=== PATIENT | female | born 1975 | race Caucasian/White ===

== ENCOUNTER → 2020-04-11 14:09 | Outpatient (BNVA) | payer OTHER, SELFPAY | PROVIDERS: PCP Internal Medicine; Referring Provider Internal Medicine; Visit Provider Obstetrics & Gynecology | DX: Z39.2 Encounter for routine postpartum follow-up (principal); Z98.891 History of uterine scar from previous surgery; R82.90 Unspecified abnormal findings in urine | CPT/HCPCS: 96372; 99212 ==

== ENCOUNTER 2020-06-12 12:31 | Outpatient (REF) | payer OTHER, SELFPAY | END 2020-06-12 12:32 | disposition home or self-care (01) | LOC: HO.LAB 12:31 | PROVIDERS: Visit Provider Hospitalist | DX: Z20.828 Contact with and (suspected) exposure to other viral communicable diseases (principal) | CPT/HCPCS: U0003 ==

== ENCOUNTER → 2020-07-02 09:01 | Outpatient (BNVA) | payer OTHER, SELFPAY | PROVIDERS: PCP Internal Medicine; Visit Provider Internal Medicine Endocrinology, Diabetes & Metabolism | DX: Z76.89 Persons encountering health services in other specified circumstances (principal) ==

== ENCOUNTER → 2020-07-04 14:58 | Outpatient (BNVA) | payer OTHER, SELFPAY | PROVIDERS: PCP Internal Medicine | DX: Z30.42 Encounter for surveillance of injectable contraceptive (principal) | CPT/HCPCS: 96372; 99211; J1050 ==

== ENCOUNTER 2020-07-17 14:16 | Outpatient (REF) | payer OTHER, SELFPAY ==
--- NOTE | 2020-07-17 14:18 | MR_ITS ---
EXAMINATION: MR BRAIN WITHOUT AND WITH CONTRAST CLINICAL INFORMATION: Biliary vision for 3 months. Headaches. History of Rathke's cleft cyst. COMPARISON: Multiple prior MRI scans, the most recent from 12/29/2018. TECHNIQUE: Multiplanar, multisequence MRI of the brain was obtained before and after the intravenous administration of 3 mL Gadavist. FINDINGS: There has been minimal further interval increase in the size of a focus of increased T1 signal in the pituitary gland, which measures 0.8 x 1.5 x 1.0 cm in AP, transverse and craniocaudal dimensions. It measured 0.8 x 1.4 x 1.0 cm on the most recent prior study. The study redemonstrates the convex configuration of the superior aspect of this lesion. Following contrast administration, there is no decreased differential enhancement. The infundibulum is slightly deviated to the right. There is no mass effect on the optic chiasm or prechiasmatic optic nerves. Flow-voids from the cavernous internal carotid arteries are maintained, and there is normal enhancement of the cavernous sinuses. No diffusion abnormalities are identified to suggest an acute or subacute infarct. No mass effect or midline shift is seen. The ventricles and sulci appear normal. The study redemonstrates scattered areas of increased T2 and FLAIR signal in the subcutaneous cortical and periventricular white matter, slightly increased in number compared to prior imaging. These are nonspecific, and may be consistent with sequelae of vasculitis or migraine. The patient is relatively young for chronic microvascular ischemic changes, and the distribution is not suggestive of demyelination. No extra-axial fluid collections are seen. The brainstem and cerebellum are normal. On postcontrast imaging, there is no abnormal parenchymal or leptomeningeal enhancement. There is no evidence of hemorrhage. The craniovertebral junction, marrow signal, and midline structures are normal. The major intracranial flow-voids at the level of the [place] are preserved. The dural venous sinus flow-voids are maintained. Mastoid air cells are well-aerated. There is mild mucoperiosteal thickening in the left maxillary and bilateral ethmoid air cells. There is a small cyst in the right maxillary sinus. There is mild mucoperiosteal thickening of the bilateral frontal sinuses; these findings are progressed compared to prior imaging. MR/MR head/brain wo/w con IMPRESSION: 1. 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 There is no mass effect on the optic chiasm or prechiasmatic optic nerve. 2. There are no acute bleeds or infarcts. There is no abnormal enhancement. There are multiple white matter changes as described above.
== END 2020-07-17 14:17 | disposition home or self-care (01) ==
LOC: HO.MRI 14:16
PROVIDERS: Visit Provider Internal Medicine Endocrinology, Diabetes & Metabolism
DX: E23.6 Other disorders of pituitary gland (principal)
CPT/HCPCS: 70553; A9585

== ENCOUNTER → 2020-09-22 12:47 | Outpatient (BNVA) | payer OTHER, SELFPAY | PROVIDERS: PCP Internal Medicine; Visit Provider Advanced Practice Midwife | DX: Z30.42 Encounter for surveillance of injectable contraceptive (principal) | CPT/HCPCS: 96372; 99211; J1050 ==

== ENCOUNTER → 2020-10-01 09:17 | Outpatient (BNVA) | payer OTHER, SELFPAY | PROVIDERS: PCP Internal Medicine; Visit Provider Internal Medicine Endocrinology, Diabetes & Metabolism ==

== ENCOUNTER → 2020-12-10 13:00 | Outpatient (BNVA) | payer OTHER, SELFPAY | PROVIDERS: Visit Provider Advanced Practice Midwife | DX: Z30.42 Encounter for surveillance of injectable contraceptive (principal) | CPT/HCPCS: 96372; 99211 ==

== ENCOUNTER 2021-02-01 13:26 | Emergency (ER) | payer OTHER, SELFPAY ==
--- NOTE | ~2021-02-01 | CT_ITS ---
EXAMINATION: CT ABDOMEN AND PELVIS WITHOUT CONTRAST CLINICAL INFORMATION: Left flank/lower abdominal pain. COMPARISON: Most recent pelvic ultrasound dated 08/03/[address] abdomen/pelvis dated 09/13/2017. TECHNIQUE: Multidetector volumetric imaging was performed from the superior aspect of the liver through the pubic symphysis. Sagittal and coronal reformatted images were obtained on the technologist's workstation. This CT examination was performed using dose optimization techniques as appropriate, variously including the following: *Automated exposure control. *Adjustment of mA and/or kV according to patient size (this includes techniques or standardized protocols for targeted exams where dose is matched to indication/reason for exam; i.e. extremities or head). *Use of iterative reconstruction technique. DLP: 395 mGy-cm. FINDINGS: LUNG BASES: The visualized lung bases are unremarkable. LIVER, GALLBLADDER, AND BILIARY TREE: The liver is normal in size, shape, and attenuation. No focal hepatic lesion or biliary ductal dilatation is present. The gallbladder is unremarkable with no evidence of radiopaque gallstones, gallbladder wall thickening, or obvious pericholecystic inflammatory changes. PANCREAS: Unremarkable. SPLEEN: Unremarkable. ADRENAL GLANDS: Unremarkable. KIDNEYS AND URETERS: The kidneys are normal in size, shape, and attenuation. No renal stone. At the right ureterovesicular junction there is a 0.1 cm hypodensity (axial image [id number]). Findings could represent artifact versus a tiny ureterovesicular junction stone. Stable minimal prominence of the right ureter, unchanged when compared to the CT dated 09/13/2017. No new hydroureter nephrosis. No perinephric stranding. BLADDER: Unremarkable. GASTROINTESTINAL TRACT: There is mild circumferential wall thickening of the duodenum with minimal adjacent stranding, which could indicate duodenitis in the appropriate clinical setting. No additional bowel wall thickening or inflammatory change. No small or large bowel obstruction. Appendix not seen, however, no right lower quadrant fat or change to suggest acute appendicitis. PERITONEAL CAVITY: No intra-abdominal free air or free fluid. No intra-abdominal mass or organized fluid collection/abscess formation. ABDOMINAL WALL: No significant hernia is appreciated. LYMPH NODES: No significant lymphadenopathy, however, evaluation is limited without IV contrast. VASCULAR: Unremarkable. PELVIC VISCERA: The uterus and adnexa are unremarkable. OSSEOUS STRUCTURES: Unremarkable. CT/CT abdomen pelvis wo con IMPRESSION: 1. Mild circumferential wall thickening of the duodenum with minimal adjacent fat stranding, which is new when compared to the prior examination and could represent duodenitis in the appropriate clinical setting. An infectious or inflammatory process could be considered. No small or large bowel obstruction. Appendix not seen, however, no right lower quadrant inflammatory changes to suggest acute appendicitis. 2. Tiny, 0.1 cm density in the region of the right ureterovesicular junction, which may represent artifact versus a punctate stone. Minimal prominence of the right ureter is unchanged when compared to the prior examination. No new hydroureter or hydronephrosis. No new renal stone. 3. No intra-abdominal mass, lymphadenopathy, or ascites.
[2021-02-01 13:32] VITALS: BP 105/66; PULSE 69; RESP 18; TEMP 36.6; O2SAT 99; BMI 20.9
--- NOTE | 2021-02-01 14:56 | ED_ITS ---
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 Pain started 5 days ago and progressively getting worse, pain is localized to the left lower quadrant area and left flank pain, pain is associated with nausea but no vomiting, no diarrhea, patient also declined any dysuria or frequency. Decline fever, chills. Declined any bloody bowel movement. <Elizabeth العراقي MD - Last Filed: 02/01/21 16:34> Related Data Home Medications: Home Medications Medication Instructions Recorded Confirmed zolpidem 10 mg tablet 10 mg PO BEDTIME PRN 07/02/20 10/01/20 Previous Rx's Medication Instructions Recorded amoxicillin 875 mg tablet 875 mg PO BID 7 Days #14 tab 07/25/20 fluticasone propionate 50 2 spray INTRANASAL DAILY #16 g 07/25/20 mcg/actuation nasal spray,suspension (Allergy Relief (fluticasone)) medroxyprogesterone 150 mg/mL 150 mg IM [id number] #1 ml 09/22/20 intramuscular suspension (Depo-Provera) omeprazole magnesium 20 mg 20 mg PO BID #30 tab 02/01/21 tablet,delayed release (Prilosec OTC) <MD Zbigniew Nguyen Last Filed: 02/01/21 16:34> Allergies/Adverse Reactions: Allergies Allergy/AdvReac Type Severity Reaction Status Date / Time tramadol [TRAMADOL] Allergy Unknown NAUSEA & Unverified 07/25/20 12:27 VOMITING, vomiting, nausea vomitting <Elizabeth العراقي MD - Last Filed: 02/01/21 16:34> Review of Systems Review of Systems All other systems are reviewed and are negative Constitutional: Reports as per HPI and Reports no additional constitutional complaints Eyes: Reports as per HPI and Reports no additional eye complaints Reports system reviewed and no additional complaints, except as documented Cardiovascular: Reports as per HPI and Reports no additional cardiovascular complaints Respiratory: Reports as per HPI and Reports no additional respiratory complaints Gastrointestinal: Reports as per HPI and Reports no additional gastrointestinal complaints Genitourinary: Reports no additional female genitourinary complaints Musculoskeletal: Reports no additional musculoskeletal complaints Skin/Breast: Reports system reviewed and no additional complaints, except as docu Psychiatric: Reports no additional psychiatric complaints Endocrine: Reports no additional endocrine complaints Hematologic/Lymphatic: Reports no additional hematologic/lymphatic complaints Allergic/Immunologic: Reports no additional allergic/immunologic complaints Reports system reviewed and no additional complaints, except as documented and Reports Abnormal speech present <Elizabeth العراقي MD - Last Filed: 02/01/21 16:34> Physical Exam Vital Signs: Vital Signs: Last Vital Signs Temp 97.9 F 02/01/21 15:27 Pulse 72 02/01/21 15:27 Resp 16 02/01/21 15:27 BP 105/63 02/01/21 15:27 Pulse Ox 99 02/01/21 15:27 Body Mass Index 20.9 Vital signs have been reviewed as appeared to be correct. Blood pressure normal. Heart rate normal. Respiration rate normal. Temperature normal. Oxygen saturation normal. <Elizabeth العراقي MD - Last Filed: 02/01/21 16:34> Vital Signs: Last Vital Signs Temp 97.9 F 02/01/21 15:27 Pulse 72 02/01/21 15:27 Resp 16 02/01/21 15:27 BP 105/63 02/01/21 15:27 Pulse Ox 99 02/01/21 15:27 Body Mass Index 20.9 <PEPE Rodgers - Last Filed: 02/01/21 17:20> Appearance: Alert. Oriented X3. No acute distress. Head: Normal external exam. Normocephalic. Atraumatic. No [place] signs noted. No raccoon eyes noted Eyes: PERRLA. EOMI. Conjunctiva and sclera normal. Eyelids normal. ENT: TM's Normal. Pharynx normal. Uvula midline. Moist mucous membranes. No trismus noted. No drooling noted. No muffled voice noted. Neck: Normal inspection. Neck supple. FROM. No adenopathy. Thyroid Normal. No meningeal signs. No neck mass noted. CVS: Normal heart rate and rhythm. Heart sound normal. No murmurs noted. Pulses normal throughout. Respiratory: No respiratory distress. Painless inspiration. Breath sounds normal. No wheezes/rales/rhonchi noted. Chest nontender. No accessory muscle usage noted or decreased air movement noted. Abdomen: Soft and nontender. Bowel sounds normal in all 4 quadrants. No distention noted. No organomegaly noted. No visible injury noted. Back: No CVA tenderness. Full range of motion noted. Skin: Skin warm and dry. Normal skin color. Normal skin turgor. No deyvi hes/lesions/lacerations noted. Extremities: No lower extremity edema. Extremities exhibit normal range of motion. Extremities nontender. Neuro: Oriented X 3. Cranial nerve exam: II-XII are grossly intact No motor deficit. No sensory deficit. Reflexes normal. <Elizabeth العراقي MD - Last Filed: 02/01/21 16:34> Course Course Course Narrative: Assessment and plan. 45-year-old female came in with left-sided abdominal pain for the past 5 days, normal WBCs, unremarkable labs otherwise, CT abdomen pelvis possible duodenitis, also questionable small right kidney stone. Will discharge the patient on Prilosec and follow up with phlebotomy services technician. <Elizabeth العراقي MD - Last Filed: 02/01/21 16:34> Reevaluation(s) Reevaluation #1: Patient is stable for discharge from the ER. <PEPE Rodgers - Last Filed: 02/01/21 17:20> MDM - Abdominal Pain Medical Records Attestation: I reviewed the patient's medical records. <Elizabeth العراقي MD - Last Filed: 02/01/21 16:34> Lab Data Attestation: I reviewed the patient's lab results. <Elizabeth العراقي MD - Last Filed: 02/01/21 16:34> Result diagrams: : 02/01/21 14:57 08/15/21 14:57 <Elizabeth العراقي MD - Last Filed: 02/01/21 16:34> Labs: Lab Results 02/01/21 02/01/21 02/01/21 Range/Units 14:57 14:57 14:57 WBC 8.7 (4.8-10.8) X10*3/uL RBC 4.97 (4.20-5.50) X10*6/uL Hgb 14.8 (12.0-16.0) g/dl Hct 46.5 (37-47) % MCV 93.6 (80-98) fL MCH 29.8 (27.0-33.0) pg MCHC 31.8 (31.0-35.0) g/dl RDW 13.2 (11.0-16.0) % Plt Count 225 (160-400) X10*3/uL MPV 11.8 (9.4-12.3) fL Immature Gran % (Auto) 0.3 (0.0-0.4) % Neut % (Auto) 76.6 H (45-73) % Lymph % (Auto) 15.7 L (20-40) % [place] % (Auto) 4.7 (2-11) % Eos % (Auto) 2.1 (0-4) % Baso % (Auto) 0.6 (0-2) % Lymph # (Auto) 1.4 (1.2-4.9) X10*3/uL [place] # (Auto) 0.4 (0.1-1.2) X10*3/uL Eos # (Auto) 0.2 (0.0-0.4) X10*3/uL Baso # (Auto) 0.1 (0.0-0.2) X10*3/uL Abs Immat Gran (auto) 0.03 (0.00-0.03) X10*3/uL Absolute Neuts (auto) 6.6 (2.0-8.3) X10*3/uL Absolute Nucleated RBC 0.000 (0.0-0.012) X10*3/uL Nucleated RBC % (auto) 0.0 (0.0-0.2) /100WBC Sodium 141 (135-145) mmol/L Potassium 4.2 (3.3-5.1) mmol/L Chloride 107 (96-108) mmol/L Carbon Dioxide 23 (22-29) mmol/L Anion Gap 15 (12-20) BUN 18 H (9-16) mg/dL Creatinine 1.02 (0.5-1.4) mg/dL Estim Creat Clear Calc 65.6 Estimated GFR 59 Random Glucose 121 H (60-115) mg/dL Calcium 10.0 (8.4-10.2) mg/dL Total Bilirubin 0.8 (0.0-1.0) mg/dL Direct Bilirubin 0.2 (0.0-0.5) mg/dL AST 14 (5-31) U/L ALT 16 (0-31) U/L Alkaline Phosphatase 92 (39-117) U/L Total Protein 7.5 (6.5-8.0) g/dL Albumin 4.7 (3.5-5.0) g/dL Lipase 34 (8-78) U/L Urine Color YELLOW Urine Appearance HAZY Urine pH 7.0 (5.0-8.0) Ur Specific [place] 1.020 (1.005-1.025) Urine Protein TRACE (NEG-TRACE) MG/DL Urine Glucose (UA) NEG (NEG) MG/DL Urine Ketones NEG (NEG) MG/DL Urine Blood TRACE (NEG) Urine Nitrite NEG (NEG) Ur Leukocyte Esterase NEG (NEG) Urine RBC 0-2 (0) /HPF Urine WBC 0-2 (0-4) /HPF Ur Squamous Epith Cells 3+ /LPF Urine Bacteria NONE /LPF Urine Test (NEGATIVE) 02/01/21 Range/Units 14:57 WBC (4.8-10.8) X10*3/uL RBC (4.20-5.50) X10*6/uL Hgb (12.0-16.0) g/dl Hct (37-47) % MCV (80-98) fL MCH (27.0-33.0) pg MCHC (31.0-35.0) g/dl RDW (11.0-16.0) % Plt Count (160-400) X10*3/uL MPV (9.4-12.3) fL Immature Gran % (Auto) (0.0-0.4) % Neut % (Auto) (45-73) % Lymph % (Auto) (20-40) % [place] % (Auto) (2-11) % Eos % (Auto) (0-4) % Baso % (Auto) (0-2) % Lymph # (Auto) (1.2-4.9) X10*3/uL [place] # (Auto) (0.1-1.2) X10*3/uL Eos # (Auto) (0.0-0.4) X10*3/uL Baso # (Auto) (0.0-0.2) X10*3/uL Abs Immat Gran (auto) (0.00-0.03) X10*3/uL Absolute Neuts (auto) (2.0-8.3) X10*3/uL Absolute Nucleated RBC (0.0-0.012) X10*3/uL Nucleated RBC % (auto) (0.0-0.2) /100WBC Sodium (135-145) mmol/L Potassium (3.3-5.1) mmol/L Chloride (96-108) mmol/L Carbon Dioxide (22-29) mmol/L Anion Gap (12-20) BUN (9-16) mg/dL Creatinine (0.5-1.4) mg/dL Estim Creat Clear Calc Estimated GFR Random Glucose (60-115) mg/dL Calcium (8.4-10.2) mg/dL Total Bilirubin (0.0-1.0) mg/dL Direct Bilirubin (0.0-0.5) mg/dL AST (5-31) U/L ALT (0-31) U/L Alkaline Phosphatase (39-117) U/L Total Protein (6.5-8.0) g/dL Albumin (3.5-5.0) g/dL Lipase (8-78) U/L Urine Color Urine Appearance Urine pH (5.0-8.0) Ur Specific [place] (1.005-1.025) Urine Protein (NEG-TRACE) MG/DL Urine Glucose (UA) (NEG) MG/DL Urine Ketones (NEG) MG/DL Urine Blood (NEG) Urine Nitrite (NEG) Ur Leukocyte Esterase (NEG) Urine RBC (0) /HPF Urine WBC (0-4) /HPF Ur Squamous Epith Cells /LPF Urine Bacteria /LPF Urine Test NEGATIVE (NEGATIVE) <Elizabeth العراقي MD - Last Filed: 02/01/21 16:34> Lab Results 02/01/21 02/01/21 02/01/21 Range/Units 14:57 14:57 14:57 WBC 8.7 (4.8-10.8) X10*3/uL RBC 4.97 (4.20-5.50) X10*6/uL Hgb 14.8 (12.0-16.0) g/dl Hct 46.5 (37-47) % MCV 93.6 (80-98) fL MCH 29.8 (27.0-33.0) pg MCHC 31.8 (31.0-35.0) g/dl RDW 13.2 (11.0-16.0) % Plt Count 225 (160-400) X10*3/uL MPV 11.8 (9.4-12.3) fL Immature Gran % (Auto) 0.3 (0.0-0.4) % Neut % (Auto) 76.6 H (45-73) % Lymph % (Auto) 15.7 L (20-40) % [place] % (Auto) 4.7 (2-11) % Eos % (Auto) 2.1 (0-4) % Baso % (Auto) 0.6 (0-2) % Lymph # (Auto) 1.4 (1.2-4.9) X10*3/uL [place] # (Auto) 0.4 (0.1-1.2) X10*3/uL Eos # (Auto) 0.2 (0.0-0.4) X10*3/uL Baso # (Auto) 0.1 (0.0-0.2) X10*3/uL Abs Immat Gran (auto) 0.03 (0.00-0.03) X10*3/uL Absolute Neuts (auto) 6.6 (2.0-8.3) X10*3/uL Absolute Nucleated RBC 0.000 (0.0-0.012) X10*3/uL Nucleated RBC % (auto) 0.0 (0.0-0.2) /100WBC Sodium 141 (135-145) mmol/L Potassium 4.2 (3.3-5.1) mmol/L Chloride 107 (96-108) mmol/L Carbon Dioxide 23 (22-29) mmol/L Anion Gap 15 (12-20) BUN 18 H (9-16) mg/dL Creatinine 1.02 (0.5-1.4) mg/dL Estim Creat Clear Calc 65.6 Estimated GFR 59 Random Glucose 121 H (60-115) mg/dL Calcium 10.0 (8.4-10.2) mg/dL Total Bilirubin 0.8 (0.0-1.0) mg/dL Direct Bilirubin 0.2 (0.0-0.5) mg/dL AST 14 (5-31) U/L ALT 16 (0-31) U/L Alkaline Phosphatase 92 (39-117) U/L Total Protein 7.5 (6.5-8.0) g/dL Albumin 4.7 (3.5-5.0) g/dL Lipase 34 (8-78) U/L Urine Color YELLOW Urine Appearance HAZY Urine pH 7.0 (5.0-8.0) Ur Specific [place] 1.020 (1.005-1.025) Urine Protein TRACE (NEG-TRACE) MG/DL Urine Glucose (UA) NEG (NEG) MG/DL Urine Ketones NEG (NEG) MG/DL Urine Blood TRACE (NEG) Urine Nitrite NEG (NEG) Ur Leukocyte Esterase NEG (NEG) Urine RBC 0-2 (0) /HPF Urine WBC 0-2 (0-4) /HPF Ur Squamous Epith Cells 3+ /LPF Urine Bacteria NONE /LPF Urine Test (NEGATIVE) 02/01/21 Range/Units 14:57 WBC (4.8-10.8) X10*3/uL RBC (4.20-5.50) X10*6/uL Hgb (12.0-16.0) g/dl Hct (37-47) % MCV (80-98) fL MCH (27.0-33.0) pg MCHC (31.0-35.0) g/dl RDW (11.0-16.0) % Plt Count (160-400) X10*3/uL MPV (9.4-12.3) fL Immature Gran % (Auto) (0.0-0.4) % Neut % (Auto) (45-73) % Lymph % (Auto) (20-40) % [place] % (Auto) (2-11) % Eos % (Auto) (0-4) % Baso % (Auto) (0-2) % Lymph # (Auto) (1.2-4.9) X10*3/uL [place] # (Auto) (0.1-1.2) X10*3/uL Eos # (Auto) (0.0-0.4) X10*3/uL Baso # (Auto) (0.0-0.2) X10*3/uL Abs Immat Gran (auto) (0.00-0.03) X10*3/uL Absolute Neuts (auto) (2.0-8.3) X10*3/uL Absolute Nucleated RBC (0.0-0.012) X10*3/uL Nucleated RBC % (auto) (0.0-0.2) /100WBC Sodium (135-145) mmol/L Potassium (3.3-5.1) mmol/L Chloride (96-108) mmol/L Carbon Dioxide (22-29) mmol/L Anion Gap (12-20) BUN (9-16) mg/dL Creatinine (0.5-1.4) mg/dL Estim Creat Clear Calc Estimated GFR Random Glucose (60-115) mg/dL Calcium (8.4-10.2) mg/dL Total Bilirubin (0.0-1.0) mg/dL Direct Bilirubin (0.0-0.5) mg/dL AST (5-31) U/L ALT (0-31) U/L Alkaline Phosphatase (39-117) U/L Total Protein (6.5-8.0) g/dL Albumin (3.5-5.0) g/dL Lipase (8-78) U/L Urine Color Urine Appearance Urine pH (5.0-8.0) Ur Specific [place] (1.005-1.025) Urine Protein (NEG-TRACE) MG/DL Urine Glucose (UA) (NEG) MG/DL Urine Ketones (NEG) MG/DL Urine Blood (NEG) Urine Nitrite (NEG) Ur Leukocyte Esterase (NEG) Urine RBC (0) /HPF Urine WBC (0-4) /HPF Ur Squamous Epith Cells /LPF Urine Bacteria /LPF Urine Test NEGATIVE (NEGATIVE) <PEPE Rodgers - Last Filed: 02/01/21 17:20> Imaging Data CT scan - abdomen: Radiologist's impression: 1. Mild circumferential wall thickening of the duodenum with minimal adjacent fat stranding, which is new when compared to the prior examination and could represent duodenitis in the appropriate clinical setting. An infectious or inflammatory process could be considered. No small or large bowel obstruction. Appendix not seen, however, no right lower quadrant inflammatory changes to suggest acute appendicitis. ? 2. Tiny, 0.1 cm density in the region of the right ureterovesicular junction, which may represent artifact versus a punctate stone. Minimal prominence of the right ureter is unchanged when compared to the prior examination. No new hydroureter or hydronephrosis. No new renal stone. ? 3. No intra-abdominal mass, lymphadenopathy, or ascites.? <Elizabeth العراقي MD - Last Filed: 02/01/21 16:34> Discharge Plan Discharge Clinical Impression: Abdominal pain Qualifiers: Abdominal location: unspecified location Qualified Code(s): R10.9 - Unspecified abdominal pain <Elizabeth العراقي MD - Last Filed: 02/01/21 16:34> Patient Disposition: Home, Self-Care <Elizabeth العراقي MD - Last Filed: 02/01/21 16:34> Instructions: Abdominal Pain (ED) <Elizabeth العراقي MD - Last Filed: 02/01/21 16:34> Prescriptions: New omeprazole magnesium [Prilosec OTC] 20 mg tablet,delayed release (DR/EC) 20 mg PO BID Qty: 30 RF: 0 No Action amoxicillin 875 mg tablet 875 mg PO BID 7 Days Qty: 14 RF: 0 fluticasone propionate [Allergy Relief (fluticasone)] 50 mcg/actuation spray,suspension 2 spray intranasal DAILY Qty: 16 RF: 0 medroxyprogesterone [Depo-Provera] 150 mg/mL suspension 150 mg IM [id number] Qty: 1 RF: 1 zolpidem 10 mg tablet 10 mg PO BEDTIME PRNRF: 0 <Elizabeth العراقي MD - Last Filed: 02/01/21 16:34> Referrals: Lyssa Peterson MD [Physician] - 2 days Celestina Alston MD [Primary Care Provider] - 2 days <Elizabeth العراقي MD - Last Filed: 02/01/21 16:34> [facility] Past Medical History Medical History: Medical History Abnormal urine odor Rathke's cleft cyst <Elizabeth العراقي MD - Last Filed: 02/01/21 16:34> Surgical History: Surgical History History of appendectomy History of History of esophagogastroduodenoscopy (EGD) History of left salpingo-oophorectomy Hx of mammogram Hx of umbilical hernia repair <Elizabeth العراقي MD - Last Filed: 02/01/21 16:34> Family History Family History: Family History Father Hyperlipidemia HTN (hypertension) Mother Healthy female <Elizabeth العراقي MD - Last Filed: 02/01/21 16:34> Social History Social History: Social History Household Members: Children Alcohol intake: never Advance Directives: No Advance Directives Information Provided: Yes Sexual orientation: Straight/Heterosexual Gender identity: female <Elizabeth العراقي MD - Last Filed: 02/01/21 16:34>
[2021-02-01 15:02] LABS: MANUAL DIFF FLAG NO
[2021-02-01 15:03] LABS: Basophils Absolute Auto 0.1 X10*3/uL (0.0-0.2); Basophils Percent Auto 0.6 % (0-2); Eosinophils Absolute Auto 0.2 X10*3/uL (0.0-0.4); Eosinophils Percent Auto 2.1 % (0-4); Hematocrit 46.5 % (37-47); Hemoglobin 14.8 g/dl (12.0-16.0); Imm Gran Abs Auto 0.03 X10*3/uL (0.00-0.03); Imm Gran Pct Auto 0.3 % (0.0-0.4); Lymphocytes Absolute Auto 1.4 X10*3/uL (1.2-4.9); Lymphocytes Percent Auto 15.7 % (20-40); Mean Corpuscular HGB Conc 31.8 g/dl (31.0-35.0); Mean Corpuscular Hemoglobin 29.8 pg (27.0-33.0); Mean Corpuscular Volume 93.6 fL (80-98); Mean Platelet Volume 11.8 fL (9.4-12.3); Monocytes Absolute Auto 0.4 X10*3/uL (0.1-1.2); Monocytes Percent Auto 4.7 % (2-11); Neutrophils Absolute Auto 6.6 X10*3/uL (2.0-8.3); Neutrophils Percent Auto 76.6 % (45-73); Platelet Count 225 X10*3/uL (160-400); Red Blood Count 4.97 X10*6/uL (4.20-5.50); Red Cell Distribution Width 13.2 % (11.0-16.0); White Blood Count 8.7 X10*3/uL (4.8-10.8)
[2021-02-01 15:04] LABS: Glucose Urine UA NEG (NEG); Leukocyte Esterase Urine NEG (NEG); Nitrite Urine NEG (NEG); UACC Culture Trigger NO; Urine Blood TRACE (NEG); Urine Ketones NEG (NEG); Urine Protein TRACE MG/DL (NEG-TRACE)
[2021-02-01] MEDS: 0.9 % Sodium Chloride 1,000 ML 999 ML IVCONT (15:05)
[2021-02-01 15:06] LABS: Appearance Urine HAZY; Color Urine YELLOW
[2021-02-01 15:07] LABS: UPreg QC Valid YES; Urine Pregnancy NEGATIVE (NEGATIVE)
[2021-02-01 15:15] LABS: RBC Urine 0-2 /HPF (0); Squamous Epithelial Cell Urine 3+ /LPF; WBC Urine 0-2 /HPF (0-4)
--- NOTE | 2021-02-01 15:20 | PC.NURSE ---
PT CURRENTLY BRSTFEEDING, REFUSES BOTTLE, PT DOES NOT PUMP BRST MILK. MORPHINE HELD, PT MADE AWARE OF RISK. MD AWARE WELL.
[2021-02-01 15:26] LABS: Alanine Aminotransferase 16 U/L (0-31); Albumin Level 4.7 g/dL (3.5-5.0); Alkaline Phosphatase 92 U/L (39-117); Anion Gap 15 (12-20); Aspartate Amino Transferase 14 U/L (5-31); Bilirubin Direct 0.2 mg/dL (0.0-0.5); Bilirubin Total 0.8 mg/dL (0.0-1.0); Blood Urea Nitrogen 18 mg/dL (9-16); Carbon Dioxide 23 mmol/L (22-29); Chloride 107 mmol/L (96-108); Creatinine Clr Calc Pharmacy 65.6; Estimated Glomerular Filt Rate 59; Glucose Random 121 mg/dL (60-115); Lipase 34 U/L (8-78); Potassium 4.2 mmol/L (3.3-5.1); Sodium 141 mmol/L (135-145); Total Protein 7.5 g/dL (6.5-8.0)
[2021-02-01 15:27] VITALS: BP 105/63; PULSE 72; RESP 16; TEMP 36.6; O2SAT 99
== END 2021-02-01 17:33 | disposition home or self-care (01) ==
PROVIDERS: Emergency Provider Emergency Medicine; PCP Internal Medicine
DX: R10.9 Unspecified abdominal pain (principal); Z79.899 Other long term (current) drug therapy
CPT/HCPCS: 36415; 74176; 80048; 80076; 81001; 81025; 83690; 85025; 96361; 96374; 99284

== ENCOUNTER → 2021-02-25 13:13 | Outpatient (BNVA) | payer OTHER, SELFPAY | PROVIDERS: PCP Internal Medicine; Visit Provider Advanced Practice Midwife | DX: Z30.42 Encounter for surveillance of injectable contraceptive (principal) | CPT/HCPCS: 96372; 99211 ==

== ENCOUNTER → 2021-04-08 15:13 | Outpatient (BNVA) | payer OTHER, SELFPAY | PROVIDERS: PCP Internal Medicine; Referring Provider Internal Medicine; Visit Provider Nurse Practitioner Family ==

== ENCOUNTER 2021-04-11 17:34 | Emergency (ER) | payer OTHER, SELFPAY ==
--- NOTE | ~2021-04-11 | CT_ITS ---
EXAMINATION: CT HEAD WITH/WITHOUT CONTRAST CLINICAL INFORMATION: History pituitary tumor COMPARISON: MRI brain dated 07/17/2020 TECHNIQUE: Contiguous axial imaging was performed from the skull base to vertex before and after the administration of 100 mL of Omnipaque [address] examination was performed using dose optimization techniques as appropriate, variously including the following: *Automated exposure control *Adjustment of mA and/or kV according to patient size (this includes techniques or standardized protocols for targeted exams where dose is matched to indication/reason for exam; i.e. extremities or head) *Use of iterative reconstruction technique DLP: 1200 mGy-cm FINDINGS: There is no evidence of acute intracranial hemorrhage or territorial infarction. Again seen is a nonenhancing 1.5 x 1.1 x 1.1 cm cystic structure within the pituitary gland most compatible with a Rathke's cleft cyst. The superior margin of the structure is convex and nearly contacts the chiasm without mass effect. Goldberg to white matter differentiation is well preserved. No extra-axial fluid collections are identified. There is no abnormal enhancement. The ventricles are normal in size. There is no abnormal attenuation within the brain parenchyma. The osseous structures and soft tissues are normal. Scattered secretions present throughout the ethmoid air cells. Remainder of the paranasal sinuses are clear. Subcentimeter osteoma present within left frontal sinus. CT/CT head/brain wo/w con IMPRESSION: No acute intracranial pathology. Stable nonenhancing cystic structure within the pituitary gland, previously characterized as a Rathke's cleft cyst.
[2021-04-11 17:54] VITALS: BP 104/66; PULSE 85; RESP 16; TEMP 37.1; O2SAT 97; BMI 22.3
--- NOTE | 2021-04-11 18:28 | PC.NURSE ---
pt alert and oriented, skin appropriate for ethnicity, respirations even and unlabored. pt reports headache x2 weeks, with blurry vision, dizziness that comes and goes, intermittent nausea, sinus pain and mouth pain. all nuero intac at this time, no visble facial droop, no drift, hand grasp strong and equal.
--- NOTE | 2021-04-11 18:31 | ED.GENADULT ---
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 She had been getting followed every 6 months for her pituitary problem, and was supposed to see a specialist but then she got . Her child is now a year old. The patient notes that she had received a letter stating that physician who was following her for this problem was no longer at the same practice. She does have a primary care physician. Patient complains of a headache gradually worse over the last week, radiating down to her neck, with some associated ear discomfort, some feeling of sinus pressure and congestion. The patient does feel like her vision is blurry at times and she cannot focus. She denied double vision per se. She has had nausea but no vomiting. She also notes that she has history of anemia and is concerned about her blood count. She states she previously has had MRIs done at this hospital Related Data Previous Rx's Medication Instructions Recorded fluticasone propionate 50 2 spray INTRANASAL DAILY #16 g 07/25/20 mcg/actuation nasal spray,suspension (Allergy Relief (fluticasone)) medroxyprogesterone 150 mg/mL 150 mg IM [id number] #1 ml 09/22/20 intramuscular suspension (Depo-Provera) omeprazole magnesium 20 mg 20 mg PO BID #30 tab 02/01/21 tablet,delayed release (Prilosec OTC) methylcellulose (laxative) 500 mg 500 mg PO DAILY #30 tab 04/08/21 tablet (Citrucel) sennosides 8.6 mg tablet (Natural 8.6 mg PO BEDTIME #30 tab 04/08/21 Senna Laxative) Allergies Allergy/AdvReac Type Severity Reaction Status Date / Time tramadol [TRAMADOL] Allergy Unknown NAUSEA & Verified 04/08/21 15:23 VOMITING, vomiting, nausea vomitting Review of Systems Review of Systems: Yes all other systems are reviewed and are negative Constitutional: Constitutional: Reports as per HPI, Reports fatigue and Denies fever(s) Eyes: Eyes: Reports as per HPI and Reports blurry vision ENT: Reports system reviewed and no additional complaints, except as documented, Reports as per HPI, Denies nasal congestion, Denies nasal discharge and Denies sore throat Comments: Facial pain, sinus pressure Cardiovascular: Cardiovascular: Reports as per HPI, Denies chest pain and Denies dyspnea Respiratory: Respiratory: Reports as per HPI, Denies cough and Denies dyspnea Gastrointestinal: Gastrointestinal: Reports as per HPI, Denies abdominal pain, Reports nausea and Denies vomiting Genitourinary: Genitourinary: Reports as per HPI, Denies hematuria, Denies urinary frequency and Denies dysuria Musculoskeletal: Musculoskeletal: Reports no additional musculoskeletal complaints and Denies numbness Integumentary/Breasts: Skin/Breast: Reports as per HPI and Denies rash Neurologic: Reports as per HPI, Denies focal weakness, Denies numbness and Denies Sensory deficit (Neuro) Psychiatric: Psychiatric: Reports no additional psychiatric complaints and Reports as per HPI Endocrine: Endocrine: Reports no additional endocrine complaints, Reports as per HPI and Reports fatigue Hematologic/Lymphatic: Hematologic/Lymphatic: Reports no additional hematologic/lymphatic complaints, Reports as per HPI and Reports other (No peripheral edema) [facility] Past Medical History Medical History (Updated 04/11/21 @ 21:01 by Dillan Segura MD) Abdominal pain Abnormal urine odor Bipolar depression Rathke's cleft cyst Renal calculi Surgical History History of appendectomy History of History of esophagogastroduodenoscopy (EGD) History of left salpingo-oophorectomy Hx of mammogram Hx of umbilical hernia repair Family History Family History Father Hyperlipidemia HTN (hypertension) Mother Healthy female Social History Social History Household Members: Children Housing: Apartment Alcohol intake: never Patient Tobacco Use Status: Former Tobacco user Tobacco use type: Cigarette e-Cigarette/Vaping Use: Never Used Second Hand Smoke Exposure: No Use of substances other than those prescribed or required for medical reasons: No Advance Directives: No Advance Directives Information Provided: Yes service: No Current occupational status: employed Current occupational exposures/hazards: No Sexual orientation: Straight/Heterosexual Gender identity: Female Physical Exam Vital Signs: Vital Signs: Last Vital Signs Temp 98.7 F 04/11/21 17:54 Pulse 85 04/11/21 17:54 Resp 16 04/11/21 17:54 BP 104/66 04/11/21 17:54 Pulse Ox 97 04/11/21 17:54 Body Mass Index 22.3 Const: General: cooperative, no acute distress and alert Orientation/consciousness: patient oriented x3 HENMT: Head: Yes normal to inspection Ears: TM's normal bilaterally Eyes: General: appearance normal, both eyes and all related structures Eyelids: Yes eyelids normal Conjunctivae: conjunctivae normal Pupils: Equal, round and reactive pupils present Neck: Neck: Yes normal visual inspection, Yes no lymphadenopathy and Yes supple Chest: Chest palpation & inspection: normal inspection of the chest Resp: Effort & Inspection: normal respiratory effort Auscultation: clear to auscultation bilaterally Cardio: Rate: regular rate Rhythm: regular rhythm Heart sounds: S1 normal heart sound present, S2 normal heart sound present, no gallops, no murmurs and no rubs GI: Palpation (GI): Soft to palpation, nontender and Other GI palpation findings present (Non-distended) Auscultation: normal bowel sounds Skin: General skin exam: no rashes or lesions noted Neuro: General: patient oriented x3, no focal motor deficits and CN's II-XI intact bilaterally Cranial nerves: Yes Equal, round and reactive pupils present Cognition (Neuro): normal cognition Motor exam (neuro): 5/5 motor strength present throughout Sensory Exam: No Sensory deficit (Neuro) Extrem: General: Yes normal to inspection and Yes no pedal edema Psych: Appearance: grossly normal Affect: normal affect Medical Decision Making [facility] Narrative Medical decision making narrative: Patient with a known Rathke's cleft cyst, had prior imaging last June, presented with progressive headache for a week, also is concerned about her anemia. Patient reported some visual changes. This reason CT scan with and without contrast was done and showed no change in the patient's cyst, or any other acute abnormalities. MRI was unavailable. Patient is not anemic. She felt better after medication here, was comfortable going home. Patient follow-up with primary care physician. Lab Data Lab results reviewed: Yes I reviewed the patient's lab results. Result diagrams: 04/11/21 19:20 04/11/21 19:20 Labs: Lab Results 10/23/21 10/23/21 10/23/21 Range/Units 19:20 19:20 19:20 WBC 9.3 (4.8-10.8) X10*3/uL RBC 4.17 L (4.20-5.50) X10*6/uL Hgb 12.8 (12.0-16.0) g/dl Hct 38.6 (37-47) % MCV 92.6 (80-98) fL MCH 30.7 (27.0-33.0) pg MCHC 33.2 (31.0-35.0) g/dl RDW 13.1 (11.0-16.0) % Plt Count 225 (160-400) X10*3/uL MPV 10.8 (9.4-12.3) fL Immature Gran % (Auto) 0.2 (0.0-0.4) % Neut % (Auto) 55.4 (45-73) % Lymph % (Auto) 30.8 (20-40) % Reeves % (Auto) 7.0 (2-11) % Eos % (Auto) 6.0 H (0-4) % Baso % (Auto) 0.6 (0-2) % Lymph # (Auto) 2.9 (1.2-4.9) X10*3/uL Reeves # (Auto) 0.7 (0.1-1.2) X10*3/uL Eos # (Auto) 0.6 H (0.0-0.4) X10*3/uL Baso # (Auto) 0.1 (0.0-0.2) X10*3/uL Abs Immat Gran (auto) 0.02 (0.00-0.03) X10*3/uL Absolute Neuts (auto) 5.2 (2.0-8.3) X10*3/uL Absolute Nucleated RBC 0.000 (0.0-0.012) X10*3/uL Nucleated RBC % (auto) 0.0 (0.0-0.2) /100WBC Sodium 138 (135-145) mmol/L Potassium 3.9 (3.3-5.1) mmol/L Chloride 104 (96-108) mmol/L Carbon Dioxide 25 (22-29) mmol/L Anion Gap 13 (12-20) BUN 15 (9-16) mg/dL Creatinine 0.85 (0.5-1.4) mg/dL Estim Creat Clear Calc 79.1 Estimated GFR > 60 Random Glucose 96 (60-115) mg/dL Calcium 9.8 (8.4-10.2) mg/dL Total Bilirubin 0.5 (0.0-1.0) mg/dL AST 15 (5-31) U/L ALT 13 (0-31) U/L Alkaline Phosphatase 91 (39-117) U/L Total Protein 6.7 (6.5-8.0) g/dL Albumin 4.2 (3.5-5.0) g/dL Urine Color Urine Appearance Urine pH (5.0-8.0) Ur Specific Kincaid (1.005-1.025) Urine Protein (NEG-TRACE) MG/DL Urine Glucose (UA) (NEG) MG/DL Urine Ketones (NEG) MG/DL Urine Blood (NEG) Urine Nitrite (NEG) Ur Leukocyte Esterase (NEG) Urine Test NEGATIVE (NEGATIVE) 04/11/21 Range/Units 19:20 WBC (4.8-10.8) X10*3/uL RBC (4.20-5.50) X10*6/uL Hgb (12.0-16.0) g/dl Hct (37-47) % MCV (80-98) fL MCH (27.0-33.0) pg MCHC (31.0-35.0) g/dl RDW (11.0-16.0) % Plt Count (160-400) X10*3/uL MPV (9.4-12.3) fL Immature Gran % (Auto) (0.0-0.4) % Neut % (Auto) (45-73) % Lymph % (Auto) (20-40) % Reeves % (Auto) (2-11) % Eos % (Auto) (0-4) % Baso % (Auto) (0-2) % Lymph # (Auto) (1.2-4.9) X10*3/uL Reeves # (Auto) (0.1-1.2) X10*3/uL Eos # (Auto) (0.0-0.4) X10*3/uL Baso # (Auto) (0.0-0.2) X10*3/uL Abs Immat Gran (auto) (0.00-0.03) X10*3/uL Absolute Neuts (auto) (2.0-8.3) X10*3/uL Absolute Nucleated RBC (0.0-0.012) X10*3/uL Nucleated RBC % (auto) (0.0-0.2) /100WBC Sodium (135-145) mmol/L Potassium (3.3-5.1) mmol/L Chloride (96-108) mmol/L Carbon Dioxide (22-29) mmol/L Anion Gap (12-20) BUN (9-16) mg/dL Creatinine (0.5-1.4) mg/dL Estim Creat Clear Calc Estimated GFR Random Glucose (60-115) mg/dL Calcium (8.4-10.2) mg/dL Total Bilirubin (0.0-1.0) mg/dL AST (5-31) U/L ALT (0-31) U/L Alkaline Phosphatase (39-117) U/L Total Protein (6.5-8.0) g/dL Albumin (3.5-5.0) g/dL Urine Color YELLOW Urine Appearance CLEAR Urine pH 6.5 (5.0-8.0) Ur Specific Kincaid 1.015 (1.005-1.025) Urine Protein NEG (NEG-TRACE) MG/DL Urine Glucose (UA) NEG (NEG) MG/DL Urine Ketones NEG (NEG) MG/DL Urine Blood NEG (NEG) Urine Nitrite NEG (NEG) Ur Leukocyte Esterase NEG (NEG) Urine Test (NEGATIVE) Imaging Data CT scan - head: Attestation: I personally reviewed and interpreted this imaging study as follows: Radiologist's impression: IMPRESSION: No acute intracranial pathology. Stable nonenhancing cystic structure within the pituitary gland, previously characterized as a Rathke's cleft cyst. ? Discharge Plan Discharge Clinical Impression: Rathke's cleft cyst, Headache Patient Disposition: Home, Self-Care Instructions: General Headache (ED) Additional Instructions: Use Tylenol and/or ibuprofen for pain. Follow-up with primary care physician. Your CT scan showed no change in your pituitary cyst. Your blood count is normal. Prescriptions: No Action omeprazole magnesium [Prilosec OTC] 20 mg tablet,delayed release (DR/EC) 20 mg PO BID Qty: 30 RF: 0 fluticasone propionate [Allergy Relief (fluticasone)] 50 mcg/actuation spray,suspension 2 spray intranasal DAILY Qty: 16 RF: 0 medroxyprogesterone [Depo-Provera] 150 mg/mL suspension 150 mg IM [id number] Qty: 1 RF: 1 Citrucel 500 mg tablet 500 mg PO DAILY Qty: 30 RF: 2 sennosides [Natural Senna Laxative] 8.6 mg tablet 8.6 mg PO BEDTIME Qty: 30 RF: 3 Interventions: ED Discharge Assessment Last Done: 04/11/21 21:17 Discharge Date/Time: 04/11/21 21:51
[2021-04-11 19:26] LABS: MANUAL DIFF FLAG NO
[2021-04-11 19:27] LABS: Basophils Absolute Auto 0.1 X10*3/uL (0.0-0.2); Basophils Percent Auto 0.6 % (0-2); Eosinophils Absolute Auto 0.6 X10*3/uL (0.0-0.4); Hematocrit 38.6 % (37-47); Hemoglobin 12.8 g/dl (12.0-16.0); Imm Gran Abs Auto 0.02 X10*3/uL (0.00-0.03); Imm Gran Pct Auto 0.2 % (0.0-0.4); Lymphocytes Absolute Auto 2.9 X10*3/uL (1.2-4.9); Lymphocytes Percent Auto 30.8 % (20-40); Mean Corpuscular HGB Conc 33.2 g/dl (31.0-35.0); Mean Corpuscular Hemoglobin 30.7 pg (27.0-33.0); Mean Corpuscular Volume 92.6 fL (80-98); Mean Platelet Volume 10.8 fL (9.4-12.3); Monocytes Absolute Auto 0.7 X10*3/uL (0.1-1.2); Neutrophils Absolute Auto 5.2 X10*3/uL (2.0-8.3); Neutrophils Percent Auto 55.4 % (45-73); Platelet Count 225 X10*3/uL (160-400); Red Blood Count 4.17 X10*6/uL (4.20-5.50); Red Cell Distribution Width 13.1 % (11.0-16.0); White Blood Count 9.3 X10*3/uL (4.8-10.8)
[2021-04-11 19:29] LABS: Appearance Urine CLEAR; Color Urine YELLOW; Glucose Urine UA NEG (NEG); Leukocyte Esterase Urine NEG (NEG); Nitrite Urine NEG (NEG); PH 6.5 (5.0-8.0); Specific Gravity - Urine 1.015 (1.005-1.025); Urine Blood NEG (NEG); Urine Ketones NEG (NEG); Urine Protein NEG (NEG-TRACE)
[2021-04-11 19:30] LABS: UPreg QC Valid YES; Urine Pregnancy NEGATIVE (NEGATIVE)
[2021-04-11] MEDS: Prochlorperazine Edisylate 10 MG/2 ML VIAL IVPUSH (19:32)
[2021-04-11] MEDS: 0.9 % Sodium Chloride 1,000 ML 999 ML IV (19:32)
[2021-04-11] MEDS: Ketorolac Tromethamine 15 MG/ML VIAL IVPUSH (19:32)
[2021-04-11 19:46] LABS: Alanine Aminotransferase 13 U/L (0-31); Albumin Level 4.2 g/dL (3.5-5.0); Alkaline Phosphatase 91 U/L (39-117); Anion Gap 13 (12-20); Aspartate Amino Transferase 15 U/L (5-31); Bilirubin Total 0.5 mg/dL (0.0-1.0); Blood Urea Nitrogen 15 mg/dL (9-16); Calcium 9.8 mg/dL (8.4-10.2); Carbon Dioxide 25 mmol/L (22-29); Chloride 104 mmol/L (96-108); Creatinine Clr Calc Pharmacy 79.1; Estimated Glomerular Filt Rate > 60; Glucose Random 96 mg/dL (60-115); Potassium 3.9 mmol/L (3.3-5.1); Sodium 138 mmol/L (135-145); Total Protein 6.7 g/dL (6.5-8.0)
[2021-04-11] MEDS: iohexoL 350 MG/ML 100 ML INFUS..BTL IV (20:13)
--- NOTE | 2021-04-11 20:52 | PC.NURSE ---
pt states my pain is better and im ready to go home. MD aware.
== END 2021-04-11 21:51 | disposition home or self-care (01) ==
PROVIDERS: Emergency Provider Emergency Medicine; PCP Internal Medicine
DX: E23.6 Other disorders of pituitary gland (principal); R51.9 Headache, unspecified; Z87.891 Personal history of nicotine dependence; Z79.899 Other long term (current) drug therapy
CPT/HCPCS: 36415; 70470; 80053; 81003; 81025; 85025; 96361; 96374; 96375; 99284; J1885; Q9967

== ENCOUNTER → 2021-05-20 13:00 | Outpatient (BNVA) | payer OTHER, SELFPAY | PROVIDERS: PCP Internal Medicine; Visit Provider Advanced Practice Midwife | DX: Z30.42 Encounter for surveillance of injectable contraceptive (principal) | CPT/HCPCS: 96372; 99211 ==

== ENCOUNTER → 2021-06-18 08:37 | Outpatient (BNVA) | payer OTHER, SELFPAY | PROVIDERS: PCP Internal Medicine; Visit Provider Internal Medicine ==

== ENCOUNTER 2021-06-22 08:17 | Day surgery (SDC) | payer OTHER, SELFPAY ==
--- NOTE | 2021-06-18 11:54 | HO.ANESPROP2 ---
Documented by User: Samina Mac NP 06/18/21 11:55 HPI - Anesthesia Eval Consult details Narrative: 45yo F for Upper Endoscopy PMFSH Active Problems Active Problems: All Active Problems (Updated 06/18/21 @ 10:21 by Rupali Gonzalez DO) 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 present on magnetic resonance imaging (Acute) Contraception management (Acute) Acute sinusitis (Acute) Encounter for screening laboratory testing for COVID-19 virus (Acute) Depot contraception (Acute) Bipolar depression (Acute) Renal calculi (Acute) Abdominal pain (Acute) Rathke's cleft cyst (Acute) Past Medical History Medical History Abdominal pain Abnormal urine odor Bipolar depression Fibromyalgia History of snoring Hx of sinusitis Insomnia 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 present on magnetic resonance imaging Panic attacks Rathke's cleft cyst Renal calculi Family History Family History Father Hyperlipidemia HTN (hypertension) Mother Healthy female Surgical History Surgical History History of appendectomy History of History of esophagogastroduodenoscopy (EGD) History of left salpingo-oophorectomy History of pubovaginal sling Hx of mammogram Hx of umbilical hernia repair Social History Social History Household Members: Children Housing: Apartment Alcohol intake: never Patient Tobacco Use Status: Former Tobacco user Tobacco use type: Cigarette e-Cigarette/Vaping Use: Never Used Second Hand Smoke Exposure: No Use of substances other than those prescribed or required for medical reasons: No Are you DNR?: No Advance Directives: No Advance Directives Information Provided: Yes service: No Current occupational status: employed Current occupational exposures/hazards: No Sexual orientation: Straight/Heterosexual Gender identity: Female Meds Allergies Allergy/AdvReac Type Severity Reaction Status Date / Time tramadol [TRAMADOL] Allergy Unknown NAUSEA & Verified 06/18/21 09:57 VOMITING Exam Exam Date and Time: June 18, 2021 1154 Pertinent Lab Results Pertinent Lab Results: Laboratory Tests 04/11/21 19:20 Sodium 138 Potassium 3.9 Chloride 104 BUN 15 Creatinine 0.85 Assessment and Plan Assessment Anesthesia Assessment: Chart Reviewed Documented by User: Dotty Palencia MD 06/22/21 09:07 [facility] Past Medical History Medical History Abdominal pain Abnormal urine odor Bipolar depression Fibromyalgia History of snoring Hx of sinusitis Insomnia 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 present on magnetic resonance imaging Panic attacks Rathke's cleft cyst Renal calculi Family History Family History Father Hyperlipidemia HTN (hypertension) Mother Healthy female Family history of problems with anesthesia: No Surgical History Surgical History History of appendectomy History of History of esophagogastroduodenoscopy (EGD) History of left salpingo-oophorectomy History of pubovaginal sling Hx of mammogram Hx of umbilical hernia repair History of Problems with Anesthesia: No Social History Social History Household Members: Children Housing: Apartment Alcohol intake: never Patient Tobacco Use Status: Former Tobacco user Tobacco use type: Cigarette e-Cigarette/Vaping Use: Never Used Second Hand Smoke Exposure: No Use of substances other than those prescribed or required for medical reasons: No Are you DNR?: No Advance Directives: No Advance Directives Information Provided: Yes service: No Current occupational status: employed Current occupational exposures/hazards: No Sexual orientation: Straight/Heterosexual Gender identity: Female Meds Allergies Allergy/AdvReac Type Severity Reaction Status Date / Time tramadol [TRAMADOL] Allergy Unknown NAUSEA & Verified 06/18/21 09:57 VOMITING Exam Airway Mallampati Class: III TM Dist: <=3cm Neck ROM: Full Heart: rrr Lungs: cta Assessment and Plan Assessment Anesthesia Assessment: Anesthesia Plan Discussed and Chart Reviewed Final Anesthetic Review Family History of Problems with Anesthesia: No History of Problems with Anesthesia: No NPO: Yes ASA Class: II Final Preanesthetic Review: No Changes in Pt Med Stat, Meds/Allgs Chart Reviewed and Consent Obtained/Reviewed Patient Risk: Intermediate Procedure Risk: Intermediate Anesthetic Plan Anesthetic Plan: MAC: Disposition: Standard PACU
[2021-06-22 08:48] VITALS: BMI 22.6
[2021-06-22 09:21] LABS: UPreg QC Valid YES
[2021-06-22 09:23] LABS: Urine Pregnancy NEGATIVE (NEGATIVE)
[2021-06-22 09:25] VITALS: BP 105/71; PULSE 65; RESP 16; TEMP 35.9; O2SAT 99
[2021-06-22] MEDS: Lactated Ringers 1,000 ML 100 ML IVCONT (09:30)
--- NOTE | 2021-06-22 09:43 | MHC.SHP ---
Pre-Procedural Eval Section A Date of Service: 06/22/21 The patient is an INPATIENT: No The History & Physical has been completed within 30 days and I have reviewed it.: No Section B Chief Complaint: GERD Details of Present Illness: GERD, post prandial bloating Relevant Family History (Specify if Yes): No Relevant Social History: Tobacco Use (former smoker) Present Medications: see Short Stay Collaborative assessment Medical History: Significant History (Abdominal pain Abnormal urine odor Bipolar depression Rathke's cleft cyst Renal calculi) History of Previous Operations: Relevant previous surgery/procedure and date(s) (History of appendectomy History of History of esophagogastroduodenoscopy (EGD) History of left salpingo-oophorectomy Hx of mammogram Hx of umbilical hernia repair) Allergies: Allergies Allergy/AdvReac Type Severity Reaction Status Date / Time tramadol [TRAMADOL] Allergy Unknown NAUSEA & Verified 06/18/21 09:57 VOMITING Review of Systems Sugical H&P ROS: Negative: Constitution, Cardiovascular, Respiratory and Gastrointestinal Exam Surgical H&P Exam: Normal: Heart, Normal: Lungs, Normal: Extremities and Normal: Abdomen Plan Diagnosis/Plan: Unchanged I have reviewed the history and physical and performed a pertinent physical examination on my patient. No changes have occurred unless specified.
--- NOTE | 2021-06-22 09:54 | PM.OP ---
Brief Operative Note Date of Service: 06/22/21 Pre-op diagnosis: GERD, post prandial bloating Post-op diagnosis: other (GERD, esophagitis, gastritis, gastric polyps) Procedure: FLEXIBLE TRANSORAL UPPER GASTROINTESTINAL ENDOSCOPY WITH BIOPSIES Consent: Indications for the procedure and potential complications of bleeding, perforation, reaction to medications and missed diagnosis were discussed with the patient and informed consent was obtained. Instrument: Olympus GIF H 190 mid size upper endoscope Monitoring: Vital signs and clinical assessment, continuous EKG monitoring, Pulse oximetry, Carbon Dioxide monitoring and blood pressure monitoring were done throughout the procedure. Procedure: The patient was placed in the left lateral decubitis position and pre-procedure medications were administered and a bite block was placed. The endoscope was inserted into the mouth and advanced under direct vision to the third part of duodenum. A careful inspection was made as the upper endoscope was withdrawn including a retroflexed examination of the proximal stomach; Findings and interventions are described below. Findings: Larynx: Normal Esophagus: GE junction at 38 cms. Minimal focal esophagitis at GE junction. No Campo's. Stomach: A few 5 -10 mm benign appearing polyps in the gastric fundus - biopsied. Mild gastric erythema. Biopsies were obtained. Grade 2 flap valve on retroflexed examination of the cardia. Duodenum: Normal bulb and descending duodenum. Biopsies were obtained from 3rd part of the duodenum to check for celiac sprue Intervention: Biopsies as noted above Impression and Post Procedure Diagnosis: Endoscopy Findings: ESOPHAGUS: Minimal focal esophagitis at GE junction. STOMACH: Gastric polyps, gastritis DUODENUM: Normal - biopsied to check for celiac sprue Plan: Await pathology results Patient has an appointment on 07/06/20 in the GI Clinic with Shira Song FNP-BC. Above findings were reviewed with the patient and GERD and Gastric Polyps handouts were given in the discharge area Surgeon: Remigio Genao MD Anesthesia: MAC (Jose Grijalva, JAIME) Was an Irrigation Tax Assessor Collector used for this Procedure?: Yes Irrigation Tax Assessor Collector: Nyasia Mann Estimated blood loss (mL): 0 Pathology: other (A. small bowel bxs, R/O celiac B. gastric antrum, R/O H. pylori C. gastric polyp) Condition: stable Disposition: PACU
--- NOTE | 2021-06-22 09:55 | PCN2_ITS ---
Brief Operative Note Date of procedure: 06/22/21
--- NOTE | 2021-06-22 09:55 | PM.PROC ---
Brief Operative Note Date of procedure: 06/22/21
[2021-06-22 10:15] VITALS: BP 93/56; PULSE 71; RESP 16; TEMP 36.2; O2SAT 95
[2021-06-22 10:30] VITALS: BP 107/77; PULSE 60; RESP 16; TEMP 36.2; O2SAT 100
--- NOTE | 2021-06-26 15:48 | P.OP_ITS ---
Operative Note Operative Note Date of Service: 06/22/21 Narrative: Pre-op diagnosis:?GERD, post prandial bloating Post-op diagnosis:?other (GERD, esophagitis, gastritis, gastric polyps) Procedure:? FLEXIBLE TRANSORAL UPPER GASTROINTESTINAL ENDOSCOPY WITH BIOPSIES Consent:?Indications for the procedure and potential complications of bleeding, perforation, reaction to medications and missed diagnosis were discussed with the patient and informed consent was obtained. Instrument:?Olympus GIF H 190 mid size upper endoscope Monitoring: Vital signs and clinical assessment, continuous EKG monitoring, Pulse oximetry, Carbon Dioxide monitoring and blood pressure monitoring were done throughout the procedure. Procedure:?The patient was placed in the left lateral decubitis position and pre-procedure medications were administered and a bite block was placed. The endoscope was inserted into the mouth and advanced under direct vision to the third part of duodenum. A careful inspection was made as the upper endoscope was withdrawn including a retroflexed examination of the proximal stomach; Findings and interventions are described below. Findings: Larynx:? Normal Esophagus: GE junction at 38 cms. Minimal focal esophagitis at GE junction. No Campo's. Stomach: A few 5 -10 mm benign appearing polyps in the gastric fundus - biopsied. Mild gastric erythema. Biopsies were obtained. Grade 2 flap valve on retroflexed examination of the cardia. Duodenum: Normal bulb and descending duodenum.? Biopsies were obtained from 3rd part of the duodenum to check for celiac sprue Intervention: Biopsies as noted above Impression and Post Procedure Diagnosis: Endoscopy Findings: ESOPHAGUS: Minimal focal esophagitis at GE junction. STOMACH: Gastric polyps, gastritis DUODENUM: Normal - biopsied to check for celiac sprue Plan: Await pathology results Patient has an appointment on 07/06/20 in the GI Clinic with Shira Song FNP- . Above findings were reviewed with the patient and GERD and Gastric Polyps hand outs were given in the discharge area Surgeon:?Remigio Genao MD Anesthesia:?MAC (Jose Grijalva CRNA) Was an Brush Holder Inspector used for this Procedure?:?Yes Brush Holder Inspector:?Nyasia Mann Estimated blood loss (mL):?0 Pathology:?other (A. small bowel bxs, R/O celiac? B. gastric antrum, R/O H. pylori? C. gastric polyp) Condition:?stable Disposition:?PACU
== END 2021-06-22 11:28 | disposition home or self-care (01) ==
PROVIDERS: Nurse Practitioner; PCP Internal Medicine; Visit Provider Internal Medicine Gastroenterology
PROC: 0DJ08ZZ Inspection of Upper Intestinal Tract, Via Natural or Artificial Opening Endoscopic (ICD-10-PCS; CPT 43235; principal; 2021-06-22 09:10)
DX: K21.9 Gastro-esophageal reflux disease without esophagitis (principal); K29.60 Other gastritis without bleeding; K20.80 Other esophagitis without bleeding; K31.7 Polyp of stomach and duodenum; K58.2 Mixed irritable bowel syndrome; K59.00 Constipation, unspecified; E23.6 Other disorders of pituitary gland; F31.9 Bipolar disorder, unspecified; R53.83 Other fatigue; Z79.899 Other long term (current) drug therapy; Z87.442 Personal history of urinary calculi; Z87.891 Personal history of nicotine dependence
CPT/HCPCS: 43239; 81025; 88305; 88342

== ENCOUNTER → 2021-06-23 14:50 | Outpatient (BNVA) | payer OTHER, SELFPAY | PROVIDERS: PCP Internal Medicine | DX: N20.0 Calculus of kidney (principal) | CPT/HCPCS: 81002; 99202 ==

== ENCOUNTER → 2021-07-06 13:59 | Outpatient (BNVA) | payer OTHER, SELFPAY | PROVIDERS: PCP Internal Medicine; Referring Provider Internal Medicine; Visit Provider Nurse Practitioner Family | DX: K21.9 Gastro-esophageal reflux disease without esophagitis (principal); K58.1 Irritable bowel syndrome with constipation; K59.04 Chronic idiopathic constipation | CPT/HCPCS: 99212 ==

== ENCOUNTER 2021-07-13 12:51 | Outpatient (REF) | payer OTHER, SELFPAY ==
[2021-07-13 13:20] LABS: Binax Now Covid-19 Ag Negative (Negative)
[2021-07-13 13:21] LABS: Binax Internal Control QC Valid; Binax Performed by: HO.BONILM
== END 2021-07-13 12:52 | disposition home or self-care (01) ==
LOC: HO.HMGCLDS 12:51
PROVIDERS: PCP Internal Medicine; Visit Provider Internal Medicine
DX: Z13.89 Encounter for screening for other disorder (principal)

== ENCOUNTER → 2021-08-19 11:09 | Outpatient (BNVA) | payer OTHER, SELFPAY | PROVIDERS: PCP Internal Medicine; Visit Provider Advanced Practice Midwife | DX: Z30.42 Encounter for surveillance of injectable contraceptive (principal) | CPT/HCPCS: 96372; 99211 ==

== ENCOUNTER 2021-10-01 13:13 | Outpatient (REF) | payer OTHER, SELFPAY ==
--- NOTE | ~2021-10-01 | XR_ITS ---
EXAMINATION: XR chest 2V CLINICAL INFORMATION: Cough COMPARISON: Prior chest x-ray 01/19/2020 TECHNIQUE: XR chest 2V Lungs and Misa: Both lungs are clear. Pleura: Normal. Costophrenic angles are sharp. No pneumothorax. Heart: The heart is normal in size. Mediastinum: The mediastinum is within normal limits.. Bones: Skeletal structures included are normal for patient's age. XR/XR chest 2V IMPRESSION: No radiographic evidence of acute cardiopulmonary disease.
== END 2021-10-01 13:14 | disposition home or self-care (01) ==
LOC: HO.LAB 13:13
PROVIDERS: PCP Internal Medicine; Visit Provider Family Medicine
DX: Z20.822 Contact with and (suspected) exposure to COVID-19 (principal); R05.9 Cough, unspecified; J06.9 Acute upper respiratory infection, unspecified
CPT/HCPCS: 71046; U0003; U0005

== ENCOUNTER → 2021-11-12 15:03 | Outpatient (BNVA) | payer OTHER, SELFPAY | PROVIDERS: PCP Internal Medicine; Visit Provider Advanced Practice Midwife | DX: Z30.42 Encounter for surveillance of injectable contraceptive (principal) | CPT/HCPCS: 96372; 99211 ==

== ENCOUNTER 2021-11-30 16:06 | Outpatient (REF) | payer OTHER, SELFPAY ==
[2021-12-01 05:34] LABS: CT PCR NOT DETECTED (Not Detect.); NG PCR NOT DETECTED (Not Detect.)
[2021-12-01 13:12] LABS: BV Int Neg Control Negative (Negative); BV Int Pos Control Positive (Positive)
[2021-12-08 02:13] LABS: HPV mRNA E6/E7 rflx Not Detected (Not Detected)
== END 2021-11-30 16:07 | disposition home or self-care (01) ==
LOC: HO.LAB 16:06
PROVIDERS: Visit Provider Advanced Practice Midwife
DX: Z01.419 Encounter for gynecological examination (general) (routine) without abnormal findings (principal); Z11.51 Encounter for screening for human papillomavirus (HPV)
CPT/HCPCS: 87480; 87491; 87510; 87591; 87624; 87660; 88142

== ENCOUNTER 2021-12-07 07:14 | Outpatient (REF) | payer OTHER, SELFPAY ==
[2021-12-07 07:29] LABS: MANUAL DIFF FLAG NO
[2021-12-07 07:36] LABS: Basophils Absolute Auto 0.1 X10*3/uL (0.0-0.2); Basophils Percent Auto 1.1 % (0-2); Eosinophils Absolute Auto 0.6 X10*3/uL (0.0-0.4); Eosinophils Percent Auto 8.3 % (0-4); Hematocrit 40.4 % (37.0-47.0); Hemoglobin 13.1 g/dl (12.0-16.0); Imm Gran Abs Auto 0.01 X10*3/uL (0.00-0.03); Imm Gran Pct Auto 0.1 % (0.0-0.4); Lymphocytes Absolute Auto 2.2 X10*3/uL (1.2-4.9); Lymphocytes Percent Auto 31.4 % (20-40); Mean Corpuscular HGB Conc 32.4 g/dl (31.0-35.0); Mean Corpuscular Hemoglobin 29.5 pg (27.0-33.0); Mean Platelet Volume 11.4 fL (9.4-12.3); Monocytes Absolute Auto 0.5 X10*3/uL (0.1-1.2); Monocytes Percent Auto 6.7 % (2-11); Neutrophils Absolute Auto 3.7 x10*3/uL (2.0-8.3); Neutrophils Percent Auto 52.4 % (45-73); Platelet Count 234 X10*3/uL (160-400); Red Blood Count 4.44 X10*6/uL (4.20-5.50); Red Cell Distribution Width 13.4 % (11.0-16.0)
[2021-12-07 08:26] LABS: Alanine Aminotransferase 11 U/L (0-31); Albumin Level 4.3 g/dL (3.5-5.0); Alkaline Phosphatase 101 U/L (39-117); Anion Gap 11 (12-20); Aspartate Amino Transferase 12 U/L (5-31); Bilirubin Total 0.6 mg/dL (0.0-1.0); Blood Urea Nitrogen 16 mg/dL (9-16); Calcium 9.4 mg/dL (8.4-10.2); Carbon Dioxide 22 mmol/L (22-29); Chloride 110 mmol/L (96-108); Estimated Glomerular Filt Rate > 60; Glucose Fasting 92 mg/dL (60-99); Potassium 4.3 mmol/L (3.3-5.1); Sodium 139 mmol/L (135-145)
[2021-12-07 08:33] LABS: Free T4 (Free Thyroxine) 0.87 ng/dL (0.71-1.85); Thyroid Stimulating Hormone 0.55 uIU/mL (0.32-4.0)
[2021-12-07 08:39] LABS: Osmolality, Serum 296 mosm/kg (281-305)
[2021-12-07 08:52] LABS: Folate 16.5 ng/mL (> or = 4.0); Vitamin B12 485 pg/mL (200-900)
[2021-12-07 09:31] LABS: Cortisol Random 9.3 ug/dL
[2021-12-08 19:56] LABS: Adrenocorticotropic Hormone 14 pg/mL (6-50)
[2021-12-08 22:06] LABS: Triiodothyronine T3 Total 110 ng/dL (76-181)
[2021-12-08 23:21] LABS: Prolactin 40.1 ng/mL; Sex Hormone Binding Globulin 33 nmol/L (17-124)
[2021-12-11 12:47] LABS: Follicle Stimulating Hormone 3.6 mIU/mL; Lutenizing Hormone 0.4 mIU/mL; Prolactin Undiluted 40.6 ng/mL
[2021-12-11 15:26] LABS: Vitamin D 25-OH, D2 <4 ng/mL; Vitamin D 25-OH, D3 31 ng/mL; Vitamin D 25-OH, Total 31 ng/mL (30-100)
[2021-12-12 15:31] LABS: IGF-1 (Somatomedin C) 189 ng/mL (52-328); IGF-1 Z Score (Female) 0.6 SD (-2.0 - +2.0)
[2021-12-26 01:26] LABS: Estradiol Free 0.04 pg/mL; Estradiol, Ultrasensitive 2 pg/mL
== END 2021-12-07 07:15 | disposition home or self-care (01) ==
LOC: HO.LAB 07:14
PROVIDERS: Absent Provider Internal Medicine; PCP Internal Medicine; Visit Provider Internal Medicine
DX: R93.0 Abnormal findings on diagnostic imaging of skull and head, not elsewhere classified (principal); E23.6 Other disorders of pituitary gland; E55.9 Vitamin D deficiency, unspecified; D64.9 Anemia, unspecified; N20.0 Calculus of kidney; R53.82 Chronic fatigue, unspecified
CPT/HCPCS: 36415; 80048; 80053; 82024; 82306; 82533; 82607; 82670; 82681; 82746; 83001; 83002; 83930; 84146; 84270; 84305; 84439; 84443; 84480; 85025

== ENCOUNTER 2021-12-14 15:07 | Outpatient (REF) | payer OTHER, SELFPAY | END 2021-12-14 15:08 | disposition home or self-care (01) | LOC: HO.MRI 15:07 | PROVIDERS: Visit Provider Internal Medicine | DX: Z13.89 Encounter for screening for other disorder (principal) ==

== ENCOUNTER 2021-12-24 08:04 | Outpatient (REF) | payer OTHER, SELFPAY ==
[2021-12-25 15:31] LABS: Adrenocorticotropic Hormone 15 pg/mL (6-50)
[2021-12-26 12:32] LABS: Cortisol 30 Minute 29.4 mcg/dL; Cortisol 60 Minute 32.7 mcg/dL; Cortisol Baseline 11.2 mcg/dL
== END 2021-12-24 08:05 | disposition home or self-care (01) ==
LOC: HO.MDS 08:04
PROVIDERS: Visit Provider Internal Medicine
DX: E27.40 Unspecified adrenocortical insufficiency (principal)
CPT/HCPCS: 36415; 82024; 82533; 96374; J0834

== ENCOUNTER → 2021-12-28 13:48 | Outpatient (BNVA) | payer OTHER, SELFPAY | PROVIDERS: PCP Internal Medicine; Referring Provider Internal Medicine; Visit Provider Nurse Practitioner Family | DX: R11.2 Nausea with vomiting, unspecified (principal); R10.9 Unspecified abdominal pain; K58.1 Irritable bowel syndrome with constipation; K21.9 Gastro-esophageal reflux disease without esophagitis; K59.04 Chronic idiopathic constipation; E55.9 Vitamin D deficiency, unspecified | CPT/HCPCS: 99212 ==

== ENCOUNTER 2021-12-29 09:09 | Outpatient (REF) | payer OTHER, SELFPAY ==
--- NOTE | ~2021-12-29 | US_ITS ---
EXAMINATION: US RETROPERITONEAL LIMITED (RENAL ONLY) CLINICAL INFORMATION: Calculus of kidney. COMPARISON: CT abdomen pelvis 02/01/2021. TECHNIQUE: Real-time imaging of the kidneys. FINDINGS: RIGHT KIDNEY: 10.2 x 4.4 x 5.2 cm (SAG x AP x TRV). The kidney is normal in size, contour, and echogenicity. Renal cortical thickness is normal. No focal parenchymal lesions or hydronephrosis. There is a small echogenic nonobstructive stone in the midpole measuring 0.3 x 0.2 x 0.3 cm. LEFT KIDNEY: 10.0 x 5.0 x 5.1 cm (SAG x AP x TRV). The kidney is normal in size, contour, and echogenicity. Renal cortical thickness is normal. No calculi or focal parenchymal lesions. No hydronephrosis. US/US renal BI IMPRESSION: Small echogenic nonobstructive stone in the midpole of the right kidney measuring 0.3 cm.
[2021-12-29 11:06] LABS: Alanine Aminotransferase 9 U/L (0-31); Alkaline Phosphatase 117 U/L (39-117); Aspartate Amino Transferase 12 U/L (5-31); Bilirubin Direct 0.2 mg/dL (0.0-0.5); Bilirubin Total 0.4 mg/dL (0.0-1.0); Total Protein 6.3 g/dL (6.5-8.0)
[2021-12-29 11:28] LABS: TSH reflex Free T4 0.74 uIU/mL (0.32-4.0)
[2022-01-04 16:37] LABS: Vitamin D 25-OH, D2 <4 ng/mL; Vitamin D 25-OH, D3 20 ng/mL; Vitamin D 25-OH, Total 20 ng/mL (30-100)
== END 2021-12-29 09:10 | disposition home or self-care (01) ==
LOC: HO.US 09:09
PROVIDERS: Absent Provider Nurse Practitioner Family; PCP Internal Medicine
DX: N20.0 Calculus of kidney (principal); R10.9 Unspecified abdominal pain; E55.9 Vitamin D deficiency, unspecified
CPT/HCPCS: 36415; 76775; 80076; 82306; 84443

== ENCOUNTER 2021-12-29 15:03 | Outpatient (REF) | payer OTHER, SELFPAY ==
--- NOTE | ~2021-12-29 | MR_ITS ---
EXAMINATION: MR BRAIN WITHOUT AND WITH CONTRAST CLINICAL INFORMATION: Pituitary tumor. COMPARISON: CT head from 04/11/2021. Brain MRI from 07/17/2020. TECHNIQUE: MRI of the brain was obtained using pituitary protocol without and following the administration of 3.5 mL of Gadavist intravenous contrast. FINDINGS: Compared to exam from 2020, there has been an interval increase in size of a heterogeneous mixed intensity lesion that appears within the anterior pituitary lobe, now measuring up to 1.3 x 1.2 x 1.2 cm. The nonenhancing component of this lesion is now relatively T1 isointense and faintly T2 hyperintense. There is an irregular rind of enhancing tissue predominantly along the superior and left lateral margins of the overall expanded anterior pituitary lobe. Mild thickening of the pituitary infundibulum, measuring 0.4 cm in depth (similar to prior exam). Mild leftward bowing of the pituitary infundibulum. There is partial abutment of the undersurface of the optic chiasm, slightly deflecting the optic chiasm superiorly. No demonstrated overt invasion into the cavernous sinuses. No focal restricted diffusion is demonstrated to suggest acute or subacute cerebral ischemia. Scattered periventricular and deep white matter T2 FLAIR hyperintensities consistent with mild underlying microangiopathy. Proportional prominence of the ventricles and sulcal spaces without evidence of obstructive hydrocephalus. No additional abnormal mass effect. No midline shift. Normal positioning of the cerebellar tonsils. Normal arterial and venous vascular flow voids are present. No abnormal contrast enhancement. Normal, homogeneous marrow signal. Moderate mucosal thickening of the paranasal sinuses. Small right-sided mastoid effusion. No signal abnormalities within the left sided mastoid. MR/MR head/brain wo/w con IMPRESSION: Compared to exam from 2020, there has been an interval increase in size of a heterogeneous mixed intensity lesion that appears within the anterior pituitary lobe. While this could represent complication of an underlying Rathke's cleft cyst (such as hemorrhage or infection), it would be difficult to exclude an underlying pituitary adenoma with cystic degeneration. Partial abutment of the undersurface of the optic chiasm with slight deflection.
== END 2021-12-29 15:04 | disposition home or self-care (01) ==
LOC: HO.MRI 15:03
PROVIDERS: Visit Provider Internal Medicine
DX: R93.0 Abnormal findings on diagnostic imaging of skull and head, not elsewhere classified (principal)
CPT/HCPCS: 70553; A9585

== ENCOUNTER → 2021-12-31 14:22 | Outpatient (BNVA) | payer OTHER, SELFPAY | PROVIDERS: PCP Internal Medicine; Visit Provider Internal Medicine | DX: R93.0 Abnormal findings on diagnostic imaging of skull and head, not elsewhere classified (principal) | CPT/HCPCS: 99212 ==

== ENCOUNTER → 2022-01-01 14:41 | Outpatient (BNVA) | payer OTHER, SELFPAY | PROVIDERS: PCP Internal Medicine; Visit Provider Urology | DX: N20.0 Calculus of kidney (principal) | CPT/HCPCS: 99212 ==

== ENCOUNTER → 2022-02-04 15:01 | Outpatient (BNVA) | payer OTHER, SELFPAY | PROVIDERS: PCP Internal Medicine; Visit Provider Advanced Practice Midwife | DX: Z30.42 Encounter for surveillance of injectable contraceptive (principal) | CPT/HCPCS: 96372; 99211 ==

== ENCOUNTER → 2022-03-03 13:48 | Outpatient (BNVA) | payer OTHER, SELFPAY | PROVIDERS: PCP Internal Medicine; Visit Provider Internal Medicine | DX: R93.0 Abnormal findings on diagnostic imaging of skull and head, not elsewhere classified (principal) | CPT/HCPCS: 99212 ==

== ENCOUNTER 2022-05-03 15:32 | Outpatient (REF) | payer OTHER, SELFPAY ==
[2022-05-03 16:33] LABS: Osmolality, Serum 293 mosm/kg (281-305)
[2022-05-03 16:54] LABS: Anion Gap 12 (12-20); Blood Urea Nitrogen 12 mg/dL (9-16); Calcium 9.5 mg/dL (8.4-10.2); Carbon Dioxide 26 mmol/L (22-29); Chloride 108 mmol/L (96-108); Estimated Glomerular Filt Rate > 60; Free T4 (Free Thyroxine) 0.85 ng/dL (0.71-1.85); Glucose Random 71 mg/dL (60-115); Potassium 4.3 mmol/L (3.3-5.1); Sodium 142 mmol/L (135-145); Thyroid Stimulating Hormone 0.51 uIU/mL (0.32-4.0)
[2022-05-04 10:21] LABS: Triiodothyronine T3 Total 113 ng/dL (76-181)
[2022-05-04 14:01] LABS: Sex Hormone Binding Globulin 44 nmol/L (17-124)
[2022-05-05 22:31] LABS: Follicle Stimulating Hormone 9.9 mIU/mL; Lutenizing Hormone 4.1 mIU/mL; Prolactin Undiluted 15.7 ng/mL
[2022-05-07 17:42] LABS: IGF-1 (Somatomedin C) 191 ng/mL (52-328); IGF-1 Z Score (Female) 0.7 SD (-2.0 - +2.0)
[2022-05-08 22:46] LABS: Estradiol Ultra Sensitive 5 pg/mL
== END 2022-05-03 15:33 | disposition home or self-care (01) ==
LOC: HO.LAB 15:32
PROVIDERS: Absent Provider Internal Medicine; Visit Provider Internal Medicine
DX: D35.2 Benign neoplasm of pituitary gland (principal); Z30.42 Encounter for surveillance of injectable contraceptive
CPT/HCPCS: 36415; 80048; 82024; 82533; 82670; 83001; 83002; 83930; 84146; 84270; 84305; 84439; 84443; 84480; 96372; 99211

== ENCOUNTER → 2022-07-27 15:06 | Outpatient (BNVA) | payer OTHER, SELFPAY | PROVIDERS: PCP Internal Medicine; Visit Provider Obstetrics & Gynecology | DX: Z30.42 Encounter for surveillance of injectable contraceptive (principal) | CPT/HCPCS: 96372; 99211 ==

== ENCOUNTER → 2022-08-25 14:02 | Outpatient (BNVA) | payer OTHER, SELFPAY | PROVIDERS: PCP Internal Medicine; Visit Provider Internal Medicine | DX: R93.0 Abnormal findings on diagnostic imaging of skull and head, not elsewhere classified (principal) | CPT/HCPCS: 99212 ==

== ENCOUNTER 2022-09-25 13:20 | Emergency (ER) | payer OTHER, SELFPAY ==
--- NOTE | ~2022-09-25 | XR_ITS ---
EXAMINATION: XR CHEST CLINICAL INFORMATION: Cough, chest pain COMPARISON: Chest x-ray on 10/01/2021 TECHNIQUE: 2 views of the chest were obtained. FINDINGS: No significant abnormality is noted involving the heart, lungs, mediastinum, bony thorax or soft tissues. XR/XR chest 2V IMPRESSION: Unremarkable examination.
--- NOTE | ~2022-09-25 | CT_ITS ---
EXAMINATION: CT HEAD WITHOUT CONTRAST CLINICAL INFORMATION: Left-sided headache. COMPARISON: Brain MRI 12/29/2021. TECHNIQUE: Contiguous axial imaging was performed from the skull base to vertex without intravenous administration of contrast. This CT examination was performed using dose optimization techniques as appropriate, variously including the following: *Automated exposure control *Adjustment of mA and/or kV according to patient size (this includes techniques or standardized protocols for targeted exams where dose is matched to indication/reason for exam; i.e. extremities or head) *Use of iterative reconstruction technique DLP: 559 mGy-cm FINDINGS: There is no acute intracranial hemorrhage or abnormal extra-axial collection. No intracranial mass effect or midline shift. Lateral and third ventricles are normal. No hydrocephalus. Goldberg-white matter differentiation is grossly preserved and there is no evidence of acute territorial infarct. The calvarium and skull base are intact. Mastoid air cells and middle ear cavities are well aerated. Mild paranasal sinus disease is partially included within the [id number] of this examination CT/CT head/brain wo IV con IMPRESSION: Unremarkable CT scan of the head. No evidence of acute territorial infarct or hemorrhage.
--- NOTE | 2022-09-25 13:25 | ED.GENADULT ---
HPI - General Adult General Chief complaint: Upper Respiratory Symptoms <PEPE Vasquez - Last Filed: 09/25/22 13:28> Stated complaint: headache <PEPE Vasquez - Last Filed: 09/25/22 13:28> Time Seen by Provider: 09/25/22 14:52 <PEPE Vasquez - Last Filed: 09/25/22 13:28> Source: patient <PEPE Rodgers - Last Filed: 09/25/22 17:30> Mode of arrival: ambulatory <PEPE Rodgers - Last Filed: 09/25/22 17:30> Limitations: no limitations <PEPE Rodgers Last Filed: 09/25/22 17:30> History of Present Illness HPI narrative: 46 y/o Maori speaking female with history of pituitary macroadenoma, bipolar depression, kidney stones, sinusitis who presents to the ER for evaluation of not feeling well for the last 5 days. She reports bone pain, body aches, left sided headaches, nausea, diarrhea, and nasal congestion. She states for the last 3 days she has also had left breast soreness. 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 Hx mastitis a long time ago. No redness to the breast, just tenderness. Not UTD with mammogram. She also reports 2 days of intermittent palpitations, like her heart is racing out of no where. She feels SOB during these episodes but they are brief. No chest pain. She is worried about her brain tumor because her headache has been ongoing for days now. <PEPE Rodgers - Last Filed: 09/25/22 17:30> MD complaint: multiple complaints. <PEPE Rodgers - Last Filed: 09/25/22 17:30> Onset (ago): day(s) (5) <PEPE Rodgers - Last Filed: 09/25/22 17:30> Location: head, chest, back, left, right, upper extremity and lower extremity <PEPE Rodgers Last Filed: 09/25/22 17:30> Radiation: non-radiation <PEPE Rodgers Last Filed: 09/25/22 17:30> Severity: moderate <PEPE Rodgers - Last Filed: 09/25/22 17:30> Severity scale (1-10): 7 <PEPE Rodgers Last Filed: 09/25/22 17:30> Quality: aching <PEPE Rodgers Last Filed: 09/25/22 17:30> Pain Consistency: constant <PEPE Rodgers Last Filed: 09/25/22 17:30> Relieving factors: none <PEPE Rodgers Last Filed: 09/25/22 17:30> Exacerbating factors: none <PEPE Rodgers Last Filed: 09/25/22 17:30> Associated symptoms: cough, headaches, loss of appetite, malaise, nausea/vomiting and weakness <PEPE Rodgers Last Filed: 09/25/22 17:30> Treatments prior to arrival: none <PEPE Rodgers Last Filed: 09/25/22 17:30> Related Data Home medications: Previous Rx's Medication Instructions Recorded fluticasone propionate 50 2 spray intranasal DAILY #16 grams 07/25/20 mcg/actuation nasal spray,suspension (Allergy Relief (fluticasone)) ibuprofen 800 mg tablet 800 mg PO Q8H PRN pain #14 tabs 07/17/21 ondansetron 4 mg disintegrating 4 mg PO Q8H PRN nausea and 07/17/21 tablet vomiting #20 tabs loratadine 10 mg tablet (Allergy 10 mg PO DAILY 90 days #90 tabs 12/10/21 Relief (loratadine)) docusate sodium 100 mg capsule 100 mg PO BEDTIME #90 caps 12/28/21 famotidine 20 mg tablet (Pepcid) 20 mg PO BID #180 tabs 12/28/21 calcium carbonate 600 mg calcium 600 mg PO BID 90 days #180 tabs 02/08/22 (1,500 mg) tablet cholecalciferol (vitamin D3) 25 25 mcg PO DAILY 90 days #90 caps 02/08/22 mcg (1,000 unit) capsule medroxyprogesterone 150 mg/mL 150 mg IM Q12W #1 mL 04/19/22 intramuscular suspension amoxicillin 500 mg tablet 500 mg PO Q12H 7 days #14 tabs 01/17/23 cephalexin 500 mg capsule 500 mg PO Q6H 7 days #28 caps 09/25/22 <PEPE Vasquez - Last Filed: 09/25/22 13:28> Allergies/adverse reactions: Allergies Allergy/AdvReac Type Severity Reaction Status Date / Time tramadol [TRAMADOL] Allergy Intermediate NAUSEA & Verified 09/25/22 13:27 VOMITING <PEPE Vasquez - Last Filed: 09/25/22 13:28> Review of Systems Review of Systems: Yes all other systems are reviewed and are negative <PEPE Rodgers - Last Filed: 09/25/22 17:30> [facility] Past Medical History Medical History: Medical History Abdominal pain Abnormal urine odor Bipolar depression Blurry vision Chronic fatigue Fibromyalgia History of snoring Hx of sinusitis Insomnia 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 present on magnetic resonance imaging Panic attacks Pituitary macroadenoma Rathke's cleft cyst Renal calculi <PEPE Vasquez - Last Filed: 09/25/22 13:28> Surgical History: Surgical History History of appendectomy History of History of esophagogastroduodenoscopy (EGD) History of left salpingo-oophorectomy History of pubovaginal sling Hx of mammogram Hx of umbilical hernia repair <PEPE Vasquez - Last Filed: 09/25/22 13:28> Family History Family History: Family History Father Hyperlipidemia HTN (hypertension) Mother Healthy female <PEPE Vasquez - Last Filed: 09/25/22 13:28> Social History Social History: Social History Household Members: Children Housing: Apartment Alcohol intake: never Patient Tobacco Use Status: Former Tobacco user Tobacco use type: Cigarette e-Cigarette/Vaping Use: Never Used Second Hand Smoke Exposure: No Advance Directives: No Advance Directives Information Provided: Yes service: No Current occupational status: employed Current occupational exposures/hazards: No Sexual orientation: Straight/Heterosexual Gender identity: Female <PEPE Vasquez Last Filed: 09/25/22 13:28> Physical Exam ED Vital Signs: Vital Signs - 24 hr 09/25/22 13:27 Temperature 98.1 F Pulse Rate 69 Respiratory Rate 18 Blood Pressure 113/72 Pulse Oximetry 98 Oxygen Delivery Method Room Air BMI result Body Mass Index 23.3 <PEPE Vasquez Last Filed: 09/25/22 13:28> Vital Signs - 24 hr 09/25/22 13:27 Temperature 98.1 F Pulse Rate 69 Respiratory Rate 18 Blood Pressure 113/72 Pulse Oximetry 98 Oxygen Delivery Method Room Air BMI result Body Mass Index 23.3 <PEPE Rodgers Last Filed: 09/25/22 17:30> Appearance: Alert. Oriented X3. No acute distress. Head: normocephalic, atraumatic. Eyes: Pupils equal, round and reactive to light. ENT: Pharynx normal. No tonsillar swelling or exudate. Normal TMs bilaterally. Neck: Normal inspection. Neck supple. Chest: normal inspection of bilateral breasts. left breast with tenderness in the upper outter quadrant, no erythema, warmth, induration. no palpable mass. no nipple discharge. No axillary LAD CVS: Normal heart rate and rhythm. Pulses normal. Respiratory: No respiratory distress. Breath sounds normal. Abdomen: Soft and nontender. +BS x4 Skin: Skin warm and dry. Normal skin color. Normal skin turgor. No rashes Extremities: No lower extremity edema. No joint swelling. Neuro/psych: Oriented X 3. No motor deficit. No sensory deficit. CN II-XII intact. Normal speech and cognition. <PEPE Rodgers - Last Filed: 09/25/22 17:30> Course Course Course Narrative: RME performed by Haydee Sandy PA-C. Patient is a 46 year old assigned female at presenting to the emergency department with a headache, sore throat, and ear pain. Swabs ordered. Patient placed back in the waiting room pending room availability. <PEPE Vasquez Last Filed: 09/25/22 13:28> Medications Administered Discontinued Medications Generic Name Dose Route Start Last Admin Trade Name Freq PRN Reason Stop Dose Admin Acetaminophen 975 mg 09/25/22 15:11 09/25/22 15:19 Acetaminophen 325 Mg Tablet PO 09/25/22 15:12 975 mg ONCE ONE Administration Ibuprofen 600 mg 09/25/22 15:11 09/25/22 15:19 Ibuprofen 600 Mg Tablet PO 09/25/22 15:12 600 mg ONCE ONE Administration <PEPE Vasquez - Last Filed: 09/25/22 13:28> Medications Administered Discontinued Medications Generic Name Dose Route Start Last Admin Trade Name Gladis PRMelissa Reason Stop Dose Admin Acetaminophen 975 mg 09/25/22 15:11 09/25/22 15:19 Acetaminophen 325 Mg Tablet PO 09/25/22 15:12 975 mg ONCE ONE Administration Ibuprofen 600 mg 09/25/22 15:11 09/25/22 15:19 Ibuprofen 600 Mg Tablet PO 09/25/22 15:12 600 mg ONCE ONE Administration <PEPE Rodgers - Last Filed: 09/25/22 17:30> Medical Decision Making Medical Decision Making [facility] Narrative: 46-year-old female with history of pituitary macroadenoma presents to the ER for evaluation of multiple complaints today. She has been sick for 5 days. She has been experiencing intermittent palpitations, headaches, URI symptoms. She is nontoxic appearing with a benign physical examination. CT head was performed which was normal. Lab workup was unremarkable. EKG is normal. Viral studies are negative. Exam is consistent with an early mastitis in the left breast. Will treat with oral antibiotics. She is also not up-to-date on her mammograms, importance of following up with her PCP and staying up-to-date with this was stressed with the patient. Patient stable for discharge home with oral antibiotics and outpatient follow-up. <PEPE Rodgers - Last Filed: 09/25/22 17:30> Differential Diagnosis Differential Diagnoses: The differential diagnosis associated with the presentation includes <PEPE Rodgers - Last Filed: 09/25/22 17:30> strep, covid, flu, rsv, other viral syndrome, bronchitis, pneumonia, no evidence of peritonsillar abcsess or retropharyngeal abscess anxiety, palpitations, PVCs, sinus tachycardia, <PEPE Rodgers - Last Filed: 09/25/22 17:30> Lab Data [facility] Lab Attestation statement: I reviewed the patient's lab results. <PEPE Rodgers - Last Filed: 09/25/22 17:30> No leukocytosis, normal renal function, no major metabolic derangement <PEPE Rodgers - Last Filed: 09/25/22 17:30> Result Diagrams: 09/25/22 15:12 09/25/22 15:12 <PEPE Vasquez - Last Filed: 09/25/22 13:28> Labs: Lab Results 09/25/22 09/25/22 09/25/22 Range/Units 14:20 14:20 15:12 WBC 5.5 (4.8-10.8) X10*3/uL RBC 4.45 (4.20-5.50) X10*6/uL Hgb 12.7 (12.0-16.0) g/dl Hct 39.5 (37.0-47.0) % MCV 88.8 (80.0-98.0) fL MCH 28.5 (27.0-33.0) pg MCHC 32.2 (31.0-35.0) g/dl RDW 12.9 (11.0-16.0) % Plt Count 226 (160-400) X10*3/uL MPV 11.4 (9.4-12.3) fL Immature Gran % (Auto) 0.2 (0.0-0.4) % Neut % (Auto) 59.1 (45-73) % Lymph % (Auto) 27.7 (20-40) % [place] % (Auto) 5.8 (2-11) % Eos % (Auto) 6.5 H (0-4) % Baso % (Auto) 0.7 (0-2) % Lymph # (Auto) 1.5 (1.2-4.9) X10*3/uL [place] # (Auto) 0.3 (0.1-1.2) X10*3/uL Eos # (Auto) 0.4 (0.0-0.4) X10*3/uL Baso # (Auto) 0.0 (0.0-0.2) X10*3/uL Abs Immat Gran (auto) 0.01 (0.00-0.03) X10*3/uL Absolute Neuts (auto) 3.3 (2.0-8.3) x10*3/uL Absolute Nucleated RBC 0.000 (0.0-0.012) X10*3/uL Nucleated RBC % (auto) 0.0 (0.0-0.2) /100WBC Sodium (135-145) mmol/L Potassium (3.3-5.1) mmol/L Chloride (96-108) mmol/L Carbon Dioxide (22-29) mmol/L Anion Gap (12-20) BUN (9-16) mg/dL Creatinine (0.5-1.4) mg/dL Estim Creat Clear Calc Estimated GFR Random Glucose (60-115) mg/dL Calcium (8.4-10.2) mg/dL Magnesium (1.6-2.6) mg/dL Total Bilirubin (0.0-1.0) mg/dL Direct Bilirubin (0.0-0.5) mg/dL AST (5-31) U/L ALT (0-31) U/L Alkaline Phosphatase (39-117) U/L Total Protein (6.5-8.0) g/dL Albumin (3.5-5.0) g/dL TSH (0.32-4.0) uIU/mL Influenza Type A (PCR) NEGATIVE (Negative) Influenza Type B (PCR) NEGATIVE (Negative) RSV RNA Qual (PCR) NEGATIVE (Negative) SARS-CoV-2 RNA (RT-PCR) NEGATIVE (Negative) S. pyogenes GrpA GIOVANNY Negative (Negative) 09/25/22 Range/Units 15:12 WBC (4.8-10.8) X10*3/uL RBC (4.20-5.50) X10*6/uL Hgb (12.0-16.0) g/dl Hct (37.0-47.0) % MCV (80.0-98.0) fL MCH (27.0-33.0) pg MCHC (31.0-35.0) g/dl RDW (11.0-16.0) % Plt Count (160-400) X10*3/uL MPV (9.4-12.3) fL Immature Gran % (Auto) (0.0-0.4) % Neut % (Auto) (45-73) % Lymph % (Auto) (20-40) % [place] % (Auto) (2-11) % Eos % (Auto) (0-4) % Baso % (Auto) (0-2) % Lymph # (Auto) (1.2-4.9) X10*3/uL [place] # (Auto) (0.1-1.2) X10*3/uL Eos # (Auto) (0.0-0.4) X10*3/uL Baso # (Auto) (0.0-0.2) X10*3/uL Abs Immat Gran (auto) (0.00-0.03) X10*3/uL Absolute Neuts (auto) (2.0-8.3) x10*3/uL Absolute Nucleated RBC (0.0-0.012) X10*3/uL Nucleated RBC % (auto) (0.0-0.2) /100WBC Sodium 143 (135-145) mmol/L Potassium 3.8 (3.3-5.1) mmol/L Chloride 111 H (96-108) mmol/L Carbon Dioxide 23 (22-29) mmol/L Anion Gap 13 (12-20) BUN 8 L (9-16) mg/dL Creatinine 0.75 (0.5-1.4) mg/dL Estim Creat Clear Calc 88.7 Estimated GFR > 60 Random Glucose 156 H (60-115) mg/dL Calcium 9.3 (8.4-10.2) mg/dL Magnesium 2.1 (1.6-2.6) mg/dL Total Bilirubin 0.3 (0.0-1.0) mg/dL Direct Bilirubin < 0.2 (0.0-0.5) mg/dL AST 14 (5-31) U/L ALT 18 (0-31) U/L Alkaline Phosphatase 104 (39-117) U/L Total Protein 6.7 (6.5-8.0) g/dL Albumin 4.1 (3.5-5.0) g/dL TSH 0.63 (0.32-4.0) uIU/mL Influenza Type A (PCR) (Negative) Influenza Type B (PCR) (Negative) RSV RNA Qual (PCR) (Negative) SARS-CoV-2 RNA (RT-PCR) (Negative) S. pyogenes GrpA GIOVANNY (Negative) <PEPE Vasquez - Last Filed: 09/25/22 13:28> Lab Results 09/25/22 09/25/22 09/25/22 Range/Units 14:20 14:20 15:12 WBC 5.5 (4.8-10.8) X10*3/uL RBC 4.45 (4.20-5.50) X10*6/uL Hgb 12.7 (12.0-16.0) g/dl Hct 39.5 (37.0-47.0) % MCV 88.8 (80.0-98.0) fL MCH 28.5 (27.0-33.0) pg MCHC 32.2 (31.0-35.0) g/dl RDW 12.9 (11.0-16.0) % Plt Count 226 (160-400) X10*3/uL MPV 11.4 (9.4-12.3) fL Immature Gran % (Auto) 0.2 (0.0-0.4) % Neut % (Auto) 59.1 (45-73) % Lymph % (Auto) 27.7 (20-40) % [place] % (Auto) 5.8 (2-11) % Eos % (Auto) 6.5 H (0-4) % Baso % (Auto) 0.7 (0-2) % Lymph # (Auto) 1.5 (1.2-4.9) X10*3/uL [place] # (Auto) 0.3 (0.1-1.2) X10*3/uL Eos # (Auto) 0.4 (0.0-0.4) X10*3/uL Baso # (Auto) 0.0 (0.0-0.2) X10*3/uL Abs Immat Gran (auto) 0.01 (0.00-0.03) X10*3/uL Absolute Neuts (auto) 3.3 (2.0-8.3) x10*3/uL Absolute Nucleated RBC 0.000 (0.0-0.012) X10*3/uL Nucleated RBC % (auto) 0.0 (0.0-0.2) /100WBC Sodium (135-145) mmol/L Potassium (3.3-5.1) mmol/L Chloride (96-108) mmol/L Carbon Dioxide (22-29) mmol/L Anion Gap (12-20) BUN (9-16) mg/dL Creatinine (0.5-1.4) mg/dL Estim Creat Clear Calc Estimated GFR Random Glucose (60-115) mg/dL Calcium (8.4-10.2) mg/dL Magnesium (1.6-2.6) mg/dL Total Bilirubin (0.0-1.0) mg/dL Direct Bilirubin (0.0-0.5) mg/dL AST (5-31) U/L ALT (0-31) U/L Alkaline Phosphatase (39-117) U/L Total Protein (6.5-8.0) g/dL Albumin (3.5-5.0) g/dL TSH (0.32-4.0) uIU/mL Influenza Type A (PCR) NEGATIVE (Negative) Influenza Type B (PCR) NEGATIVE (Negative) RSV RNA Qual (PCR) NEGATIVE (Negative) SARS-CoV-2 RNA (RT-PCR) NEGATIVE (Negative) S. pyogenes GrpA GIOVANNY Negative (Negative) 09/25/22 Range/Units 15:12 WBC (4.8-10.8) X10*3/uL RBC (4.20-5.50) X10*6/uL Hgb (12.0-16.0) g/dl Hct (37.0-47.0) % MCV (80.0-98.0) fL MCH (27.0-33.0) pg MCHC (31.0-35.0) g/dl RDW (11.0-16.0) % Plt Count (160-400) X10*3/uL MPV (9.4-12.3) fL Immature Gran % (Auto) (0.0-0.4) % Neut % (Auto) (45-73) % Lymph % (Auto) (20-40) % [place] % (Auto) (2-11) % Eos % (Auto) (0-4) % Baso % (Auto) (0-2) % Lymph # (Auto) (1.2-4.9) X10*3/uL [place] # (Auto) (0.1-1.2) X10*3/uL Eos # (Auto) (0.0-0.4) X10*3/uL Baso # (Auto) (0.0-0.2) X10*3/uL Abs Immat Gran (auto) (0.00-0.03) X10*3/uL Absolute Neuts (auto) (2.0-8.3) x10*3/uL Absolute Nucleated RBC (0.0-0.012) X10*3/uL Nucleated RBC % (auto) (0.0-0.2) /100WBC Sodium 143 (135-145) mmol/L Potassium 3.8 (3.3-5.1) mmol/L Chloride 111 H (96-108) mmol/L Carbon Dioxide 23 (22-29) mmol/L Anion Gap 13 (12-20) BUN 8 L (9-16) mg/dL Creatinine 0.75 (0.5-1.4) mg/dL Estim Creat Clear Calc 88.7 Estimated GFR > 60 Random Glucose 156 H (60-115) mg/dL Calcium 9.3 (8.4-10.2) mg/dL Magnesium 2.1 (1.6-2.6) mg/dL Total Bilirubin 0.3 (0.0-1.0) mg/dL Direct Bilirubin < 0.2 (0.0-0.5) mg/dL AST 14 (5-31) U/L ALT 18 (0-31) U/L Alkaline Phosphatase 104 (39-117) U/L Total Protein 6.7 (6.5-8.0) g/dL Albumin 4.1 (3.5-5.0) g/dL TSH 0.63 (0.32-4.0) uIU/mL Influenza Type A (PCR) (Negative) Influenza Type B (PCR) (Negative) RSV RNA Qual (PCR) (Negative) SARS-CoV-2 RNA (RT-PCR) (Negative) S. pyogenes GrpA GIOVANNY (Negative) <PEPE Rodgers - Last Filed: 09/25/22 17:30> Independent Interpretation I performed an independent interpretation of an: EKG and Plain X-Ray <PEPE Rodgers - Last Filed: 09/25/22 17:30> Interpretation: cxr is clear - no pna. ekg is normal sinus rhythm, HR 81 bpm, normal MN interval, Normal QTc, no ST segment elevations or depressions <PEPE Rodgers - Last Filed: 09/25/22 17:30> Radiology Impression Discussion of test interpretation with radiology: I have reviewed the radiologist's reading. <PEPE Rodgers - Last Filed: 09/25/22 17:30> Radiologist Impression: CLINICAL INFORMATION: Cough, chest pain COMPARISON: Chest x-ray on 10/01/2021 TECHNIQUE: 2 views of the chest were obtained. FINDINGS: No significant abnormality is noted involving the heart, lungs, mediastinum, bony thorax or soft tissues. XR/XR chest 2V IMPRESSION: Unremarkable examination. <PEPE Rodgers - Last Filed: 09/25/22 17:30> External Record Review External record reviewed: Outpatient record, Prior outpatient labs and Prior outpatient radiology <PEPE Rodgers - Last Filed: 09/25/22 17:30> Prescription Management I considered prescription management with: Pain Medication and Antibiotic <PEPE Rodgers - Last Filed: 09/25/22 17:30> Chronic Conditions Patient?s care impacted by: Hypertension <PEPE Rodgers - Last Filed: 09/25/22 17:30> Critical Care Time Critical Care Time Critical Care Time: No <PEPE Rodgers - Last Filed: 09/25/22 17:30> Discharge Plan Discharge Clinical Impression: Viral illness <PEPE Vasquez - Last Filed: 09/25/22 13:28> Patient Disposition: Home, Self-Care <PEPE Vasquez - Last Filed: 09/25/22 13:28> Instructions: Mastitis (ED), Viral Syndrome (ED) <PEPE Vasquez Last Filed: 09/25/22 13:28> Additional Instructions: Your lab workup today was unremarkable. Your CT head was normal. Your EKG was normal. You tested negative for COVID, flu, RSV. Your symptoms most likely due to another viral illness. They will get better with time and supportive care. Take [id number]-[id number] cold and flu medications as needed for your symptoms. Take the prescribed antibiotic for inflammation and tenderness of your left breast. It is important to continue nursing/pumping to continue milk flow and help the infection get out of the skin. It is important that you follow-up with your doctor and arrange a mammogram once the infection is treated to ensure complete resolution and make sure this is not a breast cancer. Follow-up with your doctor next week. If you develop new or worsening symptoms call 911 or come back to the ER for further evaluation. Tu an?lisis de laboratorio de hoy no tuvo nada especial. Tu tomograf?a computarizada de la markel fue normal. [place] electrocardiograma fue normal. Marcin negativo para COVID, gripe, RSV. Lo m?s probable es que ban s?ntomas se deban a otra enfermedad viral. Mejorar?n con el tiempo y la atenci?n de apoyo. [place] medicamentos de venta jaguar para el resfriado y la gripe seg?n sea necesario para ban s?ntomas. [place] el antibi?juanita recetado para la inflamaci?n y sensibilidad de schaefer seno oscar. Es importante continuar amamantando/exprimiendo leche para continuar el flujo de leche y ayudar a que la infecci?n desaparezca de la piel. Es importante que payam un seguimiento con schaefer m?dico y organice gissel mamograf?a gissel vez que la infecci?n haya sido tratada para garantizar gissel resoluci?n completa y asegurarse de que no se trata de un c?ncer de mama. Seguimiento con schaefer m?dico la pr?xima semana. Si desarrolla s?ntomas nuevos o que empeoran, llame al 911 o regrese a la gallito de emergencias para gissel evaluaci?n adicional. <PEPE Vasquez - Last Filed: 09/25/22 13:28> Prescriptions: New cephalexin 500 mg capsule 500 mg PO Q6H 7 Days Qty: 28 0RF No Action ibuprofen 800 mg tablet 800 mg PO Q8H PRN (Reason: pain) Qty: 14 0RF ondansetron 4 mg tablet,disintegrating 4 mg PO Q8H PRN (Reason: nausea and vomiting) Qty: 20 0RF loratadine [Allergy Relief (loratadine)] 10 mg tablet 10 mg PO DAILY 90 Days Qty: 90 0RF medroxyprogesterone 150 mg/mL suspension 150 mg IM Q12W Qty: 1 2RF Rx Instructions: 150 mg IM q 12w amoxicillin 500 mg tablet 500 mg PO Q12H 7 Days Qty: 14 0RF fluticasone propionate [Allergy Relief (fluticasone)] 50 mcg/actuation spray,suspension 2 spray intranasal DAILY Qty: 16 0RF Rx Instructions: administer into each nostril cholecalciferol (vitamin D3) 25 mcg (1,000 unit) capsule 25 mcg PO DAILY 90 Days Qty: 90 1RF calcium carbonate 600 mg calcium (1,500 mg) tablet 600 mg PO BID 90 Days Qty: 180 1RF docusate sodium 100 mg capsule 100 mg PO BEDTIME Qty: 90 3RF famotidine [Pepcid] 20 mg tablet 20 mg PO BID Qty: 180 3RF <PEPE Vasquez - Last Filed: 09/25/22 13:28> Interventions: ED Discharge Assessment Last Done: 09/25/22 17:19 <PEPE Vasquez - Last Filed: 09/25/22 13:28> Discharge Date/Time: 09/25/22 17:20 <PEPE Vasquez - Last Filed: 09/25/22 13:28>
[2022-09-25 13:27] VITALS: BP 113/72; PULSE 69; RESP 18; TEMP 36.7; O2SAT 98; BMI 23.3
[2022-09-25 14:39] LABS: IDNOW Serial# 08D9AD1C; Strep A Nucleic Acid Negative (Negative)
--- NOTE | 2022-09-25 15:07 | ECG_ITS ---
Test Reason : PALPITATIONS Blood Pressure : / mmHG Vent. Rate : 081 BPM Atrial Rate : 081 BPM P-R Int : 122 ms QRS Dur : 084 ms QT Int : 376 ms P-R-T Axes : 056 024 001 degrees QTc Int : 436 ms Normal sinus rhythm Cannot rule out Anterior infarct , age undetermined Inferior ST-T changes Abnormal ECG When compared with ECG of 15-FEB-2020 12:59, Inferior ST-T changes. Referred By: Nyasia Burr Electronically Signed By:Braydon Diallo
[2022-09-25 15:16] LABS: MANUAL DIFF FLAG NO
[2022-09-25 15:17] LABS: Basophils Percent Auto 0.7 % (0-2); Eosinophils Absolute Auto 0.4 X10*3/uL (0.0-0.4); Eosinophils Percent Auto 6.5 % (0-4); Hematocrit 39.5 % (37.0-47.0); Hemoglobin 12.7 g/dl (12.0-16.0); Imm Gran Abs Auto 0.01 X10*3/uL (0.00-0.03); Imm Gran Pct Auto 0.2 % (0.0-0.4); Lymphocytes Absolute Auto 1.5 X10*3/uL (1.2-4.9); Lymphocytes Percent Auto 27.7 % (20-40); Mean Corpuscular HGB Conc 32.2 g/dl (31.0-35.0); Mean Corpuscular Hemoglobin 28.5 pg (27.0-33.0); Mean Corpuscular Volume 88.8 fL (80.0-98.0); Mean Platelet Volume 11.4 fL (9.4-12.3); Monocytes Absolute Auto 0.3 X10*3/uL (0.1-1.2); Monocytes Percent Auto 5.8 % (2-11); Neutrophils Absolute Auto 3.3 x10*3/uL (2.0-8.3); Neutrophils Percent Auto 59.1 % (45-73); Platelet Count 226 X10*3/uL (160-400); Red Blood Count 4.45 X10*6/uL (4.20-5.50); Red Cell Distribution Width 12.9 % (11.0-16.0); White Blood Count 5.5 X10*3/uL (4.8-10.8)
[2022-09-25] MEDS: Acetaminophen 325 MG TABLET 975 MG PO (15:19)
[2022-09-25] MEDS: Ibuprofen 600 MG TABLET PO (15:19)
[2022-09-25 15:23] LABS: Influenza A PCR NEGATIVE (Negative); Influenza B PCR NEGATIVE (Negative); Resp Syncy Virus RNA Qual PCR NEGATIVE (Negative); SARS COV2 PCR INHOUSE NEGATIVE (Negative)
[2022-09-25 15:43] LABS: Alanine Aminotransferase 18 U/L (0-31); Albumin Level 4.1 g/dL (3.5-5.0); Alkaline Phosphatase 104 U/L (39-117); Anion Gap 13 (12-20); Aspartate Amino Transferase 14 U/L (5-31); Bilirubin Direct < 0.2 mg/dL (0.0-0.5); Bilirubin Total 0.3 mg/dL (0.0-1.0); Blood Urea Nitrogen 8 mg/dL (9-16); Calcium 9.3 mg/dL (8.4-10.2); Carbon Dioxide 23 mmol/L (22-29); Chloride 111 mmol/L (96-108); Creatinine Clr Calc Pharmacy 88.7; Estimated Glomerular Filt Rate > 60; Glucose Random 156 mg/dL (60-115); Magnesium 2.1 mg/dL (1.6-2.6); Potassium 3.8 mmol/L (3.3-5.1); Sodium 143 mmol/L (135-145); Total Protein 6.7 g/dL (6.5-8.0)
[2022-09-25 15:57] LABS: TSH reflex Free T4 0.63 uIU/mL (0.32-4.0)
== END 2022-09-25 17:20 | disposition home or self-care (01) ==
PROVIDERS: Physician Assistant; Physician Assistant Medical; Emergency Provider Emergency Medicine; PCP Internal Medicine
DX: B34.9 Viral infection, unspecified (principal); R51.9 Headache, unspecified; Z20.822 Contact with and (suspected) exposure to COVID-19; Z20.828 Contact with and (suspected) exposure to other viral communicable diseases; I10 Essential (primary) hypertension; Z79.899 Other long term (current) drug therapy
CPT/HCPCS: 0241U; 36415; 70450; 71046; 80048; 80076; 83735; 84443; 85025; 87651; 93005; 99284

== ENCOUNTER → 2022-10-15 13:03 | Outpatient (BNVA) | payer OTHER, SELFPAY | PROVIDERS: PCP Internal Medicine; Visit Provider Obstetrics & Gynecology | DX: Z30.42 Encounter for surveillance of injectable contraceptive (principal) | CPT/HCPCS: 96372 ==

== ENCOUNTER → 2022-12-03 10:38 | Outpatient (REF) | payer OTHER, SELFPAY ==
--- NOTE | 2022-12-03 10:41 | HM_ITS ---
Conclusion: 1. Patient was monitored for total period of 3 days 2. Baseline was normal sinus rhythm with average heart of 90 beats per minute 3. No significant pauses noted 4. Rare PVCs noted with total burden of 0.09% 5. Patient reported multiple events with correlating rhythm showing sinus rhythm MTDD
== END ==
LOC: HO.CARD 10:38
PROVIDERS: PCP Internal Medicine; Visit Provider Nurse Practitioner Family
DX: R00.2 Palpitations (principal)
CPT/HCPCS: 93242

== ENCOUNTER 2022-12-13 12:59 | Outpatient (REF) | payer OTHER, SELFPAY ==
--- NOTE | ~2022-12-13 | US_ITS ---
EXAMINATION: US RETROPERITONEAL LIMITED (RENAL ONLY) CLINICAL INFORMATION: Calculus of kidney. COMPARISON: Ultrasound retroperitoneal limited (renal only) 12/29/2021. CT abdomen and pelvis without contrast 02/01/2021. Ultrasound abdomen limited 09/28/2016. TECHNIQUE: Real-time imaging of the kidneys. FINDINGS: RIGHT KIDNEY: 10.3 x 4.8 x 5.6 cm (SAG x AP x TRV). The kidney is normal in size, contour, and echogenicity. Renal cortical thickness is normal. No focal parenchymal lesions or hydronephrosis. At the interpolar aspect, a 6 mm nonobstructing calculus is seen, with twinkle artifact. At the lower pole, a 6 mm nonobstructing calculus is seen, with twinkle artifact. LEFT KIDNEY: 10.2 x 5.4 x 5.7 cm (SAG x AP x TRV). The kidney is normal in size, contour, and echogenicity. Renal cortical thickness is normal. No calculi or focal parenchymal lesions. No hydronephrosis. US/US renal BI IMPRESSION: 2 nonobstructing 6 mm right renal calculi are seen, as detailed. No left renal calculus is seen. No hydronephrosis is noted bilaterally.
== END 2022-12-13 13:00 | disposition home or self-care (01) ==
LOC: HO.US 12:59
PROVIDERS: PCP Internal Medicine; Visit Provider Urology
DX: N20.0 Calculus of kidney (principal)
CPT/HCPCS: 76775

== ENCOUNTER 2023-01-03 15:10 | Outpatient (AMB) | payer OTHER, SELFPAY ==
[2023-01-03 15:31] VITALS: BMI 23.1
--- NOTE | 2023-01-03 15:31 | AM.OFFVISNUR ---
Intake Vital Signs 01/03/23 15:31 Height 5 ft 6 in Weight 64.977 kg BMI 23.1 Intake Visit Reasons: Depo Allergies tramadol [TRAMADOL] Allergy (Intermediate, Verified 11/09/22 10:04) NAUSEA & VOMITING Nursing Note Marta is her today for her Depo-Provera inj. No c/o pt is scheduled for her annual on 01/10/23, she was advised to keep this appt, as she missed her November appt. Pt verbs understanding. Office Procedures Depo Questionnaire If YES to any of the following questions, please consult a provider. Date of last injection: 10/15/22 Date of last gynecology exam: 11/30/21 Menstrual pattern since last injection has been: Not Applicable Irregular bleeding?: No Breast lumps or other breast changes?: No Changes in weight or appetite?: No Depression or changes in mood?: No Abnormal hair growth or loss?: No Skin problems (rash, acne, discoloration)?: No Pain at the injection site?: No Headaches?: No Nervousness?: No Abdominal pain or cramping?: No Dizziness or nausea?: No Fatigue or weakness?: No Decrease in sexual drive?: No Chest pain or shortness of breath?: No Swelling in arms or legs?: No Form completed by?: Neelam iverson LPN Office Meds Depo-Provera Performing Provider: Galo Diaz MD Administered by: Yajaira Iverson LPN on 01/03/23 15:31 Dose Route Admin Location Lot Number Expiration Date [employer] 150 mg IM rt. deltoid [id number] 06/18/24 11870-314-97 MYLAN Coding Level of Care Code Established Pt Est Pt Level 1 (07567) Patient Type Established History Problem Focused Exam Problem Focused Medical Decision Making Straight Forward Diagnoses Time Spent (min) 15 Assessment & Plan Assessment & Plan Orders: Orders AMB Medroxyprogesterone Injection Patient Supplied Today Z30.42 - Encounter for surveillance of injectable contraceptive
== END 2023-01-03 15:52 | disposition home or self-care (01) ==
LOC: HO.HWS 15:10
PROVIDERS: PCP Internal Medicine; Visit Provider Obstetrics & Gynecology
DX: Z30.42 Encounter for surveillance of injectable contraceptive (principal)
CPT/HCPCS: J1050

== ENCOUNTER → 2023-01-03 15:10 | Outpatient (BNVA) | payer OTHER, SELFPAY | PROVIDERS: PCP Internal Medicine; Visit Provider Obstetrics & Gynecology | DX: Z30.42 Encounter for surveillance of injectable contraceptive (principal) | CPT/HCPCS: 96372; 99211 ==

== ENCOUNTER 2023-01-04 15:04 | Outpatient (AMB) | payer OTHER, SELFPAY ==
--- NOTE | 2023-01-04 15:05 | A.OFFVIS_ITS ---
Intake Intake Visit Reasons: 1Y US(set) Intake Note: Patient is present for Telephone Urology Med: NONE Antibiotic Allergy: None Blood Thinner: None Allergies tramadol [TRAMADOL] Allergy (Intermediate, Verified 11/09/22 10:04) NAUSEA & VOMITING HPI HPI Comments History of Present Illness Details Marta is a pleasant female. She is a patient with [facility]. She is seen for the following urologic conditions - nephrolithiasis Telemedicine Evaluation 15 min Consultation DoxRecordSetter Shirley Video attempted Citizen [place] translation provided in office by qualified chief medical director Discussed results Progression of stones on right side Current primary health concern is benign pituitary adenoma - has upcoming neurosurgery in [facility] Nephrolithiasis Presentation had been for lower back pain particularly left side Imaging - 12/09 renal ultrasound 3 mm right kidney - 12/10 renal ultrasound 2 x 6 mm stones right side On examination pain is sacroiliac in nature Reassurance provided [facility] Medical History Abdominal pain Abnormal urine odor Bipolar depression Blurry vision Chronic fatigue Fibromyalgia History of snoring Hx of sinusitis Insomnia 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 present on magnetic resonance imaging Panic attacks Pituitary macroadenoma Rathke's cleft cyst Renal calculi Surgical History History of appendectomy History of History of esophagogastroduodenoscopy (EGD) History of left salpingo-oophorectomy History of pubovaginal sling Hx of mammogram Hx of umbilical hernia repair Family History Father Hyperlipidemia HTN (hypertension) Mother Healthy female Social History Household Members: Children Housing: Apartment Alcohol intake: never Patient Tobacco Use Status: Current someday Tobacco user Tobacco use type: Cigarette e-Cigarette/Vaping Use: Never Used Second Hand Smoke Exposure: No service: No Current occupational status: employed Current occupational exposures/hazards: No Sexual orientation: Straight/Heterosexual Gender identity: Female Cognitive needs: No Hearing needs: No Vision needs: No Female Reproductive History Menstrual Age of Menarche: 13 Review of Systems Const All systems reviewed & are unremarkable except as noted in HPI and below Reports no additional complaints Resp Reports no additional complaints GI Reports no additional complaints Reports as per HPI Musc Reports no additional complaints Physical Exam Telemedicine evaluation Appropriate responses Regular breathing rate and rhythm HEENT Head: Yes normal to inspection Ears: hearing grossly normal bilaterally Eyes General: appearance normal, both eyes and all related structures Neck Neck: Yes normal visual inspection Chest Chest palpation & inspection: normal inspection of the chest Resp Effort & Inspection: normal respiratory effort and able to speak in complete sentences Assessment & Plan Assessment & Plan (1) Renal calculi: Code(s): N20.0 - Calculus of kidney Plan Six month follow-up Orders: Orders US renal BI 6 Months N20.0 - Calculus of kidney Patient Instructions: Imaging studies, laboratory and physical exam results were discussed and reviewed in detail. No major barriers to patient understanding were identified. An opportunity to ask questions regarding the treatment plan was provided. All questions were answered. The patient expressed understanding and agreement with the above treatment plan. The patient is aware they should contact our office by phone for worsening of their current condition or the appearance of new urologic symptoms. Compliance is encouraged with any medications and followup testing that is ordered. It is a privilege to participate in the urologic care of your patient. If you have any questions or concerns regarding treatment for the above conditions, or other urologic issues, please do not hesitate to contact me. The office telephone contact is [phone]. This note is constructed using voice recognition software. While every effort has been made to ensure accuracy director of safety and security errors may have been included. Yours sincerely, Dr Eze Barragan MD, [facility] - Urology Providers of Expert, Compassionate Care for the Genitourinary System Telehealth Telehealth Location of provider rendering services: practice address Location of patient: address on file Patient Identification confirmed using: Name, : Yes Telehealth method: voice only Patient verbally consented to treatment: Yes Patient verbally consented to billing insurance company: Yes Patient informed of any privacy concerns related to visit: Yes Coding Level of Care Code Tele Est Pt Level 3 (77491) Diagnoses Renal calculi N20.0
== END 2023-01-04 16:09 | disposition home or self-care (01) ==
LOC: HO.HUSH 15:05
PROVIDERS: PCP Internal Medicine; Visit Provider Urology
DX: N20.0 Calculus of kidney (principal)
CPT/HCPCS: 99213

== ENCOUNTER → 2023-01-04 15:04 | Outpatient (BNVA) | payer OTHER, SELFPAY | PROVIDERS: PCP Internal Medicine; Visit Provider Urology ==

== ENCOUNTER 2023-01-10 15:17 | Outpatient (AMB) | payer OTHER, SELFPAY ==
[2023-01-10 15:23] VITALS: BP 112/78; BMI 23.1
--- NOTE | 2023-01-10 15:23 | A.OFFVIS_ITS ---
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 No complaints. 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 present on magnetic resonance imaging Panic attacks Pituitary macroadenoma Rathke's cleft cyst Renal calculi Surgical History History of appendectomy History of History of esophagogastroduodenoscopy (EGD) History of left salpingo-oophorectomy History of pubovaginal sling Hx of mammogram Hx of umbilical hernia repair Family History Father Hyperlipidemia HTN (hypertension) Mother Healthy female Social History Household Members: Children Housing: Apartment Alcohol intake: never Patient Tobacco Use Status: Current someday Tobacco user Tobacco use type: Cigarette e-Cigarette/Vaping Use: Never Used Second Hand Smoke Exposure: No service: No Current occupational status: employed Current occupational exposures/hazards: No Sexual orientation: Straight/Heterosexual Gender identity: Female Cognitive needs: No Hearing needs: No Vision needs: No Female Reproductive History Menstrual Age of Menarche: 13 control method: progesterone injection Total pregnancies: 7 Full term: 4 Number of Living Children: 4 Ab spontaneous: 3 Date of last pap smear: 12/01/21 (negative) Review of Systems Const All systems reviewed & are unremarkable except as noted in HPI and below Card Reports as per HPI Resp Reports as per HPI GI Reports as per HPI and Reports no additional complaints Reports as per HPI Physical Exam Vital Signs: Last Vital Signs BP 112/78 01/10/23 15:23 BMI result Body Mass Index 23.1 Const General: cooperative, healthy appearing and comfortable Chest Chest palpation & inspection: normal inspection of the chest and normal palpation of entire chest wall Breast/axilla inspection: normal inspection of the breasts and normal inspection of the axillae Breast/axilla palpation: normal palpation of the breasts, normal palpation of the axillae and no axillary lymphadenopathy Resp Effort & Inspection: normal respiratory effort Auscultation: clear to auscultation bilaterally Percussion: percussion normal Cardio Palpation: normal PMI Rate: regular rate Rhythm: regular rhythm Heart sounds: no murmurs and no rubs Peripheral pulses: Peripheral pulses 2+ throughout GI Inspection: Yes normal to inspection Palpation (GI): Soft to palpation, nontender, no guarding, not rigid and No hepatosplenomegaly present Percussion: Yes normal to percussion Auscultation: normal bowel sounds Rectal Exam - Female: deferred General: Yes bladder normal to palpation External Female Exam: No lesion Speculum Exam - Vagina: normal appearance of the vagina, normal palpation, normal vaginal discharge and not erythematous Speculum Exam - Cervix: normal appearance of the cervix and normal palpation Bimanual exam- vagina & uterus: normal bimanual exam, normal palpation, uterine size normal, bladder normal to palpation, consistency normal and normal palpation Bimanual Exam- Adnexa, other: normal adnexae, no masses and no tenderness Assessment & Plan Assessment & Plan (1) Well woman exam with routine gynecological exam: Code(s): Z01.419 - Encounter for gynecological examination (general) (routine) without abnormal findings Plan: Cotesting not indicated this year. Mammogram ordered. Counseled the patient about the recommended dietary allowance of 1000 mg of Calcium & 600 IU of vitamin D. The patient was instructed to perform monthly self-breast exams and to schedule an annual exam in a year; will refer to GI for screening colonoscopy. All questions answered and the patient verbalized understanding. Instructed the patient to schedule annual exam in a year Orders: Orders MM screening mammo BI Today Z12.31 - Encounter for screening mammogram for malignant neoplasm of breast Referrals Gastroenterology Referral Z12.11 - Encounter for screening for malignant neoplasm of colon Coding Level of Care Code Est Pt Prev Care 40-64y(20661) Diagnoses Well woman exam with routine gynecological exam Z01.419
== END 2023-01-10 15:46 | disposition home or self-care (01) ==
LOC: HO.HWS 15:17
PROVIDERS: PCP Internal Medicine; Visit Provider Obstetrics & Gynecology
DX: Z01.419 Encounter for gynecological examination (general) (routine) without abnormal findings (principal)
CPT/HCPCS: 99396

== ENCOUNTER → 2023-01-10 15:17 | Outpatient (BNVA) | payer OTHER, SELFPAY | PROVIDERS: PCP Internal Medicine; Visit Provider Obstetrics & Gynecology ==

== ENCOUNTER 2023-01-13 12:10 | Outpatient (REF) | payer OTHER, SELFPAY | END 2023-01-13 12:11 | disposition home or self-care (01) | LOC: HO.MAMMO 12:10 | PROVIDERS: PCP Internal Medicine; Visit Provider Obstetrics & Gynecology | DX: Z13.89 Encounter for screening for other disorder (principal) ==

== ENCOUNTER 2023-01-25 13:01 | Outpatient (AMB) | payer OTHER, SELFPAY ==
[2023-01-25 13:03] VITALS: BP 132/80; PULSE 88; BMI 22.1
--- NOTE | 2023-01-25 13:03 | MHC.OFFVIS ---
Intake Vital Signs 01/25/23 13:03 Height 5 ft 6 in Weight 136 lb 10.986 oz BMI 22.1 BP 132/80 Blood Pressure Location Lt brachial Position Sitting Pulse 88 Intake Visit Reasons: Palpitations Intake Note: New patient dx palpitations had ekg and holter in September c/o palpitations x3-4 months Boil Off Machine Operator Cloth Required: Yes Boil Off Machine Operator Cloth Name: [place] cyracom Allergies tramadol [TRAMADOL] Allergy (Intermediate, Verified 01/10/23 15:26) NAUSEA & VOMITING Medication List - Last Reconciled 01/25/23 by Andrea Brewster MD buspirone 15 mg PO calcium carbonate 600 mg PO BID 90 days cholecalciferol (vitamin D3) 25 mcg PO DAILY 90 days divalproex 500 mg PO BID docusate sodium 100 mg PO BEDTIME escitalopram oxalate 10 mg PO DAILY famotidine (Pepcid) 20 mg PO BID fluticasone propionate 50 mcg/actuation (Allergy Relief (fluticasone)) 2 sprays intranasal DAILY ibuprofen 600 mg PO Q8H PRN loratadine (Allergy Relief (loratadine)) 10 mg PO DAILY 90 days medroxyprogesterone 150 mg IM Q12W ondansetron 4 mg PO Q8H PRN zolpidem 10 mg PO BEDTIME HPI HPI Comments History of Present Illness Details Marta was referred here for symptoms of palpitations. She is a 47-year-old female with prior history of fibromyalgia, anxiety disorder, bipolar depression, currently on psychiatric medications. For about 4 months she has been having symptoms of palpitations. History was obtained with help of air quality engineer. Patient says for about 4 weeks she has been feeling symptoms of strong heartbeat which is associated with chest discomfort and left arm discomfort and palpitations radiating to her neck. Symptoms can last for the whole day. Symptoms happen about every 3-4 days. There is no clear triggering event. She says however that she is under lot of stress related to her kids mental disorder. She is currently still breast-feeding 1 of her kids who is 2 years old. She underwent Holter monitor in September which showed rare isolated PVCs although when she described her symptoms, it correlated with sinus rhythm. She has not had any change in her recent health. She does not exercise on a regular basis go with her usual physical activity she does not have any exertional chest pain or shortness of breath. No lightheadedness, syncope. No heart failure symptoms. 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 present on magnetic resonance imaging Panic attacks Pituitary macroadenoma Rathke's cleft cyst Renal calculi Surgical History History of appendectomy History of History of esophagogastroduodenoscopy (EGD) History of left salpingo-oophorectomy History of pubovaginal sling Hx of mammogram Hx of umbilical hernia repair Family History Father Hyperlipidemia HTN (hypertension) Mother Healthy female Social History Household Members: Children Housing: Apartment Alcohol intake: never Patient Tobacco Use Status: Current someday Tobacco user Tobacco use type: Cigarette e-Cigarette/Vaping Use: Never Used Second Hand Smoke Exposure: No service: No Current occupational status: employed Current occupational exposures/hazards: No Sexual orientation: Straight/Heterosexual Gender identity: Female Cognitive needs: No Hearing needs: No Vision needs: No Female Reproductive History Menstrual Age of Menarche: 13 Review of Systems Const Denies chills, Denies daytime sleepiness, Denies fatigue, Denies fever(s), Denies frequent falls, Denies poor appetite, Denies snoring, Denies stops breathing during sleep, Denies weakness, Denies weight gain and Denies weight loss Eyes Denies loss of vision ENT Denies dizziness and Denies hearing loss Card Denies chest pain, Denies claudication, Denies leg edema, Denies lightheadedness, Denies palpitations, Denies dyspnea, Denies dyspnea on exertion and Denies orthopnea Resp Denies cough, Denies excessive phlegm production, Denies dyspnea, Denies dyspnea on exertion, Denies snoring and Denies wheezing GI Denies abdominal pain, Denies hematochezia, Denies change in bowel habits, Denies nausea and Denies vomiting Denies urinary frequency and Denies dysuria Musc Denies arthralgias, Denies muscle weakness, Denies numbness and Denies other (frequent falls) Skin/Breast Denies nail changes and Denies rash Neuro Denies Abnormal speech present, Denies dizziness, Denies frequent falls, Denies loss of vision, Denies memory loss, Denies numbness and Denies weakness Psych Denies depression and Denies memory loss Endo Denies fatigue and Denies palpitations Kaden/Lymph Reports easy bruising and Reports other (anemia) Aller/Immun Denies wheezing Physical Exam Vital Signs: Last Vital Signs Pulse 88 01/25/23 13:03 BP 132/80 01/25/23 13:03 BMI result Body Mass Index 22.1 Const General: cooperative, comfortable, no acute distress, alert, awake and Physically active Nutritional Appearance: average body habitus Orientation/consciousness: patient oriented x3 Limitations: no limitations HEENT Head: Yes normocephalic and Yes atraumatic Neck Neck: Yes trachea midline, Yes supple and Yes no JVD Resp Effort & Inspection: normal respiratory effort Auscultation: clear to auscultation bilaterally Cardio Jugular venous distension: no JVD Palpation: normal PMI Rate: regular rate Rhythm: regular rhythm Heart sounds: S1 normal heart sound present, S2 normal heart sound present, no click, no gallops, no murmurs and no rubs GI Auscultation: normal bowel sounds Skin General skin exam: no rashes or lesions noted Neuro General: patient oriented x3 and no focal motor deficits Speech: No Abnormal speech present Extrem General: Yes no clubbing, cyanosis or edema Psych Appearance: grossly normal Assessment & Plan Assessment & Plan (1) Palpitations: Code(s): R00.2 - Palpitations Plan: Symptoms of palpitations most likely related to isolated PVCs. Overall frequencies rare. Benign nature of isolated PVCs with red frequency was discussed with her with help of air quality engineer. These are most likely responsible for symptoms. Most likely reason is increased stress related to her personal situation. We offered her therapy with metoprolol although she is concerned about breast-feeding. She would rather not take any medication that could potentially affect her child. I discussed with her about benign nature of isolated PVCs. Will obtain echocardiogram to evaluate for cardiac structure and function. If this is within normal limits, I would even further suggest that medical therapy is not necessary unless she remains highly symptomatic, metoprolol can be tried. We discussed about stress mitigation strategies. Avoidance of stimulants was discussed. Will follow up in the clinic in 1 year's time, sooner p.r.n.. Coding Level of Care Code New Pt Level 3 (86257) Diagnoses Palpitations R00.2
== END 2023-01-25 13:37 | disposition home or self-care (01) ==
PROVIDERS: PCP Internal Medicine; Referring Provider Internal Medicine; Visit Provider Internal Medicine Cardiovascular Disease
DX: R00.2 Palpitations (principal)
CPT/HCPCS: 99213

== ENCOUNTER → 2023-01-25 13:01 | Outpatient (BNVA) | payer OTHER, SELFPAY | PROVIDERS: PCP Internal Medicine; Referring Provider Internal Medicine; Visit Provider Internal Medicine Cardiovascular Disease | DX: R00.2 Palpitations (principal) | CPT/HCPCS: 99212 ==

== ENCOUNTER 2023-02-17 11:11 | Outpatient (AMB) | payer OTHER, SELFPAY ==
--- NOTE | 2023-02-17 11:26 | MHC.OFFVIS ---
Intake Vital Signs 02/17/23 11:29 Height 5 ft 6 in Weight 138 lb 14.259 oz BMI 22.4 BP 98/70 Blood Pressure Location Rt brachial Position Sitting Pulse 79 Pulse Source Pulse Oximeter Temp 98.1 F Temp Source Skin Pulse Oximetry (%) 98 Oxygen Delivery Method Room Air Intake Visit Reasons: FM Intake Note: New patient here for fibromyalgia. Here for treatment. Lactating. Former [facility]. Sales Applications Engineer Required: Yes Sales Applications Engineer Language: Groundskeeping Maintenance Worker Name: Constantino [id number] Information Interpreted: clinical only Allergies tramadol [TRAMADOL] Allergy (Intermediate, Verified 02/17/23 11:27) NAUSEA & VOMITING Medication List - Last Reconciled 02/17/23 by Donny Chadwick MD buspirone 15 mg PO calcium carbonate 600 mg PO BID 90 days cholecalciferol (vitamin D3) 25 mcg PO DAILY 90 days divalproex 500 mg PO BID docusate sodium 100 mg PO BEDTIME escitalopram oxalate 10 mg PO DAILY famotidine (Pepcid) 20 mg PO BID fluticasone propionate 50 mcg/actuation (Allergy Relief (fluticasone)) 2 sprays intranasal DAILY ibuprofen 600 mg PO Q8H PRN loratadine (Allergy Relief (loratadine)) 10 mg PO DAILY 90 days medroxyprogesterone 150 mg IM Q12W ondansetron 4 mg PO Q8H PRN zolpidem 10 mg PO BEDTIME HPI HPI Comments History of Present Illness Details The patient presents for evaluation of her fibromyalgia. We used the [employer] translating device. The patient has a child with her who has autism and intermittently she cries out during the interview. This makes it difficult to coordinate responses with the newsagent. The patient gives a history of perhaps 5/10 years of having fibromyalgia with the characteristic widespread pains. She held her medications that she was on when she became . She does not know what they were. She has stayed off medications because she is now breast-feeding. She says the child has difficulty with oral intake but does well with . The patient does not have any significant injury that she could relate to her her joint pain. Areas if pain include the neck, shoulders, elbows, hands, wrists, hips and knees. The chart indicates a diagnosis of bipolar disorder and the patient apparently is taking escitalopram, zolpidem, divalproex, and buspirone. She admits to occasionally taking naproxen. She thinks the hands are occasionally swollen. 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 present on magnetic resonance imaging Panic attacks Pituitary macroadenoma Rathke's cleft cyst Renal calculi Surgical History (Updated 02/17/23 @ 11:36 by JOSE Spaulding) History of appendectomy History of History of esophagogastroduodenoscopy (EGD) History of left salpingo-oophorectomy History of pubovaginal sling Hx of mammogram Hx of umbilical hernia repair Family History (Updated 02/17/23 @ 11:36 by JOSE Spaulding) Father Hyperlipidemia HTN (hypertension) Mother Healthy female Other Arthritis Social History (Updated 02/17/23 @ 11:34 by JOSE Spaulding) Household Members: Children Housing: Apartment Alcohol intake: never Patient Tobacco Use Status: Former Tobacco user Tobacco use type: Cigarette e-Cigarette/Vaping Use: Never Used Second Hand Smoke Exposure: No service: No Current occupational status: unemployed Current occupational exposures/hazards: No Sexual orientation: Straight/Heterosexual Gender identity: Female Cognitive needs: No Hearing needs: No Vision needs: No Female Reproductive History Menstrual Age of Menarche: 13 Total pregnancies: 6 Ab spontaneous: 2 Review of Systems Const Details: Fatigue and low energy P Negative for appetite change, weight change, fever, chills, malaise Eyes Details: Occasional headache. Negative for vision change, dry eyes and dizziness ENT Details: Negative for hearing change, tinnitus, oral ulcer, nose bleeds and oral dryness. Card Details: Negative chest pain, edema and syncope Resp Details: Negative for SOB, cough and wheezing GI Details: Occasional heartburn. Negative nausea, abdominal pain, bowel changes, diarrhea, constipation and bloody stool. Details: Negative for dysuria, hematuria, nocturia, decreased force/flow and genital discharge Skin/Breast Details: Negative for itching, rash, hives, Raynaud's symptoms, sun sensitivity, and skin cancer Neuro Details: Negative for epilepsy, palsy, stroke, changes in speech, tingling and weakness Psych Details: Anxiety and depression at this point seems stable. Endo Details: Negative for polyuria and polydypsia Kaden/Lymph Details: Negative for excessive bruising or bleeding. Physical Exam Vital Signs: Last Vital Signs Temp 98.1 F 02/17/23 11:29 Pulse 79 02/17/23 11:29 BP 98/70 02/17/23 11:29 Pulse Ox 98 02/17/23 11:29 Oxygen Delivery Method Room Air 02/17/23 11:29 BMI result Body Mass Index 22.4 APPEARANCE: Patient in no acute distress EYES no redness, pupils equal and reactive to light, eyelids normal THROAT: Oral mucosa moist, no ulcerations NECK: No thyromegaly or masses, no adenopathy, trachea midline. HEART: Regulrar rhythm, S1-S2 heard, no murmurs, rubs or gallops. LUNG: Clear to percussion and auscultation ABD: Normal bowel sounds, no organomegaly, masses or tenderness. EXTREMITIES: No edema, no calf tenderness, normal peripheral pulses. NEURO: Oriented and alert x3. No focal weakness. Reflexes symmetric. Gait normal. SKIN: No inflammatory or neoplastic lesions. Normal color and turgor JOINT EXAM:?? Cervical Spine: Mild pain with extremes of normal range of motion. Some cervical muscle tenderness. Thoracic Spine:.? No scoliosis.? No tenderness on palpation. Lumbar Spine:.? Alignment normal.? Mild pain with flexion at 60 degrees. Mild lumbar muscle tenderness. Chest Wall:.? No tenderness, swelling, increased warmth or erythema. Hands:.? Normal pain-free range of motion. This seems to be diffuse tenderness across the small joints of the hands. However I do not see any swelling, increased warmth or erythema. There is no sensory loss, thenar atrophy, or flexor tendon triggering. Wrists:? Mild pain with flexion extension at 80 degrees with some slight dorsal tenderness but no swelling, increased warmth or erythema. Elbows: Normal pain-free range of motion without tenderness, swelling, increased warmth or erythema. Shoulders:?? Right: Full range of motion with slight discomfort at the extremes of normal range of motion. Most of this discomfort is felt over the top of the shoulder in the trapezius. There is mild anterior and posterior tenderness without abductor weakness, adenopathy, or swelling. Left: Mild pain with abduction at 135 degrees or with extremes of normal internal or external rotation. The pain is felt anteriorly and that top of the shoulder. There is no abductor weakness. There is [id number] anterior and subacromial tenderness without swelling, abductor weakness, or adenopathy. Hips:.? Full range of motion with some lumbar pain at the extremes of normal internal or external rotation. No groin pain with motion. Hip bursa:.? Mild trochanteric tenderness. Knees:.?? Normal pain-free range of motion with mild medial tenderness but no crepitus, effusion, soft tissue the swelling, increased warmth or erythema.? Ankles:.? Normal pain-free range of motion without tenderness, swelling, increased warmth or erythema. Feet:.? Normal pain-free range of motion with mild tenderness in the MTP joints the instep region but no swelling is appreciated. No increased warmth or erythema. Tender points:.? mild tenderness to digital palpation at the occiput, trapezius, second rib, lateral epicondyle, knees, greater trochanter and gluteal area bilaterally. ? Assessment & Plan Assessment & Plan (1) Shoulder pain, left: Code(s): M25.512 - Pain in left shoulder (2) Tendinitis of left rotator cuff: Code(s): M75.82 - Other shoulder lesions, left shoulder (3) Fibromyalgia: Code(s): M79.7 - Fibromyalgia Plan She has many areas of pain and tenderness. On exam I do not see any signs of an active inflammatory process. The range of motion in the left shoulder is quite a bit more uncomfortable than in the right shoulder. This would suggest alternative pathology such as rotator cuff tendinitis or attrition. We will get an x-ray of the shoulder. She has had physical therapy for fibromyalgia before but nothing directed specifically at the shoulder. So if the x-ray looks okay we will probably send her for some physical therapy for the shoulder pain, likely due to tendinitis. As far as treatment of her overall pain syndrome I explained to her that fibromyalgia treatment was mostly aimed at symptom control. The disease is not progressive and medications only help the patients feel a bit better. In that regard the risk of giving her a sedating medicines such as muscle relaxants or gabapentin would would be that the child might received a low dose of those medications. I would think ordinarily that would not be a big issue but given the history of autism in the child I would be reluctant to add medications for that purpose at the present time. I think she could safely take acetaminophen up to 2500 mg spread through the day. Light aerobic activity is encouraged. We will get back to her with the results of her shoulder x-ray. A return visit when she is off the might be appropriate. Review of her chart, her current history, and exam took 48 minutes. Orders: Orders XR shoulder LT min 2V Today M25.512 - Pain in left shoulder Coding Level of Care Code New Pt Level 4 (22542) Diagnoses Shoulder pain, left M25.512 Tendinitis of left rotator cuff M75.82 Fibromyalgia M79.7
[2023-02-17 11:29] VITALS: BP 98/70; PULSE 79; TEMP 36.7; O2SAT 98; BMI 22.4
== END 2023-02-17 12:23 | disposition home or self-care (01) ==
PROVIDERS: PCP Internal Medicine; Visit Provider Internal Medicine Rheumatology
DX: M25.512 Pain in left shoulder (principal); M75.82 Other shoulder lesions, left shoulder; M79.7 Fibromyalgia
CPT/HCPCS: 99204

== ENCOUNTER → 2023-02-17 11:11 | Outpatient (BNVA) | payer OTHER, SELFPAY | PROVIDERS: Visit Provider Internal Medicine Rheumatology | DX: M79.7 Fibromyalgia (principal); M75.82 Other shoulder lesions, left shoulder; M25.512 Pain in left shoulder | CPT/HCPCS: 99202 ==

== ENCOUNTER 2023-02-28 07:29 | Outpatient (AMB) | payer OTHER, SELFPAY ==
[2023-02-28 07:33] VITALS: BP 110/68; PULSE 69; O2SAT 98; BMI 22.1
--- NOTE | 2023-02-28 07:33 | A.OFFPC_ITS ---
Vital Signs 02/28/23 07:33 Height 5 ft 6 in Weight 137 lb BMI 22.1 BP 110/68 Blood Pressure Location Lt brachial Position Sitting Pulse 69 Pulse Source Pulse Oximeter Pulse Oximetry (%) 98 Oxygen Delivery Method Room Air Intake Visit Reasons: Physical exam Intake Note: wants to change rhematology. [place] Hardware Installer Required: Yes Allergies tramadol [TRAMADOL] Allergy (Intermediate, Verified 02/28/23 07:34) NAUSEA & VOMITING Tobacco use date assessed: 11/09/22 Dental Screening Dental Screen Date: 02/28/23 Did you have a dental visit in the last 12 months?: Yes Did you have a dental problem in the last 6 months where you did not have access to dental care?: No Was dental information given to patient?: Patient has dentist HPI HPI Comments History of Present Illness Details 47-year-old female past medical history significant for bipolar depression, chronic fatigue pituitary micro adenoma, fibromyalgia. Patient of Dr. Burris presents today for physical exam. Denies CP,palpitations, son and syncope. Reports fatigue and lack of energy. Mammogram: Patient states she was told she cant do mammogram cause shes currently and states she will follow up for mammogram when she is no longer breast feeding. Eye exam: Last Month Colonoscopy: Waiting for call for appointment to set up appointment. [facility] Medical History (Updated 02/17/23 @ 12:17 by Donny Chadwick MD) Pituitary macroadenoma Blurry vision Chronic fatigue 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 present on magnetic resonance imaging Hx of sinusitis History of snoring Insomnia Fibromyalgia Panic attacks Bipolar depression Renal calculi Abdominal pain Rathke's cleft cyst Abnormal urine odor Surgical History (Updated 02/17/23 @ 11:36 by JOSE Spaulding) History of pubovaginal sling Hx of mammogram History of left salpingo-oophorectomy Hx of umbilical hernia repair History of esophagogastroduodenoscopy (EGD) History of appendectomy History of Family History (Updated 02/17/23 @ 11:36 by JOSE Spaulding) Father Hyperlipidemia HTN (hypertension) Mother Healthy female Other Arthritis Social History (Updated 02/17/23 @ 11:34 by JOSE Spaulding) Household Members: Children Housing: Apartment Alcohol intake: never Patient Tobacco Use Status: Former Tobacco user Tobacco use type: Cigarette e-Cigarette/Vaping Use: Never Used Second Hand Smoke Exposure: No service: No Current occupational status: unemployed Current occupational exposures/hazards: No Sexual orientation: Straight/Heterosexual Gender identity: Female Cognitive needs: No Hearing needs: No Vision needs: Yes Female Reproductive History Menstrual Age of Menarche: 13 Questionnaire PHQ-9 Over the last 2 weeks, how often have you been bothered by any of the following problems? 1. Little interest or pleasure in doing things: not at all 2. Feeling down, depressed, or hopeless: nearly every day 3. Trouble falling or staying asleep, or sleeping too much: nearly every day 4. Feeling tired or having little energy: nearly every day 5. Poor appetite or overeating: several days 6. Feeling bad about yourself - or that you are a failure or have let yourself or your family down: not at all 7. Trouble concentrating on things, such as reading the newspaper or watching television: nearly every day 8. Moving or speaking so slowly that other people could have noticed. Or the opposite - being so fidgety or restless that you have been moving around a lot more than usual: several days 9. Thoughts that you would be better off or of hurting yourself in some way: not at all Total score: 14 Depression Screening Interpretation: Positive (Psychiatry in [place], counseling Melissa Powers) Depression Screening Follow-up: Existing condition and Community Mental Health Worker F/U Source: Developed by Drs. Isidro Schroeder, Salvatore Juarez and colleagues, with an educational gracia from [employer]. Thrive Questionnaire Date Thrive assessed: 11/09/22 AUDIT C Alcohol Use Questionnaire (AUDIT-C) 1. How often do you have a drink containing alcohol?: Never Total Score: 0 Score Reviewed/Action Taken: No PHAN-7 AMB Questionnaire PHAN-7 Date PHAN - 7 assessed: 11/09/22 Source: Developed by Drs. Isidro Schroeder, Salvatore Juarez and colleagues, with an educational gracia from [employer]. Review of Systems Const Denies chills, Denies fatigue, Denies fever(s) and Denies poor appetite Eyes Denies no additional complaints ENT Reports Normal hearing present Card Denies chest pain, Denies syncope, Denies rapid heart rate and Denies dyspnea Resp Denies cough and Denies dyspnea GI Denies change in stool character, Denies constipation, Denies diarrhea, Denies nausea and Denies vomiting Denies urinary frequency, Denies dysuria and Denies urinary urgency Neuro Reports Normal hearing present, Denies confusion and Denies syncope Psych Denies confusion Endo Denies fatigue Physical exam (Primary Care) Vital Signs: Last Vital Signs Pulse 69 02/28/23 07:33 BP 110/68 02/28/23 07:33 Pulse Ox 98 02/28/23 07:33 Oxygen Delivery Method Room Air 02/28/23 07:33 BMI result Body Mass Index 22.1 Tobacco/Smoking Status: Tobacco use Status Tobacco use date assessed 11/09/22 02/28/23 07:43 Patient Tobacco Use Status Former Tobacco user 02/28/23 07:43 Tobacco use type Cigarette 02/28/23 07:43 e-Cigarette/Vaping Use Never Used 02/28/23 07:43 PHQ-9: PHQ-9 Score PHQ-9: Total score 14 02/28/23 07:48 Depression Screening Interpretation: Positive (Psychiatry in [place], counseling Melissa Powers) Depression Screening Follow-up: Existing condition and [facility] Mental Health Worker F/U Thrive Assessment: Date of Thrive Assessment Date Thrive assessed 11/09/22 02/28/23 07:43 Const General: No confusion Orientation/consciousness: No confusion HENMT Head: Yes normocephalic and Yes atraumatic Ears: external ears normal and TM's normal bilaterally General nose exam: Normal external nose present and Normal nasal mucous membranes and turbinates present Face and sinus: Yes normal facial exam and Yes sinuses nontender Mouth: moist mucous membranes Throat: Yes tonsils normal Eyes Conjunctivae: conjunctivae normal Sclerae: sclerae normal Pupils: Equal, round and reactive pupils present and Pupils normal by confront ation EOM: EOMs intact bilaterally Direct Ophthalmoscopy: normal light reflex Neck Neck: Yes no lymphadenopathy and Yes supple Thyroid: Thyroid normal Chest Chest palpation & inspection: normal inspection of the chest Resp Effort & Inspection: normal respiratory effort Auscultation: clear to auscultation bilaterally, no crackles, no rhonchi and no wheezes Cardio Rate: regular rate Rhythm: regular rhythm Peripheral pulses: radial pulses present and dorsalis pedis present GI Inspection: Yes normal to inspection Palpation (GI): Soft to palpation, nontender and No hepatosplenomegaly present Auscultation: normoactive bowel sounds Skin General skin exam: no rashes or lesions noted Neuro General: No confusion Cranial nerves: Yes Equal, round and reactive pupils present and Yes Normal hearing present Cognition (Neuro): normal cognition Gait exam (Neuro): Normal gait present Motor exam (neuro): 5/5 motor strength present throughout Deep tendon reflexes (DTR's): Right brachioradialis reflex intensity grade: 2+, Left brachioradialis reflex intensity grade: 2+, Right patellar reflex intensity grade: 2+ and Left patellar reflex intensity grade: 2+ Extrem General: No edema Assessment and Plan Assessment & Plan (1) Physical exam, annual: Code(s): Z00.00 - Encounter for general adult medical examination without abnormal findings Plan: Follow up in 1 year or sooner if needed. Orders: Orders Lipid Panel Today Z13.220 - Encounter for screening for lipoid disorders TSH reflex Free T4 Today Z13.29 - Encounter for screening for other suspected endocrine disorder Complete Blood Count Auto Diff Today Z13.0 - Encounter for screening for diseases of the blood and blood-forming organs and certain disorders involving the immune mechanism Vitamin D 25-OH Total Today Z13.21 - Encounter for screening for nutritional disorder Vitamin B12 and Folate Today Z13.21 - Encounter for screening for nutritional disorder T Spot TB Today Z11.1 - Encounter for screening for respiratory tuberculosis Comprehensive [place]. Panel Fast Today Z13.0 - Encounter for screening for diseases of the blood and blood-forming organs and certain disorders involving the immune mechanism Coding Level of Care Code Est Pt Prev Care 40-64y(77019) Diagnoses Physical exam, annual Z00.00 Additional Codes PHQ-9 - 22655 - PHQ-9 Billing: ([id number])
== END 2023-02-28 08:02 | disposition home or self-care (01) ==
PROVIDERS: PCP Internal Medicine; Visit Provider Nurse Practitioner Family
DX: Z00.00 Encounter for general adult medical examination without abnormal findings (principal)
CPT/HCPCS: 99396

== ENCOUNTER 2023-03-30 15:11 | Outpatient (AMB) | payer OTHER, SELFPAY ==
[2023-03-30 15:20] VITALS: BMI 21.0
--- NOTE | 2023-03-30 15:20 | AM.OFFVISNUR ---
Intake Vital Signs 03/30/23 15:20 Height 5 ft 6 in Weight 59.024 kg BMI 21.0 Intake Visit Reasons: DEPO Allergies tramadol [TRAMADOL] Allergy (Intermediate, Verified 02/28/23 07:34) NAUSEA & VOMITING Nursing Note Marta is here for her Depo-Provera inj. she denies any complaints Follow up in 12 wks for next inj. Last AG was 01/10/23. Office Procedures Depo Questionnaire If YES to any of the following questions, please consult a provider. Date of last injection: 01/03/23 Date of last gynecology exam: 01/10/23 Menstrual pattern since last injection has been: Not Applicable Irregular bleeding?: No Breast lumps or other breast changes?: No Changes in weight or appetite?: No Depression or changes in mood?: No Abnormal hair growth or loss?: No Skin problems (rash, acne, discoloration)?: No Pain at the injection site?: No Headaches?: No Nervousness?: No Abdominal pain or cramping?: No Dizziness or nausea?: No Fatigue or weakness?: No Decrease in sexual drive?: No Chest pain or shortness of breath?: No Swelling in arms or legs?: No Any other problems or concerns?: none voiced Form completed by?: Neelam Boyd LPN Office Meds Depo-Provera 150 mg/mL intramuscular syringe Performing Provider: Galo Diaz MD Performing Location: [facility] Administered by: Yajaira Boyd LPN on 03/30/23 15:21 Dose Route Admin Location Dispensed Lot Number Expiration Date [facility] Block Inspector 150 mg IM lt deltoid 1 mL [id number] 06/19/24 92025-326-89 [employer] Coding Level of Care Code Established Pt Est Pt Level 1 (09062) Patient Type Established History Problem Focused Exam Problem Focused Medical Decision Making Straight Forward Time Spent (min) 10 Assessment & Plan Assessment & Plan Orders: Orders AMB Medroxyprogesterone Injection Patient Supplied Today Z30.9 - Encounter for contraceptive management, unspecified
== END 2023-03-30 15:17 | disposition home or self-care (01) ==
LOC: HO.HWS 15:11
PROVIDERS: PCP Internal Medicine; Visit Provider Obstetrics & Gynecology
DX: Z30.9 Encounter for contraceptive management, unspecified (principal)

== ENCOUNTER → 2023-03-30 15:11 | Outpatient (BNVA) | payer OTHER, SELFPAY | PROVIDERS: PCP Internal Medicine; Visit Provider Obstetrics & Gynecology | DX: Z30.9 Encounter for contraceptive management, unspecified (principal) | CPT/HCPCS: 96372; 99211; J1050 ==

== ENCOUNTER 2023-04-17 20:18 | Emergency (ER) | payer OTHER, SELFPAY ==
--- NOTE | ~2023-04-17 | XR_ITS ---
EXAMINATION: XR CHEST CLINICAL INFORMATION: Chest pain COMPARISON: 09/25/2022 TECHNIQUE: Frontal view of the chest was obtained. FINDINGS: No significant abnormality is noted involving the heart, lungs, mediastinum, bony thorax or soft tissues. XR/XR chest 1V IMPRESSION: Unremarkable examination.
--- NOTE | 2023-04-17 20:20 | ECG_ITS ---
Test Reason : CHEST PAIN Blood Pressure : / mmHG Vent. Rate : 108 BPM Atrial Rate : 108 BPM P-R Int : 122 ms QRS Dur : 086 ms QT Int : 338 ms P-R-T Axes : 065 019 016 degrees QTc Int : 452 ms Sinus tachycardia Nonspecific T wave abnormality Inferior leads Abnormal ECG When compared with ECG of 25-SEP-2022 15:19, Heart rate has increased T wave inversion less evident in Inferior leads Referred By: Kianna Hughes Electronically Signed By:NOEMI RODRIGUEZ MD
--- NOTE | 2023-04-17 20:20 | ED.GENADULT ---
HPI - General Adult General Chief complaint: Chest Pain Stated complaint: chest pain, sob Time Seen by Provider: 04/17/23 22:01 Source: patient Mode of arrival: ambulatory Limitations: no limitations History of Present Illness HPI narrative: Patient history of fibromyalgia anxiety been having palpitation off and on as in the past, had extended Holter monitoring 12/10 which was negative except for few PVCs and average heart rate of 90 beats per minute comes here palpitation episode of and on for last 3 4 days with sharp pain in the left chest also complaining of pain in the upper back left side of the neck which is chronic and does happen when she has fibromyalgia. Patient complaining of palpitation but on a playground monitor was sinus rhythm 80 beats per minute when she came it was 109 beats per minute , sinus tachycardia patient with increased stress lately with anxiety Related Data Home Medications Medication Instructions Recorded Confirmed divalproex 500 mg tablet,delayed 500 mg PO BID 01/10/23 02/17/23 release escitalopram oxalate 10 mg tablet 10 mg PO DAILY depressive disorder 01/10/23 02/17/23 zolpidem 10 mg tablet 10 mg PO BEDTIME 01/10/23 02/17/23 buspirone 15 mg tablet 15 mg PO 01/25/23 02/17/23 Previous Rx's Medication Instructions Recorded ondansetron 4 mg disintegrating 4 mg PO Q8H PRN nausea and 07/17/21 tablet vomiting #20 tabs docusate sodium 100 mg capsule 100 mg PO BEDTIME #90 caps 12/28/21 famotidine 20 mg tablet (Pepcid) 20 mg PO BID #180 tabs 12/28/21 calcium carbonate 600 mg calcium 600 mg PO BID 90 days #180 tabs 02/08/22 (1,500 mg) tablet cholecalciferol (vitamin D3) 25 25 mcg PO DAILY 90 days #90 caps 02/08/22 mcg (1,000 unit) capsule fluticasone propionate 50 2 spray intranasal DAILY #16 grams 09/30/22 mcg/actuation nasal spray,suspension (Allergy Relief (fluticasone)) ibuprofen 600 mg tablet 600 mg PO Q8H PRN pain #20 tabs 11/09/22 loratadine 10 mg tablet (Allergy 10 mg PO DAILY 90 days #90 tabs 11/09/22 Relief (loratadine)) medroxyprogesterone 150 mg/mL 150 mg IM Q12W #1 mL 12/27/22 intramuscular suspension naproxen 500 mg tablet (Naprosyn) 500 mg PO BID PRN pain #60 tabs 04/17/23 Allergies Allergy/AdvReac Type Severity Reaction Status Date / Time tramadol [TRAMADOL] Allergy Intermediate NAUSEA & Verified 02/28/23 07:34 VOMITING Review of Systems Review of Systems: Yes all other systems are reviewed and are negative [facility] Past Medical History 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 present on magnetic resonance imaging Hx of sinusitis History of snoring Insomnia Fibromyalgia Panic attacks Bipolar depression Renal calculi Abdominal pain Rathke's cleft cyst Abnormal urine odor Surgical History History of pubovaginal sling Hx of mammogram History of left salpingo-oophorectomy Hx of umbilical hernia repair History of esophagogastroduodenoscopy (EGD) History of appendectomy History of Family History Family History Father Hyperlipidemia HTN (hypertension) Mother Healthy female Other Arthritis Social History Social History Household Members: Children Housing: Apartment Alcohol intake: never Patient Tobacco Use Status: Former Tobacco user Tobacco use type: Cigarette e-Cigarette/Vaping Use: Never Used Second Hand Smoke Exposure: No Advance Directives: No service: No Current occupational status: unemployed Current occupational exposures/hazards: No Sexual orientation: Straight/Heterosexual Gender identity: Female Cognitive needs: No Hearing needs: No Vision needs: Yes Physical Exam ED Vital Signs: Vital Signs - 24 hr 04/17/23 20:23 04/17/23 22:02 Temperature 97.7 F Pulse Rate 109 H 72 Respiratory Rate 20 20 Blood Pressure 133/72 120/77 Pulse Oximetry 98 98 Oxygen Delivery Method Room Air Room Air BMI result Body Mass Index 22.4 Appearance: Alert. Oriented X3. No acute distress. Eyes: PERRLA, No Nystagmus ENT: Pharynx normal. Oral Mucosa moist Neck: Normal inspection. Neck supple. Tenderness left side of the neck and upper back no bruit no midline tenderness CVS: Normal heart rate and rhythm. Pulses normal. Respiratory: No respiratory distress. Equal air entry bilateral, no wheezing/rales/rhonchi Abdomen: Soft and nontender. Bowel sounds are present, no mass palpable, no CVA tenderness Skin: Skin warm and dry. Normal skin color. Normal skin turgor. Extremities: No lower extremity edema. No calf tenderness Neuro: Oriented X 3. Course Course Course Narrative: This is an RME: Additional HPI, ROS, PE not included below will be deferred to primary provider. 47 yo f presents w/ sub sternal cp 01/27 and intermittent sob X 1 day. Also experiencing intermittent palpitations. Has seen cardiology here on 01/25/23 is supposed to have an echo done but hasn't had it done she states Plan- labs, ekg, cxr Medications Administered Discontinued Medications Generic Name Dose Route Start Last Admin Trade Name Freq PRN Reason Stop Dose Admin Naproxen 500 mg 04/17/23 22:53 04/17/23 23:08 Naproxen 500 Mg Tablet PO 04/17/23 22:54 500 mg ONCE ONE Administration Medical Decision Making Medical Decision Making [facility] Narrative: Patient atypical chest pain with palpitation no arrhythmias noted during stay in the ED cardiac enzymes negative patient has reproducible chest pain and upper back pain likely from the fibromyalgia will discharge patient home on naproxen patient reassessed by Flexeril at home Differential Diagnosis Differential Diagnoses: The differential diagnosis associated with the presentation includes PAC/atrial fibrillation/sinus tachycardia/anxiety Lab Data [facility] Lab Attestation statement: I reviewed the patient's lab results. 04/17/23 20:26 04/17/23 20:26 Labs: Lab Results 04/17/23 Range/Units 20:26 WBC 7.1 (4.8-10.8) X10*3/uL RBC 4.42 (4.20-5.50) X10*6/uL Hgb 12.9 (12.0-16.0) g/dl Hct 39.7 (37.0-47.0) % MCV 89.8 (80.0-98.0) fL MCH 29.2 (27.0-33.0) pg MCHC 32.5 (31.0-35.0) g/dl RDW 13.1 (11.0-16.0) % Plt Count 212 (160-400) X10*3/uL MPV 11.1 (9.4-12.3) fL Immature Gran % (Auto) 0.1 (0.0-0.4) % Neut % (Auto) 50.0 (45-73) % Lymph % (Auto) 37.9 (20-40) % [place] % (Auto) 6.5 (2-11) % Eos % (Auto) 4.8 H (0-4) % Baso % (Auto) 0.7 (0-2) % Lymph # (Auto) 2.7 (1.2-4.9) X10*3/uL [place] # (Auto) 0.5 (0.1-1.2) X10*3/uL Eos # (Auto) 0.3 (0.0-0.4) X10*3/uL Baso # (Auto) 0.1 (0.0-0.2) X10*3/uL Abs Immat Gran (auto) 0.01 (0.00-0.03) X10*3/uL Absolute Neuts (auto) 3.5 (2.0-8.3) x10*3/uL Absolute Nucleated RBC 0.000 (0.0-0.012) X10*3/uL Nucleated RBC % (auto) 0.0 (0.0-0.2) /100WBC PT 10.9 L (11.1-13.3) SEC INR 0.9 (0.9-1.1) Sodium 141 (135-145) mmol/L Potassium 3.4 (3.3-5.1) mmol/L Chloride 111 H (96-108) mmol/L Carbon Dioxide 19 L (22-29) mmol/L Anion Gap 14 (12-20) BUN 13 (9-16) mg/dL Creatinine 0.89 (0.5-1.4) mg/dL Estim Creat Clear Calc 73.9 Estimated GFR > 60 Random Glucose 131 H (60-115) mg/dL Calcium 9.0 (8.4-10.2) mg/dL Magnesium 2.2 (1.6-2.6) mg/dL Total Bilirubin 0.4 (0.0-1.0) mg/dL AST 13 (5-31) U/L ALT 9 (0-31) U/L Alkaline Phosphatase 90 (39-117) U/L Troponin I High Sens 3.5 (<3.5-17.0) ng/L Total Protein 7.0 (6.5-8.0) g/dL Albumin 4.4 (3.5-5.0) g/dL Independent Interpretation I performed an independent interpretation of an: EKG Interpretation: Sinus tachycardia heart rate 108 beats per minute normal intervals normal axis no acute ST-T changes no acute ischemia Discharge Plan Discharge Clinical Impression: Atypical chest pain, Fibromyalgia Patient Disposition: Home, Self-Care Instructions: Chest Pain (ED), Fibromyalgia (ED) Additional Instructions: No chest pain is unlikely from the heart Continue taking your muscle relaxer Naproxen l for fibromyalgia/musculoskeletal chest pain Follow with PCP Prescriptions: New naproxen [Naprosyn] 500 mg tablet 500 mg PO BID PRN (Reason: pain) Qty: 60 0RF No Action ondansetron 4 mg tablet,disintegrating 4 mg PO Q8H PRN (Reason: nausea and vomiting) Qty: 20 0RF fluticasone propionate [Allergy Relief (fluticasone)] 50 mcg/actuation spray,suspension 2 spray intranasal DAILY Qty: 16 0RF Rx Instructions: administer into each nostril medroxyprogesterone 150 mg/mL suspension 150 mg IM Q12W Qty: 1 2RF Rx Instructions: 150 mg IM q 12w cholecalciferol (vitamin D3) 25 mcg (1,000 unit) capsule 25 mcg PO DAILY 90 Days Qty: 90 1RF calcium carbonate 600 mg calcium (1,500 mg) tablet 600 mg PO BID 90 Days Qty: 180 1RF ibuprofen 600 mg tablet 600 mg PO Q8H PRN (Reason: pain) Qty: 20 0RF loratadine [Allergy Relief (loratadine)] 10 mg tablet 10 mg PO DAILY 90 Days Qty: 90 0RF divalproex 500 mg tablet,delayed release (DR/EC) 500 mg PO BID escitalopram oxalate 10 mg tablet 10 mg PO DAILY zolpidem 10 mg tablet 10 mg PO BEDTIME buspirone 15 mg tablet 15 mg PO docusate sodium 100 mg capsule 100 mg PO BEDTIME Qty: 90 3RF famotidine [Pepcid] 20 mg tablet 20 mg PO BID Qty: 180 3RF Interventions: ED Discharge Assessment Last Done: 04/17/23 23:10 Discharge Date/Time: 04/17/23 23:11
[2023-04-17 20:23] VITALS: BP 133/72; PULSE 109; RESP 20; TEMP 36.5; O2SAT 98; BMI 22.4
[2023-04-17 20:36] LABS: MANUAL DIFF FLAG NO
[2023-04-17 20:43] LABS: Basophils Absolute Auto 0.1 X10*3/uL (0.0-0.2); Basophils Percent Auto 0.7 % (0-2); Eosinophils Absolute Auto 0.3 X10*3/uL (0.0-0.4); Eosinophils Percent Auto 4.8 % (0-4); Hematocrit 39.7 % (37.0-47.0); Hemoglobin 12.9 g/dl (12.0-16.0); Imm Gran Abs Auto 0.01 X10*3/uL (0.00-0.03); Imm Gran Pct Auto 0.1 % (0.0-0.4); Lymphocytes Absolute Auto 2.7 X10*3/uL (1.2-4.9); Lymphocytes Percent Auto 37.9 % (20-40); Mean Corpuscular HGB Conc 32.5 g/dl (31.0-35.0); Mean Corpuscular Hemoglobin 29.2 pg (27.0-33.0); Mean Corpuscular Volume 89.8 fL (80.0-98.0); Mean Platelet Volume 11.1 fL (9.4-12.3); Monocytes Absolute Auto 0.5 X10*3/uL (0.1-1.2); Monocytes Percent Auto 6.5 % (2-11); Neutrophils Absolute Auto 3.5 x10*3/uL (2.0-8.3); Platelet Count 212 X10*3/uL (160-400); Red Blood Count 4.42 X10*6/uL (4.20-5.50); Red Cell Distribution Width 13.1 % (11.0-16.0); White Blood Count 7.1 X10*3/uL (4.8-10.8)
[2023-04-17 20:46] LABS: INTERNATIONAL NORM RATIO 0.9 (0.9-1.1); Prothrombin Time 10.9 SEC (11.1-13.3)
[2023-04-17 20:53] LABS: Alanine Aminotransferase 9 U/L (0-31); Albumin Level 4.4 g/dL (3.5-5.0); Alkaline Phosphatase 90 U/L (39-117); Anion Gap 14 (12-20); Aspartate Amino Transferase 13 U/L (5-31); Bilirubin Total 0.4 mg/dL (0.0-1.0); Blood Urea Nitrogen 13 mg/dL (9-16); Carbon Dioxide 19 mmol/L (22-29); Chloride 111 mmol/L (96-108); Creatinine Clr Calc Pharmacy 73.9; Estimated Glomerular Filt Rate > 60; Glucose Random 131 mg/dL (60-115); Magnesium 2.2 mg/dL (1.6-2.6); Potassium 3.4 mmol/L (3.3-5.1); Sodium 141 mmol/L (135-145)
[2023-04-17 21:00] LABS: Troponin-I High Sensitivity 3.5 ng/L (<3.5-17.0)
[2023-04-17 22:02] VITALS: BP 120/77; PULSE 72; RESP 20; O2SAT 98
[2023-04-17] MEDS: NaPROXEN 500 MG TABLET PO (23:08)
== END 2023-04-17 23:11 | disposition home or self-care (01) ==
PROVIDERS: Physician Assistant; Emergency Provider Internal Medicine; PCP Internal Medicine
DX: R07.89 Other chest pain (principal); R00.2 Palpitations; R06.02 Shortness of breath; M79.7 Fibromyalgia; M54.50 Low back pain, unspecified; M54.2 Cervicalgia; Z79.899 Other long term (current) drug therapy; Z87.891 Personal history of nicotine dependence
CPT/HCPCS: 36415; 71045; 80053; 83735; 84484; 85025; 85610; 93005; 99284

== ENCOUNTER 2023-06-22 10:30 | Outpatient (REF) | payer OTHER, SELFPAY | END 2023-06-22 10:31 | disposition home or self-care (01) | LOC: HO.US 10:30 | PROVIDERS: Visit Provider Urology | DX: N20.0 Calculus of kidney (principal) | CPT/HCPCS: 76775 ==

== ENCOUNTER 2023-06-24 11:00 | Outpatient (AMB) | payer OTHER, SELFPAY ==
[2023-06-24 12:14] VITALS: BMI 21.7
--- NOTE | 2023-06-24 12:14 | AM.OFFVISNUR ---
Intake Vital Signs 06/24/23 12:14 Height 5 ft 6 in Weight 134 lb 6 oz BMI 21.7 Intake Visit Reasons: DEPO Intake Note: Pt is here for scheduled Depo provera injection. 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 No c/o. Pt tolerated injection well. Pt will schedule next injection in 12 weeks. Pt verbalizes understanding and agrees with plan. No further questions. Office Procedures Depo Questionnaire If YES to any of the following questions, please consult a provider. Date of last injection: 03/30/23 Date of last gynecology exam: 01/10/23 Menstrual pattern since last injection has been: Not Applicable Irregular bleeding?: No Breast lumps or other breast changes?: No Changes in weight or appetite?: No Depression or changes in mood?: No Abnormal hair growth or loss?: No Skin problems (rash, acne, discoloration)?: No Pain at the injection site?: No Headaches?: No Nervousness?: No Abdominal pain or cramping?: No Dizziness or nausea?: No Fatigue or weakness?: No Decrease in sexual drive?: No Chest pain or shortness of breath?: No Swelling in arms or legs?: No Form completed by?: Karen Ortiz RN Office Meds Depo-Provera 150 mg/mL intramuscular syringe Performing Provider: Galo Diaz MD Performing Location: [facility] [place] [facility] Administered by: Karen Ortiz on 06/24/23 11:18 Dose Route Admin Location Dispensed Lot Number Expiration Date [facility] Receiving Associate 150 mg IM left deltoid 1 mL [id number] 03/19/25 [id number] MYLAN Coding Level of Care Code Established Pt Est Pt Level 1 (53227) Patient Type Established History Problem Focused Medical Decision Making Straight Forward Time Spent (min) 12 Assessment & Plan Assessment & Plan Plan Pt advised to schedule next injection in 12 weeks. Pt verbalizes understanding and agrees with plan. No further questions. Orders: Orders AMB Medroxyprogesterone Injection Patient Supplied Today Z30.9 - Encounter for contraceptive management, unspecified
== END 2023-06-24 11:28 | disposition home or self-care (01) ==
LOC: HO.HWS 11:00
PROVIDERS: PCP Internal Medicine; Visit Provider Obstetrics & Gynecology
DX: Z30.9 Encounter for contraceptive management, unspecified (principal)

== ENCOUNTER → 2023-06-24 11:00 | Outpatient (BNVA) | payer OTHER, SELFPAY | PROVIDERS: PCP Internal Medicine; Visit Provider Obstetrics & Gynecology | DX: Z30.9 Encounter for contraceptive management, unspecified (principal) | CPT/HCPCS: 96372; 99211; J1050 ==

== ENCOUNTER 2023-07-08 14:25 | Outpatient (AMB) | payer OTHER, SELFPAY ==
--- NOTE | 2023-07-08 14:32 | A.OFFVIS_ITS ---
Intake Intake Visit Reasons: 6m/US Allergies tramadol [TRAMADOL] Allergy (Intermediate, Verified 02/28/23 07:34) NAUSEA & VOMITING Medication List - Last Reconciled 07/08/23 by Eze Barragan MD buspirone 15 mg PO calcium carbonate 600 mg PO BID 90 days cholecalciferol (vitamin D3) 25 mcg PO DAILY 90 days divalproex 500 mg PO BID docusate sodium 100 mg PO BEDTIME escitalopram oxalate 10 mg PO DAILY famotidine (Pepcid) 20 mg PO BID fluticasone propionate 50 mcg/actuation (Allergy Relief (fluticasone)) 2 sprays intranasal DAILY ibuprofen 600 mg PO Q8H PRN loratadine (Allergy Relief (loratadine)) 10 mg PO DAILY 90 days medroxyprogesterone 150 mg IM Q12W naproxen (Naprosyn) 500 mg PO BID PRN ondansetron 4 mg PO Q8H PRN zolpidem 10 mg PO BEDTIME HPI HPI Comments History of Present Illness Details Marta is a pleasant female. She is a patient with [facility]. She is seen for the following urologic conditions - nephrolithiasis Telemedicine Evaluation 15 min Consultation Moondo Shirley Video attempted [place] Island[place] translation provided in office by qualified emergency medical technician/driver Discussed results Kidney stones have reduced Encourage fluid intake Twelve month follow-up nurse-practitioner Nephrolithiasis Presentation had been for lower back pain particularly left side Imaging - 12/09 renal ultrasound 3 mm right kidne y - 12/10 renal ultrasound 2 x 6 mm stones right side - 06/11 renal ultrasound 3 mm right side On examination pain is sacroiliac in nature Reassurance provided PFSH 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 present on magnetic resonance imaging Hx of sinusitis History of snoring Insomnia Fibromyalgia Panic attacks Bipolar depression Renal calculi Abdominal pain Rathke's cleft cyst Abnormal urine odor Surgical History History of pubovaginal sling Hx of mammogram History of left salpingo-oophorectomy Hx of umbilical hernia repair History of esophagogastroduodenoscopy (EGD) History of appendectomy History of Family History Father Hyperlipidemia HTN (hypertension) Mother Healthy female Other Arthritis Social History Household Members: Children Housing: Apartment Alcohol intake: never Patient Tobacco Use Status: Former Tobacco user Tobacco use type: Cigarette e-Cigarette/Vaping Use: Never Used Second Hand Smoke Exposure: No service: No Current occupational status: unemployed Current occupational exposures/hazards: No Sexual orientation: Straight/Heterosexual Gender identity: Female Cognitive needs: No Hearing needs: No Vision needs: Yes Female Reproductive History Menstrual Age of Menarche: 13 Review of Systems Const Denies chills and Denies fever(s) Card Reports no additional complaints and Denies syncope Resp Denies cough GI Denies abdominal pain and Denies heartburn Reports as per HPI and Denies change in libido Neuro Denies syncope Psych Denies change in libido Endo Denies change in libido Physical Exam Const General: cooperative, healthy appearing, comfortable and no acute distress Orientation/consciousness: patient oriented x3 HEENT Face and sinus: Yes normal facial exam Mouth: moist mucous membranes Neck Neck: Yes normal visual inspection, Yes full ROM and Yes trachea midline Chest Chest palpation & inspection: normal inspection of the chest Resp Effort & Inspection: normal respiratory effort, able to speak in complete sentences and no respiratory distress GI Inspection: Yes normal to inspection Back/Spine/Pelvis Cervical Spine: normal cervical lordosis Thoracic/Lumbar Spine: thoracic and lumbar spine normal to inspection Skin General skin exam: no rashes or lesions noted Neuro General: patient oriented x3, gait normal, tone normal and moves all extremities Extrem General: Yes normal to inspection and Yes capillary refill normal Assessment & Plan Assessment & Plan (1) Renal calculi: Code(s): N20.0 - Calculus of kidney Plan One year follow-up Orders: Orders US renal BI 364 Days N20.0 - Calculus of kidney Patient Instructions: Imaging studies, laboratory and physical exam results were discussed and reviewed in detail. No major barriers to patient understanding were identified. An opportunity to ask questions regarding the treatment plan was provided. All questions were answered. The patient expressed understanding and agreement with the above treatment plan. The patient is aware they should contact our office by phone for worsening of their current condition or the appearance of new urologic symptoms. Compliance is encouraged with any medications and followup testing that is ordered. It is a privilege to participate in the urologic care of your patient. If you have any questions or concerns regarding treatment for the above conditions, or other urologic issues, please do not hesitate to contact me. The office telephone contact is [phone]. This note is constructed using voice recognition software. While every effort has been made to ensure accuracy industrial millwright errors may have been included. Yours sincerely, Dr Eze Barragan MD, [facility] - Urology Providers of Expert, Compassionate Care for the Genitourinary System Coding Level of Care Code Est Pt Level 4 (14458) Diagnoses Renal calculi N20.0
== END 2023-07-08 14:46 | disposition home or self-care (01) ==
PROVIDERS: PCP Internal Medicine; Visit Provider Urology
DX: N20.0 Calculus of kidney (principal)
CPT/HCPCS: 99213

== ENCOUNTER → 2023-07-08 14:25 | Outpatient (BNVA) | payer OTHER, SELFPAY | PROVIDERS: PCP Internal Medicine; Visit Provider Urology | DX: N20.0 Calculus of kidney (principal) | CPT/HCPCS: 99212 ==

== ENCOUNTER 2023-07-13 12:45 | Emergency (ER) | payer OTHER, SELFPAY ==
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
[2023-07-13 13:29] VITALS: BP 109/62; BP 120/83; PULSE 74; PULSE 97; RESP 16; TEMP 36.9; O2SAT 100; BMI 21.1
[2023-07-13] MEDS: Acetaminophen 325 MG TABLET 975 MG PO (14:34)
--- NOTE | 2023-07-13 15:18 | PC.NURSE ---
this nurse entered pt room to place IV line for CT w/ contrast. pt was found to have removed c-collar and was sitting upright. c-collar reapplied. 20G IV line placed in LAC. labs obtained
[2023-07-13 15:19] LABS: MANUAL DIFF FLAG NO
[2023-07-13 15:27] LABS: Basophils Absolute Auto 0.1 X10*3/uL (0.0-0.2); Basophils Percent Auto 0.9 % (0-2); Eosinophils Absolute Auto 0.2 X10*3/uL (0.0-0.4); Eosinophils Percent Auto 3.1 % (0-4); Hematocrit 41.3 % (37.0-47.0); Hemoglobin 13.5 g/dl (12.0-16.0); Imm Gran Abs Auto 0.01 X10*3/uL (0.00-0.03); Imm Gran Pct Auto 0.1 % (0.0-0.4); Lymphocytes Absolute Auto 2.2 X10*3/uL (1.2-4.9); Lymphocytes Percent Auto 28.3 % (20-40); Mean Corpuscular HGB Conc 32.7 g/dl (31.0-35.0); Mean Corpuscular Volume 91.8 fL (80.0-98.0); Mean Platelet Volume 11.8 fL (9.4-12.3); Monocytes Absolute Auto 0.5 X10*3/uL (0.1-1.2); Monocytes Percent Auto 6.1 % (2-11); Neutrophils Absolute Auto 4.8 x10*3/uL (2.0-8.3); Neutrophils Percent Auto 61.5 % (45-73); Platelet Count 244 X10*3/uL (160-400); Red Cell Distribution Width 13.5 % (11.0-16.0); White Blood Count 7.8 X10*3/uL (4.8-10.8)
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
[2023-07-13 15:46] LABS: Alanine Aminotransferase 10 U/L (0-31); Albumin Level 4.6 g/dL (3.5-5.0); Alkaline Phosphatase 95 U/L (39-117); Anion Gap 11 (12-20); Aspartate Amino Transferase 12 U/L (5-31); Bilirubin Direct 0.2 mg/dL (0.0-0.5); Bilirubin Total 0.4 mg/dL (0.0-1.0); Blood Urea Nitrogen 15 mg/dL (9-16); Calcium 9.7 mg/dL (8.4-10.2); Carbon Dioxide 24 mmol/L (22-29); Chloride 110 mmol/L (96-108); Creatinine Clr Calc Pharmacy 79.2; Estimated Glomerular Filt Rate > 60; Glucose Random 84 mg/dL (60-115); Potassium 3.3 mmol/L (3.3-5.1); Sodium 142 mmol/L (135-145); Total Protein 7.5 g/dL (6.5-8.0)
[2023-07-13 16:29] LABS: HCG Quantitative < 2 mIU/mL
[2023-07-13] MEDS: iohexoL 350 MG/ML 100 ML INFUS..BTL IV (16:59)
== END 2023-07-13 19:42 | disposition home or self-care (01) ==
PROVIDERS: Physician Assistant Medical; Emergency Provider Emergency Medicine; PCP Internal Medicine
DX: S13.4XXA Sprain of ligaments of cervical spine, initial encounter (principal); R07.89 Other chest pain; R51.9 Headache, unspecified; M54.2 Cervicalgia; M54.50 Low back pain, unspecified; M54.6 Pain in thoracic spine; V43.52XA Car driver injured in collision with other type car in traffic accident, initial encounter; Y93.9 Activity, unspecified; Y92.410 Unspecified street and highway as the place of occurrence of the external cause; Y99.8 Other external cause status; Z79.899 Other long term (current) drug therapy; Z87.891 Personal history of nicotine dependence
CPT/HCPCS: 36415; 70450; 71260; 72125; 80048; 80076; 84702; 85025; 99283; 99284; Q9967

== ENCOUNTER 2023-07-18 11:29 | Outpatient (AMB) | payer OTHER, SELFPAY ==
[2023-07-18 11:32] VITALS: BP 110/80; BMI 21.1
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
== END 2023-07-18 12:05 | disposition home or self-care (01) ==
LOC: HO.HMGH 11:29
PROVIDERS: PCP Internal Medicine; Visit Provider Internal Medicine
DX: M54.2 Cervicalgia (principal); V49.40XA Driver injured in collision with unspecified motor vehicles in traffic accident, initial encounter; Z04.3 Encounter for examination and observation following other accident
CPT/HCPCS: 99213

== ENCOUNTER 2023-07-20 09:44 | Outpatient (REF) | payer OTHER, SELFPAY ==
[2023-07-20 11:27] LABS: Free T4 (Free Thyroxine) 0.85 ng/dL (0.71-1.85); Thyroid Stimulating Hormone 0.88 uIU/mL (0.32-4.0)
[2023-07-21 09:15] LABS: Triiodothyronine T3 Free 3.2 pg/mL (2.3-4.2)
[2023-07-23 08:34] LABS: TS Negative Control Passed; TS Panel A 0; TS Panel B 0; TS Positive Control Passed; TSpotTB Negative (Negative)
== END 2023-07-20 09:45 | disposition home or self-care (01) ==
LOC: HO.LAB 09:44
PROVIDERS: PCP Internal Medicine; Visit Provider Internal Medicine
DX: E04.9 Nontoxic goiter, unspecified (principal); Z11.1 Encounter for screening for respiratory tuberculosis
CPT/HCPCS: 36415; 84439; 84443; 84481; 86481

== ENCOUNTER 2023-08-02 13:32 | Outpatient (REF) | payer OTHER, SELFPAY ==
--- NOTE | ~2023-08-02 | US_ITS ---
EXAMINATION: US THYROID CLINICAL INFORMATION: Nontoxic goiter, unspecified. COMPARISON: CT cervical spine 07/13/2023. TECHNIQUE: Linear transducer kaur-scale and color Doppler examination with attention to the region of the thyroid. FINDINGS: SIZE: Measurements of the thyroid lobes and nodules are given in sagittal, anteroposterior and transverse dimensions respectively. Right Thyroid Lobe: 5.3 x 2 x 2 cm, volume 11.1 mL. Parenchyma: The gland echotexture is homogeneous. Thyroid vascularity is normal. Left Thyroid Lobe: 5.1 x 1.4 x 1.8 cm, volume 6.6 mL. Parenchyma: The gland echotexture is homogeneous. Thyroid vascularity is normal. Isthmus: 0.4 cm in maximum AP dimension. Estimated total number of nodules greater than or equal to 1 cm: 0. 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 Location: Right inferior. Size: 0.7 x 0.6 x 0.8 cm, volume 0.17 mL. Nodule characteristics: Composition: Solid (2). Echogenicity: Hypoechoic (2). Shape: Not taller than wide (0). Margins: Smooth (0). Echogenic Foci: None (0). ACR TI-RADS total points: 4 ACR TI-RADS category: 4 NODES: No lymphadenopathy is seen in the tissue surrounding the thyroid gland. US/US thyroid IMPRESSION: A 0.8 cm right inferior TR 4 thyroid nodule. ACR TI-RADS RECOMMENDATION REFERENCE: Ultrasound-guided fine-needle aspiration, followup ultrasound, no further follow up. * TR1 (0 point) and TR2 (2 points): No FNA or follow up. * TR3 (3 points): FNA if more than or equal to 2.5 cm in maximum dimension, followup ultrasound in 1, 3 and 5 years if 1.5 to 2.4 cm in maximum dimension. * TR4 (4-6 points): FNA if more than or equal to 1.5 cm in maximum dimension, followup ultrasound in 1, 2, 3 and 5 years if 1 to 1.4 cm in maximum dimension. * TR5 (more than or equal to 7 points): FNA if more than or equal to 1 cm in maximum dimension, followup ultrasound every year for 5 years if 0.5 to 0.9 cm in maximum dimension. * TR3, TR4 or TR5 nodules that are below the size threshold for followup receive no follow up.
== END 2023-08-02 13:33 | disposition home or self-care (01) ==
LOC: HO.US 13:32
PROVIDERS: PCP Internal Medicine; Visit Provider Internal Medicine
DX: E04.9 Nontoxic goiter, unspecified (principal)
CPT/HCPCS: 76536

== ENCOUNTER 2023-08-03 14:45 | Outpatient (AMB) | payer OTHER, SELFPAY ==
[2023-08-03 14:50] VITALS: BP 122/80; BMI 21.3
--- NOTE | 2023-08-03 14:50 | A.OFFPC_ITS ---
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 Accompanied by: Self / Same As Patient Allergies tramadol [TRAMADOL] Allergy (Intermediate, Verified 08/03/23 15:03) NAUSEA & VOMITING Medication List - Last Reconciled 08/03/23 by Celestina Mcgarry MD acetaminophen (Tylenol Extra Strength) 500 mg PO Q6H PRN buspirone 15 mg PO calcium carbonate 600 mg PO BID 90 days cholecalciferol (vitamin D3) 25 mcg PO DAILY 90 days cyclobenzaprine 5 mg PO TID PRN divalproex 500 mg PO BID escitalopram oxalate 10 mg PO DAILY famotidine (Pepcid) 20 mg PO BID fluticasone propionate 50 mcg/actuation (Allergy Relief (fluticasone)) 2 sprays intranasal DAILY ibuprofen 600 mg PO Q8H PRN loratadine (Allergy Relief (loratadine)) 10 mg PO DAILY 90 days medroxyprogesterone 150 mg IM Q12W naproxen (Naprosyn) 500 mg PO BID PRN ondansetron 4 mg PO Q8H PRN zolpidem 10 mg PO BEDTIME Tobacco use date assessed: 07/18/23 HPI HPI Comments History of Present Illness Details This is a 47-year-old female with bipolar depression, anxiety and Rathke's cleft cyst that comes today for follow-up on ultrasound of the thyroid which shows 0.8 cm thyroid nodule. Patient is aware. Bipolar depression and anxiety are someone stable with medications. Rathke's cleft cyst is follow by Endocrinology. [facility] Medical History (Updated 08/03/23 @ 21:07 by Celestina Mcgrary MD) Pituitary macroadenoma Blurry vision Chronic fatigue 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 present on magnetic resonance imaging Hx of sinusitis History of snoring Insomnia Fibromyalgia Panic attacks Bipolar depression Renal calculi Abdominal pain Rathke's cleft cyst Abnormal urine odor Surgical History History of pubovaginal sling Hx of mammogram History of left salpingo-oophorectomy Hx of umbilical hernia repair History of esophagogastroduodenoscopy (EGD) History of appendectomy History of Family History Father Hyperlipidemia HTN (hypertension) Mother Healthy female Other Arthritis Social History Household Members: Children Housing: Apartment Alcohol intake: never Patient Tobacco Use Status: Former Tobacco user Tobacco use type: Cigarette e-Cigarette/Vaping Use: Never Used Second Hand Smoke Exposure: No service: No Current occupational status: unemployed Current occupational exposures/hazards: No Sexual orientation: Straight/Heterosexual Gender identity: Female Cognitive needs: No Hearing needs: No Vision needs: Yes Female Reproductive History Menstrual Age of Menarche: 13 Questionnaire Thrive Questionnaire Date Thrive assessed: 07/18/23 PHAN-7 AMB Questionnaire PHAN-7 Date PHAN - 7 assessed: 07/18/23 Source: Developed by Drs. Isidro Schroeder, Lucretia Ramsey, Salvatore Scales and colleagues, with an educational gracia from [employer]. Review of Systems Const All systems reviewed & are unremarkable except as noted in HPI and below Eyes Reports no additional complaints, Denies change in vision and Denies other visual disturbances Card Denies chest pain at rest, Denies chest pain with activity, Denies edema, Denies irregular heart rhythm, Denies claudication, Denies dyspnea, Denies dyspnea on exertion, Denies orthopnea, Denies paroxysmal nocturnal dyspnea and Denies slow heart rate Resp Denies cough, Denies dyspnea and Denies dyspnea on exertion GI Denies abdominal pain, Denies change in bowel habits, Denies excessive flatus, Denies nausea and Denies vomiting Denies urinary incontinence, Denies urinary hesitancy and Denies urinary urgency Musc Denies abnormal gait, Denies atrophy, Denies deformity and Denies limited range of motion Skin/Breast Denies bleeding lesions, Denies changing lesions and Denies rash Neuro Denies abnormal gait, Denies behavioral changes and Denies lack of coordination Psych Denies behavioral changes Physical exam (Primary Care) Vital Signs: Last Vital Signs BP 122/80 08/03/23 14:50 BMI result Body Mass Index 21.3 Tobacco/Smoking Status: Tobacco use Status Tobacco use date assessed 07/18/23 08/03/23 14:54 Patient Tobacco Use Status Former Tobacco user 08/03/23 14:54 Tobacco use type Cigarette 08/03/23 14:54 e-Cigarette/Vaping Use Never Used 08/03/23 14:54 Thrive Assessment: Date of Thrive Assessment Date Thrive assessed 07/18/23 08/03/23 14:54 Eyes General: appearance normal, both eyes and all related structures Eyelids: Yes eyelids normal Conjunctivae: conjunctivae normal Neck Neck: Yes normal visual inspection and Yes supple Resp Effort & Inspection: normal respiratory effort Auscultation: clear to auscultation bilaterally Cardio Jugular venous distension: no JVD Rate: regular rate Rhythm: regular rhythm Heart sounds: S1 normal heart sound present and S2 normal heart sound present Extrem General: Yes full ROM Assessment and Plan Assessment & Plan (1) Thyroid nodule: Code(s): E04.1 - Nontoxic single thyroid nodule Plan: Very small nodule. No need for follow-up. Will monitor symptoms. (2) Bipolar depression: Code(s): F31.9 - Bipolar disorder, unspecified Plan: Continue escitalopram. (3) PHAN (generalized anxiety disorder): Code(s): F41.1 - Generalized anxiety disorder Plan: Continue buspirone. (4) Rathke's cleft cyst: Code(s): E23.6 - Other disorders of pituitary gland Plan: Follow-up with endocrinology. Medications: New amoxicillin 500 mg PO Q12H 7 days 14 tabs 0RF Coding Level of Care Code Est Pt Level 4 (59174) Diagnoses Thyroid nodule E04.1 Bipolar depression F31.9 PHAN (generalized anxiety disorder) F41.1 Rathke's cleft cyst E23.6 Time Spent (min) 22
== END 2023-08-03 15:09 | disposition home or self-care (01) ==
PROVIDERS: PCP Internal Medicine; Visit Provider Internal Medicine
DX: E04.1 Nontoxic single thyroid nodule (principal); F31.9 Bipolar disorder, unspecified; F41.1 Generalized anxiety disorder; E23.6 Other disorders of pituitary gland
CPT/HCPCS: 99214

== ENCOUNTER 2023-08-31 10:05 | Outpatient (AMB) | payer OTHER, SELFPAY ==
--- NOTE | 2023-08-31 10:10 | MHC.OFFVIS ---
Intake Vital Signs 08/31/23 10:11 Height 5 ft 6 in Weight 134 lb 0.657 oz BMI 21.6 BP 90/68 Blood Pressure Location Lt brachial Position Sitting Pulse 84 Pulse Source Pulse Oximeter Intake Visit Reasons: Rathke's cleft cyst-confirmed Intake Note: Patient present today for Rathke's cleft cyst follow up visit. Previously seen by Dr. Sotomayor on 08/25/22. [place] Administrator Required: Yes [place] Administrator Language: Slovenian Information Interpreted: non-clinical & clinical Accompanied by: Self / Same As Patient Allergies tramadol [TRAMADOL] Allergy (Intermediate, Verified 08/31/23 10:14) NAUSEA & VOMITING Medication List - Last Reconciled 08/31/23 by Isidro Blair MD acetaminophen (Tylenol Extra Strength) 500 mg PO Q6H PRN amoxicillin 500 mg PO Q12H 7 days buspirone 15 mg PO calcium carbonate 600 mg PO BID 90 days cholecalciferol (vitamin D3) 25 mcg PO DAILY 90 days cyclobenzaprine 5 mg PO TID PRN divalproex 500 mg PO BID escitalopram oxalate 10 mg PO DAILY famotidine (Pepcid) 20 mg PO BID fluticasone propionate 50 mcg/actuation (Allergy Relief (fluticasone)) 2 sprays intranasal DAILY ibuprofen 600 mg PO Q8H PRN loratadine (Allergy Relief (loratadine)) 10 mg PO DAILY 90 days medroxyprogesterone 150 mg IM Q12W naproxen (Naprosyn) 500 mg PO BID PRN ondansetron 4 mg PO Q8H PRN zolpidem 10 mg PO BEDTIME HPI HPI Comments History of Present Illness Details 47 YO Female with a PMHx of a pituitary macroadenoma who is seen in F/U. She was previously followed by Dr. Riddle and transitioned care to [place] just a few months ago. The patient last saw Dr. Sotomayor 08/25/2022 Review of records reveals that she has had a sellar mass since 2014. Her Pituitary protocol MRI completed 07/17/2020 and this revealed a 1.5 cm sellar mass, which was read as likely representing a rathke cleft cyst. There was no displacement of the optic chiasm. I saw her 06/09 and she was complaining of daily headaches and visual changes. I ordered an urgent MRI Pituitary at [facility] and a full pituitary panel, and did refer her for formal visual field testing, however she did not complete any of this. She finally did complete her labs late November 2021 and this revealed a low am cortisol, but cosyntropin stimulating testing was completed and was WNL ruling out adrenal insufficiency. Her Prolactin was mildly elevated, with dilution unchanged. Her FSH/LH and estradiol were low. She is currently actively . She had a repeat Pituitary MRI 12/29/2021 which revealed a 1.3 cm pituitary mass with abutment of the undersurface of the optic chiasm with deflection superiorly. She was referred urgently to Dr. Shelli Em. She was scheduled for transphenoidal resection 03/31/2022. She then had repeat pituitary MRI prior to resection which revealed improvement in the size, now measuring 7 mm per his note. She reports headaches are now infrequent and vision has improved. She has no other complaints today. Pituitary MRI: 12/29/2021 FINDINGS: Compared to exam from 2020, there has been an interval increase in size of a heterogeneous mixed intensity lesion that appears within the anterior pituitary lobe, now measuring up to 1.3 x 1.2 x 1.2 cm. The nonenhancing component of this lesion is now relatively T1 isointense and faintly T2 hyperintense. There is an irregular rind of enhancing tissue predominantly along the superior and left lateral margins of the overall expanded anterior pituitary lobe. Mild thickening of the pituitary infundibulum, measuring 0.4 cm in depth (similar to prior exam). Mild leftward bowing of the pituitary infundibulum. There is partial abutment of the undersurface of the optic chiasm, slightly deflecting the optic chiasm superiorly. No demonstrated overt invasion into the cavernous sinuses. No focal restricted diffusion is demonstrated to suggest acute or subacute cerebral ischemia.? Scattered periventricular and deep white matter T2 FLAIR hyperintensities consistent with mild underlying microangiopathy. Proportional prominence of the ventricles and sulcal spaces without evidence of obstructive hydrocephalus. No additional abnormal mass effect. No midline shift. Normal positioning of the cerebellar tonsils. Normal arterial and venous vascular flow voids are present. No abnormal contrast enhancement. Normal, homogeneous marrow signal. Moderate mucosal thickening of the paranasal sinuses. Small right-sided mastoid effusion. No signal abnormalities within the left sided mastoid. MR/MR head/brain wo/w con IMPRESSION: Compared to exam from 2020, there has been an interval increase in size of a heterogeneous mixed intensity lesion that appears within the anterior pituitary lobe. ? While this could represent complication of an underlying Rathke's cleft cyst (such as hemorrhage or infection), it would be difficult to exclude an underlying pituitary adenoma with cystic degeneration. ? Partial abutment of the undersurface of the optic chiasm with slight deflection. Labs: Laboratory Tests 05/03/22 05/03/22 05/03/22 15:47 15:47 15:47 Sodium 142 Potassium 4.3 Creatinine 0.79 Estimated GFR > 60 Osmolality 293 TSH 0.51 Free T4 0.85 Total T3 113 Estradiol Ultra LC MSMS 5 FSH 9.9 Luteinizing Hormon e 4.1 Prolactin Undilute d 15.7 Sex Hormone Bind G lob 44 Somatomedin-C 191 Random Cortisol 05/03/22 15:47 Sodium Potassium Creatinine Estimated GFR Osmolality TSH Free T4 Total T3 Estradiol Ultra LC MSMS FSH Luteinizing Hormon e Prolactin Undilute d Sex Hormone Bind G lob Somatomedin-C Random Cortisol 6.0 She had a head CT done which showed heterogeneous enlargement of the thyroid but ultrasound of the thyroid showed a 8 mm nodule . Has MRI on 09/21/2023 . 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 present on magnetic resonance imaging Hx of sinusitis History of snoring Insomnia Fibromyalgia Panic attacks Bipolar depression Renal calculi Abdominal pain Rathke's cleft cyst Abnormal urine odor Surgical History History of pubovaginal sling Hx of mammogram History of left salpingo-oophorectomy Hx of umbilical hernia repair History of esophagogastroduodenoscopy (EGD) History of appendectomy History of Family History Father Hyperlipidemia HTN (hypertension) Mother Healthy female Other Arthritis Social History Household Members: Children Housing: Apartment Alcohol intake: never Patient Tobacco Use Status: Former Tobacco user Tobacco use type: Cigarette e-Cigarette/Vaping Use: Never Used Second Hand Smoke Exposure: No service: No Current occupational status: unemployed Current occupational exposures/hazards: No Sexual orientation: Straight/Heterosexual Gender identity: Female Cognitive needs: No Hearing needs: No Vision needs: Yes Female Reproductive History Menstrual Age of Menarche: 13 Physical Exam Const Other: There is no visual field loss by gross confrontation. Thyroid gland is normal size weighs about 15 g. There are no thyroid nodules palpated Assessment & Plan Assessment & Plan (1) Pituitary macroadenoma: Code(s): D35.2 - Benign neoplasm of pituitary gland Plan: This is a 47-year-old female with a history of pituitary macroadenoma with workup for hypersecretion showing elevated prolactin the patient was at the time. She was sent for surgical resection o Dr. Monroe but tumor had decreased in size and that was not done Will obtain repeat MRI of the pituitary with gadolinium to be done next month. Will also recheck fasting prolactin (could be elevated from breast-feeding) and get 24 hour urine for free cortisol and creatinine (2) Thyroid enlargement: Code(s): E04.9 - Nontoxic goiter, unspecified Plan: Thyroid enlargement was seen on CT of the head and neck. There is a 8 mm solitary nodule present that does not warrant biopsy. She appears to be clinically biochemically euthyroid Coding Level of Care Code Est Pt Level 3 (48343) Diagnoses Pituitary macroadenoma D35.2 Thyroid enlargement E04.9
[2023-08-31 10:11] VITALS: BP 90/68; PULSE 84; BMI 21.6
== END 2023-08-31 10:55 | disposition home or self-care (01) ==
PROVIDERS: PCP Internal Medicine; Visit Provider Internal Medicine Endocrinology, Diabetes & Metabolism
DX: D35.2 Benign neoplasm of pituitary gland (principal); E04.9 Nontoxic goiter, unspecified
CPT/HCPCS: 99213

== ENCOUNTER → 2023-08-31 10:05 | Outpatient (BNVA) | payer OTHER, SELFPAY | PROVIDERS: PCP Internal Medicine; Visit Provider Internal Medicine Endocrinology, Diabetes & Metabolism | DX: D35.2 Benign neoplasm of pituitary gland (principal); E04.9 Nontoxic goiter, unspecified | CPT/HCPCS: 99212 ==

== ENCOUNTER 2023-09-14 11:05 | Outpatient (AMB) | payer OTHER, SELFPAY ==
--- NOTE | 2023-09-14 11:22 | AM.OFFVISNUR ---
Intake Vital Signs 09/14/23 11:22 Height 5 ft 6 in Intake Visit Reasons: DEPO Allergies tramadol [TRAMADOL] Allergy (Intermediate, Verified 08/31/23 10:14) NAUSEA & VOMITING Nursing Note eduardo is here today for her scheduled Depo-Provera inj. NO c/o regarding the Depo-Provera inj. Follow up in 12 weeks. Office Procedures Depo Questionnaire If YES to any of the following questions, please consult a provider. Date of last injection: 06/24/23 Date of last gynecology exam: 01/10/23 Menstrual pattern since last injection has been: Not Applicable Irregular bleeding?: No Breast lumps or other breast changes?: No Changes in weight or appetite?: No Depression or changes in mood?: No Abnormal hair growth or loss?: No Skin problems (rash, acne, discoloration)?: No Pain at the injection site?: No Headaches?: No Nervousness?: No Abdominal pain or cramping?: No Dizziness or nausea?: No Fatigue or weakness?: No Decrease in sexual drive?: No Chest pain or shortness of breath?: No Swelling in arms or legs?: No Form completed by?: Neelam Boyd LPN Office Meds Depo-Provera 150 mg/mL intramuscular syringe Performing Provider: Galo Diaz MD Performing Location: [facility] Documented (not given) by: Yajaira Boyd LPN on 09/14/23 11:25 Dose Route Admin Location Dispensed Lot Number Expiration Date NDC Chief I Dispatcher 150 mg IM mL Coding Level of Care Code Established Pt Est Pt Level 1 (84040) Patient Type Established History Problem Focused Exam Problem Focused Medical Decision Making Straight Forward Time Spent (min) 20 Assessment & Plan Assessment & Plan Orders: Orders AMB Medroxyprogesterone Injection Patient Supplied Today Z30.9 - Encounter for contraceptive management, unspecified Medications: New Depo-Provera (medroxyprogesterone) 150 mg IM ONCE 1 mL 0RF NS Z30.9 - Encounter for contraceptive management, unspecified
== END 2023-09-14 11:44 | disposition home or self-care (01) ==
LOC: HO.HWS 11:05
PROVIDERS: PCP Internal Medicine; Visit Provider Obstetrics & Gynecology
DX: Z30.9 Encounter for contraceptive management, unspecified (principal)

== ENCOUNTER → 2023-09-14 11:05 | Outpatient (BNVA) | payer OTHER, SELFPAY | PROVIDERS: PCP Internal Medicine; Visit Provider Obstetrics & Gynecology | DX: Z30.42 Encounter for surveillance of injectable contraceptive (principal) | CPT/HCPCS: 96372; 99211; J1050 ==

== ENCOUNTER 2023-09-20 09:00 | Outpatient (RCR) | payer OTHER, SELFPAY ==
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
--- NOTE | 2024-01-27 10:09 | MHC.PT.DC ---
[facility] [place] Office [place] Office [place] Office [address] Olayinka Meraz [address] [phone] F: [phone] F: [phone] F: [phone] F: [phone] Physical Therapy Discharge Report Diagnosis: Cervicalgia. Date of Surgery: Date of Evaluation: 08/26/23 Date of Discharge: 01/27/24 Treatments to Date: 5 Cancellations to Date: 1 No Shows to Date: 2 Discharge Status: Visit Non-compliance Discharge Summary: . Electronically signed by: Giovanni Fofana PT. Please sign and return to therapist. Thank you for your referral.
== END 2024-01-27 09:57 | disposition home or self-care (01) ==
LOC: HO.PT 09:00
PROVIDERS: PCP Internal Medicine; Visit Provider Internal Medicine
DX: M54.2 Cervicalgia (principal)
CPT/HCPCS: 97014; 97110; 97162

== ENCOUNTER 2023-09-21 09:45 | Outpatient (REF) | payer OTHER, SELFPAY ==
--- NOTE | ~2023-09-21 | MR_ITS ---
EXAMINATION: MR BRAIN WITHOUT AND WITH CONTRAST CLINICAL INFORMATION: Benign lesion of the pituitary gland. Blurry vision. Headaches. COMPARISON: CT head from 07/13/2023. TECHNIQUE: MRI of the brain was obtained using pituitary protocol without and following the administration of 3 mL of Gadavist intravenous contrast. FINDINGS: No focal restricted diffusion is demonstrated to suggest acute or subacute cerebral ischemia. No evidence of acute or chronic hemorrhagic products on heme-sensitive imaging. Few nonspecific scattered foci of T2 FLAIR hyperintensity within the deep white matter of the bilateral frontal lobes. No additional parenchymal signal abnormalities. The ventricles are normal in morphology and size. No abnormal mass effect. No midline shift. Normal morphology and signal intensity of the pituitary gland on precontrast imaging. Normal posterior pituitary bright spot. No hyperenhancing or hypoenhancing lesions overtly demonstrated on post contrast imaging. The pituitary infundibulum is normal in morphology and remains midline in position. The suprasellar cistern remains patent. No abnormal mass effect on the optic chiasm. Normal positioning of the cerebellar tonsils. Normal arterial and venous vascular flow voids are present. No abnormal contrast enhancement. Normal, homogeneous marrow signal. Moderate mucosal thickening of the paranasal sinuses. No signal abnormalities within the mastoids. MR/MR head/brain wo/w con IMPRESSION: 1. No acute intracranial abnormalities. No abnormal intracranial enhancement. 2. Minimal nonspecific white matter changes. 3. No additional MRI abnormalities to explain the patient's symptoms.
[2023-09-21] MEDS: gadobutroL 2 ML VIAL IVPUSH ×2 (12:18→12:19)
== END 2023-09-21 09:46 | disposition home or self-care (01) ==
LOC: HO.MRI 09:45
PROVIDERS: PCP Internal Medicine; Visit Provider Internal Medicine Endocrinology, Diabetes & Metabolism
DX: D35.2 Benign neoplasm of pituitary gland (principal)
CPT/HCPCS: 70553; A9585

== ENCOUNTER 2023-11-30 10:01 | Outpatient (AMB) | payer OTHER, SELFPAY ==
[2023-11-30 10:34] VITALS: BMI 22.4
--- NOTE | 2023-11-30 10:34 | AM.OFFVISNUR ---
Intake Vital Signs 11/30/23 10:34 Height 5 ft 6 in Weight 63.049 kg BMI 22.4 Intake Visit Reasons: depo Allergies tramadol [TRAMADOL] Allergy (Intermediate, Verified 08/31/23 10:14) NAUSEA & VOMITING Nursing Note Marta is here today for her Depo-Provera inj. She has no complaints. Reminded of AG scheduled on 01/12/24. Follw up for next Depo-Provera inj in 3 mos. Office Procedures Depo Questionnaire If YES to any of the following questions, please consult a provider. Date of last injection: 09/14/23 Date of last gynecology exam: 01/10/23 Menstrual pattern since last injection has been: Not Applicable Irregular bleeding?: No Breast lumps or other breast changes?: No Changes in weight or appetite?: No Depression or changes in mood?: No Abnormal hair growth or loss?: No Skin problems (rash, acne, discoloration)?: No Pain at the injection site?: No Headaches?: No Nervousness?: No Abdominal pain or cramping?: No Dizziness or nausea?: No Fatigue or weakness?: No Decrease in sexual drive?: No Chest pain or shortness of breath?: No Swelling in arms or legs?: No Form completed by?: Neelam Boyd LPN Office Meds Depo-Provera 150 mg/mL intramuscular syringe Performing Provider: Galo Diaz MD Performing Location[place] [facility] [place] [facility] Administered by: Yajaira Boyd LPN on 11/30/23 10:34 Dose Route Admin Location Dispensed Lot Number Expiration Date [facility] Emergency Medicine Physician Assistant 150 mg IM left deltoid 1 mL [id number] 04/19/25 02258-706-23 MYLAN Coding Level of Care Code Established Pt Est Pt Level 1 (63855) Patient Type Established History Problem Focused Exam Problem Focused Medical Decision Making Straight Forward Time Spent (min) 20 Assessment & Plan Assessment & Plan Orders: Orders AMB Medroxyprogesterone Injection Patient Supplied Today Z30.9 - Encounter for contraceptive management, unspecified Medications: New Depo-Provera (medroxyprogesterone) 150 mg IM ONCE 1 mL 0RF NS Z30.9 - Encounter for contraceptive management, unspecified
== END 2023-11-30 10:18 | disposition home or self-care (01) ==
LOC: HO.HWS 10:01
PROVIDERS: PCP Internal Medicine; Visit Provider Obstetrics & Gynecology
DX: Z30.9 Encounter for contraceptive management, unspecified (principal)

== ENCOUNTER → 2023-11-30 10:01 | Outpatient (BNVA) | payer OTHER, SELFPAY | PROVIDERS: PCP Internal Medicine; Visit Provider Obstetrics & Gynecology | DX: Z30.42 Encounter for surveillance of injectable contraceptive (principal) | CPT/HCPCS: 96372; 99211; J1050 ==

== ENCOUNTER 2023-12-13 07:38 | Outpatient (REF) | payer OTHER, SELFPAY ==
[2023-12-15 08:56] LABS: Prolactin 7.1 ng/mL
== END 2023-12-13 07:39 | disposition home or self-care (01) ==
LOC: HO.LAB 07:38
PROVIDERS: PCP Internal Medicine; Visit Provider Internal Medicine Endocrinology, Diabetes & Metabolism
DX: D23.5 Other benign neoplasm of skin of trunk (principal)
CPT/HCPCS: 36415; 84146

== ENCOUNTER 2023-12-16 08:37 | Outpatient (AMB) | payer OTHER, SELFPAY ==
[2023-12-16 08:56] VITALS: BMI 22.3
--- NOTE | 2023-12-16 08:56 | A.OFFVIS_ITS ---
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 has headaches daily sensitive to light. Direct Support Professional Home Health Required: Yes Direct Support Professional Home Health Services: Direct Support Professional Home Health Present Direct Support Professional Home Health Name: Ronit Bills Lisseth FELIZ Information Interpreted: clinical only Allergies tramadol [TRAMADOL] Allergy (Intermediate, Verified 12/16/23 08:57) NAUSEA & VOMITING Medication List - Last Reconciled 12/16/23 by MICHAEL Fung acetaminophen (Tylenol Extra Strength) 500 mg PO Q6H PRN amoxicillin 500 mg PO Q12H 7 days buspirone 15 mg PO calcium carbonate 600 mg PO BID 90 days cholecalciferol (vitamin D3) 25 mcg PO DAILY 90 days cyclobenzaprine 5 mg PO TID PRN divalproex 500 mg PO BID escitalopram oxalate 10 mg PO DAILY famotidine (Pepcid) 20 mg PO BID fluticasone propionate 50 mcg/actuation (Allergy Relief (fluticasone)) 2 sprays intranasal DAILY ibuprofen 600 mg PO Q8H PRN loratadine (Allergy Relief (loratadine)) 10 mg PO DAILY 90 days medroxyprogesterone 150 mg IM [id number] 3 months medroxyprogesterone 150 mg IM Q12W naproxen (Naprosyn) 500 mg PO BID PRN ondansetron 4 mg PO Q8H PRN zolpidem 10 mg PO BEDTIME HPI Comments Details: Right-handed 48-yr-old female presents for new pt evaluation of headache disorder. Pt reports she has had headaches since 2014. Then in approx 2020, pt was found to have a pituitary cyst. She has been f/b Dr Blair, endocrinology, who had referred to Dr. Shelli Em d/t increasing size of pituitary cyst w/ abutment of the optic chiasm in setting of worsening headaches and blurry vision. Pt was scheduled for transphenoidal resection 03/31/2022, however f/u brain MRI showed decrease in size of pituitary cyst and she was reportedly feeling better. And on most recent f/u brain MRI, pituitary cyst was not appreciated. Since, however, she has continued to have frequent headaches, photophobia, sinus congestion and episodes of blurry vision. States eye exams have been reassuring. Brain MRI w/wo 2020: 0.8 x 1.5 x 1.0 cm (compared to previous 0.8 x 1.4 x 1.0 cm on previous study in 2019) in AP minimal interval increase in the size of a T1 hyperintense lesion in the pituitary fossa most c/w a retrolisthesis left cyst w/o o mass effect on the optic chiasm or prechiasmatic optic nerve. There are multiple white matter changes. Brain MRI w/wo 2021: Compared to exam from 2020, there has been an interval increase in size of a heterogeneous mixed intensity lesion that appears within the anterior pituitary lobe. While this could represent complication of an underlying Rathke's cleft cyst (such as hemorrhage or infection), it would be difficult to exclude an underlying pituitary adenoma with cystic degeneration. Partial abutment of the undersurface of the optic chiasm with slight deflection. Brain MRI w/wo 2023: 1. No acute intracranial abnormalities. No abnormal intracranial enhancement. 2. Minimal nonspecific white matter changes. CT CERVICAL SPINE Jun 2023: No prevertebral soft tissue swelling. The craniocervical junction is intact. Straightening of the normal cervical lordosis. There is no significant spondylolisthesis. Vertebral body heights are normal without acute compression fracture or traumatic posterior element subluxation. No suspicious osseous lesion. The intervertebral disc space heights are preserved. Mild multilevel facet arthropathy. No significant spinal canal or neural foraminal stenosis at any level. 04/17/23 07/13/23 07/20/23 20:26 15:14 10:21 RBC 4.50 Hgb 13.5 Hct 41.3 Sodium 142 Potassium 3.3 Chloride 110 H Carbon Dioxide 24 Anion Gap 11 L BUN 15 Creatinine 0.83 Random Glucose 84 Calcium 9.7 D Magnesium 2.2 Total Bilirubin 0.4 Direct Bilirubin 0.2 AST 12 ALT 10 Alkaline Phosphatase 95 Total Protein 7.5 Albumin 4.6 TSH 0.88 Free T4 0.85 Free T3 3.2 PMH and ROS are notable for:? ENT- vocal cord dysfunction- recent ENT laryngoscopy- no evidence of vocal cord paralyisis or lesions. Musculoskeletal disorders or injury: arthritis, fibromyalgia, joint pain, back pain. Recently has done PT for neck pain. History of concussion/head injury: 2013- slipped and fell in the snow, hit the back of her head. Mood d/o: Anxiety, Major Depression- since 2008, Bipolar d/o type I. Has a psychiatrist and weekly therapy- unsure which clinic CV disease: palpitations a/w LUE numbness- was referred to cardiology once. 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 History of seizure, syncope, or drop attacks. Lifestyle considerations: Sleep routine: Usual bedtime: 10pm and wake-up time: wakes up a lot- gets up at 6am- it is difficult to sleep as her son does not sleep well. Sleep difficulties: Endorses: Excessive daytime sleepiness, Fatigue, Restless sleep, Legs jerks- during the day, Restless legs- Right arm or leg jerk- at anytime when sitting, feels pulsating. 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 Typical headache characteristics: Prodrome symptoms: Unsure Aura: Vision becomes blurry Pain intensity: moderate-severe Location, quality, characteristics: Mid-frontal beating, pulsating pressure Associated symptoms: photophobia, mild phonophobia, allodynia, fatigue, cognitive difficulties, activity intolerance, burning eyes, red eye, watery eye, nasal congestion, maxillary region facial swelling, neck pain/tightness (only w/ headache). Tingling in both shoulder, arms, hands occurs w/wo headache. Postdrome: unsure Triggers: poor sleep, stress, weather changes, altitude changes. bending over exacerbates the headache Time of day: No specific time of day Duration and Frequency: all day w/o tx, 5-6 headache days per week. How does headache impact your life? has to lay down Current acute medication use/interventions: Advil or Naproxen. Current preventative medication use: On Depakote x's yrs- for mood. Non-pharmacological interventions: Rest, Maicol's. [facility] 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 present on magnetic resonance imaging Hx of sinusitis History of snoring Insomnia Fibromyalgia Panic attacks Bipolar depression Renal calculi Abdominal pain Rathke's cleft cyst Abnormal urine odor Surgical History History of pubovaginal sling Hx of mammogram History of left salpingo-oophorectomy Hx of umbilical hernia repair History of esophagogastroduodenoscopy (EGD) History of appendectomy History of Family History Father Hyperlipidemia HTN (hypertension) Mother Healthy female Other Arthritis Social History Household Members: Children Housing: Apartment Alcohol intake: never Patient Tobacco Use Status: Former Tobacco user Tobacco use type: Cigarette e-Cigarette/Vaping Use: Never Used Second Hand Smoke Exposure: No service: No Current occupational status: unemployed Current occupational exposures/hazards: No Sexual orientation: Straight/Heterosexual Gender identity: Female Cognitive needs: No Hearing needs: No Vision needs: Yes Female Reproductive History Menstrual Age of Menarche: 13 Physical Exam Vital Signs: BMI result Body Mass Index 22.3 Const Orientation/consciousness: patient oriented x3 Resp Effort & Inspection: normal respiratory effort and able to speak in complete sentences Neuro Other: Photophobic General: patient oriented x3 Cranial nerves: Yes CN's II-XII intact bilaterally Cognition (Neuro): normal cognition Gait exam (Neuro): Normal gait present Motor exam (neuro): 5/5 motor strength present throughout Deep tendon reflexes (DTR's): Right triceps reflex intensity grade: 2+, Left triceps reflex intensity grade: 2+, Rt Biceps (C5, C6): 2+, Left biceps reflex intensity grade: 2+, Right brachioradialis reflex intensity grade: 2+, Left brachioradialis reflex intensity grade: 2+, Right patellar reflex intensity grade: 2+ and Left patellar reflex intensity grade: 2+ Coordination: [id number] test normal, tandem gait normal and Romberg test negative Pupils: Normal pupillary reactivity/response: bilateral Psych Appearance: grossly normal Mental Status: mental status grossly normal Speech and movement: Normal speech and movement present Affect: normal affect Attitude: cooperative Thought process: Normal thought process present Assessment & Plan Assessment & Plan (1) Chronic migraine without aura: Code(s): G43.709 - Chronic migraine without aura, not intractable, without status migrainosus Category: Medical (2) Sleep difficulties: Comment: Daytime sleepiness, restless sleep, symptoms of RLS. Code(s): G47.9 - Sleep disorder, unspecified Category: Medical (3) Pituitary macroadenoma: Code(s): D35.2 - Benign neoplasm of pituitary gland Category: Medical Plan Reviewed previous and most recent brain MRI reports- pituitary cyst has continued to decrease in size. Pt's episodes of vion blurriness correspond w/ headache attacks, likely a symptom of migraine. Recent CT c-spine- mild straightening of normal cervical curvature. Mild multilevel facet arthropathy w/o significant spinal canal or neural foraminal stenosis at any level. Reviewed recent labs- CBC, CMP, thyroid studies, Mag- WNL. For overall headache management: * Optimize good self-care, including but not limited to maintaining a healthy diet, adequate fluid intake, adequate sleep, and engaging in regular physical activity. * Track headaches, especially after any treatment regimen changes. Migraine [employer] is one of many headache tracking apps. * For sleep difficulties: Discussed strategies to optimize sleep hygiene. Reduce caffeine intake to no later than 2-3pm. Increase physical activity. For acute headache treatment: Discussed importance of taking acute medications at the first sign of headache, however stressed importance of avoiding acute medication overuse (especially with combined headache medications). Trial Sumatriptan 100mg tab, 1/2 - 1 tab (50-100mg) at onset of headache, may repeat in 2 hours. Max of 2 tabs (200mg) per 24 hours. May adjunct with OTC Tylenol 650mg q 4 hours, Ibuprofen 600mg q 6 hours, or Naproxen 440mg q 12 hrs prn. Potential adverse effects of triptans, including but not limited to nausea, fatigue, chest tightness/tingling (usually passes within a few minutes), medication overuse headaches. Previous acute migraine medication trials: No prescription tx's. Acute migraine medication contraindications: None at this time For headache prevention medication: Preventative medications should be taken routinely as prescribed for best effect, it may take several weeks for full effect to take effect. Start Riboflavin 400mg qam Start Magnesium 400mg qhs Start Propranolol 10mg po bid. Potential adverse effects of betablockers, including but not limited to fatigue, hypotension, slow heart rate, mood changes, respiratory changes. Continue Depakote- used for bipolar tx. Previous migraine prevention medication trials: No none other tx at this time. Migraine prevention medication contraindications: Topiramate d/t h/o nephrolithiasis. Caution w/ adding anti-depressant tx d/t bipolar dx. Future considerations- referral back to PT. Sleep study. Pt to follow-up in 3-6 months or sooner prn. Medications: New sumatriptan succinate 50 - 100 mg orally at onset of headache, may repeat in 2 hrs PRN; max 2 tabs per day or 4 tabs/week (may take with Ibuprofen) 12 tabs 6RF migraine headache 30 days magnesium oxide may hold for loose stools 400 mg PO BEDTIME 30 tabs 6RF 30 days riboflavin (vitamin B2) 400 mg PO DAILY 30 tabs 6RF 30 days propranolol 10 mg PO BID 60 tabs 6RF 30 days Coding Level of Care Code New Pt Level 4 (10771) Diagnoses Chronic migraine without aura G43.709 Sleep difficulties G47.9 Pituitary macroadenoma D35.2
== END 2023-12-16 10:06 | disposition home or self-care (01) ==
PROVIDERS: PCP Internal Medicine; Visit Provider Nurse Practitioner Family
DX: G43.709 Chronic migraine without aura, not intractable, without status migrainosus (principal); G47.9 Sleep disorder, unspecified; D35.2 Benign neoplasm of pituitary gland
CPT/HCPCS: 99204

== ENCOUNTER → 2023-12-16 08:37 | Outpatient (BNVA) | payer OTHER, SELFPAY | PROVIDERS: PCP Internal Medicine; Visit Provider Nurse Practitioner Family | DX: D35.2 Benign neoplasm of pituitary gland (principal); G43.709 Chronic migraine without aura, not intractable, without status migrainosus; G47.9 Sleep disorder, unspecified | CPT/HCPCS: 99202 ==

== ENCOUNTER 2023-12-21 10:30 | Outpatient (REF) | payer OTHER, SELFPAY ==
[2023-12-21 10:57] LABS: Total Volume 24 Hour Urine 1300 mL
[2023-12-21 11:29] LABS: Creatinine, mg/dL 80.01
[2023-12-31 12:59] LABS: Cortisol Free, 24 Hr Urine 26.2 mcg/24 h (4.0-50.0); Creatinine, 24 Hr Urine 1.07 g/24 h (0.50-2.15); Total Volume, 24 Hr Urine 1300 mL
== END 2023-12-21 10:31 | disposition home or self-care (01) ==
LOC: HO.LNP 10:30
PROVIDERS: Visit Provider Internal Medicine Endocrinology, Diabetes & Metabolism
DX: D35.2 Benign neoplasm of pituitary gland (principal)
CPT/HCPCS: 82530; 82570

== ENCOUNTER 2024-01-09 13:58 | Outpatient (AMB) | payer OTHER, SELFPAY ==
[2024-01-09 14:09] VITALS: BP 104/64; PULSE 52; BMI 22.4
--- NOTE | 2024-01-09 14:09 | A.OFFVIS_ITS ---
Vital Signs 01/09/24 14:09 Height 5 ft 6 in Weight 138 lb 14.259 oz BMI 22.4 BP 104/64 Blood Pressure Location Lt brachial Position Sitting Pulse 52 Pulse Source Pulse Oximeter Intake Visit Reasons: f/u pituitary adenoma-confirmed Intake Note: Patient present today for Pituitary adenoma follow up visit. Mixer Dry Food Products Required: Yes Mixer [employer] Food Products Language: Hazardous Materials Waste Technician Services: Mix[employer] Food [employer] Present Mixer [employer] Products Name: Arsalan Information Interpreted: non-clinical & clinical Accompanied by: Self / Same As Patient Allergies tramadol [TRAMADOL] Allergy (Intermediate, Verified 01/09/24 14:13) NAUSEA & VOMITING HPI Comments Details: 48 YO Female with a PMHx of a pituitary macroadenoma who is seen in F/U. Review of records reveals that she has had a sellar mass since 2014. Her Pituitary protocol MRI completed 07/17/2020 and this revealed a 1.5 cm sellar mass, which was read as likely representing a rathke cleft cyst. There was no displacement of the optic chiasm. Seen 06/09 and she was complaining of daily headaches and visual changes. I ordered an urgent MRI Pituitary at [facility] and a full pituitary panel, and did refer her for formal visual field testing, however she did not complete any of this. She finally did complete her labs late November 2021 and this revealed a low am cortisol, but cosyntropin stimulating testing was completed and was WNL ruling out adrenal insufficiency. Her Prolactin was mildly elevated, with dilution unchanged. Her FSH/LH and estradiol were low. She is currently actively . She had a repeat Pituitary MRI 12/29/2021 which revealed a 1.3 cm pituitary mass with abutment of the undersurface of the optic chiasm with deflection superiorly. She was referred urgently to Dr. Shelli Em. She was scheduled for transphenoidal resection 03/31/2022. She then had repeat pituitary MRI prior to resection which revealed improvement in the size, now measuring 7 mm per his note. She reports headaches are now infrequent and vision has improved. She has no other complaints today. Pituitary MRI: 12/29/2021 FINDINGS: Compared to exam from 2020, there has been an interval increase in size of a heterogeneous mixed intensity lesion that appears within the anterior pituitary lobe, now measuring up to 1.3 x 1.2 x 1.2 cm. The nonenhancing component of this lesion is now relatively T1 isointense and faintly T2 hyperintense. There is an irregular rind of enhancing tissue predominantly along the superior and left lateral margins of the overall expanded anterior pituitary lobe. Mild thickening of the pituitary infundibulum, measuring 0.4 cm in depth (similar to prior exam). Mild leftward bowing of the pituitary infundibulum. There is partial abutment of the undersurface of the optic chiasm, slightly deflecting the optic chiasm superiorly. No demonstrated overt invasion into the cavernous sinuses. No focal restricted diffusion is demonstrated to suggest acute or subacute cerebral ischemia.? Scattered periventricular and deep white matter T2 FLAIR hyperintensities consistent with mild underlying microangiopathy. Proportional prominence of the ventricles and sulcal spaces without evidence of obstructive hydrocephalus. No additional abnormal mass effect. No midline shift. Normal positioning of the cerebellar tonsils. Normal arterial and venous vascular flow voids are present. No abnormal contrast enhancement. Normal, homogeneous marrow signal. Moderate mucosal thickening of the paranasal sinuses. Small right-sided mastoid effusion. No signal abnormalities within the left sided mastoid. MR/MR head/brain wo/w con IMPRESSION: Compared to exam from 2020, there has been an interval increase in size of a heterogeneous mixed intensity lesion that appears within the anterior pituitary lobe. ? While this could represent complication of an underlying Rathke's cleft cyst (such as hemorrhage or infection), it would be difficult to exclude an underlying pituitary adenoma with cystic degeneration. ? Partial abutment of the undersurface of the optic chiasm with slight deflection. Labs: Laboratory Tests 05/03/22 05/03/22 05/03/22 15:47 15:47 15:47 Sodium 142 Potassium 4.3 Creatinine 0.79 Estimated GFR > 60 Osmolality 293 TSH 0.51 Free T4 0.85 Total T3 113 Estradiol Ultra LCMSMS 5 FSH 9.9 Luteinizing Hormone 4.1 Prolactin Undiluted 15.7 Sex Hormone Bind Glob 44 Somatomedin-C 191 Random Cortisol 05/03/22 15:47 Sodium Potassium Creatinine Estimated GFR Osmolality TSH Free T4 Total T3 Estradiol Ultra LCMSMS FSH Luteinizing Hormone Prolactin Undiluted Sex Hormone Bind Glob Somatomedin-C Random Cortisol 6.0 She had a head CT done which showed heterogeneous enlargement of the thyroid but ultrasound of the thyroid showed a 8 mm nodule . Has MRI on 09/21/2023 . MRI showed the absence of pituitary adenoma. Repeat prolactin was normal [facility] 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 present on magnetic resonance imaging Hx of sinusitis History of snoring Insomnia Fibromyalgia Panic attacks Bipolar depression Renal calculi Abdominal pain Rathke's cleft cyst Abnormal urine odor Surgical History History of pubovaginal sling Hx of mammogram History of left salpingo-oophorectomy Hx of umbilical hernia repair History of esophagogastroduodenoscopy (EGD) History of appendectomy History of Family History Father Hyperlipidemia HTN (hypertension) Mother Healthy female Other Arthritis Social History Household Members: Children Housing: Apartment Alcohol intake: never Patient Tobacco Use Status: Former Tobacco user Tobacco use type: Cigarette e-Cigarette/Vaping Use: Never Used Second Hand Smoke Exposure: No service: No Current occupational status: unemployed Current occupational exposures/hazards: No Sexual orientation: Straight/Heterosexual Gender identity: Female Cognitive needs: No Hearing needs: No Vision needs: Yes Female Reproductive History Menstrual Age of Menarche: 13 Physical Exam Vital Signs: Last Vital Signs Pulse 52 01/09/24 14:09 BP 104/64 01/09/24 14:09 BMI result Body Mass Index 22.4 Assessment & Plan Assessment & Plan (1) Pituitary macroadenoma: Code(s): D35.2 - Benign neoplasm of pituitary gland Category: Medical Plan: This is a 48-year-old female with a history of pituitary macroadenoma with workup for hypersecretion showing elevated prolactin the patient was at the time. Repeat MRI showed resolution of pituitary adenoma with normalization prolactin Plan is to send the patient back to her primary care provider. No need at this point for further endocrine workup or follow-up follow-up with endocrinology as needed (2) Thyroid enlargement: Code(s): E04.9 - Nontoxic goiter, unspecified Category: Medical Plan: Thyroid enlargement was seen on CT of the head and neck. There is a 8 mm solitary nodule present that does not warrant biopsy. She appears to be clinically biochemically euthyroid Coding Level of Care Code Est Pt Level 3 (39541) Diagnoses Pituitary macroadenoma D35.2 Thyroid enlargement E04.9
== END 2024-01-09 14:39 | disposition home or self-care (01) ==
PROVIDERS: PCP Internal Medicine; Visit Provider Internal Medicine Endocrinology, Diabetes & Metabolism
DX: D35.2 Benign neoplasm of pituitary gland (principal); E04.9 Nontoxic goiter, unspecified
CPT/HCPCS: 99213

== ENCOUNTER → 2024-01-09 13:58 | Outpatient (BNVA) | payer OTHER, SELFPAY | PROVIDERS: PCP Internal Medicine; Visit Provider Internal Medicine Endocrinology, Diabetes & Metabolism | DX: D35.2 Benign neoplasm of pituitary gland (principal); E04.9 Nontoxic goiter, unspecified | CPT/HCPCS: 99212 ==

== ENCOUNTER 2024-01-12 14:30 | Outpatient (AMB) | payer OTHER, SELFPAY ==
--- NOTE | 2024-01-12 14:44 | A.OFFVIS_ITS ---
Vital Signs 01/12/24 14:45 Height 5 ft 6 in Weight 138 lb 14.259 oz BMI 22.4 BP 106/68 Intake Visit Reasons: Annual Instrument Assembly Supervisor Required: Yes Instrument Assembly Supervisor Language: Parts Expediter Services: Instrument Assembly Supervisor Present (in person) Instrument Assembly Supervisor Name: Sharri GARCIA Information Interpreted: non-clinical & clinical Wedding Makeup Artist: Wedding Makeup Artist Present (Sharri GARCIA) Accompanied by: Self / Same As Patient Allergies tramadol [TRAMADOL] Allergy (Intermediate, Verified 01/12/24 14:53) NAUSEA & VOMITING HPI Comments Details: Presenting for annual exam. No complaints. Last Pap/HPV was negative in 12/09 Last Mammogram more than 3 years ago No previous screening colonoscopy PFSH 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 present on magnetic resonance imaging Hx of sinusitis History of snoring Insomnia Fibromyalgia Panic attacks Bipolar depression Renal calculi Abdominal pain Rathke's cleft cyst Abnormal urine odor Surgical History History of pubovaginal sling Hx of mammogram History of left salpingo-oophorectomy Hx of umbilical hernia repair History of esophagogastroduodenoscopy (EGD) History of appendectomy History of Family History Father Hyperlipidemia HTN (hypertension) Mother Healthy female Other Arthritis Social History Household Members: Children Housing: Apartment Alcohol intake: never Patient Tobacco Use Status: Former Tobacco user Tobacco use type: Cigarette e-Cigarette/Vaping Use: Never Used Second Hand Smoke Exposure: No service: No Current occupational status: unemployed Current occupational exposures/hazards: No Sexual orientation: Straight/Heterosexual Gender identity: Female Cognitive needs: No Hearing needs: No Vision needs: Yes Female Reproductive History Menstrual Age of Menarche: 13 Date of last pap smear: 12/01/21 Review of Systems Const All systems reviewed & are unremarkable except as noted in HPI and below Card Reports as per HPI Resp Reports as per HPI GI Reports as per HPI and Reports no additional complaints Reports as per HPI Physical Exam Vital Signs: Last Vital Signs BP 106/68 01/12/24 14:45 BMI result Body Mass Index 22.4 Const General: cooperative, healthy appearing and comfortable Chest Chest palpation & inspection: normal inspection of the chest and normal palpatio n of entire chest wall Breast/axilla inspection: normal inspection of the breasts and normal inspection of the axillae Breast/axilla palpation: normal palpation of the breasts, normal palpation of the axillae and no axillary lymphadenopathy Resp Effort & Inspection: normal respiratory effort Auscultation: clear to auscultation bilaterally Percussion: percussion normal Cardio Palpation: normal PMI Rate: regular rate Rhythm: regular rhythm Heart sounds: no murmurs and no rubs Peripheral pulses: Peripheral pulses 2+ throughout GI Inspection: Yes normal to inspection Palpation (GI): Soft to palpation, nontender, no guarding, not rigid and No hepatosplenomegaly present Percussion: Yes normal to percussion Auscultation: normal bowel sounds Rectal Exam - Female: deferred General: Yes bladder normal to palpation External Female Exam: No lesion Speculum Exam - Vagina: normal appearance of the vagina, normal palpation, normal vaginal discharge and not erythematous Speculum Exam - Cervix: normal appearance of the cervix and normal palpation Bimanual exam- vagina & uterus: normal bimanual exam, normal palpation, uterine size normal, bladder normal to palpation, consistency normal and normal palpation Bimanual Exam- Adnexa, other: normal adnexae, no masses and no tenderness Assessment & Plan Assessment & Plan (1) Well woman exam with routine gynecological exam: Code(s): Z01.419 - Encounter for gynecological examination (general) (routine) without abnormal findings Category: Medical Plan: Co testing not indicated this year. Counseled the patient about the recommended dietary allowance of 1200 mg of Calcium & 600 IU of vitamin D. Mammogram ordered. The patient was referred to GI for screening colonoscopy . The patient was instructed to perform monthly self-breast exams and schedule annual exam in a year. All questions answered and the patient verbalized understanding. Orders: Orders MM tomosynthesis screening BI Today Z12.31 - Encounter for screening mammogram for malignant neoplasm of breast Referrals Gastroenterology Referral Z12.11 - Encounter for screening for malignant neoplasm of colon Coding Level of Care Code Est Pt Level 3 (67310) Est Pt Prev Care 40-64y(50310) Diagnoses Well woman exam with routine gynecological exam Z01.419
[2024-01-12 14:45] VITALS: BP 106/68; BMI 22.4
== END 2024-01-12 15:02 | disposition home or self-care (01) ==
PROVIDERS: PCP Internal Medicine; Visit Provider Obstetrics & Gynecology
DX: Z01.419 Encounter for gynecological examination (general) (routine) without abnormal findings (principal)
CPT/HCPCS: 99396

== ENCOUNTER → 2024-01-12 14:30 | Outpatient (BNVA) | payer OTHER, SELFPAY | PROVIDERS: PCP Internal Medicine; Visit Provider Obstetrics & Gynecology | DX: Z01.419 Encounter for gynecological examination (general) (routine) without abnormal findings (principal) | CPT/HCPCS: 99396 ==

== ENCOUNTER 2024-02-08 13:57 | Outpatient (AMB) | payer OTHER, SELFPAY ==
[2024-02-08 14:01] VITALS: BP 106/58; PULSE 65; BMI 21.7
--- NOTE | 2024-02-08 14:01 | A.OFFVIS_ITS ---
Vital Signs 02/08/24 14:01 Height 5 ft 6 in Weight 134 lb 7.712 oz BMI 21.7 BP 106/58 L Blood Pressure Location Lt brachial Position Sitting Pulse 65 Pulse Source Monitor Intake Visit Reasons: 1 year fu (NS) Occupational Analyst Required: Yes Occupational Analyst Name: [id number] [id number] Allergies tramadol [TRAMADOL] Allergy (Intermediate, Verified 01/12/24 14:53) NAUSEA & VOMITING Medication List - Last Reconciled 02/08/24 by Maryann Lynch NP acetaminophen (Tylenol Extra Strength) 500 mg PO Q6H PRN amoxicillin 500 mg PO Q12H 7 days buspirone 15 mg PO calcium carbonate 600 mg PO BID 90 days cholecalciferol (vitamin D3) 25 mcg PO DAILY 90 days cyclobenzaprine 5 mg PO TID PRN divalproex 500 mg PO BID escitalopram oxalate 10 mg PO DAILY fluticasone propionate 50 mcg/actuation (Allergy Relief (fluticasone)) 2 sprays intranasal DAILY ibuprofen 600 mg PO Q8H PRN loratadine (Allergy Relief (loratadine)) 10 mg PO DAILY 90 days magnesium oxide 400 mg PO BEDTIME 30 days medroxyprogesterone 150 mg IM [id number] 3 months medroxyprogesterone 150 mg IM Q12W ondansetron 4 mg PO Q8H PRN propranolol 10 mg PO BID 30 days riboflavin (vitamin B2) 400 mg PO DAILY 30 days sumatriptan succinate 50 - 100 mg orally at onset of headache, may repeat in 2 hrs PRN; max 2 tabs per day or 4 tabs/week (may take with Ibuprofen) 30 days zolpidem 10 mg PO BEDTIME HPI Comments Details: 48-year-old female presents today for follow-up. 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 She reports her palpitations have been getting worse as of recently. She reports at baseline she has high anxiety but is unsure if her anxiety is a trigger for these palpitations increase. She feels them daily and she feels the pounding up in her ears and throat. She reports she has pain in her heart that is not triggered by anything in particular. She also reports some shortness of breath with rest and activity. She denies any alcohol use, states she smokes 1 cigarette 3 times a week and drinks, and 1 cup of coffee daily. 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 present on magnetic resonance imaging Hx of sinusitis History of snoring Insomnia Fibromyalgia Panic attacks Bipolar depression Renal calculi Abdominal pain Rathke's cleft cyst Abnormal urine odor Surgical History History of pubovaginal sling Hx of mammogram History of left salpingo-oophorectomy Hx of umbilical hernia repair History of esophagogastroduodenoscopy (EGD) History of appendectomy History of Family History Father Hyperlipidemia HTN (hypertension) Mother Healthy female Other Arthritis Social History Household Members: Children Housing: Apartment Alcohol intake: never Patient Tobacco Use Status: Former Tobacco user Tobacco use type: Cigarette e-Cigarette/Vaping Use: Never Used Second Hand Smoke Exposure: No service: No Current occupational status: unemployed Current occupational exposures/hazards: No Sexual orientation: Straight/Heterosexual Gender identity: Female Cognitive needs: No Hearing needs: No Vision needs: Yes Female Reproductive History Menstrual Age of Menarche: 13 Review of Systems Const Denies weakness ENT Denies dizziness Card Denies chest pain, Denies chest pain with activity, Denies syncope, Denies rapid heart rate, Denies pedal edema, Denies edema, Denies leg edema, Denies lightheadedness, Denies palpitations, Denies dyspnea, Denies dyspnea on exertion and Denies orthopnea Resp Denies cough, Denies dyspnea and Denies dyspnea on exertion GI Denies hematochezia and Denies change in stool character Musc Denies abnormal gait, Denies muscle cramps, Denies muscle weakness, Denies numbness, Denies radiating pain into limb and Denies tingling Neuro Denies abnormal gait, Denies dizziness, Denies syncope, Denies numbness, Denies tingling and Denies weakness Endo Denies palpitations Physical Exam Vital Signs: Last Vital Signs Pulse 65 02/08/24 14:01 BP 106/58 L 02/08/24 14:01 BMI result Body Mass Index 21.7 Const General: healthy appearing and no acute distress Orientation/consciousness: patient oriented x3 HEENT Head: Yes normal to inspection Eyes General: appearance normal, both eyes and all related structures Neck Neck: Yes normal visual inspection Chest Chest palpation & inspection: normal inspection of the chest Resp Effort & Inspection: normal respiratory effort Auscultation: clear to auscultation bilaterally Cardio Jugular venous distension: no JVD Palpation: normal PMI Rate: regular rate Rhythm: regular rhythm Heart sounds: S1 normal heart sound present, S2 normal heart sound present, no click, no gallops, no murmurs and no rubs GI Inspection: Yes normal to inspection Palpation (GI): Soft to palpation Skin General skin exam: no rashes or lesions noted Neuro General: patient oriented x3 Extrem General: Yes normal to inspection Psych Appearance: grossly normal Assessment & Plan Assessment & Plan (1) Palpitations: Code(s): R00.2 - Palpitations Category: Medical (2) Chest pain: Code(s): R07.9 - Chest pain, unspecified Category: Medical (3) Palpitations: Code(s): R00.2 - Palpitations Category: Medical Plan Patient with a history of isolated PVCs. On 12/04/2019 Holter monitor showed rare PVCs with a total burden of 0.09% and a total of 3 days. Triggers of palpitations discussed with patient. Avoidance of caffeinated products, dehydration, and smoking. Continue workup for mental health professional. Stress medication techniques discussed. We will recheck Holter monitor to assess for arrhythmias We will check exercise stress test to assess for ischemia for atypical chest discomfort. And will update echocardiogram. Follow-up after testing. Orders: Orders ECG holter monitor 48 hour 02/08/24 R00.2 - Palpitations CA echo transthoracic complete 02/08/24 R00.2 - Palpitations CA stress test 02/08/24 R07.9 - Chest pain, unspecified Coding Level of Care Code Est Pt Level 4 (94931) Diagnoses Palpitations R00.2 Chest pain R07.9
== END 2024-02-08 14:46 | disposition home or self-care (01) ==
PROVIDERS: PCP Internal Medicine; Visit Provider Nurse Practitioner
DX: R00.2 Palpitations (principal); R07.9 Chest pain, unspecified
CPT/HCPCS: 93010; 99214

== ENCOUNTER → 2024-02-08 13:57 | Outpatient (BNVA) | payer OTHER, SELFPAY | PROVIDERS: PCP Internal Medicine; Visit Provider Nurse Practitioner | DX: R00.2 Palpitations (principal); R07.9 Chest pain, unspecified | CPT/HCPCS: 93005; 99212 ==

== ENCOUNTER 2024-02-23 | Outpatient (REF) | payer OTHER, SELFPAY | END 2024-02-23 00:01 | disposition home or self-care (01) | LOC: CF | PROVIDERS: PCP Internal Medicine; Visit Provider Obstetrics & Gynecology | DX: Z30.09 Encounter for other general counseling and advice on contraception (principal) | CPT/HCPCS: 96372; 99212; J1050 ==

== ENCOUNTER 2024-02-23 13:02 | Outpatient (AMB) | payer OTHER, SELFPAY ==
--- NOTE | 2024-02-23 13:05 | A.OFFVIS_ITS ---
Vital Signs 02/23/24 13:07 Height 5 ft 6 in Weight 134 lb 7.712 oz BMI 21.7 BP 110/66 Intake Visit Reasons: follow up Manager Labor Delivery Required: Yes Manager Labor Delivery Language: Infrastructure Software Engineer Services: Manager Labor Delivery Present (in person) Manager Labor Delivery Name: Sharri GARCIA Information Interpreted: non-clinical & clinical Accompanied by: Self / Same As Patient Allergies tramadol [TRAMADOL] Allergy (Intermediate, Verified 02/23/24 13:06) NAUSEA & VOMITING Is last menstrual period known: No (depo) HPI Comments Details: Presenting for Depo-Provera last shot was on 11/29. 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 present on magnetic resonance imaging Hx of sinusitis History of snoring Insomnia Fibromyalgia Panic attacks Bipolar depression Renal calculi Abdominal pain Rathke's cleft cyst Abnormal urine odor Surgical History History of pubovaginal sling Hx of mammogram History of left salpingo-oophorectomy Hx of umbilical hernia repair History of esophagogastroduodenoscopy (EGD) History of appendectomy History of Family History Father Hyperlipidemia HTN (hypertension) Mother Healthy female Other Arthritis Social History Household Members: Children Housing: Apartment Alcohol intake: never Patient Tobacco Use Status: Former Tobacco user Tobacco use type: Cigarette e-Cigarette/Vaping Use: Never Used Second Hand Smoke Exposure: No service: No Current occupational status: unemployed Current occupational exposures/hazards: No Sexual orientation: Straight/Heterosexual Gender identity: Female Cognitive needs: No Hearing needs: No Vision needs: Yes Female Reproductive History Menstrual Age of Menarche: 13 Review of Systems Const All systems reviewed & are unremarkable except as noted in HPI and below Reports as per HPI and Reports no additional complaints GI Reports no additional complaints Reports no additional complaints Physical Exam Vital Signs: BMI result Body Mass Index 21.7 Assessment & Plan Assessment & Plan (1) Family planning: Code(s): Z30.09 - Encounter for other general counseling and advice on contraception Category: Social Hx Plan: Discussed with the patient long-term effects of the Provera on bone loss especially at age of 48 and recommended discontinue Depo-Provera to reverse the bone loss affect prior to reaching menopause. Discussed with the patient the different options of control including control pills/Nuvaring, DMPA, IUD (Mirena, Paraguard), sterilization. All the pros, cons, risks and benefits of each were discussed with the patient. The patient decided to go ahead with DMPA for today and think about other options in the coming few months, so a more detailed discussion re: Depo-Provera including mechanism of action, benefits (amenorrhea after initial dub, ...), risks ( mood lability, weight gain, initial dub, bone loss reversible, ? increase Breast Cancer risk, others). Instructions were given to crop picker the Depo-Provera prescription and come back for discharge. The patient verbalized understanding. Medications: Refilled medroxyprogesterone 150 mg IM [id number] 3 months 1 mL 1RF Coding Level of Care Code Est Pt Level 3 (08774) Diagnoses Family planning Z30.09
[2024-02-23 13:07] VITALS: BP 110/66; BMI 21.7
== END 2024-02-23 14:33 | disposition home or self-care (01) ==
PROVIDERS: PCP Internal Medicine; Visit Provider Obstetrics & Gynecology
DX: Z30.09 Encounter for other general counseling and advice on contraception (principal); Z30.9 Encounter for contraceptive management, unspecified
CPT/HCPCS: 99213

== ENCOUNTER 2024-03-02 13:08 | Outpatient (REF) | payer OTHER, SELFPAY ==
--- NOTE | ~2024-03-02 | MM_ITS ---
EXAMINATION: MM SCREENING DIGITAL BREAST TOMOSYNTHESIS, BILATERAL CLINICAL INFORMATION: Screening. Asymptomatic. COMPARISON: Mammography: This study is compared with prior exams dating back to TECHNIQUE: Digital breast tomosynthesis is performed in both the craniocaudal and mediolateral oblique views along with computer-aided detection (CAD). Synthesized 2D images are generated from the tomosynthesis. FINDINGS: There are scattered areas of fibroglandular density (ACR BI-RADS breast composition Category b). There are no significant masses, abnormal calcifications, or other abnormalities. MM/MM tomosynthesis screening BI IMPRESSION: No mammographic evidence of malignancy. ASSESSMENT: BI-RADS BI-RADS 1 - Negative RECOMMENDATION: Routine annual mammography screening. 1 year F/U This examination should not preclude the clinical evaluation of a suspicious palpable abnormality. This patient's information was entered into a reminder system with a target due date for their next mammogram. Electronically signed by: Bebo Lynch MD 03/02/2024 06:09 PM EDT
== END 2024-03-02 13:09 | disposition home or self-care (01) ==
LOC: HO.MAMMO 13:08
PROVIDERS: PCP Internal Medicine; Visit Provider Internal Medicine
DX: Z12.31 Encounter for screening mammogram for malignant neoplasm of breast (principal)
CPT/HCPCS: 77063; 77067

== ENCOUNTER → 2024-03-02 13:15 | Outpatient (BNV) | payer OTHER, SELFPAY | PROVIDERS: PCP Internal Medicine; Visit Provider Radiology Diagnostic Radiology | DX: Z12.31 Encounter for screening mammogram for malignant neoplasm of breast (principal) | CPT/HCPCS: 77063; 77067 ==

== ENCOUNTER → 2024-03-12 09:01 | Outpatient (REF) | payer OTHER, SELFPAY ==
--- NOTE | 2024-03-12 09:04 | HM_ITS ---
* Total monitoring time 2 days. * Underlying rhythm is sinus with an average rate of 75/Min. * Rare supraventricular and ventricular ectopy. * No significant pauses or high-grade AV blocks. * No patient markers or diary events. MTDD
--- NOTE | 2024-03-12 09:04 | CA_ITS ---
Acquisition Time: 2024-03-12 09:49:05 Total Exercise Time: 00:08:52 Test Indications: CHEST PAIN Medications: Protocol: AARON Max HR: 131 BPM 75% of Pred: 173 BPM Max BP: 126/060 mmHG Max Work Load: 10.1 METS Exercise stress test exercise 8 min 52 sec of Aaron protocol achieivng 75% MPHR, with mild SOB, chest pain with inspiration, without arrhythmias, with normotensive response to exercise, without EKG changes at achieved workload.Breathing returned to baseline with rest. Test reviewed with Dr. Coughlin. Referred By: Maryann Lynch Overread By: Maryann Lynch
--- NOTE | 2024-03-12 09:04 | CA_ITS ---
Transthoracic Echocardiogram Patient (Last, First, Middle): Marta Akers, Gender: Female Date of : 1975 Age: 48 Procedure Date: 03/12/2024 Procedure Type: Transthoracic Echocardiogram Location: OP Height: 167. cm Weight: 63.5 kg BSA: 1.71 m2 Heart Rate: 64 bpm BP: 90 / 60 mmHg Contract Programmer: ANJU Referring MD: Maryann Lynch NP Symptoms: R00.2 - Palpitations Study Quality: Adequate ECG Rhythm: Sinus Conclusions: - The left ventricular systolic function is normal. The calculated ejection fraction is 60% by biplane method. - No obvious valvular pathology seen on this study. Findings Left Ventricle Normal left ventricular cavity size. There is normal left ventricular wall thickness. The left ventricular systolic function is normal. The calculated ejection fraction is 60% by biplane method. There is no evidence of regional wall motion abnormalities. Diastolic function is normal for age. LV peak GLS -19.5%. Right Ventricle Normal right ventricular cavity size. There is low normal right ventricular systolic function. Atria Both atria are normal in size. Aortic Valve There is a normal trileaflet aortic valve. There is no aortic valve stenosis. There is no aortic valve regurgitation. Mitral Valve The mitral valve appears normal. There is trace mitral valve regurgitation. There is no mitral valve stenosis. Pulmonic Valve The pulmonic valve is likely normal. Tricuspid Valve Normal tricuspid valve structure. There is trace tricuspid valve regurgitation. There is no evidence of pulmonary hypertension. Great Vessels The asc aorta is normal in size. Venous The inferior vena cava is normal in size and collapses greater than 50% with inspiration. Pericardium/Pleural There is no evidence of pericardial effusion. Prior Study Comparison No prior study available for comparison. Recommendations, Care & Conclusions No obvious valvular pathology seen on this study. Measurements 2D Linear Measurements IVSd: 0.98 0.6-0.9/0.6-1.0 cm LVIDd: 4.21 3.9-5.3/4.2-5.9 cm LVIDd Index: 2.46 2.4-3.2/2.2-3.1 cm/m2 LVIDs: 2.56 2.0-3.6 cm LVPWd: 0.97 0.7-1.1 cm LA Diam: 3.20 2.7-3.8/3.0-4.0 cm LAIDs Index: 1.87 1.5-2.3 cm/m2 LV Mass: 166.08 67-162/88-224 g LV Mass Index: 97.13 43-95/49-115 g/m2 LVOT Diam: 2.00 3.0+(-)1.3 cm 2D Systolic Function EF 4C: 55.90 >55% EF 2C: 60.10 >55% EF BiP: 59.90 >55% Mitral Valve MV Pk E: 0.81 MV PK A: 0.55 MV Decel Time: 124.00 E/A: 1.50 E'Lateral: 11.30 E'Medial: 8.92 E/E' Med: 9.10 E/E' Lat: 7.20 PHT: 36.00 MVA PHT: 6.11 Decel [place]: 6.55 Aortic Valve AoV Pk Kulwant: 1.23 AoV Mn Kulwant: 0.95 AoV VTI: 0.26 AoV Pk Grad: 6.00 Aov Mn Grad: 4.00 SHANA Cont.VTI: 2.23 LVOT LVOT Pk Kulwant: 1.04 LVOT Mn Kulwant: 0.65 LVOT VTI: 0.19 LVOT Pk Grad: 4.00 LVOT Mn Grad: 2.00 LVOT Diam: 2.00 LVOT Area: 3.14 Diastolic Function MV Pk E: 0.81 MV Pk A: 0.55 E/A: 1.50 E'Medial: 8.92 E/E' Med: 9.10 E' Laterial: 11.30 E/E' Lat: 7.20 Right Ventricle TAPSE (mm): 16.70 TVS' Kulwant: 9.79 Tricuspid Valve RA Press: 3.00 Great Vessels Aorta Sinus of Valsalva: 2.90 2.0-3.5 cm Ao Asc: 2.90 2.1-3.4 cm Pulmonary Valve PV Pk Kulwant: 0.84 Peak PV Grad: 3.00 Updated in Other Vendor System with Status of Final Daniel Coughlin MD electronically signed on 03/12/2024 1:12:32 PM with status of Final
== END ==
LOC: HO.CARD 09:01
PROVIDERS: PCP Internal Medicine; Visit Provider Nurse Practitioner
DX: R07.9 Chest pain, unspecified (principal); R00.2 Palpitations
CPT/HCPCS: 93017; 93225; 93306; 93356

== ENCOUNTER → 2024-03-12 09:04 | Outpatient (BNV) | payer OTHER, SELFPAY | PROVIDERS: PCP Internal Medicine; Visit Provider Internal Medicine | DX: I47.10 Supraventricular tachycardia, unspecified (principal) | CPT/HCPCS: 93016; 93018; 93227; 93320; 93325; 93350; 93356 ==

== ENCOUNTER 2024-03-16 13:15 | Outpatient (AMB) | payer OTHER, SELFPAY ==
--- NOTE | 2024-03-16 13:20 | MHC.OFFWIV ---
Intake Vital Signs 03/16/24 13:21 Height 5 ft 6 in Weight 140 lb BMI 22.6 BP 130/78 Blood Pressure Location Lt brachial Position Sitting Pulse 70 Pulse Source Pulse Oximeter Temp 97.8 F Temp Source Oral Pulse Oximetry (%) 98 Oxygen Delivery Method Room Air Intake Visit Reasons: EP she feels like a pinch on her heart & SOB Intake Note: Patient here for left ear pain that has been present for a couple of days. Patient Tobacco Use Status: Former Tobacco user Allergies tramadol [TRAMADOL] Allergy (Intermediate, Verified 03/16/24 13:25) NAUSEA & VOMITING Do you need a note to return to daycare/school/sports/work: No HPI HPI Comments History of Present Illness Details This is a 48-year-old female with a past medical history of bipolar disorder, fibromyalgia, chronic sinusitis and insomnia presenting for evaluation of left ear pain that she has had for the past 3 weeks and chest pain that she 1st felt last night. Patient states that she was prescribed antibiotic therapy for her left ear pain 2 weeks ago however her pain persists. Patient denies having any fevers, chills, right ear pain, sore throat or difficulty swallowing. Patient describes a ?pinch in my heart? that she felt last night at approximately 9:00 p.m. that comes and goes. Patient last felt this pain prior to coming to the walk-in clinic. Patient denies having any shortness of breath, hemoptysis, nausea, vomiting, abdominal pain or back pain. In office EKG reveals normal sinus rhythm at a rate of 67 beats per minute. 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 present on magnetic resonance imaging Hx of sinusitis History of snoring Insomnia Fibromyalgia Panic attacks Bipolar depression Renal calculi Abdominal pain Rathke's cleft cyst Abnormal urine odor Surgical History History of pubovaginal sling Hx of mammogram History of left salpingo-oophorectomy Hx of umbilical hernia repair History of esophagogastroduodenoscopy (EGD) History of appendectomy History of Family History Father Hyperlipidemia HTN (hypertension) Mother Healthy female Other Arthritis Social History Household Members: Children Housing: Apartment Alcohol intake: never Patient Tobacco Use Status: Former Tobacco user Tobacco use type: Cigarette e-Cigarette/Vaping Use: Never Used Second Hand Smoke Exposure: No service: No Current occupational status: unemployed Current occupational exposures/hazards: No Sexual orientation: Straight/Heterosexual Gender identity: Female Cognitive needs: No Hearing needs: No Vision needs: Yes Female Reproductive History Menstrual Age of Menarche: 13 Review of Systems Const All systems reviewed & are unremarkable except as noted in HPI and below Reports no additional complaints Eyes Reports no additional complaints ENT Reports no additional complaints Card Reports chest pain (Intermittent, pinching ), Denies rapid heart rate, Denies palpitations and Denies dyspnea Resp Reports no additional complaints, Denies cough, Denies hemoptysis and Denies dyspnea GI Reports no additional complaints, Denies nausea and Denies vomiting Musc Reports no additional complaints Skin/Breast Reports system reviewed and no additional complaints, except as documented Neuro Reports no additional complaints Psych Reports no additional complaints Endo Denies palpitations Physical Exam Vital Signs: Last Vital Signs Temp 97.8 F 03/16/24 13:21 Pulse 70 03/16/24 13:21 BP 130/78 03/16/24 13:21 Pulse Ox 98 03/16/24 13:21 Oxygen Delivery Method Room Air 03/16/24 13:21 BMI result Body Mass Index 22.6 Const General: cooperative, healthy appearing, comfortable, no acute distress, well developed, alert, awake and Physically active Nutritional Appearance: average body habitus Orientation/consciousness: patient oriented x3 Limitations: language barrier (utilized special education superintendent on iPad) HEENT Head: Yes normal to inspection and Yes normocephalic Ears: hearing grossly normal bilaterally, external ears normal, TM's normal bilaterally and EAC's normal General nose exam: Normal external nose present Face and sinus: Yes normal facial exam Mouth: Normal oral and palatal mucosa present and moist mucous membranes Throat: Yes posterior oropharynx normal Resp Effort & Inspection: normal respiratory effort, able to speak in complete sentences, no audible wheezes, no cough and no respiratory distress Auscultation: clear to auscultation bilaterally Cardio Other: no anterior chest wall tenderness to palpation Rate: regular rate Rhythm: regular rhythm Skin General skin exam: no rashes or lesions noted Neuro General: patient oriented x3 Psych Appearance: grossly normal Mental Status: mental status grossly normal Affect: Anxious affect present Insight: Good insight present (Psych) Judgement: Good judgement present (Psych) Results Reviewed Results Reviewed: EKG normal sinus rhythm 67 beats per minute; no ischemic changes. Patient had a normal stress test on March 12 and there were no acute abnormalities noted on echocardiography. Assessment & Plan Assessment & Plan (1) Chest pain: Comment: EKG and recent cardiology testing is reviewed. Code(s): R07.9 - Chest pain, unspecified Qualifiers: Chest pain type: other chest pain Qualified Code(s): R07.89 - Other chest pain Plan: Patient is urged to go to the emergency department for any ongoing chest pain. Normal EKG is reviewed with patient. (2) Left ear pain: Comment: There is no evidence of an acute sinusitis, otitis media or otitis externa. Code(s): H92.02 - Otalgia, left ear Plan: Tylenol or ibuprofen as needed for discomfort. Patient to follow up with her primary care provider for ongoing management if her symptoms do not resolve. Orders: Orders AMB EKG-In Office Today R07.9 - Chest pain, unspecified Coding Level of Care Code Est Pt Level 4 (45024) Diagnoses Other chest pain R07.89 Chest pain type: other chest pain Left ear pain H92.02 Time Spent (min) 30
[2024-03-16 13:21] VITALS: BP 130/78; PULSE 70; TEMP 36.6; O2SAT 98; BMI 22.6
== END 2024-03-16 14:13 | disposition home or self-care (01) ==
PROVIDERS: PCP Internal Medicine; Visit Provider Physician Assistant
DX: R07.89 Other chest pain (principal); H92.02 Otalgia, left ear

== ENCOUNTER → 2024-03-16 13:15 | Outpatient (BNVA) | payer OTHER, SELFPAY | PROVIDERS: PCP Internal Medicine | DX: R07.89 Other chest pain (principal); H92.02 Otalgia, left ear | CPT/HCPCS: 93005; 99212 ==

== ENCOUNTER 2024-05-21 13:10 | Outpatient (AMB) | payer OTHER, SELFPAY ==
[2024-05-21 13:42] VITALS: BMI 23.8
--- NOTE | 2024-05-21 13:42 | AM.OFFVISNUR ---
Vital Signs 05/21/24 13:42 Height 5 ft 6 in Weight 147 lb 7 oz BMI 23.8 Intake Visit Reasons: DEPO Allergies tramadol [TRAMADOL] Allergy (Intermediate, Verified 03/16/24 13:25) NAUSEA & VOMITING Nursing Note Marta is here today for her scheduled Depo-Provera inj. She reports light bleeding x 2 weeks ago. No other problems or concerns. Follow up in 12 weeks for next inj. Office Procedures Depo Questionnaire If YES to any of the following questions, please consult a provider. Date of last injection: 02/23/24 Date of last menstrual period: 05/07/24 Date of last gynecology exam: 01/12/24 Menstrual pattern since last injection has been: Light Irregular bleeding?: No Breast lumps or other breast changes?: No Changes in weight or appetite?: Yes (weight gain but pt was fully dressed with sneakers on.) Depression or changes in mood?: No Abnormal hair growth or loss?: No Pain at the injection site?: No Headaches?: No Nervousness?: No Abdominal pain or cramping?: No Dizziness or nausea?: No Fatigue or weakness?: No Decrease in sexual drive?: No Chest pain or shortness of breath?: No Swelling in arms or legs?: No Form completed by?: Neelam Boyd LPN Office Meds Depo-Provera 150 mg/mL intramuscular syringe Performing Provider: Galo Diaz MD Performing Location: [facility] Administered by: Yajaira Boyd LPN on 05/21/24 13:43 Dose Route Admin Location Dispensed Lot Number Expiration Date [facility] Antique Dealer 150 mg IM rt. deltoid 1 mL [id number] 11/17/25 [address]-0 [employer] Assessment & Plan Assessment & Plan Orders: Orders AMB Medroxyprogesterone Injection Patient Supplied Today Z30.9 - Encounter for contraceptive management, unspecified Medications: New Depo-Provera (medroxyprogesterone) 150 mg IM ONCE 1 mL 0RF NS Z30.9 - Encounter for contraceptive management, unspecified
== END 2024-05-21 13:18 | disposition home or self-care (01) ==
LOC: HO.HWS 13:10
PROVIDERS: PCP Internal Medicine; Visit Provider Obstetrics & Gynecology
DX: Z30.9 Encounter for contraceptive management, unspecified (principal)

== ENCOUNTER → 2024-05-21 13:10 | Outpatient (BNVA) | payer OTHER, SELFPAY | PROVIDERS: PCP Internal Medicine; Visit Provider Obstetrics & Gynecology | DX: Z30.42 Encounter for surveillance of injectable contraceptive (principal) | CPT/HCPCS: 96372; 99211; J1050 ==

== ENCOUNTER 2024-06-27 14:28 | Outpatient (AMB) | payer OTHER, SELFPAY ==
[2024-06-27 14:35] VITALS: BP 116/78; PULSE 72; O2SAT 97; BMI 24.0
--- NOTE | 2024-06-27 14:35 | A.OFFVIS_ITS ---
Vital Signs 06/27/24 14:35 Height 5 ft 6 in Weight 148 lb 9.465 oz BMI 24.0 BP 116/78 Blood Pressure Location Rt brachial Position Sitting Pulse 72 Pulse Source Pulse Oximeter Pulse Oximetry (%) 97 Oxygen Delivery Method Room Air Intake Visit Reasons: [place] consult -- re-establish. Intake Note: ESTABLISHED PATIENT Reason; Re Est. Last seen 2021. Discuss colo. Hx of EGD, no colo. 08/01/14 via [facility]. Changes/concerns? No significant concerns per pt. Research Professor Required: Yes Research Professor Services: Research Professor Present Research Professor Name: [id number] Willam Information Interpreted: non-clinical & clinical Accompanied by: Self / Same As Patient Allergies tramadol [TRAMADOL] Allergy (Intermediate, Verified 06/27/24 14:43) NAUSEA & VOMITING HPI HPI [place] consult -- re-establish.: Details: LAST VISIT: Nausea & vomiting Patient reports that she is feeling better and does not have nausea or vomiting anymore. Reports to have acid reflux and occasional dyspepsia. Abdominal pain Generalized abdominal pain postprandially. Most likely this is related to her IBS. Patient continues to be occasionally constipated. She reports to be bloated. Most likely related to the food that she eats. Distension and cramping related to possible gas trapping and constipation. Will add docusate sodium, continue Senokot and Citrucel IBS (irritable bowel syndrome) Continues with occasional postprandial abdominal cramping and bloating. Add docusate sodium. Continue Citrucel and Senokot. Discussed with patient again dietary triggers. FODMAP diet discussed with patient. List of food to avoid as well as list of food recommended given to patient. GERD (gastroesophageal reflux disease) Discussed with patient avoiding dietary triggers. Patient reports that occasionally she will have acid reflux postprandially. No reflux in the morning. I will change her medications and will start her on famotidine twice a day. Discussed also with patient avoiding late night snacking. Staying upright for minimum 3 hours after meals. Chronic idiopathic constipation History of chronic constipation. On Citrucel and Senokot will add docusate sodium. Patient was also encouraged to drink plenty fluids and increase activity to promote better bowel motility. I will see patient in 6 months to discuss upper endoscopy and colonoscopy. Patient is currently breast feeding has no melena, hematochezia, unintentional weight loss or ribbon like stools. Patient is agreeable to this plan and verbalizes understanding of instructions. She was given the opportunity to ask questions and all questions answered. ? Thank you for allowing me to participate in her care Plan Orders Orders Liver Panel 12/29/21 R10.9 TSH reflex Free T4 12/29/21 Z12.11 Vitamin D 25-OH (D2 and D3) 12/29/21 E55.9 Medications New docusate sodium 100 mg PO BEDTIME 90 caps 3RF K59.00 famotidine (Pepcid) 20 mg PO BID 180 tabs 3RF K29.70 Discontinued pantoprazole take one tablet half an hour before breakfast Discontinued Reason: Doctor's Order 40 mg PO DAILY 30 tabs 2RF K21.9 TODAY'S VISIT Patient was sent to us by PCP for colonoscopy screening. Previously patient was seen back in 2021 for epigastric pain, was sent for EGD and treated with PPI a nd H2 dirk. Patient reports that she has been feeling well for the most part. No acid reflux only when eating certain food. Patient denies any issues with anesthesia in the past. Patient reports stressed out and little depressed. Has appointment with someone. She has 4-year-old son who was diagnosed with autism. Patient reports that she is unable to work as he is only in daycare for few hours a day. 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 Patient reports that she does not have family support here. All of her family live in [place]. Patient denies melena, hematochezia, unintentional weight loss or ribbon like stools. Patient denies any dyspepsia, dysphagia or odynophagia. Patient denies any cardiac or respiratory symptoms at this time. [facility] Medical History Chest pain Pituitary macroadenoma Blurry vision Chronic fatigue 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 present on magnetic resonance imaging Hx of sinusitis History of snoring Insomnia Fibromyalgia Panic attacks Bipolar depression Renal calculi Abdominal pain Rathke's cleft cyst Abnormal urine odor Surgical History History of pubovaginal sling Hx of mammogram History of left salpingo-oophorectomy Hx of umbilical hernia repair History of esophagogastroduodenoscopy (EGD) History of appendectomy History of Family History Father Hyperlipidemia HTN (hypertension) Mother Healthy female Other Arthritis Social History Household Members: Children Housing: Apartment Alcohol intake: never Patient Tobacco Use Status: Former Tobacco user Tobacco use type: Cigarette e-Cigarette/Vaping Use: Never Used Second Hand Smoke Exposure: No service: No Current occupational status: unemployed Current occupational exposures/hazards: No Sexual orientation: Straight/Heterosexual Gender identity: Female Cognitive needs: No Hearing needs: No Vision needs: Yes Female Reproductive History Menstrual Age of Menarche: 13 Review of Systems Const Denies weight gain and Denies weight loss ENT Reports no additional complaints, Denies dysphagia and Denies odynophagia Card Reports no additional complaints Resp Reports no additional complaints GI Denies abdominal pain, Denies belching, Denies melena, Denies bloating, Denies change in bowel habits, Denies dysphagia, Denies excessive flatus, Denies dyspepsia, Denies heartburn, Denies diarrhea, Denies loose stools, Denies nausea, Denies odynophagia and Denies vomiting Musc Reports no additional complaints Neuro Reports no additional complaints Psych Reports no additional complaints Endo Reports no additional complaints Physical Exam Vital Signs: Last Vital Signs Pulse 72 06/27/24 14:35 BP 116/78 06/27/24 14:35 Pulse Ox 97 06/27/24 14:35 Oxygen Delivery Method Room Air 06/27/24 14:35 BMI result Body Mass Index 24.0 Const General: healthy appearing, no acute distress and well developed Nutritional Appearance: well nourished Orientation/consciousness: patient oriented x3 Resp Effort & Inspection: normal respiratory effort, able to speak in complete sentences, no tracheal deviation and symmetric chest movement Auscultation: clear to auscultation bilaterally Cardio Rate: regular rate GI Inspection: Yes normal to inspection and No distended Palpation (GI): Soft to palpation, not firm, nontender and No hepatosplenomegaly present Auscultation: normal bowel sounds General: Yes no CVA tenderness Back/Spine/Pelvis Back: no CVA tenderness Skin General skin exam: elasticity normal, turgor normal and dry skin Neuro General: patient oriented x3 Psych Appearance: grossly normal Mental Status: mental status grossly normal Assessment & Plan Assessment & Plan (1) Screen for colon cancer: Code(s): Z12.11 - Encounter for screening for malignant neoplasm of colon Plan What to expect before during and after procedure discussed with patient. Stressed the importance of good bowel prep and clear liquid diet. Patient reports no issues with anesthesia in the past. Denies any cardiac or respiratory symptoms. Cardiac workup negative for CAD in the past couple years. Split MiraLax prep and Dulcolax sent. Message sent to surgical schedulers to book that with her. No issues with anesthesia in the past. No history of sleep apnea. Not on any anticoagulation medication. No family history of CRC. Patient will be seen after the procedure, sooner on as needed basis. She is agreeable to this plan and verbalizes understanding of instructions. She was given the opportunity to ask questions and all questions answered. Thank you for allowing me to participate in her care Medications: New polyethylene glycol 3350 (Miralax) As directed by gastro[facility]ology [facility] at [facility] 238 grams PO ONCE 238 grams 0RF Z12.11 - Encounter for screening for malignant neoplasm of colon bisacodyl (Dulcolax (bisacodyl)) take 4 tabs at noon the day before your colonoscopy 20 mg (4 x 5 mg) PO ONCE 1 day 4 tabs 0RF Z12.11 - Encounter for screening for malignant neoplasm of colon Coding Level of Care Code Est Pt Level 3 (72762) Diagnoses Screen for colon cancer Z12.11 Time Spent (min) 30 Comment 20 minutes spent with patient and additional 10 minutes spent reviewing her records
== END 2024-06-27 15:36 | disposition home or self-care (01) ==
PROVIDERS: PCP Internal Medicine; Visit Provider Nurse Practitioner Family
DX: Z01.818 Encounter for other preprocedural examination (principal); Z12.11 Encounter for screening for malignant neoplasm of colon
CPT/HCPCS: 99212

== ENCOUNTER → 2024-06-27 14:28 | Outpatient (BNVA) | payer OTHER, SELFPAY | PROVIDERS: PCP Internal Medicine; Visit Provider Nurse Practitioner Family | DX: Z12.11 Encounter for screening for malignant neoplasm of colon (principal) | CPT/HCPCS: 99212 ==

== ENCOUNTER 2024-07-02 13:16 | Outpatient (REF) | payer OTHER, SELFPAY ==
--- NOTE | ~2024-07-02 | US_ITS ---
CLINICAL HISTORY: N20.0 - Calculus of kidney US Renal Comparison: None Findings: Right kidney normal size and echotexture, 10 cm length. 3 mm stone of the midpole. Left kidney normal size and echotexture, 10 cm length. No collecting system dilatation of either kidney. Normal color Doppler. IMPRESSION: Nonobstructing small right kidney stone. This document has been electronically signed by: Sinai Middleton MD on 07/04/2024 17:15:17
== END 2024-07-02 13:17 | disposition home or self-care (01) ==
LOC: HO.US 13:16
PROVIDERS: PCP Internal Medicine; Visit Provider Urology
DX: N20.0 Calculus of kidney (principal)
CPT/HCPCS: 76775

== ENCOUNTER → 2024-07-02 13:18 | Outpatient (BNV) | payer OTHER, SELFPAY | PROVIDERS: PCP Internal Medicine; Visit Provider Nuclear Medicine | DX: N20.0 Calculus of kidney (principal) | CPT/HCPCS: 76775 ==

== ENCOUNTER 2024-08-09 15:30 | Outpatient (AMB) | payer OTHER, SELFPAY ==
[2024-08-09 15:33] VITALS: BMI 23.9
--- NOTE | 2024-08-09 15:33 | MHC.OFFVIS ---
Vital Signs 08/09/24 15:33 Height 5 ft 6 in Weight 148 lb BMI 23.9 Intake Visit Reasons: control follow up per dr. diaz Agency Sales Management Assistant Required: Yes Agency Sales Management Assistant Language: Laundry Operator Wash Room Services: Agency Sales Management Assistant Present (in person) Agency Sales Management Assistant Name: Sharri GARCIA Information Interpreted: non-clinical & clinical Accompanied by: Self / Same As Patient Allergies tramadol [TRAMADOL] Allergy (Intermediate, Verified 08/09/24 15:45) NAUSEA & VOMITING HPI Comments Details: Presenting for Depo-Provera shot. The patient has been on the Depo-Provera for the last 4 years for AUB and has been amenorrheic since then the patient had anemia in 2019 last H&H in 07/13 was within normal. The patient would like to discuss different options of treatment for AUB/ control as an alternative Depo-Provera since last discussion we discussed risk of long-term Depo-Provera perimenopausal with a risk of osteoporosis that is reversible. Last mammogram in 03/13 was BI-RADS 1 PFSH Medical History Chest pain Pituitary macroadenoma Blurry vision Chronic fatigue 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 present on magnetic resonance imaging Hx of sinusitis History of snoring Insomnia Fibromyalgia Panic attacks Bipolar depression Renal calculi Abdominal pain Rathke's cleft cyst Abnormal urine odor Surgical History History of pubovaginal sling Hx of mammogram History of left salpingo-oophorectomy Hx of umbilical hernia repair History of esophagogastroduodenoscopy (EGD) History of appendectomy History of Family History Father Hyperlipidemia HTN (hypertension) Mother Healthy female Other Arthritis Social History Household Members: Children Housing: Apartment Alcohol intake: never Patient Tobacco Use Status: Former Tobacco user Tobacco use type: Cigarette e-Cigarette/Vaping Use: Never Used Second Hand Smoke Exposure: No service: No Current occupational status: unemployed Current occupational exposures/hazards: No Sexual orientation: Straight/Heterosexual Gender identity: Female Cognitive needs: No Hearing needs: No Vision needs: Yes Female Reproductive History Menstrual Age of Menarche: 13 Review of Systems Const All systems reviewed & are unremarkable except as noted in HPI and below Reports as per HPI and Reports no additional complaints GI Reports no additional complaints Reports no additional complaints Physical Exam Vital Signs: BMI result Body Mass Index 23.9 Assessment & Plan Assessment & Plan (1) Family planning: Code(s): Z30. - Encounter for other general counseling and advice on contraception Category: Social Hx Plan: Discussed with the patient the different options of control including control pills/Nuvaring, DMPA, different types of IUD ?s, sterilization. All the pros, cons, risks and benefits of each were discussed with the patient. The patient decided to go ahead with an IUD, so a more detailed discussion was carried on including types (Progesterone, Copper), mechanism of action, risks (infection, uterine perforation, failure with ectopic , septic AB, dysmenorrhea with Paraguard, others) benefits (efficient contraceptive method, hypo menorrhea with Progesterone IUD, others). The patient is requesting 1 last Depo-Provera IM, prescription sent to [facility] will be taken next visit and the patient was asked to schedule Mirena IUD insertion in 90 days instead of another Depo-Provera IM the patient's pharmacy.. Medications: New medroxyprogesterone (Depo-Provera) 150 mg IM [id number] 1 mL 0RF Coding Level of Care Code Est Pt Level 3 (08669) Diagnoses Family planning Z30.
--- NOTE | 2024-08-09 16:16 | AM.OFFVISNUR ---
Vital Signs 08/09/24 15:33 Height 5 ft 6 in Weight 148 lb BMI 23.9 Intake Visit Reasons: control follow up per dr. pacheco Allergies tramadol [TRAMADOL] Allergy (Intermediate, Verified 08/09/24 15:45) NAUSEA & VOMITING Office Procedures Depo Questionnaire If YES to any of the following questions, please consult a provider. Date of last injection: 05/21/24 Menstrual pattern since last injection has been: Not Applicable Irregular bleeding?: No Breast lumps or other breast changes?: No Changes in weight or appetite?: No Depression or changes in mood?: No Abnormal hair growth or loss?: No Skin problems (rash, acne, discoloration)?: No Pain at the injection site?: No Headaches?: No Nervousness?: No Abdominal pain or cramping?: No Dizziness or nausea?: No Fatigue or weakness?: No Decrease in sexual drive?: No Chest pain or shortness of breath?: No Swelling in arms or legs?: No Form completed by?: Neelam Wilkerson LPN Assessment & Plan Assessment & Plan (1) Family planning: Code(s): Z30.09 - Encounter for other general counseling and advice on contraception Category: Social Hx Orders: Orders AMB Medroxyprogesterone Injection Patient Supplied Today Z30.9 - Encounter for contraceptive management, unspecified Medications: New medroxyprogesterone (Depo-Provera) 150 mg IM [id number] 1 mL 0RF Depo-Provera (medroxyprogesterone) 150 mg IM ONCE 1 mL 0RF NS Z30.9 - Encounter for contraceptive management, unspecified Coding Diagnoses Family planning Z30.09
--- NOTE | 2024-08-09 16:28 | A.OFFVIS_ITS ---
Vital Signs 08/09/24 15:33 Height 5 ft 6 in Weight 148 lb BMI 23.9 Intake Visit Reasons: control follow up per dr. diaz Allergies tramadol [TRAMADOL] Allergy (Intermediate, Verified 08/09/24 15:45) NAUSEA & VOMITING PFSH Medical History Chest pain Pituitary macroadenoma Blurry vision Chronic fatigue 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 present on magnetic resonance imaging Hx of sinusitis History of snoring Insomnia Fibromyalgia Panic attacks Bipolar depression Renal calculi Abdominal pain Rathke's cleft cyst Abnormal urine odor Surgical History History of pubovaginal sling Hx of mammogram History of left salpingo-oophorectomy Hx of umbilical hernia repair History of esophagogastroduodenoscopy (EGD) History of appendectomy History of Family History Father Hyperlipidemia HTN (hypertension) Mother Healthy female Other Arthritis Social History Household Members: Children Housing: Apartment Alcohol intake: never Patient Tobacco Use Status: Former Tobacco user Tobacco use type: Cigarette e-Cigarette/Vaping Use: Never Used Second Hand Smoke Exposure: No service: No Current occupational status: unemployed Current occupational exposures/hazards: No Sexual orientation: Straight/Heterosexual Gender identity: Female Cognitive needs: No Hearing needs: No Vision needs: Yes Female Reproductive History Menstrual Age of Menarche: 13 Physical Exam Vital Signs: BMI result Body Mass Index 23.9 Office Procedures Depo Questionnaire If YES to any of the following questions, please consult a provider. Date of last injection: 05/21/24 Menstrual pattern since last injection has been: Not Applicable Irregular bleeding?: No Breast lumps or other breast changes?: No Changes in weight or appetite?: No Depression or changes in mood?: No Abnormal hair growth or loss?: No Skin problems (rash, acne, discoloration)?: No Pain at the injection site?: No Headaches?: No Nervousness?: No Abdominal pain or cramping?: No Dizziness or nausea?: No Fatigue or weakness?: No Decrease in sexual drive?: No Chest pain or shortness of breath?: No Swelling in arms or legs?: No Form completed by?: Neelam Wilkerson LPN Quality Reporting (2019) Adult ([facility] 138/08/11/68) Body Mass Index: 23.9 Assessment & Plan Assessment & Plan (1) Family planning: Code(s): Z30.09 - Encounter for other general counseling and advice on contraception Category: Social Hx Orders: Orders AMB Medroxyprogesterone Injection Patient Supplied Today Z30.9 - Encounter for contraceptive management, unspecified Medications: New medroxyprogesterone (Depo-Provera) 150 mg IM [id number] 1 mL 0RF Depo-Provera (medroxyprogesterone) 150 mg IM ONCE 1 mL 0RF NS Z30.9 - Encounter for contraceptive management, unspecified Coding Diagnoses Family planning Z30.09
[2024-08-09 16:29] VITALS: BMI 23.9
--- OUTSIDE RECORDS SUMMARY | 2024-08-09 16:32 | XMS_ITS | Clinical Summary ---
Author Organization [employer] Address [address] [place] [address] Care Team Providers Care Music Manager Name Role Phone Unavailable Primary Care Provider Unavailabl e Allergies Active Allergy Reactions Criticality Noted Date Comments Tramadol 03/20/2019 vomiting Medications busPIRone (Buspar) 15 MG tablet TAKE 1 TAB BY MOUTH 3 TIMES A DAY BEFORE EACH MEAL AND OTHER TABLET NEEDED FOR ANXIETY 3 Active divalproex (Depakote) 500 MG EC tablet TAKE 2 TABLETS BY MOUTH IN THE MORNING AND 2 TABLETS AT BEDTIME 3 Active escitalopram (Lexapro) 10 MG tablet TAKE 1 TABLET BY MOUTH ONCE A DAY FOR DEPRESSION, ANXIETY 3 Active fluticasone (Flonase) 50 MCG/ACT nasal spray Administer 1 spray into affected nostril(s) in the morning. Active omeprazole (PriLOSEC) [address] capsule Take 10 mg by mouth in the morning. Active zolpidem (Ambien) 10 MG tablet Take 10 mg by mouth at bedtime. 3 Active loratadine (Claritin) 10 MG tablet Take 10 mg by mouth in the morning. 3 Active medroxyPROGEST ERone (Depo-Provera) 150 MG/ML injection TAKE TO DOCTOR'S OFFICE FOR ADMINISTRATION EVERY 3 MONTHS 3 Active Active Problems No known active problems Social History Tobacco Use Types Packs/Day Years Used Date Smoking Tobacco: Former Cigarettes Tobacco Cessation:Counseling Given: Not Answered Comments Unknown Sex and Gender Information Value Date Recorded Sex Assigned at Female 04/19/2022 10:36 AM EDT Legal Sex Female 10:36 AM EDT Gender Identity Female 04/19/2022 10:36 AM EDT Sexual Orientation Choose not to disclose 2021 10:36 AM EDT Plan of Treatment Health Maintenance Due Date Last Done Comments CT Colonography 1976 Colonoscopy 1976 Colorectal Cancer Screening 1976 Depression Screening 1976 FIT DNA/Cologuard 1976 FIT 1976 FOBT 1976 HIV Screening 1976 SDOH Screening 1976 Sigmoidoscopy 1976 Alcohol/Substance Use Screening 1988 Tobacco Screening 1988 Family Planning (PISQ) 10/07/1991 Hepatitis C Screening 1994 Hepatitis B Vaccines (1 of 3 - 19+ 3-dose series) 10/07/1995 Pap Smear 1997 Cervical Cancer Screening 2006 HPV/Cotest 2006 Mammogram 2016 COVID-19 Vaccine (1 - 2023-2 5 season) 2024 Influenza Vaccine (#1) 2024 Zoster Vaccines (1 of 2) 2026 DTaP/Tdap/Td Vaccines (3 - T d or Tdap) 01/10/2030 01/11/2020, 10/31/2018 RSV Patients and Patients Aged 60 years or older (1 - 1-dose 75+ series) 10/07/2051 HIB Vaccines Aged Out No longer eligi ble based on patient's age to complete this topic HPV Vaccines Aged Out No longer eligi ble based on patient's age to complete this topic Hepatitis A Vaccines Aged Out No long er eligible based on patient's age to complete this topic IPV Vaccines Aged Out No longer eligi ble based on patient's age to complete this topic Meningococcal Vaccine Aged Out No cass amy eligible based on patient's age to complete this topic Pneumococcal Vaccine: Pediatrics (0 to 5 Years) and At-Risk Patients (6 to 49) Years) Aged Out No longer eligible b ased on patient's age to complete this topic RSV under 20 months Aged Out No longe r eligible based on patient's age to complete this topic Rotavirus Vaccines Aged Out No longer eligible based on patient's age to complete this topic Insurance [facility]
--- OUTSIDE RECORDS SUMMARY | 2024-08-09 16:32 | XMS_ITS | Clinical Summary ---
Author Organization [employer] [facility] Address [id number] [place] [id number] Care Team Providers Care Splitter Hand Name Role Phone Celestina Mcgarry MD Primary Care Provider [phone] Surgical History Surgery Date Site/Laterality Comments SALPINGOOPHORECTOMY PROCEDURE: [place] LAPAROSCOPY W/RMVL ADNEXAL STRUCTURES APPENDECTOMY PROCEDURE: [place] APPENDECTOMY BLADDER SUSPENSION PROCEDURE: HISTORICAL BLADDER SUSPENSION; COMMENT: with mesh? / bladder polyp removal Medical History Medical History Date Comments Anxiety state DX:Anxiety state Bronchitis DX:Bronchitis History of ovarian cancer DX:His tory of ovarian cancer; COMMENT: Left oophorectomy Schizoaffective disorder, bi polar type (CMS/HCC) DX:Schizoaffective disorder, bipolar type (HCC); COMMENT: Psychiatric hospitalizations in [place] Rathke's cleft cyst (CMS/HCC) DX :Rathke's cleft cyst (HCC); COMMENT: Followed by [facility] Dr. Salmon [phone] - Stable Depression DX:Depression Fibromyalgia DX:Fibromyalgia Scoliosis DX:Scoliosis Arthritis DX:Arthritis; CO MMENT: of spine Family History Medical History Relation Name Comments Ovarian cancer Aunt Diabetes Maternal Grandmother Relation Name Status Comments Aunt Alive Maternal Grandmother Social History Tobacco Use Types Packs/Day Years Used Date Smoking Tobacco: Former Smokeless Tobacco: Former Alcohol Use Standard Drinks/Week Comments No 0 (1 standard drink = 0.6 oz pur e alcohol) Comments Unknown Sex and Gender Information Value Date Recorded Sex Assigned at Not on file Legal Sex Female 9:02 AM EST Gender Identity Not on file Sexual Orientation Not on file Obstetrics History Plan of Treatment Health Maintenance Due Date Last Done Comments Breast Cancer Screening 1976 DTaP,Tdap,and Td Vaccines (1 - Tdap) 10/07/1995 Hepatitis B Vaccines (1 of 3 - 19+ 3-dose series) 10/07/1995 Cervical Cancer Screening: P ap Smear 1997 COVID-19 Vaccine (2023-2 5 season) 2024 Influenza Vaccine (#1) 2024 HIB Vaccines Aged Out No longer eligi [...] on patient's age to complete this topic MMR Vaccines Aged Out No longer eligi ble based on patient's age to complete this topic Meningococcal ACWY Vaccine Aged Out N o longer eligible based on patient's age to complete this topic Meningococcal B Vacine Aged Out No lo nger eligible based on patient's age to complete this topic Pneumococcal Vaccine: Pediat rics (0 to 5 Years) and At-Risk Patients (6 to 64 Years) Aged Out No longer eligible b ased on patient's age to complete this topic RSV Immunization Patients Un yesenia 20 months Aged Out No longer eligible b ased on patient's age to complete this topic Varicella Vaccines Aged Out No longer eligible based on patient's age to complete this topic Care Teams Splitter Hand Relationship Specialty Start Date End Date Celestina Mcgarry MD [address] [place] [address] , [address] Physician Associ D/B/A: [facility] TRAY Batista PCP - General Internal Medicine 09/21/19
== END 2024-08-09 16:04 | disposition home or self-care (01) ==
LOC: HO.HWS 15:30
PROVIDERS: PCP Internal Medicine; Visit Provider Obstetrics & Gynecology
DX: Z30.09 Encounter for other general counseling and advice on contraception (principal)
CPT/HCPCS: 99213

== ENCOUNTER → 2024-08-09 15:30 | Outpatient (BNVA) | payer OTHER, SELFPAY | PROVIDERS: PCP Internal Medicine; Visit Provider Obstetrics & Gynecology | DX: Z30.09 Encounter for other general counseling and advice on contraception (principal) | CPT/HCPCS: 99212 ==

== ENCOUNTER → 2024-08-10 09:12 | Outpatient (REF) | payer OTHER, SELFPAY ==
--- NOTE | 2024-08-10 09:16 | CA_ITS ---
Acquisition Time: 2024-08-10 09:37:42 Total Exercise Time: 00:06:50 Test Indications: CP Medications: SEE H&P Protocol: AARON Max HR: 136 BPM 78% of Pred: 173 BPM Max BP: 134/80 mmHG Max Work Load: 8.2 METS Started with exercise Stress Test with exercise 6 mins 50 secs of Aaron Protocol, achieving 75% MPHR, requesting to stop due to fatigue and 7/10 left sided chest pressure. Test switched to Pharmacologic nuclear stress test with Lexiscan. Pharmacological stress test with Lexiscan while pt continued to walk on treadmill at 1mph, with reports of SOB and feeling weak, without any arrythmias, with normotensive response to injection. Nondiagnostic EKG for ischemia. In recovery, pt feeling back to baseline. Nuclear images pending. Test reviewed with Dr. Coughlin. Referred By: Mouna Obrien Electronically Signed By: Sunday Jeff
--- OUTSIDE RECORDS SUMMARY | 2024-08-10 09:41 | XMS_ITS | Clinical Summary ---
Author Organization [employer] [facility] Address [id number] [place] [phone] Care Team Providers Care Supervisor Of Instruction Name Role Phone Celestina Mcgarry MD Primary Care Provider Surgical History Surgery Date Site/Laterality Comments SALPINGOOPHORECTOMY PROCEDURE: [place] LAPAROSCOPY W/RMVL ADNEXAL STRUCTURES APPENDECTOMY PROCEDURE: [place] APPENDECTOMY BLADDER SUSPENSION PROCEDURE: HISTORICAL BLADDER SUSPENSION; COMMENT: with mesh? / bladder polyp removal Medical History Medical History Date Comments Anxiety state DX:Anxiety state Bronchitis DX:Bronchitis History of ovarian cancer DX:His tory of ovarian cancer; COMMENT: Left oophorectomy Schizoaffective disorder, bi polar type (CMS/HCC) DX:Schizoaffective disorder, bipolar type (HCC); COMMENT: Psychiatric hospitalizations in [place] Rathke's cleft cyst (CMS/HCC) DX :Rathke's cleft cyst (HCC); COMMENT: Followed by [facility] Dr. Salmon [phone] - Stable Depression DX:Depression Fibromyalgia DX:Fibromyalgia Scoliosis [...] age to complete this topic Care Teams Supervisor Of Instruction Relationship Specialty Start Date End Date Celestina Mcgarry MD [address] [place] [address] , [address] Physician Associ D/B/A: [facility] TARY Batista PCP - General Internal Medicine 09/21/19
--- OUTSIDE RECORDS SUMMARY | 2024-08-10 09:41 | XMS_ITS | Clinical Summary ---
Author Organization [employer] Address [address] [place] [address] Care Team Providers Care Inside Sales Advertising Executive Name Role Phone Unavailable Primary Care Provider [...] patient's age to complete this topic Insurance [facility]
== END ==
LOC: HO.CARD 09:12
PROVIDERS: PCP Internal Medicine; Visit Provider Nurse Practitioner Family
DX: R07.9 Chest pain, unspecified (principal)
CPT/HCPCS: 93017; J0280; J2785

== ENCOUNTER → 2024-08-10 09:16 | Outpatient (BNV) | payer OTHER, SELFPAY | PROVIDERS: PCP Internal Medicine | DX: R07.2 Precordial pain (principal) | CPT/HCPCS: 78452; 93016; 93018 ==

== ENCOUNTER 2024-08-17 12:56 | Outpatient (AMB) | payer OTHER, SELFPAY ==
[2024-08-17 13:01] VITALS: BP 122/80; PULSE 76; BMI 24.6
--- NOTE | 2024-08-17 13:01 | MHC.OFFVIS ---
Vital Signs 08/17/24 13:01 Height 5 ft 6 in Weight 152 lb 8.958 oz BMI 24.6 BP 122/80 Blood Pressure Location Lt brachial Position Sitting Pulse 76 Pulse Source Pulse Oximeter Intake Visit Reasons: f/u after testing Procurement Accountant Required: Yes Procurement Accountant Language: Quality Improvement Specialist Name: voice whitfield [id number] Allergies tramadol [TRAMADOL] Allergy (Intermediate, Verified 08/17/24 13:05) NAUSEA & VOMITING Medication List - Last Reconciled 08/17/24 by NIDA Carlos acetaminophen (Tylenol Extra Strength) 500 mg PO Q6H PRN bisacodyl (Dulcolax (bisacodyl)) 20 mg (4 x 5 mg) PO ONCE 1 day buspirone 15 mg PO calcium carbonate 600 mg PO BID 90 days cetirizine (All Day Allergy (cetirizine)) 10 mg PO DAILY PRN 30 days cholecalciferol (vitamin D3) 25 mcg PO DAILY 90 days cyclobenzaprine 5 mg PO TID PRN divalproex 500 mg PO BID escitalopram oxalate 10 mg PO DAILY fluticasone propionate 50 mcg/actuation (Allergy Relief (fluticasone)) 2 sprays intranasal DAILY ibuprofen 600 mg PO Q8H PRN loratadine (Allergy Relief (loratadine)) 10 mg PO DAILY 90 days magnesium oxide 400 mg PO BEDTIME 30 days medroxyprogesterone mg IM medroxyprogesterone (Depo-Provera) 150 mg IM [id number] ondansetron 4 mg PO Q8H PRN polyethylene glycol 3350 (Miralax) 238 grams PO ONCE propranolol 10 mg PO BID 30 days riboflavin (vitamin B2) 400 mg PO DAILY 30 days sumatriptan succinate 50 - 100 mg orally at onset of headache, may repeat in 2 hrs PRN; max 2 tabs per day or 4 tabs/week (may take with Ibuprofen) 30 days zolpidem 10 mg PO BEDTIME HPI HPI f/u after testing: Details: Marta is a 48-year-old female with past medical history of fibromyalgia, chronic migraine, anxiety who was recently evaluated for heart palpitations and chest discomfort. Today she reports that she continues to get random pains in her chest. She describes them as sharp and stabbing. It can occur at rest and with activity. She will feel heart palpitations like her heart is pounding hard and going fast. She does not recall if she had palpitations when she was wearing the Holter monitor. No shortness of breath, PND, orthopnea or edema. No lightheadedness, presyncope, syncope, falls. 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 present on magnetic resonance imaging Hx of sinusitis History of snoring Insomnia Fibromyalgia Panic attacks Bipolar depression Renal calculi Abdominal pain Rathke's cleft cyst Abnormal urine odor Surgical History History of pubovaginal sling Hx of mammogram History of left salpingo-oophorectomy Hx of umbilical hernia repair History of esophagogastroduodenoscopy (EGD) History of appendectomy History of Family History Father Hyperlipidemia HTN (hypertension) Mother Healthy female Other Arthritis Social History Household Members: Children Housing: Apartment Alcohol intake: never Patient Tobacco Use Status: Former Tobacco user Tobacco use type: Cigarette e-Cigarette/Vaping Use: Never Used Second Hand Smoke Exposure: No service: No Current occupational status: unemployed Current occupational exposures/hazards: No Sexual orientation: Straight/Heterosexual Gender identity: Female Cognitive needs: No Hearing needs: No Vision needs: Yes Female Reproductive History Menstrual Age of Menarche: 13 Review of Systems Const All systems reviewed & are unremarkable except as noted in HPI and below ENT Denies dizziness Card Details: palpitations Reports chest pain (random sharp pains in left chest), Denies chest pain at rest, Denies chest pain with activity, Denies rapid heart rate, Denies pedal edema, Denies edema, Denies leg edema, Denies lightheadedness, Denies palpitations, Denies dyspnea, Denies dyspnea on exertion and Denies orthopnea Resp Denies cough, Denies dyspnea and Denies dyspnea on exertion GI Denies hematochezia and Denies change in stool character Musc Denies abnormal gait, Denies limited range of motion, Denies muscle cramps, Denies muscle weakness, Denies numbness, Denies radiating pain into limb, Denies stiffness and Denies tingling Neuro Denies abnormal gait, Denies dizziness, Denies numbness and Denies tingling Endo Denies palpitations Physical Exam Vital Signs: Last Vital Signs Pulse 76 08/17/24 13:01 BP 122/80 08/17/24 13:01 BMI result Body Mass Index 24.6 Const General: cooperative, healthy appearing, comfortable and no acute distress Orientation/consciousness: patient oriented x3 Neck Neck: Yes normal visual inspection and Yes no JVD Resp Effort & Inspection: normal respiratory effort Auscultation: clear to auscultation bilaterally, no rales, no rhonchi and no wheezes Cardio Rate: regular rate Rhythm: regular rhythm Heart sounds: S1 normal heart sound present, S2 normal heart sound present, no gallops, no murmurs and no rubs Neuro General: patient oriented x3 Extrem General: Yes normal to inspection, No no pedal edema and No calf tenderness Psych Appearance: grossly normal Mental Status: mental status grossly normal Speech and movement: Normal speech and movement present Assessment & Plan Assessment & Plan (1) Chest pain: Comment: EKG and recent cardiology testing is reviewed. Code(s): R07.9 - Chest pain, unspecified Category: Medical Qualifiers: Chest pain type: other chest pain Qualified Code(s): R07.89 - Other chest pain Plan: Atypical sounding chest discomfort. She has no significant cardiac risk factors. An echocardiogram was done on 03/12/2024 showing EF 60%, no valve abnormalities or noted regional wall motion abnormalities. A pharmacological nuclear stress test was done on 08/10/2024 showing normal myocardial perfusion imaging. Test results reviewed with her in detail. Informed her that her discomfort is noncardiac in nature. Signs and symptoms of true angina reviewed with her. Cardiology follow-up p.r.n.. (2) Palpitations: Code(s): R00.2 - Palpitations Category: Medical Plan: Reports of heart palpitations. Holter monitor done in 2019 showed rare PVCs. A repeat Holter monitor done 03/12/2024 for 2 days shows sinus rhythm with average heart rate 75 beats per minute, rare SVE and VE. Test results reviewed with her. Offered reassurance that no significant abnormalities seen. PVCs are benign in the setting of normal EF. Discussed caffeine reduction, maintaining good hydration and increasing physical activity. (3) PVC (premature ventricular contraction): Code(s): I49.3 - Ventricular premature depolarization Category: Medical Plan Time spent on chart review, documentation, interview and assessment Coding Level of Care Code Est Pt Level 3 (47098) Complex EM visit Add On G2211 Diagnoses Other chest pain R07.89 Chest pain type: other chest pain Palpitations R00.2 PVC (premature ventricular contraction) I49.3 Time Spent (min) 24
--- OUTSIDE RECORDS SUMMARY | 2024-08-17 15:00 | XMS_ITS | Clinical Summary ---
Author Organization [employer] Address [address] [facility] [address] [place] [address] Care Team Providers Care Fermenting Cellar Dropper Name Role Phone Unavailable Primary Care Provider [...] patient's age to complete this topic Insurance [facility] ACO
--- OUTSIDE RECORDS SUMMARY | 2024-08-17 15:00 | XMS_ITS | Clinical Summary ---
Author Organization [employer] [facility] Address [address] [place] [phone] Care Team Providers Care Demurrage Worker Name Role Phone Celestina Mcgarry MD Primary Care Provider [phone] Surgical History Surgery Date Site/Laterality Comments SALPINGOOPHORECTOMY [...] COMMENT: Followed by [facility] Dr. Salmon [phone] - Stable Depression DX:Depression Fibromyalgia DX:Fibromyalgia Scoliosis [...] age to complete this topic Care Teams Demurrage Worker Relationship Specialty Start Date End Date Celestina Mcgarry MD [address] [place] [address] , [address] Physician Associ D/B/A: [facility] TRAY Batista PCP - General Internal Medicine 09/21/19
== END 2024-08-17 13:30 | disposition home or self-care (01) ==
PROVIDERS: PCP Internal Medicine; Visit Provider Nurse Practitioner Family
DX: R07.89 Other chest pain (principal); R00.2 Palpitations; I49.3 Ventricular premature depolarization
CPT/HCPCS: 99213; G2211

== ENCOUNTER → 2024-08-17 12:56 | Outpatient (BNVA) | payer OTHER, SELFPAY | PROVIDERS: PCP Internal Medicine; Visit Provider Nurse Practitioner Family | DX: R07.89 Other chest pain (principal); R00.2 Palpitations; I49.3 Ventricular premature depolarization | CPT/HCPCS: 99212 ==

== ENCOUNTER 2024-10-30 13:40 | Outpatient (REF) | payer OTHER, SELFPAY ==
--- OUTSIDE RECORDS SUMMARY | 2024-10-30 15:51 | XMS_ITS | Clinical Summary ---
Author Organization [facility] Address [address] [place] [phone] Care Team Providers Care Hot Top Liner Name Role Phone Celestina Mcgarry MD Primary Care Provider [phone] Surgical History Surgery Date Site/Laterality Comments SALPINGOOPHORECTOMY PROCEDURE: [place] LAPAROSCOPY W/RMVL ADNEXAL STRUCTURES APPENDECTOMY PROCEDURE: [place] APPENDECTOMY BLADDER SUSPENSION PROCEDURE: HISTORICAL BLADDER SUSPENSION; COMMENT: with mesh? / bladder polyp removal Medical History Medical History Date Comments Anxiety state DX:Anxiety state Bronchitis DX:Bronchitis History of ovarian cancer DX:His tory of ovarian cancer; COMMENT: Left oophorectomy Schizoaffective disorder, bi polar type (CMS/HCC V24, CMS/HCC V28) DX:Schizoaffective disorder , bipolar type (HCC); COMMENT: Psychiatric hospitalizations in [place] Rathke's cleft cyst (CMS/HCC V24) DX:Rathke's cleft cyst (HCC); COMMENT: Followed by [facility] Dr. Salmon [phone] - Stable Depression DX:Depression Fibromyalgia DX:Fibromyalgia Scoliosis [...] age to complete this topic Care Teams Hot Top Liner Relationship Specialty Start Date End Date Celestina Mcgarry MD [address] [place] [address] , [address] [facility] Physician Associ D/B/A: [facility] [place] PCP - General Internal Medicine 09/21/19
[2024-10-31 12:09] LABS: CT PCR NOT DETECTED (Not Detect.); NG PCR NOT DETECTED (Not Detect.)
== END 2024-10-30 13:41 | disposition home or self-care (01) ==
LOC: HO.LNP 13:40
PROVIDERS: PCP Internal Medicine; Visit Provider Obstetrics & Gynecology
DX: Z30.430 Encounter for insertion of intrauterine contraceptive device (principal)
CPT/HCPCS: 58300; 81025; 87491; 87591; 99212; J7298

== ENCOUNTER 2024-10-30 13:40 | Outpatient (AMB) | payer OTHER, SELFPAY ==
--- NOTE | 2024-10-30 13:41 | MHC.OFFVIS ---
Vital Signs 10/30/24 13:46 Height 5 ft 6 in Weight 152 lb BMI 24.5 Intake Visit Reasons: mirena insertion Senior Biostatistician Required: Yes Senior Biostatistician Language: Licensed Embalmer Services: Senior Biostatistician Present (in person) Senior Biostatistician Name: Sharri GARCIA Information Interpreted: non-clinical & clinical Product Support Specialist: Product Support Specialist Present (Sharri GARCIA) Accompanied by: Self / Same As Patient Allergies tramadol [TRAMADOL] Allergy (Intermediate, Verified 10/30/24 13:47) NAUSEA & VOMITING HPI Comments Details: Presenting for family planning. The patient has been on Depo-Provera Last 5 year last shot was in 08/09/2024. 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 present on magnetic resonance imaging Hx of sinusitis History of snoring Insomnia Fibromyalgia Panic attacks Bipolar depression Renal calculi Abdominal pain Rathke's cleft cyst Abnormal urine odor Surgical History History of pubovaginal sling Hx of mammogram History of left salpingo-oophorectomy Hx of umbilical hernia repair History of esophagogastroduodenoscopy (EGD) History of appendectomy History of Family History Father Hyperlipidemia HTN (hypertension) Mother Healthy female Other Arthritis Social History Household Members: Children Housing: Apartment Alcohol intake: never Patient Tobacco Use Status: Former Tobacco user Tobacco use type: Cigarette e-Cigarette/Vaping Use: Never Used Second Hand Smoke Exposure: No service: No Current occupational status: unemployed Current occupational exposures/hazards: No Sexual orientation: Straight/Heterosexual Gender identity: Female Cognitive needs: No Hearing needs: No Vision needs: Yes Female Reproductive History Menstrual Age of Menarche: 13 Review of Systems Const All systems reviewed & are unremarkable except as noted in HPI and below Reports as per HPI and Reports no additional complaints GI Reports no additional complaints Reports no additional complaints Physical Exam Vital Signs: BMI result Body Mass Index 24.5 Office Procedures IUD Insert/Removal Details Details: The patient is presenting for Mirena IUD insertion Urine test was done in the office and was negative; All the contraindications were excluded. The following possible complications were discussed with the patient: Intrauterine , Ectopic , Sepsis, Pelvic Infection, Irregular Bleeding and Amenorrhea, Perforation, Expulsion, Ovarian Cysts, Breast Cancer, The following adverse effects were discussed with the patient: alteration of menstrual bleeding pattern, including: unscheduled uterine bleeding decreased uterine bleeding increased scheduled uterine bleeding female genital tract bleeding ,amenorrhea , genital discharge , vulvovaginitis , breast pain , benign ovarian cyst and associated complications , dysmenorrhea , Gastrointestinal disorders abdominal/pelvic pain, headache/migraine , back pain , acne , depression Alternative options were discussed with the patient including but not limited: control pills, patch, NuvaRing, Depo-medroxyprogesterone acetate, Nexplanon, copper IUD, sterilization, vasectomy, others The procedure was explained in detail to patient , at the end patient signed the informed consent obtained. A no touch technique was used throughout the procedure. A speculum was placed into vagina and cervix was cleaned with betadine). A tenaculum was placed. A plastic sound was advanced through the external and internal os until it reached the fundus of the uterus, the depth was 8 cm. The sound was then withdrawn. The IUD was loaded in a sterile manner and advanced into position. The string was visualized and cut to 3 cm. Tenaculum site hemostatic. All instruments removed from vagina. Patient tolerated the procedure well. NO complications were noted. Patient was instructed to call for fever over 100.4, significant pain unrelieved by Motrin, IUD expulsion, heavy bleeding, or abnormal discharge. In addition, the following clinical considerations were discussed with the patient to call for removal: A stroke or heart attack ,Very severe or migraine headaches ,Unexplained fever ,Yellowing of the skin or whites of the eyes, as these may be signs of serious liver problems , or suspected , Pelvic pain or pain during sex ,HIV positive seroconversion in herself or her partner , Possible exposure to sexually transmitted infections Unusual vaginal discharge or genital sores , severe vaginal bleeding or bleeding that lasts a long time, or if she misses a menstrual period, Inability to feel Mirena's threads Counseled the patient that the IUD does not protect against STI's, recommended use of condoms for the first 7 days post insertion and explained to the patient that condoms are recommended for patients at risk for sexually transmitted infections. Informed the patient that Mirena IUD is FDA approved for 8 years for contraception for 5 years for the treatment of heavy menses Instructed the patient to schedule a Follow up appointment in 4 to 6 weeks following insertion. This note was generated with a voice recognition program. Some errors may have been overlooked during the review of this note. Sometimes these errors may affect the content or meaning of a given sentence. [id number] Insertion Procedure code (CPT) selection complete Office Meds Mirena 21 mcg/24 hr (up to 8 years) 52 mg intrauterine device Performing Provider: Galo Diaz MD Performing Location: [facility] Documented (not given) by: Galo Diaz MD on 10/30/24 14:05 Dose Route Admin Location Dispensed Lot Number Expiration Date NDC Spring Winder 1 device intrauterine ea Results AMB Test Urine AMB Test Urine Negative Last Edit by Sharri Alves CMA on 10/30/24 13:55 Assessment & Plan Assessment & Plan (1) Family planning: Code(s): Z30.09 - Encounter for other general counseling and advice on contraception Category: Social Hx Plan: Discussed with the patient the different options of control including control pills/Nuvaring, DMPA, different types of IUD ?s, sterilization. All the pros, cons, risks and benefits of each were discussed with the patient. Discussed with the patient the risk of bone loss at age of 49 with a long-term treatment with Depo-Provera recommended against continuing Depo-Provera. The patient decided to go ahead with an IUD, so a more detailed discussion was carried on including types (Progesterone, Copper), mechanism of action, risks (infection, uterine perforation, failure with ectopic , septic AB, dysmenorrhea with Paraguard, others) benefits (efficient contraceptive method, hypo menorrhea with Progesterone IUD, others) GC/CG were taken and Mirena IUD insertion done, see procedure note Orders: Orders AMB IUD Insertion/Removal - Practice Supplied Today Z30.09 - Encounter for other general counseling and advice on contraception AMB HCG Urine Test Today Z32.02 - Encounter for test, result negative Medications: New Mirena (levonorgestrel) 1 device intrauterine ONCE 1 ea 0RF IUD insertion NS Z30.09 - Encounter for other general counseling and advice on contraception Coding Level of Care Code Est Pt Level 3 (21881) Procedure Only Diagnoses Family planning Z30.09 CPT Codes Details - CPT: 86904-JSU Insertion ([id number])
[2024-10-30 13:46] VITALS: BMI 24.5
--- OUTSIDE RECORDS SUMMARY | 2024-10-30 14:46 | XMS_ITS | Clinical Summary ---
Author Organization [facility] Address [address] [place] [phone] Care Team Providers Care Coding Specialist Name Role Phone Celestina Mcgarry MD Primary Care Provider [phone] Surgical History Surgery Date Site/Laterality Comments SALPINGOOPHORECTOMY PROCEDURE: [place] LAPAROSCOPY W/RMVL ADNEXAL STRUCTURES APPENDECTOMY PROCEDURE: [place] APPENDECTOMY BLADDER SUSPENSION PROCEDURE: HISTORICAL BLADDER SUSPENSION; COMMENT: with mesh? / bladder polyp removal Medical History Medical History Date Comments Anxiety state DX:Anxiety state Bronchitis DX:Bronchitis History of ovarian cancer DX:His tory of ovarian cancer; COMMENT: Left oophorectomy Schizoaffective disorder, bi polar type (CMS/HCC V24, CMS/HCC V28) DX:Schizoaffective disorder , bipolar type (HCC); COMMENT: Psychiatric hospitalizations in [place] Rathke's cleft cyst (CMS/HCC V24) DX:Rathke's cleft cyst (HCC); COMMENT: Followed by [facility] Dr. Salmon [phone] - Stable Depression DX:Depression Fibromyalgia DX:Fibromyalgia Scoliosis [...] Vaccine (2023-2 5 season) 2024 Influenza Vaccine (Season Ended) 2025 HIB Vaccines Aged Out No longer eligi [...] age to complete this topic Meningococcal B Vaccine Aged Out No l onger eligible based on patient's age to complete [...] age to complete this topic Care Teams Coding Specialist Relationship Specialty Start Date End Date Celestina Mcgarry MD [address] [place] [address] , [address] [facility] Physician Associ D/B/A: [facility] [place] PCP - General Internal Medicine 09/21/19
== END 2024-10-30 14:18 | disposition home or self-care (01) ==
LOC: HO.HWS 13:40
PROVIDERS: PCP Internal Medicine; Visit Provider Obstetrics & Gynecology
DX: Z30.09 Encounter for other general counseling and advice on contraception (principal); Z30.430 Encounter for insertion of intrauterine contraceptive device; Z32.02 Encounter for pregnancy test, result negative
CPT/HCPCS: 58300; 99213

== ENCOUNTER 2024-12-18 14:20 | Outpatient (AMB) | payer OTHER, SELFPAY ==
--- NOTE | 2024-12-18 14:21 | MHC.OFFVIS ---
Intake Visit Reasons: IUD check Physical Therapist Center Manager Required: Yes Physical Therapist Center Manager Language: Spanish Medical Interpreter Services: Physical Therapist Center Manager Present (in person) Physical Therapist Center Manager Name: JOSE Stauffer Information Interpreted: non-clinical & clinical Deaf Interpreter: Deaf Interpreter Present (JOSE Stauffer) Accompanied by: Self / Same As Patient Allergies tramadol (TRAMADOL) Allergy (Intermediate, Verified 12/18/24 14:23) NAUSEA & VOMITING HPI Comments Details: The patient is presenting for IUD check after 1 st period following IUD insertion. The patient has no complaints periods are lytes, not painful, and flow is normal with mild spotting and cramps. [facility] Medical History Chest pain Pituitary macroadenoma Blurry vision Chronic fatigue 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 present on magnetic resonance imaging Hx of sinusitis History of snoring Insomnia Fibromyalgia Panic attacks Bipolar depression Renal calculi Abdominal pain Rathke's cleft cyst Abnormal urine odor Surgical History History of pubovaginal sling Hx of mammogram History of left salpingo-oophorectomy Hx of umbilical hernia repair History of esophagogastroduodenoscopy (EGD) History of appendectomy History of Family History Father Hyperlipidemia HTN (hypertension) Mother Healthy female Other Arthritis Social History Household Members: Children Housing: Apartment Alcohol intake: never Patient Tobacco Use Status: Former Tobacco user Tobacco use type: Cigarette e-Cigarette/Vaping Use: Never Used Second Hand Smoke Exposure: No service: No Current occupational status: unemployed Current occupational exposures/hazards: No Sexual orientation: Straight/Heterosexual Gender identity: Female Cognitive needs: No Hearing needs: No Vision needs: Yes Female Reproductive History Menstrual Age of Menarche: 13 Review of Systems Const All systems reviewed & are unremarkable except as noted in HPI and below Physical Exam General: Yes no CVA tenderness External Female Exam: normal external appearance and normal appearance of the urethra Speculum Exam - Vagina: normal appearance of the vagina, normal palpation, no lesions and no masses Speculum Exam - Cervix: normal appearance of the cervix, normal palpation, no lesions, no masses, nontender and Other cervical findings present (IUD string in place) Bimanual exam- vagina & uterus: normal bimanual exam, normal palpation, uterine size normal, normal palpation, uterine shape normal, No Cervical tenderness present and non-tender Bimanual Exam- Adnexa, other: normal adnexae Back/Spine/Pelvis Back: no CVA tenderness Assessment & Plan Assessment & Plan (1) IUD check up: Code(s): Z30.431 - Encounter for routine checking of intrauterine contraceptive device Category: Medical Plan: UPT done in the office was negative. Discussed with the patient the finding on physical exam, IUD string in place, the patient was reassured. Instructions given to patient to call in case of temperature above 100.4, persistent cramping/pelvic pain, abnormal discharge or abnormal uterine bleeding or if she misses her menstrual cycle. Otherwise follow-up at her annual exam appointment. All questions answered, the patient verbalized understanding. Coding Level of Care Code Est Pt Level 3 (31296) Diagnoses IUD check up Z30.431
--- OUTSIDE RECORDS SUMMARY | 2024-12-18 15:31 | XMS_ITS | Clinical Summary ---
Author Organization [facility] Address [address] [place] [id number] Care Team Providers Care Business Services Tech Name Role Phone Celestina Mcgarry MD Primary Care Provider [phone] Surgical History Surgery Date Site/Laterality Comments SALPINGOOPHORECTOMY PROCEDURE: [place] LAPAROSCOPY W/RMVL ADNEXAL STRUCTURES APPENDECTOMY PROCEDURE: [place] APPENDECTOMY BLADDER SUSPENSION PROCEDURE: HISTORICAL BLADDER SUSPENSION; COMMENT: with mesh? 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 Salmon [phone] - Stable Depression DX:Depression Fibromyalgia DX:Fibromyalgia Scoliosis [...] age to complete this topic Care Teams Business Services Tech Relationship Specialty Start Date End Date Celestina Mcgarry MD [address] [place] [address] , [address] [facility] Physician Associ D/B/A: [facility] [place] PCP - General Internal Medicine 09/21/19
--- OUTSIDE RECORDS SUMMARY | 2024-12-18 15:31 | XMS_ITS | Clinical Summary ---
Author Organization [employer] Address [address] [facility] [address] [place] [address] Care Team Providers Care Academy Director Name Role Phone Unavailable Primary Care Provider [...] Screening 1976 SDOH Screening 1976 Sigmoidoscopy 1976 Disability Screening 1976 Alcohol/Substance Use Screening 1988 Tobacco Screening 1988 Family Planning (PISQ) 10/07/1991 Hepatitis C Screening 1994 Hepatitis B Vaccines (1 of 3 - 19+ 3-dose series) 10/07/1995 Pap Smear 1997 Cervical Cancer Screening 2006 HPV/Cotest 2006 Mammogram 2016 COVID-19 Vaccine (1 - 2023-2 5 season) 2024 Influenza Vaccine (Season Ended) 2025 Zoster Vaccines (1 of 2) 2026 DTaP/Tdap/Td [...] Years) and At-Risk Patients (6 to 49) Years Aged Out No longer eligible b ased on patient's age to complete this topic RSV under 20 months Aged Out No longe r eligible based on patient's age to complete this topic Rotavirus Vaccines Aged Out No longer eligible based on patient's age to complete this topic Insurance [facility]
== END 2024-12-18 14:31 | disposition home or self-care (01) ==
LOC: HO.HWS 14:20
PROVIDERS: PCP Internal Medicine; Visit Provider Obstetrics & Gynecology
DX: Z32.02 Encounter for pregnancy test, result negative (principal); Z30.431 Encounter for routine checking of intrauterine contraceptive device
CPT/HCPCS: 99213

== ENCOUNTER → 2024-12-18 14:20 | Outpatient (BNVA) | payer OTHER, SELFPAY | PROVIDERS: PCP Internal Medicine; Visit Provider Obstetrics & Gynecology | DX: Z30.431 Encounter for routine checking of intrauterine contraceptive device (principal); Z32.02 Encounter for pregnancy test, result negative | CPT/HCPCS: 81025; 99212 ==

== ENCOUNTER 2025-01-14 15:08 | Outpatient (AMB) | payer OTHER, SELFPAY ==
--- NOTE | 2025-01-14 15:12 | A.OFFVIS_ITS ---
Intake Visit Reasons: 1yr/US(set) Intake Note: Patient is present for 1Y/US Urology Medication:NONE Antibiotic Allergy:NONE Blood Thinner:NONE Assistant Professor Of Communication Required: No Assistant Professor Of Communication Services: Assistant Professor Of Communication Present Assistant Professor Of Communication Name: marina [email or web address] Allergies tramadol (TRAMADOL) Allergy (Intermediate, Verified 01/14/25 15:31) NAUSEA & VOMITING Medication List - Last Reconciled 01/14/25 by ROSSY KhalilP- buspirone 15 mg PO cholecalciferol (vitamin D3) 25 mcg PO DAILY 90 days cyclobenzaprine 5 mg PO TID PRN divalproex 500 mg PO BID escitalopram oxalate 10 mg PO DAILY fluticasone propionate 50 mcg/actuation (Allergy Relief (fluticasone)) 2 sprays intranasal DAILY ibuprofen 600 mg PO Q8H PRN loratadine (Allergy Relief (loratadine)) 10 mg PO DAILY 90 days naproxen 500 mg PO BID PRN 30 days riboflavin (vitamin B2) 400 mg PO DAILY 30 days sumatriptan succinate 50 - 100 mg orally at onset of headache, may repeat in 2 hrs PRN; max 2 tabs per day or 4 tabs/week (may take with Ibuprofen) 30 days zolpidem 10 mg PO BEDTIME HPI Comments Details: Marta is a pleasant 49-year-old Danish-speaking female patient of Dr. Burris. She has a past medical history of pituitary microadenoma, chronic fatigue, sinusitis, insomnia, fibromyalgia, panic attacks, bipolar depression, and nephrolithiasis. She presents to the office today for follow-up of her nephrolithiasis. In discussion with the patient today she reports to be doing and feeling well. She denies having had any bothersome flank pain. Recent renal imaging results were reviewed with the patient today. 07/14 bilateral kidneys are normal in size and echotexture. 3 mm nonobstructing stone of the mid pole. No collecting system dilatation of either kidney per radiology report. She does report she attempts to drink increased amounts of water as she knows this is helpful for her nephrolithiasis however feels at times she can experience episodes of urge incontinence. When asked she does report a previous history of four births. She reports 3 were vaginal in 1 was via . 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 We did discussed at length potential causes of nephrolithiasis as well as urge incontinence. We discussed further treatment options and risks and benefits of these treatment options. She denies nocturia, hematuria, dysuria, foul smelling urine, changes to urinary stream, flank pain, fever, and or chills. All questions were answered. In office urinalysis results reviewed with the patient today. 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 present on magnetic resonance imaging Hx of sinusitis History of snoring Insomnia Fibromyalgia Panic attacks Bipolar depression Renal calculi Abdominal pain Rathke's cleft cyst Abnormal urine odor Surgical History History of pubovaginal sling Hx of mammogram History of left salpingo-oophorectomy Hx of umbilical hernia repair History of esophagogastroduodenoscopy (EGD) History of appendectomy History of Family History Father Hyperlipidemia HTN (hypertension) Mother Healthy female Other Arthritis Social History Household Members: Children Housing: Apartment Alcohol intake: never Patient Tobacco Use Status: Former Tobacco user Tobacco use type: Cigarette e-Cigarette/Vaping Use: Never Used Second Hand Smoke Exposure: No service: No Current occupational status: unemployed Current occupational exposures/hazards: No Sexual orientation: Straight/Heterosexual Gender identity: Female Cognitive needs: No Hearing needs: No Vision needs: Yes Female Reproductive History Menstrual Age of Menarche: 13 Review of Systems Const All systems reviewed & are unremarkable except as noted in HPI and below Physical Exam Const General: cooperative, healthy appearing, comfortable, no acute distress, well developed, alert and awake Orientation/consciousness: patient oriented x3 Limitations: no limitations HEENT Head: Yes normal to inspection, Yes normocephalic and Yes atraumatic Ears: hearing grossly normal bilaterally Eyes General: appearance normal, both eyes and all related structures Neck Neck: Yes normal visual inspection and Yes trachea midline Chest Chest palpation & inspection: normal inspection of the chest Resp Effort & Inspection: normal respiratory effort and able to speak in complete sentences Cardio Rate: regular rate GI Inspection: Yes normal to inspection General: Yes no CVA tenderness Back/Spine/Pelvis Back: no CVA tenderness Skin General skin exam: no rashes or lesions noted Neuro General: patient oriented x3 Extrem General: Yes normal to inspection Psych Appearance: grossly normal and well kempt Mental Status: mental status grossly normal Speech and movement: Normal speech and movement present and Clear speech present Affect: normal affect Attitude: cooperative Thought process: Normal thought process present Thought content: Normal thought content present Insight: Fair insight present (Psych) Judgement: Fair judgement present (Psych) Results Reviewed Results Reviewed: Date of Service: 07/02/24 Procedure(s): US renal BI Findings: Right kidney normal size and echotexture, 10 cm length. 3 mm stone of the midpole. Left kidney normal size and echotexture, 10 cm length. No collecting system dilatation of either kidney. Normal color Doppler. IMPRESSION: Nonobstructing small right kidney stone. Assessment & Plan Assessment & Plan (1) Renal calculi: Code(s): N20.0 - Calculus of kidney Category: Medical (2) Urinary incontinence, urge: Code(s): N39.41 - Urge incontinence Category: Medical Plan In office urinalysis results reviewed with the patient today; as noted above. Recent renal imaging results reviewed with the patient today; as noted above. We discussed potential causes of nephrolithiasis as well as urge incontinence and further treatment options and risks and benefits of these treatment options. Start oxybutynin as discussed and prescribed. We did discuss healthy bathroom behaviors. We discussed bladder triggers and irritants. Follow-up in 1-3 months with [facility]; or sooner with any issues, concerns, and or questions. Orders: Orders AMB Urinalysis Automated 10/22/24 Z13.9 - Encounter for screening, unspecified AMB Urinalysis Automated Today Z13.9 - Encounter for screening, unspecified Patient Instructions: The patient had an opportunity to ask questions regarding the treatment plan. All questions were answered. Physical exam, labs, and imaging were discussed and reviewed in detail. As well as risks, benefits, and discussion of treatment choices. No major barriers to understanding were identified. The patient expressed understanding and agreement with the above treatment plan. The patient was made aware they should contact our office by phone for worsening of their current condition, the appearance of new symptoms, or with any questions or concerns. Compliance is encouraged with any medications and follow up testing that is ordered. It is a privilege to be allowed the opportunity to participate in? your urological care.? Again, if you have any questions or concerns If you have any questions or concerns please do not hesitate to contact me. The office is [phone]. This note is constructed using voice recognition software. While every effort has been made to ensure accuracy tailor apprentice errors may have been included. Yours sincerely, NADER Khalil Coding Level of Care Code Est Pt Level 4 (14948) Diagnoses Renal calculi N20.0 Urinary incontinence, urge N39.41
--- OUTSIDE RECORDS SUMMARY | 2025-01-14 15:36 | XMS_ITS | Clinical Summary ---
Author Organization [employer] Address [address] [facility] 7t [place] [address] Care Team Providers Care Supervisor Dials Name Role Phone Unavailable Primary Care Provider [...] 2023-2 5 season) 2024 Influenza Vaccine (#1) 2025 Zoster Vaccines (1 of 2) 2026 [...] patient's age to complete this topic Insurance [facility] ACO
--- OUTSIDE RECORDS SUMMARY | 2025-01-14 15:36 | XMS_ITS | Clinical Summary ---
Author Organization [facility] Address [address] [place] [id number] Care Team Providers Care Senior Label Specialist Name Role Phone Celestina Mcgarry MD Primary Care Provider [phone] Surgical History Surgery Date Site/Laterality Comments SALPINGOOPHORECTOMY PROCEDURE: [place] LAPAROSCOPY W/RMVL ADNEXAL STRUCTURES APPENDECTOMY PROCEDURE: [place] APPENDECTOMY BLADDER SUSPENSION PROCEDURE: HISTORICAL BLADDER SUSPENSION; COMMENT: with mesh? 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 Salmon [phone] - Stable Depression DX:Depression Fibromyalgia DX:Fibromyalgia Scoliosis [...] 1997 COVID-19 Vaccine (2023-2 5 season) 2024 Depression Screening 06/20/2024 Influenza Vaccine (#1) 2025 HIB Vaccines Aged Out No longer [...] 5 Years) and At-Risk Patients (6 to 49 Years) Aged Out No longer eligible b ased on patient's age to complete this topic RSV Immunization Patients Un yesenia 20 months Aged Out No longer eligible b ased on patient's age to complete this topic Varicella Vaccines Aged Out No longer eligible based on patient's age to complete this topic Care Teams Senior Label Specialist Relationship Specialty Start Date End Date Celestina Mcgarry MD [address] [place] [address] , [address] [facility] Physician Associ D/B/A: [facility] TRAY Batista PCP - General Internal Medicine 09/21/19
--- OUTSIDE RECORDS SUMMARY | 2025-01-14 15:36 | XMS_ITS | Encounter Summary ---
Author Organization [facility] Address [address] [facility] [address] [place] [phone] Phone Care Team Providers Care Hearing Consultant Name Role Phone Celestina Alston MD Primary Care Provid er Encounter Details Date Type Department Care Team (Late st Contact Info) Description 03/31/2022 Procedure Pass [facility], [place] [address] [facility], 6th [place] [address] Social History Tobacco Use Types Packs/Day Years Used Date Smoking Tobacco: Light Smoker Cigarettes Smokeless Tobacco: Never Comments:0ccasional cigarett e3-4/week Alcohol Use Standard Drinks/Week Comments Not Currently 0 (1 standard drink = 0.6 oz pur e alcohol) Comments No Sex and Gender Information Value Date Recorded Sex Assigned at Not on file Legal Sex Female 9:04 AM EDT Gender Identity Not on file Sexual Orientation Not on file documented as of this encounter Functional Status * Calculated C-SSRS Risk Score (Lifetime/Recent) Answer Date of Assessment Author No Risk Indicated 03/31/2022 10:44 AM EDT Anabell Benton RN * [place] Suicide Severity Rating Scale (Screener/Recent Self-Report) Question Answer Date of Assessment Author 1. Wish to be (Past 1 Month) No 022 10:44 AM EDT Anabell Benton RN 2. Non-Specific Active Suici gregorio Thoughts (Past 1 Month) No 03/31/2022 10:44 AM EDT Anabell Benton RN 6. Suicidal Behavior (Lifetime) No 2 10:44 AM EDT Anabell Benton RN documented as of this encounter Plan of Treatment Not on file documented as of this encounter Visit Diagnoses Not on filedocumented in this encounter Care Teams Hearing Consultant Relationship Specialty Start Date End Date Celestina Alston MD [address] [place] [address] PCP - General 01/31/15 documented as of this encounter Additional Source Comments The information contained in this document represents components of the legal health record. It is not the complete legal health record.[facility]
== END 2025-01-14 15:47 | disposition home or self-care (01) ==
LOC: HO.HUSH 15:09
PROVIDERS: PCP Internal Medicine; Visit Provider Nurse Practitioner Family
DX: N20.0 Calculus of kidney (principal); N39.41 Urge incontinence; Z13.9 Encounter for screening, unspecified
CPT/HCPCS: 99214

== ENCOUNTER → 2025-01-14 15:08 | Outpatient (BNVA) | payer OTHER, SELFPAY | PROVIDERS: PCP Internal Medicine; Visit Provider Nurse Practitioner Family | DX: N20.0 Calculus of kidney (principal); N39.41 Urge incontinence | CPT/HCPCS: 81003; 99212 ==

== ENCOUNTER 2025-03-08 12:59 | Outpatient (REF) | payer OTHER, SELFPAY ==
--- OUTSIDE RECORDS SUMMARY | 2025-03-08 13:02 | XMS_ITS | Encounter Summary ---
Author Organization [facility] Address [address] [facility] [address] [place] [phone] Phone Care Team Providers Care Back Up Scan Coordinator Name Role Phone Celestina Alston MD Primary Care Provid er Encounter Details Date Type Department Care Team (Late st Contact Info) Description 03/31/2022 Procedure Pass [facility], [address] [address] Social History Tobacco Use Types Packs/Day Years [...] 10:44 AM EDT Anabell Benton RN * [place] Suicide Severity Rating Scale (Screener/Recent Self-Report) Question [...] on filedocumented in this encounter Care Teams Back Up Scan Coordinator Relationship Specialty Start Date End Date Celestina Alston MD [address] [place] [address] PCP - General 01/31/15 documented as of this encounter Additional Source Comments The information contained in this document represents components of the legal health record. It is not the complete legal health record.[facility]
--- OUTSIDE RECORDS SUMMARY | 2025-03-08 13:02 | XMS_ITS | Encounter Summary ---
Author Organization [facility] Address [address] [facility] [place] [address] Phone Care Team Providers Care Hog Man Name Role Phone Celestina Alston MD Primary Care Provid er Encounter Details Date Type Department Care Team (Late st Contact Info) Description 03/04/2022 Procedure Pass [facility] - [facility] [address] [place] [address] [place] [address] Social History Tobacco Use Types Packs/Day Years [...] on file documented as of this encounter Plan of Treatment Not on file documented as of this encounter Visit Diagnoses Not on filedocumented in this encounter Care Teams Hog Man Relationship Specialty Start Date End Date Celestina Alston MD [address] [place] [address] PCP - General 01/31/15 documented as of this encounter Additional Source Comments The information contained in this document represents components of the legal health record. It is not the complete legal health record.[facility]
--- OUTSIDE RECORDS SUMMARY | 2025-03-08 13:02 | XMS_ITS | Encounter Summary ---
Author Organization [facility] Address [address] [facility] [place] [address] Phone Care Team Providers Care Laser Beam Trim Operator Name Role Phone Celestina Alston MD Primary Care Provid er Encounter Details Date Type Department Care Team (Late st Contact Info) Description 03/29/2022 Ancillary Orders [facility] Neurosurgery [address] 3[address], [address] [place] [address] Shelli Monroe MD [address] [facility] [address] [place] [address] [email or web address] Pituitary tumor Social History Tobacco Use Types Packs/Day Years Used Date Smoking Tobacco: Light Smoker Smokeless Tobacco: Never Comments:0ccasional cigarett e3-4/week Alcohol Use Standard Drinks/Week Comments Never 0 (1 standard drink = 0.6 oz [...] Author No Risk Indicated 03/31/2022 10:44 AM ANASTASIAT Anabell Benton RN * [place] Suicide Severity Rating Scale (Screener/Recent Self-Report) Question Answer Date of Assessment Author 1. Wish to be (Past 1 Month) No 022 10:44 AM EDT Anabell Benton, RN 2. Non-Specific Active Suici gregorio Thoughts (Past 1 Month) No 03/31/2022 10:44 AM EDT Anabell Benton, RN 6. 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 It is not the complete legal health record.[facility]
--- OUTSIDE RECORDS SUMMARY | 2025-03-08 13:02 | XMS_ITS | Clinical Summary ---
Author Organization [facility] Address [address] [place] [id number] Care Team Providers Care Industrial Relations Worker Name Role Phone Celestina Mcgarry MD Primary Care Provider [phone] Surgical History Surgery Date Site/Laterality Comments SALPINGOOPHORECTOMY PROCEDURE: [place] LAPAROSCOPY W/RMVL ADNEXAL STRUCTURES APPENDECTOMY PROCEDURE: [place] APPENDECTOMY BLADDER SUSPENSION PROCEDURE: HISTORICAL BLADDER SUSPENSION; COMMENT: with mesh? / bladder polyp removal Medical History Medical History Date Comments Anxiety state DX:Anxiety state Bronchitis DX:Bronchitis History of ovarian cancer DX:His tory of ovarian cancer; COMMENT: Left oophorectomy Schizoaffective disorder, bi polar type (CMS/HCC V24, CMS/HCC V28) DX:Schizoaffective disorder , bipolar type (HCC); COMMENT: Psychiatric hospitalizations in [place] Rathke's cleft cyst (CMS/HCC V24) DX:Rathke's cleft cyst (HCC); COMMENT: Followed by [facility] Dr. Salmon [phone] - Stable Depression DX:Depression Fibromyalgia DX:Fibromyalgia Scoliosis [...] Cervical Cancer Screening: P ap Smear 1997 Depression Screening 06/20/2024 COVID-19 Vaccine (1 - 2023-2 5 season) 2025 Influenza Vaccine (#1) 2025 HIB Vaccines Aged [...] age to complete this topic Care Teams Industrial Relations Worker Relationship Specialty Start Date End Date Celestina Mcgarry MD [address] [place] [address] , [address] [facility] TRAY Batista PCP - General Internal Medicine 09/21/19
--- OUTSIDE RECORDS SUMMARY | 2025-03-08 13:02 | XMS_ITS | Clinical Summary ---
Author Organization [facility] Address [address] [facility] [address] [place] [phone] Phone Care Team Providers Care Warehouseman Name Role Phone Celestina Alston MD Primary Care Provid er Allergies Active Allergy Reactions Criticality Noted Date Comments Tramadol 03/26/2022 vomiting Medications amoxicillin (AMOXIL) 500 MG tablet Take 500 mg by mouth 2 (two) times a day. 12/11/2021 Active fluticasone propionate (FLONASE) 50 mcg/actuation nasal spray 1 spray by Nasal route daily. Active omeprazole (PRILOSEC) 10 MG capsule Take 10 mg by mouth daily. Active Immunizations Immunization Administration Dates Next Due Tdap 01/11/2020,10/31/2018 Family History Medical History Relation Comments Ovarian cancer Maternal Aunt Diabetes Maternal Grandfather Relation Status Comments Maternal Aunt Maternal Grandfather Social History Tobacco Use Types Packs/Day Years Used Date Smoking Tobacco: Light Smoker Cigarettes Smokeless Tobacco: Never Comments:0ccasional cigarett e3-4/week Alcohol Use Standard Drinks/Week Comments Not Currently 0 (1 standard drink = 0.6 oz pur e alcohol) Education Answer Date Recorded Are you interested in more education? Not on yarelis e 10/15/2022 Are you concerned about learning? Not on file 10/15/2022 No 10/15/2022 No 10/15/2022 Digital Access Answer Date Recorded No 11/15/2022 No 11/15/2022 No 11/15/2022 Reliable internet access at home? Not on file 11/15/2022 Device with a working camera? Not on file Comments No Sex and Gender Information Value Date Recorded Sex Assigned at Not on file Legal Sex Female 9:04 AM EDT Gender Identity Not on file Sexual Orientation Not on file Last Filed Vital Signs Vital Sign Reading Time Taken Comments Blood Pressure 104/67 03/31/2022 10:46 AM EDT Pulse 85 03/31/2022 10:46 AM EDT Temperature 36.7 C (98 F) 03/31/2022 10:46 AM EDT Respiratory Rate 14 03/31/2022 10:46 AM EDT Oxygen Saturation 99% 03/31/2022 10:46 AM EDT Inhaled Oxygen Concentration - - Weight 62.6 kg (138 lb) 06/29/2022 11:06 AM EST Height 167.6 cm (5' 6 ) 06/29/2022 11:06 AM EST Body Mass Index 22.27 06/29/2022 11:06 AM EST Plan of Treatment Health Maintenance Due Date Last Done Comments LIPID PANEL 1976 DEPRESSION SCREENING 1988 SMOKING Hx and SMOKELESS TOBACCO SCREENING 1989 HEPATITIS C SCREENING 1994 HIV ONE-TIME SCREENING (18-6 5 YEARS) 1994 PNEUMOCOCCAL VACCINES (0-49 years) (1 of 2 - PCV) 10/07/1995 PAP SMEAR 1997 MAMMOGRAM 2016 COLOGUARD 2021 COLONOSCOPY 2021 COLORECTAL CANCER SCREENING 2021 FIT TEST 2021 FOBT 2021 SIGMOIDOSCOPY 2021 VIRTUAL COLONOSCOPY 2021 COVID-19 VACCINE ( - 2023-2 5 season) 2024 INFLUENZA VACCINE (#1) 2025 Adult Td,Tdap Booster 01/10/2030 01/11/2020 , 10/31/2018 HEPATITIS A VACCINES Aged Out No long er eligible based on patient's age to complete this topic HIB VACCINES Aged Out No longer eligi ble based on patient's age to complete this topic MENINGOCOCCAL VACCINES (ACWY) Aged Out No longer eligible based on patient's age to complete this topic MENINGOCOCCAL VACCINES (B) Aged Out N o longer eligible based on patient's age to complete this topic Medical Devices Implanted Type Area Mold Swabber Device Identifier Shelf Expiration Date Model / Serial / Lot Mesh Bladder [place] [address] [place] [address] [place] [address] [place] [address] [place] [address] [place] [address] [place] [address] [place] [address] [place] [address] [place] [address] [place] [address] [place] [address] [employer] Care Teams Warehouseman Relationship Specialty Start Date End Date Celestina Alston MD [address] [place] [address] PCP - General 01/31/15 Additional Source Comments The information contained in this document represents components of the legal health record. It is not the complete legal health record.[facility]
--- OUTSIDE RECORDS SUMMARY | 2025-03-08 13:02 | XMS_ITS | Encounter Summary ---
Author Organization [facility] Address [address] [facility] [address] [place] [phone] Phone Care Team Providers Care Teradata Developer Name Role Phone Celestina Alston MD Primary Care Provid er Encounter Details Date Type Department Care Team (Late st Contact Info) Description 03/31/2022 Procedure Pass [facility] [address] [place] [id number] Social History Tobacco Use Types Packs/Day Years [...] 10:44 AM EDT Anabell Benton RN * [place] Suicide Severity Rating Scale (Screener/Recent Self-Report) Question Answer Date of Assessment Author 1. Wish to be (Past 1 Month) No 022 10:44 AM EDT Anabell Benton RN 2. Non-Specific Active Suici gregorio Thoughts (Past 1 Month) No 03/31/2022 10:44 AM EDT Anabell Benton RN 6. Suicidal Behavior (Lifetime) No 10/12/202 2 10:44 AM EDT Anabell Benton RN documented as of this encounter Plan of Treatment Not on file documented as of this encounter Visit Diagnoses Not on filedocumented in this encounter Care Teams Teradata Developer Relationship Specialty Start Date End Date Celestina Alston MD [address] [place] [address] PCP - General 01/31/15 documented as of this encounter Additional Source Comments The information contained in this document represents components of the legal health record. It is not the complete legal health record.[facility]
--- OUTSIDE RECORDS SUMMARY | 2025-03-08 13:02 | XMS_ITS | Clinical Summary ---
Author Organization [employer] Address [address] [facility] 7[address] [place] [address] Care Team Providers Care Audit Consultant Name Role Phone Unavailable Primary Care Provider [...] 5 season) 2025 Influenza Vaccine (#1) 2025 Zoster Vaccines (1 [...] patient's age to complete this topic Insurance [facility]
--- OUTSIDE RECORDS SUMMARY | 2025-03-08 13:02 | XMS_ITS | Encounter Summary ---
Author Organization [facility] Address [address] [facility] [address] [place] [phone] Phone Care Team Providers Care Hard Tile Setter Name Role Phone Celestina Alston MD Primary Care Provid er Encounter Details Date Type Department Care Team (Late st Contact Info) Description 03/31/2022 Procedure Pass [facility] [place] [address] [facility] 6th [place] [address] Social History Tobacco Use Types Packs/Day Years [...] 10:44 AM EDT Anabell Benton RN * [place] Suicide Severity Rating Scale (Screener/Recent Self-Report) Question [...] on filedocumented in this encounter Care Teams Hard Tile Setter Relationship Specialty Start Date End Date Celestina Alston MD [address] [place] [address] PCP - General 01/31/15 documented as of this encounter Additional Source Comments The information contained in this document represents components of the legal health record. It is not the complete legal health record.[facility]
== END 2025-03-08 13:00 | disposition home or self-care (01) ==
LOC: HO.MAMMO 12:59
PROVIDERS: PCP Internal Medicine; Visit Provider Internal Medicine
DX: Z12.31 Encounter for screening mammogram for malignant neoplasm of breast (principal)
CPT/HCPCS: 77063; 77067

== ENCOUNTER → 2025-03-08 13:00 | Outpatient (BNV) | payer OTHER, SELFPAY | PROVIDERS: PCP Internal Medicine; Visit Provider Radiology Body Imaging | DX: Z12.31 Encounter for screening mammogram for malignant neoplasm of breast (principal) | CPT/HCPCS: 77063; 77067 ==

== ENCOUNTER 2025-03-19 13:38 | Outpatient (AMB) | payer OTHER, SELFPAY ==
[2025-03-19 13:46] VITALS: BP 120/84; PULSE 67; TEMP 36.4; O2SAT 99; BMI 25.4
--- NOTE | 2025-03-19 13:46 | A.OFFPC_ITS ---
Vital Signs 03/19/25 13:46 Height 5 ft 6 in Weight 157 lb 2 oz BMI 25.4 BP 120/84 Blood Pressure Location Lt brachial Position Sitting Pulse 67 Pulse Source Pulse Oximeter Temp 97.5 F Temp Source Temporal Artery Scan Pulse Oximetry (%) 99 Oxygen Delivery Method Room Air Intake Visit Reasons: Annual exam Disabilities Services Officer Required: No Accompanied by: Self / Same As Patient Allergies tramadol (TRAMADOL) Allergy (Intermediate, Verified 03/19/25 13:55) NAUSEA & VOMITING Medication List - Last Reconciled 03/19/25 by Celestina Mcgarry MD buspirone 15 mg PO cholecalciferol (vitamin D3) 25 mcg PO DAILY 90 days cyclobenzaprine 5 mg PO TID PRN divalproex 500 mg PO BID escitalopram oxalate 10 mg PO DAILY fluticasone propionate 50 mcg/actuation (Allergy Relief (fluticasone)) 2 sprays intranasal DAILY ibuprofen 600 mg PO Q8H PRN loratadine (Allergy Relief (loratadine)) 10 mg PO DAILY 90 days naproxen 500 mg PO BID PRN 30 days oxybutynin chloride ER 10 mg PO DAILY 30 days riboflavin (vitamin B2) 400 mg PO DAILY 30 days sumatriptan succinate 50 - 100 mg orally at onset of headache, may repeat in 2 hrs PRN; max 2 tabs per day or 4 tabs/week (may take with Ibuprofen) 30 days zolpidem 10 mg PO BEDTIME Tobacco use date assessed: 03/19/25 Dental Screening Dental Screen Date: 03/19/25 Did you have a dental visit in the last 12 months?: No Did you have a dental problem in the last 6 months where you did not have access to dental care?: No Was dental information given to patient?: No HPI HPI Comments History of Present Illness Details The patient is a 49-year-old female presenting for a physical examination and management of multiple chronic conditions. The patient reports experiencing depression, which is exacerbated by her current life circumstances, including caring for her young child and not being able to work. She mentions not having negative thoughts towards herself but feels overwhelmed by her responsibilities. Anxiety is also a concern, with symptoms including a sensation of shortness of breath and chest discomfort, which she attributes to anxiety. She has not had recent laboratory work, but previous tests were normal. The patient has a history of sinusitis, which causes significant discomfort, including headaches and ear pain, affecting her sleep. She reports using sqoh-mzb-snmqelk medications for relief. She describes back pain that began after lifting a heavy object, resulting in difficulty sitting upright and requiring her to lie on her side for relief. The pain occasionally radiates to her left leg. Menstrual irregularities have been noted since the insertion of an intrauterine device (IUD), with persistent pain and spotting beyond the expected adjustment period. She is considering having the IUD removed due to these symptoms. Preventative care measures include a scheduled colonoscopy, although the patient needs to reschedule the appointment. 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 Hx of sinusitis History of snoring Insomnia Fibromyalgia Panic attacks Bipolar depression Renal calculi Abdominal pain Rathke's cleft cyst Abnormal urine odor Surgical History History of pubovaginal sling Hx of mammogram History of left salpingo-oophorectomy Hx of umbilical hernia repair History of esophagogastroduodenoscopy (EGD) History of appendectomy History of Family History Father Hyperlipidemia HTN (hypertension) Mother Healthy female Other Arthritis Social History Household Members: Children Housing: Apartment Alcohol intake: never Patient Tobacco Use Status: Former Tobacco user Tobacco use type: Cigarette e-Cigarette/Vaping Use: Never Used Second Hand Smoke Exposure: No service: No Current occupational status: unemployed Current occupational exposures/hazards: No Sexual orientation: Straight/Heterosexual Gender identity: Female Cognitive needs: No Hearing needs: No Vision needs: Yes Female Reproductive History Menstrual Age of Menarche: 13 Questionnaire PHQ-9 Over the last 2 weeks, how often have you been bothered by any of the following problems? 1. Little interest or pleasure in doing things: several days 2. Feeling down, depressed, or hopeless: more than half the days 3. Trouble falling or staying asleep, or sleeping too much: nearly every day 4. Feeling tired or having little energy: nearly every day 5. Poor appetite or overeating: nearly every day 6. Feeling bad about yourself - or that you are a failure or have let yourself or your family down: several days 7. Trouble concentrating on things, such as reading the newspaper or watching television: several days 8. Moving or speaking so slowly that other people could have noticed. Or the opposite - being so fidgety or restless that you have been moving around a lot more than usual: several days 9. Thoughts that you would be better off or of hurting yourself in some way: several days Total score: 16 Depression Screening Interpretation: Positive (no suicidal thoughts) Depression Screening Follow-up: Existing condition and Follow-up Visit Requested Depression Screening Done: Yes 85223 - PHQ-9 Billing: Yes Source: Developed by Drs. Isidro Schroeder, Lucretia Ramsey, Salvatore Scales and colleagues, with an educational gracia from [employer]. Thrive Questionnaire Date Thrive assessed: 03/19/25 I am a: Patient What is your living situation today?: I have a steady place to live Within the past 12 months, did the food you bought not last and you didn't have the money to get more?: Never true Within the past 12 months, did you worry whether your food would run out before you got money to buy more?: Never true Do you have trouble paying for medicines?: No Do you have trouble getting transportation to medical appointments?: No Do you have trouble paying your heating and electricity bill?: No Do you have trouble taking care of your child, family member or friend?: No Do you have trouble with day-to-day activities such as bathing, preparing meals, shopping, managing finances, etc.?: Yes Are you currently unemployed and looking for a job?: Yes Are you interested in more education?: No Please select the resources that you would like help with: None Currently or been in a relationship where the following occur: No concerns reported THRIVE Score: 0 AUDIT C Alcohol Use Questionnaire (AUDIT-C) 1. How often do you have a drink containing alcohol?: Never 3. How often do you have six or more drinks on one occasion?: Never Total Score: 0 Score Reviewed/Action Taken: No PHAN-7 AMB Questionnaire PHAN-7 Date PHAN - 7 assessed: 03/19/25 Feeling nervous, anxious, or on edge: 1 = Several days Not being able to stop or control worryin = Nearly every day Worrying too much about different things: 3 = Nearly every day Trouble relaxin = Nearly every day Being so restless that it is hard to sit still: 2 = More than half the days Becoming easily annoyed or irritable: 2 = More than half the days Feeling afraid as if something awful might happen: 3 = Nearly every day Total PHAN-7 score (0-4 normal; 5-9 mild; 10-14 moderate; 15-21 severe): 17 Source: Developed by Drs. Isidro Schroeder, Lucretia Ramsey, Salvatore Scales and colleagues, with an educational gracia from [employer]. PHAN-7 Assessment Billing PHAN-7 Assessment Tool: PHAN-7 Assessment 79040 Review of Systems Const All systems reviewed & are unremarkable except as noted in HPI and below Card Denies chest pain at rest, Denies chest pain with activity, Denies edema, Denies irregular heart rhythm, Denies claudication, Denies dyspnea, Denies dyspnea on exertion, Denies orthopnea, Denies paroxysmal nocturnal dyspnea and Denies slow heart rate Resp Denies cough, Denies dyspnea and Denies dyspnea on exertion Physical exam (Primary Care) Vital Signs: Last Vital Signs Temp 97.5 F 03/19/25 13:46 Pulse 67 03/19/25 13:46 BP 120/84 03/19/25 13:46 Pulse Ox 99 03/19/25 13:46 Oxygen Delivery Method Room Air 03/19/25 13:46 BMI result Body Mass Index 25.4 Tobacco/Smoking Status: Tobacco use Status Tobacco use date assessed 03/19/25 03/19/25 13:51 Patient Tobacco Use Status Former Tobacco user 03/19/25 13:51 Tobacco use type Cigarette 03/19/25 13:51 e-Cigarette/Vaping Use Never Used 03/19/25 13:51 PHQ-9: PHQ-9 Score PHQ-9: Total score 16 03/19/25 14:00 Depression Screening Interpretation: Positive (no suicidal thoughts) Depression Screening Follow-up: Existing condition and Follow-up Visit Requested Thrive Assessment: Date of Thrive Assessment Date Thrive assessed 03/19/25 03/19/25 13:51 Currently or been in a relationship where the following occur: No concerns reported [facility] Head: Yes normal to inspection, Yes normocephalic and Yes atraumatic Ears: external ears normal Eyes General: appearance normal, both eyes and all related structures Eyelids: Yes eyelids normal Conjunctivae: conjunctivae normal Neck Neck: Yes normal visual inspection and Yes supple Resp Effort & Inspection: normal respiratory effort Auscultation: clear to auscultation bilaterally Cardio Jugular venous distension: no JVD Rate: regular rate Rhythm: regular rhythm Heart sounds: S1 normal heart sound present and S2 normal heart sound present GI Inspection: Yes normal to inspection Palpation (GI): Soft to palpation and nontender Auscultation: normal bowel sounds Skin General skin exam: no rashes or lesions noted Neuro General: no focal motor deficits Extrem General: Yes full ROM Psych Appearance: grossly normal Coding Level of Care Code Est Pt Level 3 (45210) Est Pt Prev Care 40-64y(19989) Diagnoses Physical exam Z00.00 Bipolar depression F31.9 Fibromyalgia M79.7 Left sided sciatica M54.32 Additional Codes PHAN-7 Assessment Billing - PHAN-7 Assessment Tool: PHAN-7 Assessment 33030 ([id number]) PHQ-9 - 63819 - PHQ-9 Billing: Yes ([id number]) Time Spent (min) 32 Assessment & Plan Assessment & Plan (1) Physical exam: Code(s): Z00.00 - Encounter for general adult medical examination without abnormal findings Category: Medical (2) Bipolar depression: Code(s): F31.9 - Bipolar disorder, unspecified Category: Medical (3) Fibromyalgia: Code(s): M79.7 - Fibromyalgia Category: Medical (4) Left sided sciatica: Code(s): M54.32 - Sciatica, left side Category: Medical Plan Plan Patient was informed and verbally consented to the use of an ambient scribe for clinic note documentation during this visit. 1. Depression The patient is experiencing depression exacerbated by her current life circumstances, including caring for her young child and not being able to work. She mentions not having negative thoughts towards herself but feels overwhelmed by her responsibilities. Management includes addressing her social support needs and considering adjustments to her current medication regimen. 2. Anxiety The patient reports anxiety with symptoms including a sensation of shortness of breath and chest discomfort. She attributes these symptoms to anxiety and has not had recent laboratory work, but previous tests were normal. Management includes considering therapy and possibly adjusting her current medication regimen. 3. Sinusitis The patient has a history of sinusitis causing significant discomfort, including headaches and ear pain, affecting her sleep. She reports using pwyn-fhv-aacrmwy medications for relief. Management includes prescribing loratadine and a nasal spray for symptom relief. 4. Back Pain The patient describes back pain that began after lifting a heavy object, resulting in difficulty sitting upright and requiring her to lie on her side for relief. The pain occasionally radiates to her left leg. Management includes referral to a specialist for further evaluation and imaging studies. 5. Menstrual Irregularities The patient reports menstrual irregularities since the insertion of an intrauterine device (IUD), with persistent pain and spotting beyond the expected adjustment period. She is considering having the IUD removed due to these symptoms. Management includes discussing the removal of the IUD and exploring alternative contraceptive options. 6. Preventative Care: Colonoscopy The patient has a scheduled colonoscopy as part of her preventative care, although she needs to reschedule the appointment. Management includes ensuring the appointment is rescheduled and completed. Orders: Orders Vitamin D 25-OH Total Today E55.9 - Vitamin D deficiency, unspecified Lipid Panel Today E78.5 - Hyperlipidemia, unspecified Complete Blood Count Auto Diff Today D64.9 - Anemia, unspecified Comprehensive [place]. Panel Fast Today R07.89 - Other chest pain XR lumbar spine 2-3V Today M54.50 - Low back pain, unspecified Vitamin B12 and Folate Today E53.8 - Deficiency of other specified B group vitamins IRON PROFILE Today D64.9 - Anemia, unspecified Referrals Rheumatology Referral M25.50 - Pain in unspecified joint Pain Management Referral M54.32 - Sciatica, left side Medications: Refilled fluticasone propionate 50 mcg/actuation (Allergy Relief (fluticasone)) administer into each nostril 2 sprays intranasal DAILY 16 grams 0RF J01.90 - Acute sinusitis, unspecified cholecalciferol (vitamin D3) 25 mcg PO DAILY 90 caps 1RF 90 days loratadine (Allergy Relief (loratadine)) 10 mg PO DAILY 90 tabs 0RF 90 days
--- OUTSIDE RECORDS SUMMARY | 2025-03-19 14:57 | XMS_ITS | Encounter Summary ---
Author Organization [facility] Address [address] [place] [address] Phone Care Team Providers Care Help Desk Supervisor Name Role Phone Celestina Alston MD Primary Care Provid er Encounter Details Date Type Department Care Team (Late st Contact Info) Description 03/29/2022 Ancillary Orders [facility] Neurosurgery [address] [facility] 3rd [address], [address] [place] [address] Shelli Monroe MD [address] [facility] [address] [place] [address] [email or web address] Pituitary tumor Social History Tobacco Use Types [...] 10:44 AM ANASTASIAT Anabell Benton RN * [place] Suicide Severity Rating Scale (Screener/Recent Self-Report) Question [...] system documented in this encounter Care Teams Help Desk Supervisor Relationship Specialty Start Date End Date Celestina Alston MD [address] [place] [address] PCP - General 01/31/15 documented as of this encounter Additional Source Comments The information contained in this document represents components of the legal health record. It is not the complete legal health record.[facility]
--- OUTSIDE RECORDS SUMMARY | 2025-03-19 14:57 | XMS_ITS | Clinical Summary ---
Author Organization [facility] Address [address] [place] [phone] Care Team Providers Care Financial Services Director Name Role Phone Celestina Mcgarry MD Primary Care Provider [phone] Surgical History Surgery Date Site/Laterality Comments SALPINGOOPHORECTOMY PROCEDURE: DE LAPAROSCOPY W/RMVL ADNEXAL STRUCTURES APPENDECTOMY PROCEDURE: [place] APPENDECTOMY BLADDER SUSPENSION PROCEDURE: HISTORICAL BLADDER SUSPENSION; COMMENT: with mesh? / bladder polyp removal Medical History Medical History Date Comments Anxiety state DX:Anxiety state Bronchitis DX:Bronchitis History of ovarian cancer DX:His tory of ovarian cancer; COMMENT: Left oophorectomy Schizoaffective disorder, bi polar type (CMS/HCC V24, CMS/HCC V28) DX:Schizoaffective disorder , bipolar type (HCC); COMMENT: Psychiatric hospitalizations in [place] Rathke's cleft cyst (CMS/HCC V24) DX:Rathke's cleft cyst (HCC); COMMENT: Followed by [facility] Dr. Salmon [phone] - Stable Depression DX:Depression Fibromyalgia DX:Fibromyalgia Scoliosis [...] age to complete this topic Care Teams Financial Services Director Relationship Specialty Start Date End Date Celestina Mcgarry MD [address] [place] [address] , [address] [facility] D/B/A: [facility] TRAY Batista PCP - General Internal Medicine 09/21/19
--- OUTSIDE RECORDS SUMMARY | 2025-03-19 14:57 | XMS_ITS | Clinical Summary ---
Author Organization [facility] Address [address] [facility] [address] [place] [address] Phone Care Team Providers Care Projector Operator Name Role Phone Celestina Alston MD [...] FOBT 2021 SIGMOIDOSCOPY 2021 VIRTUAL COLONOSCOPY 2021 INFLUENZA VACCINE (#1) 2025 COVID-19 VACCINE (1 - 2023-2 5 season) 2025 Adult Td,Tdap Booster 01/10/2030 01/11/2020 , [...] this topic Medical Devices Implanted Type Area Internet Salesperson Device Identifier Shelf Expiration Date Model / Serial / Lot Mesh Bladder [place] [address] [address] [address] [place] [address] [place] [address] [place] [address] [place] [address] [address] [place] [address] [place] [address] [address] [place] [address] [address] ACO ACO ACO ACO Care Teams Projector Operator Relationship Specialty Start Date End Date Celestina Alston MD [address] [place] [address] PCP - General 01/31/15 Additional Source Comments The information contained in this document represents components of the legal health record. It is not the complete legal health record.[facility]
--- OUTSIDE RECORDS SUMMARY | 2025-03-19 14:57 | XMS_ITS | Encounter Summary ---
Author Organization [facility] Address [address] [facility] [address] [place] [address] Phone Care Team Providers Care Fish Trapper Name Role Phone Celestina Alston MD Primary Care Provid er Encounter Details Date Type Department Care Team (Late st Contact Info) Description 03/31/2022 Procedure Pass [facility], [address] [address] Social History Tobacco Use Types Packs/Day Years [...] 10:44 AM EDT Anabell Benton RN * [place] Suicide Severity Rating Scale (Screener/Recent Self-Report) Question [...] on filedocumented in this encounter Care Teams Fish Trapper Relationship Specialty Start Date End Date Celestina Alston MD [address] [place] [address] PCP - General 01/31/15 documented as of this encounter Additional Source Comments The information contained in this document represents components of the legal health record. It is not the complete legal health record.[facility]
--- OUTSIDE RECORDS SUMMARY | 2025-03-19 14:57 | XMS_ITS | Clinical Summary ---
Author Organization [employer] Address [address] [facility] 7t [place] [address] Care Team Providers Care Storage Administrator Name Role Phone Unavailable Primary Care Provider [...] patient's age to complete this topic Insurance [facility] [address]
--- OUTSIDE RECORDS SUMMARY | 2025-03-19 14:57 | XMS_ITS | Encounter Summary ---
Author Organization [facility] Address [address] [place] [address] Phone Care Team Providers Care Timber Rider Name Role Phone Celestina Alston MD Primary Care Provid er Encounter Details Date Type Department Care Team (Late st Contact Info) Description 03/04/2022 Procedure Pass [facility] - [facility] Main [place] [address] [place] [address] Social History Tobacco Use Types Packs/Day Years [...] on filedocumented in this encounter Care Teams Timber Rider Relationship Specialty Start Date End Date Celestina Alston MD [address] [place] [address] PCP - General 01/31/15 documented as of this encounter Additional Source Comments The information contained in this document represents components of the legal health record. It is not the complete legal health record.[facility]
--- OUTSIDE RECORDS SUMMARY | 2025-03-19 14:57 | XMS_ITS | Encounter Summary ---
Author Organization [facility] Address [address] [facility] [address] [place] [address] Phone Care Team Providers Care Labview Programmer Name Role Phone Celestina Alston MD Primary Care Provid er Encounter Details Date Type Department Care Team (Late st Contact Info) Description 03/31/2022 Procedure Pass [facility] [place] Lunder [address] [facility], 6th [place] [address] Social History Tobacco Use Types Packs/Day Years [...] 10:44 AM EDT Anabell Benton RN * [place] Suicide Severity Rating Scale (Screener/Recent Self-Report) Question [...] on filedocumented in this encounter Care Teams Labview Programmer Relationship Specialty Start Date End Date Celestina Alston MD [address] [place] [address] PCP - General 01/31/15 documented as of this encounter Additional Source Comments The information contained in this document represents components of the legal health record. It is not the complete legal health record.[facility]
--- OUTSIDE RECORDS SUMMARY | 2025-03-19 14:57 | XMS_ITS | Encounter Summary ---
Author Organization [facility] Address [address] [facility] [address] [place] [address] Phone Care Team Providers Care Injection Press Operator Name Role Phone Celestina Alston MD Primary Care Provid er Encounter Details Date Type Department Care Team (Late st Contact Info) Description 03/31/2022 Procedure Pass [facility] [address] [place] [phone] Social History Tobacco Use Types Packs/Day Years [...] 10:44 AM EDT Anabell Benton RN * [place] Suicide Severity Rating Scale (Screener/Recent Self-Report) Question [...] on filedocumented in this encounter Care Teams Injection Press Operator Relationship Specialty Start Date End Date Celestina Alston MD [address] [place] [address] PCP - General 01/31/15 documented as of this encounter Additional Source Comments The information contained in this document represents components of the legal health record. It is not the complete legal health record.[facility]
== END 2025-03-19 14:22 | disposition home or self-care (01) ==
LOC: HO.HMCH 13:39
PROVIDERS: PCP Internal Medicine; Visit Provider Internal Medicine
DX: Z00.00 Encounter for general adult medical examination without abnormal findings (principal); F31.9 Bipolar disorder, unspecified; M79.7 Fibromyalgia; M54.32 Sciatica, left side

== ENCOUNTER → 2025-03-19 13:38 | Outpatient (BNVA) | payer OTHER, SELFPAY | PROVIDERS: PCP Internal Medicine; Visit Provider Internal Medicine | DX: Z00.00 Encounter for general adult medical examination without abnormal findings (principal); F41.9 Anxiety disorder, unspecified; J32.9 Chronic sinusitis, unspecified; F31.9 Bipolar disorder, unspecified; M79.7 Fibromyalgia; M54.32 Sciatica, left side; E55.9 Vitamin D deficiency, unspecified; E78.5 Hyperlipidemia, unspecified; D64.9 Anemia, unspecified; R07.89 Other chest pain; M54.50 Low back pain, unspecified; E53.8 Deficiency of other specified B group vitamins | CPT/HCPCS: 96127; 99212; 99396 ==

== ENCOUNTER 2025-03-20 13:44 | Outpatient (REF) | payer OTHER, SELFPAY ==
--- NOTE | ~2025-03-20 | MM_ITS ---
EXAMINATION: MM DIAGNOSTIC DIGITAL BREAST TOMOSYNTHESIS, RIGHT Limited right breast ultrasound. CLINICAL INFORMATION: Call back from screening for asymmetry with questioned distortion in the superior right breast on MLO view posterior depth. COMPARISON: Mammography: [facility] on PACS. TECHNIQUE: Digital breast tomosynthesis is performed in both the craniocaudal and mediolateral oblique views along with computer-aided detection (CAD). Synthesized 2D images are generated from the tomosynthesis. FINDINGS: The breasts are heterogeneously dense, which may obscure small masses. Asymmetry superior right breast posterior depth on MLO view persists on additional imaging projections with questioned architectural distortion. No suspicious calcifications or other abnormal findings. Targeted color Doppler ultrasound scanning in the superior right breast from 10 - 2:00 demonstrates a hypoechoic oval circumscribed solid mass versus complicated cyst at 10:00 7 cm from nipple measuring 8 x 5 x 6 mm. There is a probable complicated cyst versus solid mass at 1:00 4 cm from the nipple measuring 5 x 7 x 5 mm. Otherwise there is normal fibroglandular breast tissue scanning from 10 2:00. MM/MM tomosynthesis added views R IMPRESSION: 1. Asymmetry superior right breast posterior depth on MLO view with questioned distortion which persists without definite sonographic correlate. Recommend [facility] core needle biopsy at this time for confirmation. 2. Solid masses versus complicated cysts at 1:00 and 10:00 on ultrasound. Recommend 6 month follow-up ultrasound for further evaluation of stability. 3. Patient has dense fibroglandular breast tissue. Breast MRI could be considered for further evaluation. Breast MRI would need to be ordered by the patient's providing clinician. ASSESSMENT: BI-RADS Category 4: Suspicious RECOMMENDATION: Biopsy recommended Results were discussed with the patient at time of visit. This patient's information was entered into a reminder system with a target due date for their next mammogram. Electronically signed by: Rosemary Sosa DO 03/21/2025 08:17 AM EDT
--- OUTSIDE RECORDS SUMMARY | 2025-03-20 15:01 | XMS_ITS | Clinical Summary ---
Author Organization [facility] Address [address] [facility] [address] [place] [address] Phone Care Team Providers Care Home Sales Consultant Name Role Phone Celestina Alston MD [...] this topic Medical Devices Implanted Type Area Network Contract Manager Device Identifier Shelf Expiration Date Model / Serial / Lot Mesh Bladder [place] [address] [address] [place] [address] [place] [address] [place] [address] [place] [address] [place] [address] [place] [address] [place] [address] [place] [address] [place] [address] [place] [address] [address] [place] [address] ACO ACO ACO ACO Care Teams Home Sales Consultant Relationship Specialty Start Date End Date Celestina Alston MD [address] [place] [address] PCP - General 01/31/15 Additional Source Comments The information contained in this document represents components of the legal health record. It is not the complete legal health record.[facility]
--- OUTSIDE RECORDS SUMMARY | 2025-03-20 15:01 | XMS_ITS | Encounter Summary ---
Author Organization [facility] Address [address] [place] [address] Phone Care Team Providers Care Forest Products Gatherer Name Role Phone Celestina Alston MD Primary Care Provid er Encounter Details Date Type Department Care Team (Late st Contact Info) Description 03/29/2022 Ancillary Orders [facility] Neuro[facility] [address] [facility], 3rd Floor, [address] [place] [address] Shelli Monroe MD [address] [facility] [address] [place] [address] [email or web address] Pituitary tumor Social History Tobacco [...] 10:44 AM ANASTASIAT Anabell Benton RN * [place] Suicide Severity Rating Scale (Screener/Recent Self-Report) Question [...] system documented in this encounter Care Teams Forest Products Gatherer Relationship Specialty Start Date End Date Celestina Alston MD [address] [place] [address] PCP - General 01/31/15 documented as of this encounter Additional Source Comments The information contained in this document represents components of the legal health record. It is not the complete legal health record.[facility]
--- OUTSIDE RECORDS SUMMARY | 2025-03-20 15:01 | XMS_ITS | Encounter Summary ---
Author Organization [facility] Address [address] [facility] [address] [place] [address] Phone Care Team Providers Care Nursing Home Administrator Name Role Phone Celestina Alston MD Primary Care Provid er Encounter Details Date Type Department Care Team (Late st Contact Info) Description 03/31/2022 Procedure Pass [facility] [address] [place] [phone] Social History Tobacco Use Types Packs/Day Years [...] 10:44 AM EDT Anabell Benton RN * [place] Suicide Severity Rating Scale (Screener/Recent Self-Report) Question [...] on filedocumented in this encounter Care Teams Nursing Home Administrator Relationship Specialty Start Date End Date Celestina Alston MD [address] [place] [address] PCP - General 01/31/15 documented as of this encounter Additional Source Comments The information contained in this document represents components of the legal health record. It is not the complete legal health record.[facility]
--- OUTSIDE RECORDS SUMMARY | 2025-03-20 15:01 | XMS_ITS | Encounter Summary ---
Author Organization [facility] Address [address] [facility] [address] [place] [address] Phone Care Team Providers Care Entertainment Lawyer Name Role Phone Celestina Alston MD Primary Care Provid er Encounter Details Date Type Department Care Team (Late st Contact Info) Description 03/31/2022 Procedure Pass [facility], Lunder [address] [facility], 6th [place] [address] Social History Tobacco Use Types Packs/Day Years [...] 10:44 AM EDT Anabell Benton RN * [place] Suicide Severity Rating Scale (Screener/Recent Self-Report) Question [...] on filedocumented in this encounter Care Teams Entertainment Lawyer Relationship Specialty Start Date End Date Celestina Alston MD [address] [place] [address] PCP - General 01/31/15 documented as of this encounter Additional Source Comments The information contained in this document represents components of the legal health record. It is not the complete legal health record.[facility]
--- OUTSIDE RECORDS SUMMARY | 2025-03-20 15:01 | XMS_ITS | Encounter Summary ---
Author Organization [facility] Address [address] [place] [address] Phone Care Team Providers Care It Programmer Name Role Phone Celestina Alston MD Primary Care Provid er Encounter Details Date Type Department Care Team (Late st Contact Info) Description 03/04/2022 Procedure Pass [facility] - CT Main [place] [address] [place] [address] Social History Tobacco Use Types Packs/Day Years [...] on filedocumented in this encounter Care Teams It Programmer Relationship Specialty Start Date End Date Celestina Alston MD [address] [place] [address] PCP - General 01/31/15 documented as of this encounter Additional Source Comments The information contained in this document represents components of the legal health record. It is not the complete legal health record.[facility]
--- OUTSIDE RECORDS SUMMARY | 2025-03-20 15:01 | XMS_ITS | Encounter Summary ---
Author Organization [facility] Address [address] [facility] [address] [place] [address] Phone Care Team Providers Care Speech And Hearing Director Name Role Phone Celestina Alston MD Primary Care Provid er Encounter Details Date Type Department Care Team (Late st Contact Info) Description 03/31/2022 Procedure Pass [facility], [address] [address] Social History Tobacco Use Types Packs/Day Years [...] 10:44 AM EDT Anabell Benton RN * [place] Suicide Severity Rating Scale (Screener/Recent Self-Report) Question [...] on filedocumented in this encounter Care Teams Speech And Hearing Director Relationship Specialty Start Date End Date Celestina Alston MD [address] [place] [address] PCP - General 01/31/15 documented as of this encounter Additional Source Comments The information contained in this document represents components of the legal health record. It is not the complete legal health record.[facility]
--- OUTSIDE RECORDS SUMMARY | 2025-03-20 15:01 | XMS_ITS | Clinical Summary ---
Author Organization [facility] Address [address] [place] [phone] Care Team Providers Care Jumpbasting Lining Baster Name Role Phone Celestina Mcgarry MD Primary Care Provider [phone] Surgical History Surgery Date Site/Laterality Comments SALPINGOOPHORECTOMY PROCEDURE: [place] LAPAROSCOPY W/RMVL ADNEXAL STRUCTURES APPENDECTOMY PROCEDURE: [place] APPENDECTOMY BLADDER SUSPENSION PROCEDURE: HISTORICAL BLADDER SUSPENSION; COMMENT: with mesh? 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 Salmon [phone] - Stable Depression DX:Depression Fibromyalgia DX:Fibromyalgia Scoliosis [...] 5 season) 2025 Influenza Vaccine (#1) 2025 RSV Immunization Adult Patie nts (1 - 1-dose 75+ series) 10/07/2051 HIB [...] age to complete this topic Care Teams Jumpbasting Lining Baster Relationship Specialty Start Date End Date Celestina Mcgarry MD [address] [place] [address] , [address] [facility]ician [facility] D/B/A: [facility] TRAY Batista PCP - General Internal Medicine 09/21/19
== END 2025-03-20 13:45 | disposition home or self-care (01) ==
LOC: HO.MAMMO 13:44
PROVIDERS: PCP Internal Medicine; Visit Provider Internal Medicine
DX: N64.89 Other specified disorders of breast (principal)
CPT/HCPCS: 76642; 77061; 77065

== ENCOUNTER → 2025-03-20 14:30 | Outpatient (BNV) | payer OTHER, SELFPAY | PROVIDERS: PCP Internal Medicine; Visit Provider Internal Medicine | DX: R92.8 Other abnormal and inconclusive findings on diagnostic imaging of breast (principal) | CPT/HCPCS: 76642; 77061; 77065 ==

== ENCOUNTER 2025-03-26 08:19 | Outpatient (AMB) | payer OTHER, SELFPAY ==
--- NOTE | 2025-03-26 08:21 | MHC.OFFVIS ---
Vital Signs 03/26/25 08:31 Height 5 ft 6 in Weight 161 lb BMI 26.0 BP 119/73 Blood Pressure Location Rt brachial Position Sitting Pulse 71 Intake Visit Reasons: Stereo Bx Rt breast asymmetry Intake Note: Patient is seen in office for stereo biopsy CONSULT right breast for assymetry upper middle. Pt c/o: mild tenderness. Does not feel lumps, bumps on breasts. Stopped breast feeding 5yr old son 4mo ago. Recent weight gain since IUD insertion. Bx Sched:03/28/25 @ 8am Retail Pos Specialist Required: Yes Information Interpreted: clinical only (Cnidy GARCIA) Accompanied by: Self / Same As Patient Allergies tramadol (TRAMADOL) Allergy (Intermediate, Verified 03/26/25 08:29) NAUSEA & VOMITING Medication List - Last Reconciled 03/26/25 by Raul Meadows MD buspirone 15 mg PO cholecalciferol (vitamin D3) 25 mcg PO DAILY 90 days cyclobenzaprine 5 mg PO TID PRN divalproex 500 mg PO BID escitalopram oxalate 10 mg PO DAILY fluticasone propionate 50 mcg/actuation (Allergy Relief (fluticasone)) 2 sprays intranasal DAILY ibuprofen 600 mg PO Q8H PRN loratadine (Allergy Relief (loratadine)) 10 mg PO DAILY 90 days naproxen 500 mg PO BID PRN 30 days oxybutynin chloride ER 10 mg PO DAILY 30 days riboflavin (vitamin B2) 400 mg PO DAILY 30 days sumatriptan succinate 50 - 100 mg orally at onset of headache, may repeat in 2 hrs PRN; max 2 tabs per day or 4 tabs/week (may take with Ibuprofen) 30 days zolpidem 10 mg PO BEDTIME HPI Comments Details: 49-year-old female patient presenting for evaluation of a abnormal mammogram. Screening mammogram performed on 03/08/2025 with follow-up images and ultrasound performed on 03/20/2025 revealed a right breast asymmetry in the superior breast posterior depth noted on MLO view and persisting on additional imaging felt to be possible architectural distortion. Targeted ultrasound on the same day revealed a hypoechoic oval circumscribed solid mass versus complicated cyst at the 10 o'clock position 7 cm from the nipple measuring 8 x 5 x 6 mm and also a probable complicated cyst versus solid mass at the 1 o'clock position, 4 cm from the nipple measuring 5 x 7 x 5 mm. The asymmetry was felt to be suspicious for malignancy and stereotactic guided core biopsy was recommended. The solid verses cystic lesions noted on ultrasound were felt to be low suspicion and six-month follow-up ultrasound recommended. Also recommended was breast MRI due to the dense breast tissue. Patient is scheduled for a stereotactic guided core biopsy at the [facility] on 03/28/2025. She reports a prior history of a left breast biopsy which was determined to be a cyst. She denies a personal history of breast cancer or ovarian cancer. She does have a maternal aunt with a history of ovarian cancer as well as a paternal aunt possibly with breast cancer. She reached menarche at 10, is 4 para 4. First child was born at the age of 19. She reports having heavy periods therefore underwent IUD placement. Her last cycle was one-month ago. She denies any breast symptoms at this time. [facility] Medical History Chest pain Pituitary macroadenoma Blurry vision Chronic fatigue 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 present on magnetic resonance imaging Hx of sinusitis History of snoring Insomnia Fibromyalgia Panic attacks Bipolar depression Renal calculi Abdominal pain Rathke's cleft cyst Abnormal urine odor Surgical History History of pubovaginal sling Hx of mammogram History of left salpingo-oophorectomy Hx of umbilical hernia repair History of esophagogastroduodenoscopy (EGD) History of appendectomy History of Family History Father Hyperlipidemia HTN (hypertension) Mother Healthy female Maternal Aunt Ovarian cancer Other Arthritis Social History Household Members: Children Housing: Apartment Alcohol intake: never Patient Tobacco Use Status: Former Tobacco user Tobacco use type: Cigarette e-Cigarette/Vaping Use: Never Used Second Hand Smoke Exposure: No service: No Current occupational status: unemployed Current occupational exposures/hazards: No Sexual orientation: Straight/Heterosexual Gender identity: Female Cognitive needs: No Hearing needs: No Vision needs: Yes Female Reproductive History Menstrual Age of Menarche: 13 Review of Systems Const All systems reviewed & are unremarkable except as noted in HPI and below Physical Exam Const General: cooperative and no acute distress Nutritional Appearance: well nourished Orientation/consciousness: patient oriented x3 Limitations: no limitations HEENT Head: Yes normocephalic and Yes atraumatic Ears: hearing grossly normal bilaterally Chest Other: Left breast: No skin change, no nipple retraction, no nipple discharge, no palpable mass, no enlarged lymph nodes. Right breast: No skin change, no nipple retraction, no nipple discharge, no palpable mass, no enlarged lymph nodes Resp Effort & Inspection: normal respiratory effort, no audible wheezes, no cough and no respiratory distress Cardio Jugular venous distension: no JVD GI Inspection: Yes normal to inspection Skin Other: Warm, dry, no rash Neuro General: patient oriented x3 Extrem General: Yes no clubbing, cyanosis or edema Assessment & Plan Assessment & Plan (1) Abnormal mammogram of right breast: Code(s): R92.8 - Other abnormal and inconclusive findings on diagnostic imaging of breast Category: Medical (2) Extremely dense tissue of left breast on mammography: Code(s): R92.342 - Mammographic extreme density, left breast Category: Medical (3) Abnormal ultrasound of breast: Code(s): R92.8 - Other abnormal and inconclusive findings on diagnostic imaging of breast Category: Medical Plan 41-year-old female patient presenting with a recent screening mammogram with subsequent follow-up images and ultrasound which revealed an area of asymmetry in the superior posterior depth noted on MLO view. She is scheduled for a stereotactic guided core biopsy of the right breast at the [facility] on 03/28/2025. She also has 2 solid versus cystic findings in the right breast at the 01:00 and 10 o'clock position felt to be low suspicion for malignancy for which six-month follow-up ultrasound is recommended. I discussed obtaining a breast MRI because of her dense breast tissue and she wishes to proceed with this as well. She will follow up in approximately 1 week to review the pathology results and discuss treatment options. She is welcome to call sooner for any new concerns. Orders: Orders MR breast BI wo/w con Today R92.342 - Mammographic extreme density, left breast, R92.8 - Other abnormal and inconclusive findings on diagnostic imaging of breast US breast RT limited 6 Months R92.342 - Mammographic extreme density, left breast, R92.8 - Other abnormal and inconclusive findings on diagnostic imaging of breast MM stereotactic biopsy RT 03/28/25 R92.8 - Other abnormal and inconclusive findings on diagnostic imaging of breast Coding Level of Care Code New Pt Level 4 (68923) Diagnoses Abnormal mammogram of right breast R92.8 Extremely dense tissue of left breast on mammography R92.342 Abnormal ultrasound of breast R92.8
[2025-03-26 08:31] VITALS: BP 119/73; PULSE 71; BMI 26.0
--- OUTSIDE RECORDS SUMMARY | 2025-03-26 08:41 | XMS_ITS | Clinical Summary ---
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 Salmon [phone] - Stable Depression DX:Depression Fibromyalgia DX:Fibromyalgia Scoliosis [...] age to complete this topic Care Teams Incident Response Specialist Relationship Specialty Start Date End Date Celestina Mcgarry MD [address] [place] [address] , [address] [facility] D/B/A: [facility] TRAY Batista PCP - General Internal Medicine 09/21/19
--- OUTSIDE RECORDS SUMMARY | 2025-03-26 08:41 | XMS_ITS | Clinical Summary ---
Author Organization [facility] Address [address] [facility] [address] [place] [address] Phone Care Team Providers Care Warehouse Checker Name Role Phone Celestina Alstno MD Primary Care Provid er Allergies Active [...] this topic Medical Devices Implanted Type Area Deliver Driver Device Identifier Shelf Expiration Date Model / Serial / Lot Mesh Bladder [place] [address] [place] [address] [place] [address] [place] [address] [place] [address] [place] [address] [place] [address] [place] [address] [place] [address] [place] [address] [place] [address] [employer] Care Teams Warehouse Checker Relationship Specialty Start Date End Date Celestina Alston MD [address] [place] [address] PCP - General 01/31/15 Additional Source Comments The information contained in this document represents components of the legal health record. It is not the complete legal health record.[facility]
--- OUTSIDE RECORDS SUMMARY | 2025-03-26 08:41 | XMS_ITS | Encounter Summary ---
Author Organization [facility] Address [address] [place] [phone] Phone Care Team Providers Care Macadam Raker Name Role Phone Celestina Alston MD Primary Care Provid er Encounter Details Date Type Department Care Team (Late st Contact Info) Description 03/04/2022 Procedure Pass [facility] [address] [place] [address] [place] [address] Social History Tobacco Use Types Packs/Day Years [...] on filedocumented in this encounter Care Teams Macadam Raker Relationship Specialty Start Date End Date Celestina Alston MD [address] [place] [address] PCP - General 01/31/15 documented as of this encounter Additional Source Comments The information contained in this document represents components of the legal health record. It is not the complete legal health record.[facility]
--- OUTSIDE RECORDS SUMMARY | 2025-03-26 08:41 | XMS_ITS | Encounter Summary ---
Author Organization [facility] Address [address] [facility] [address] [place] [phone] Phone Care Team Providers Care Criminal Justice Professor Name Role Phone Celestina Alston MD Primary Care Provid er Encounter Details Date Type Department Care Team (Late st Contact Info) Description 03/31/2022 Procedure Pass [facility], [place] [address] [facility]th [place] [address] Social History Tobacco Use Types Packs/Day Years [...] 10:44 AM EDT Anabell Benton RN * [place] Suicide Severity Rating Scale (Screener/Recent Self-Report) Question [...] on filedocumented in this encounter Care Teams Criminal Justice Professor Relationship Specialty Start Date End Date Celestina Alston MD [address] [place] [address] PCP - General 01/31/15 documented as of this encounter Additional Source Comments The information contained in this document represents components of the legal health record. It is not the complete legal health record.[facility]
--- OUTSIDE RECORDS SUMMARY | 2025-03-26 08:41 | XMS_ITS | Encounter Summary ---
Author Organization [facility] Address [address] [place] [address] Phone Care Team Providers Care Locomotive Engineer Diesel Name Role Phone Celestina Alston MD Primary Care Provid er Encounter Details Date Type Department Care Team (Late st Contact Info) Description 03/29/2022 Ancillary Orders [facility] Neurosurgery [address] [facility], 3rd Floor, [address] [place] [address] Shelli Monroe MD [address] [facility] [address] [place] [address] [email or web address] Pituitary tumor Social History Tobacco [...] 10:44 AM ANASTASIAT Anabell Benton RN * [place] Suicide Severity Rating Scale (Screener/Recent Self-Report) Question [...] system documented in this encounter Care Teams Locomotive Engineer Diesel Relationship Specialty Start Date End Date Celestina Alston MD [address] [place] [address] PCP - General 01/31/15 documented as of this encounter Additional Source Comments The information contained in this document represents components of the legal health record. It is not the complete legal health record.[facility]
--- OUTSIDE RECORDS SUMMARY | 2025-03-26 08:41 | XMS_ITS | Clinical Summary ---
Author Organization [employer] Address [address] [facility] [address] [place] [address] Care Team Providers Care Downstream Biomanufacturing Technician Name Role Phone Unavailable Primary Care Provider [...] patient's age to complete this topic Insurance [facility]
--- OUTSIDE RECORDS SUMMARY | 2025-03-26 08:41 | XMS_ITS | Encounter Summary ---
Author Organization [facility] Address [address] [facility] [address] [place] [address] Phone Care Team Providers Care Scruff Worker Name Role Phone Celestina Alston MD Primary Care Provid er Encounter Details Date Type Department Care Team (Late st Contact Info) Description 03/31/2022 Procedure Pass [facility], [address] [address] Social History Tobacco Use Types Packs/Day Years [...] 10:44 AM EDT Anabell Benton RN * [place] Suicide Severity Rating Scale (Screener/Recent Self-Report) Question [...] on filedocumented in this encounter Care Teams Scruff Worker Relationship Specialty Start Date End Date Celestina Alston MD [address] [place] [address] PCP - General 01/31/15 documented as of this encounter Additional Source Comments The information contained in this document represents components of the legal health record. It is not the complete legal health record.[facility]
--- OUTSIDE RECORDS SUMMARY | 2025-03-26 08:41 | XMS_ITS | Encounter Summary ---
Author Organization [facility] Address [address] [facility] [address] [place] [phone] Phone Care Team Providers Care Multimedia Journalist Name Role Phone Celestina Alston MD Primary Care Provid er Encounter Details Date Type Department Care Team (Late st Contact Info) Description 03/31/2022 Procedure Pass [facility] PERIOPERATIVE DEPT [address] [place] [id number] Social History Tobacco Use Types Packs/Day Years [...] 10:44 AM EDT Anabell Benton RN * [place] Suicide Severity Rating Scale (Screener/Recent Self-Report) Question [...] on filedocumented in this encounter Care Teams Multimedia Journalist Relationship Specialty Start Date End Date Celestina Alston MD [address] [place] [address] PCP - General 01/31/15 documented as of this encounter Additional Source Comments The information contained in this document represents components of the legal health record. It is not the complete legal health record.[facility]
== END 2025-03-26 08:49 | disposition home or self-care (01) ==
LOC: HO.HGS 08:19
PROVIDERS: PCP Internal Medicine; Visit Provider Surgery
DX: R92.8 Other abnormal and inconclusive findings on diagnostic imaging of breast (principal); R92.342 Mammographic extreme density, left breast
CPT/HCPCS: 99204

== ENCOUNTER 2025-03-26 08:19 | Outpatient (REF) | payer OTHER, SELFPAY ==
--- NOTE | ~2025-03-26 | XR_ITS ---
EXAMINATION: XR LUMBOSACRAL SPINE CLINICAL INFORMATION: M54.50 - Low back pain, unspecified COMPARISON: 12/06/2018. TECHNIQUE: Three views of the lumbosacral spine. FINDINGS: No significant scoliosis. There is a normal lumbar lordosis. There is no subluxation. Alignment is anatomic. There are no fractures, compression deformities, or suspicious bony lesions. There is minimal disc degeneration throughout the lumbar spine. The facets are normally aligned. No significant facet arthrosis is evident. The sacrum is intact. SI joints appear normal. There is an IUD within the central pelvis. Soft tissues appear normal. XR/XR lumbar spine 2-3V IMPRESSION: 1. No acute bony abnormalities of the lumbar spine. 2. Very mild multilevel disc degeneration. Electronically signed by: Bebo Lynch MD 03/26/2025 09:30 AM EDT
[2025-03-26 09:01] LABS: MANUAL DIFF FLAG NO
[2025-03-26 09:34] LABS: Hematocrit 41.2 % (37.0-47.0); Hemoglobin 13.4 g/dl (12.0-16.0); Imm Gran Abs Auto 0.01 X10*3/uL (0.00-0.03); Imm Gran Pct Auto 0.1 % (0.0-0.4); Lymphocytes Absolute Auto 2.0 X10*3/uL (1.2-4.9); Mean Corpuscular HGB Conc 32.5 g/dl (31.0-35.0); Mean Corpuscular Hemoglobin 29.3 pg (27.0-33.0); Mean Corpuscular Volume 90.2 fL (80.0-98.0); NRBC Abs Auto 0.000 X10*3/uL (0.0-0.012); NRBC Pct Auto 0.0 /100WBC (0.0-0.2); Platelet Count 230 X10*3/uL (160-400); Red Blood Count 4.57 X10*6/uL (4.20-5.50); White Blood Count 6.7 X10*3/uL (4.8-10.8)
[2025-03-26 10:16] LABS: Alanine Aminotransferase 70 U/L (0-31); Albumin Level 4.5 g/dL (3.5-5.0); Alkaline Phosphatase 112 U/L (39-117); Anion Gap 10 (12-20); Aspartate Amino Transferase 38 U/L (5-31); Blood Urea Nitrogen 16 mg/dL (9-16); Calcium 9.0 mg/dL (8.4-10.2); Carbon Dioxide 27 mmol/L (22-29); Chloride 110 mmol/L (96-108); Cholesterol 240 mg/dL (<200); Estimated Glomerular Filt Rate > 60; HDL Cholesterol 36 mg/dL (>40); Iron 83 mcg/dL (30-160); Percent Iron Saturation 28 % (15-50); Potassium 4.3 mmol/L (3.3-5.1); Sodium 143 mmol/L (135-145); Total Iron Binding Capacity 301 mcg/dL (228-428); Total Protein 7.0 g/dL (6.5-8.0); Triglycerides 257 mg/dL (<150); Unsaturated Iron Binding 218 ug/dL
[2025-03-26 10:34] LABS: Folate 10.3 ng/mL (> or = 4.0); Vitamin B12 669 pg/mL (200-900)
== END 2025-03-26 08:20 | disposition home or self-care (01) ==
LOC: HO.LAB 08:19
PROVIDERS: Absent Provider Internal Medicine; PCP Internal Medicine; Visit Provider Surgery
DX: R92.8 Other abnormal and inconclusive findings on diagnostic imaging of breast (principal); R92.342 Mammographic extreme density, left breast; E55.9 Vitamin D deficiency, unspecified; E78.5 Hyperlipidemia, unspecified; D64.9 Anemia, unspecified; R07.89 Other chest pain; E53.8 Deficiency of other specified B group vitamins; M54.50 Low back pain, unspecified; Z97.5 Presence of (intrauterine) contraceptive device
CPT/HCPCS: 36415; 72100; 80053; 80061; 82306; 82607; 82746; 83540; 85025; 99202

== ENCOUNTER → 2025-03-26 09:09 | Outpatient (BNV) | payer OTHER, SELFPAY | PROVIDERS: Absent Provider Internal Medicine; PCP Internal Medicine; Visit Provider Radiology Diagnostic Radiology | DX: M54.50 Low back pain, unspecified (principal) | CPT/HCPCS: 72100 ==

== ENCOUNTER 2025-03-28 07:54 | Outpatient (REF) | payer OTHER, SELFPAY ==
--- NOTE | ~2025-03-28 | MM_ITS ---
EXAMINATION: STEREOTACTICALLY-GUIDED RIGHT BREAST BIOPSY canceled CLINICAL INFORMATION: Asymmetry superior right breast on MLO view posterior depth with questioned distortion without sonographic correlate here for stereotactic core needle biopsy. COMPARISON: [facility] on PACS. INFORMED CONSENT: After the details of the procedure, as well as the risks (including, but not limited to, bleeding, hematoma formation, and infection), benefits and alternatives (including doing nothing, short-interval follow up, and surgery) to the procedure were explained to the patient in detail and all of her questions were answered, informed written consent was obtained. TECHNIQUE/FINDINGS: A timeout was performed confirming patients name date of side and site of procedure. After several imaging attempts the lesion intended for biopsy was not identified and could not be targeted. MM/MM stereotactic biopsy RT IMPRESSION: 1. Canceled right breast stereotactic core needle biopsy. The lesion could not be identified or targeted at this time. 2. Recommend six-month follow-up right breast mammogram for further evaluation of the original asymmetry with questioned distortion. 2. 6 month follow-up ultrasound at 1:00 and 10:00 is recommended from prior diagnostic imaging. 3. Patient has dense fibroglandular breast tissue. Breast MRI could be considered for further evaluation. Breast MRI would need to be ordered by the patient's providing clinician. The findings and recommendations were discussed with the patient. Electronically signed by: Rosemary Sosa DO 03/28/2025 02:32 PM EDT
== END 2025-03-28 07:55 | disposition home or self-care (01) ==
LOC: HO.MAMMO 07:54
PROVIDERS: PCP Internal Medicine; Visit Provider Surgery
DX: R92.8 Other abnormal and inconclusive findings on diagnostic imaging of breast (principal)
CPT/HCPCS: 19081

== ENCOUNTER 2025-05-23 14:31 | Outpatient (AMB) | payer OTHER, SELFPAY ==
--- NOTE | 2025-05-23 14:35 | A.OFFVIS_ITS ---
Vital Signs 05/23/25 14:37 Height 5 ft 6 in Weight 158 lb 11.725 oz BMI 25.6 BP 120/68 Blood Pressure Location Lt brachial Position Sitting Pulse 64 Intake Visit Reasons: followup left chest discomfort for 5 days Intake Note: Follow-up c/o left sided chest pain going down her arm x5 days with ekg Microsoft Access Developer Name: saleem Navarro Allergies tramadol (TRAMADOL) Allergy (Intermediate, Verified 03/26/25 08:29) NAUSEA & VOMITING Medication List - Last Reconciled 05/23/25 by CATHERINE CarlosC buspirone 15 mg PO cholecalciferol (vitamin D3) 25 mcg PO DAILY 90 days cyclobenzaprine 5 mg PO TID PRN escitalopram oxalate 10 mg PO DAILY fluticasone propionate 50 mcg/actuation (Allergy Relief (fluticasone)) 2 sprays intranasal DAILY ibuprofen 600 mg PO Q8H PRN loratadine (Allergy Relief (loratadine)) 10 mg PO DAILY 90 days naproxen 500 mg PO BID PRN 30 days oxybutynin chloride ER 10 mg PO DAILY 30 days riboflavin (vitamin B2) 400 mg PO DAILY 30 days sumatriptan succinate 50 - 100 mg orally at onset of headache, may repeat in 2 hrs PRN; max 2 tabs per day or 4 tabs/week (may take with Ibuprofen) 30 days zolpidem 10 mg PO BEDTIME HPI HPI followup left chest discomfort for 5 days: Details: Marta is a 49-year-old female with past medical history of fibromyalgia, chronic migraine, anxiety, hyperlipidemia, who presents with a report of chest discomfort. Today she reports that she has been getting discomfort in her left lateral chest and into her left arm that occurs randomly, comes and goes in recent weeks. She says it is not muscular in the area is not sore to palpation. She has no pain with mobility of her left arm. She states at times she notices some discomfort with deep inspiration. Her symptom is not brought on by physical exertion. She has ongoing issues with chronic migraines. She is is mostly doing light activities. At times she will feel her heart going fast, no lightheadedness, presyncope, syncope. No concerning shortness of breath. Certified consultant intern used. 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 present on magnetic resonance imaging Hx of sinusitis History of snoring Insomnia Fibromyalgia Panic attacks Bipolar depression Renal calculi Abdominal pain Rathke's cleft cyst Abnormal urine odor Surgical History History of pubovaginal sling Hx of mammogram History of left salpingo-oophorectomy Hx of umbilical hernia repair History of esophagogastroduodenoscopy (EGD) History of appendectomy History of Family History Father Hyperlipidemia HTN (hypertension) Mother Healthy female Maternal Aunt Ovarian cancer Other Arthritis Social History Household Members: Children Housing: Apartment Alcohol intake: never Patient Tobacco Use Status: Former Tobacco user Tobacco use type: Cigarette e-Cigarette/Vaping Use: Never Used Second Hand Smoke Exposure: No service: No Current occupational status: unemployed Current occupational exposures/hazards: No Sexual orientation: Straight/Heterosexual Gender identity: Female Cognitive needs: No Hearing needs: No Vision needs: Yes Female Reproductive History Menstrual Age of Menarche: 13 Review of Systems Const Details: migraine headache All systems reviewed & are unremarkable except as noted in HPI and below Denies chills, Denies fatigue, Denies fever(s), Denies frequent falls, Denies weakness, Denies weight gain and Denies weight loss ENT Denies dizziness Card Reports chest pain, Reports chest pain at rest, Denies leg edema, Denies lightheadedness, Denies palpitations, Denies dyspnea, Denies dyspnea on exertion, Denies orthopnea and Denies other (loss of consciousness) Resp Denies cough, Denies dyspnea and Denies dyspnea on exertion GI Denies hematochezia and Denies change in stool character Musc Denies abnormal gait, Denies muscle weakness, Denies numbness, Denies radiating pain into limb and Denies tingling Neuro Denies abnormal gait, Denies dizziness, Denies frequent falls, Denies numbness, Denies tingling and Denies weakness Endo Denies fatigue and Denies palpitations Physical Exam Vital Signs: Last Vital Signs Pulse 64 12/04/25 14:37 BP 120/68 05/23/25 14:37 BMI result Body Mass Index 25.6 Const Other: reported migraine headache - lights dimmed in room for her comfort General: cooperative, healthy appearing and no acute distress Orientation/consciousness: patient oriented x3 Neck Neck: Yes normal visual inspection Resp Effort & Inspection: normal respiratory effort Auscultation: clear to auscultation bilaterally, no rales, no rhonchi and no wheezes Cardio Rate: regular rate Rhythm: regular rhythm Heart sounds: S1 normal heart sound present, S2 normal heart sound present, no gallops, no murmurs and no rubs Neuro General: patient oriented x3 Extrem General: Yes normal to inspection and No no pedal edema Psych Appearance: grossly normal Mental Status: mental status grossly normal Speech and movement: Normal speech and movement present Office Procedures EKG Details: Today, read by me, sinus rhythm, cant exclude prior anterior infarct, rate 64, Qtc 414ms [id number], Complete Assessment & Plan Assessment & Plan (1) Chest pain: Comment: EKG and recent cardiology testing is reviewed. Code(s): R07.9 - Chest pain, unspecified Category: Medical Qualifiers: Chest pain type: other chest pain Qualified Code(s): R07.89 - Other chest pain Plan: Atypical sounding chest discomfort. She has cardiac risk factors of hyperlipid emia. An echocardiogram was done on 03/12/2024 showing EF 60%, no valve abnormalities or noted regional wall motion abnormalities. A pharmacological nuclear stress test was done on 08/10/2024 showing normal myocardial perfusion imaging. At this time she is reporting discomfort that causes her much concern. She is insistent that is not musculoskeletal. EKG today shows no ischemic findings but due to R-wave progression can not exclude prior anterior infarct. Will check a CTA of the coronaries for further evaluation. Emergency care if needed for symptoms. Cardiology follow-up 3 months, sooner if needed (2) Abnormal finding on EKG: Code(s): R94.31 - Abnormal electrocardiogram [ECG] [EKG] Category: Medical Plan: EKG from today shows SR, cant exclude prior anterior infarct - could be related to lead placement. Plan I informed the patient that her chest discomfort does not sound like typical heart pain and her EKG today is normal. To address her significant concerns, I will order a CTA of the heart arteries to check for blockages. I explained that [facility] will contact her to schedule this scan. I advised her that if her symptoms worsen, she should go to the emergency room for more immediate evaluation. We will schedule a follow-up visit in the office to discuss the results. Orders: Orders CT Cardiac Coronary Angio Today R00.2 - Palpitations, R07.89 - Other chest pain, R94.31 - Abnormal electrocardiogram [ECG] [EKG] Basic Metabolic Panel Today R00.2 - Palpitations, R07.89 - Other chest pain Patient Instructions: - Your chest pain does not seem to be coming from your heart, and your EKG today was normal. - To be certain, a CAT scan of your heart's arteries will be ordered to check for any blockages. The hospital will call you to schedule this appointment. - If your chest pain or any other symptom gets worse, you should go to the emergency room for evaluation. - Please make a follow-up appointment in our office for 3 to 4 months from now. Patient was informed and verbally consented to the use of an ambient scribe for clinic note documentation during this visit. Visit time spent on chart review, interview, assessment, orders, documentation. Coding Level of Care Code Complex visit Add On G2211 Diagnoses Other chest pain R07.89 Chest pain type: other chest pain Abnormal finding on EKG R94.31 CPT Codes EKG - CPT: 34724-[id number], Complete ([id number]) Time Spent (min) 28
[2025-05-23 14:37] VITALS: BP 120/68; PULSE 64; BMI 25.6
--- OUTSIDE RECORDS SUMMARY | 2025-05-23 20:24 | XMS_ITS | Encounter Summary ---
Author Organization [facility] Address [address] [place] [address] Phone Care Team Providers Care Cake Inspector Name Role Phone Celestina Alston MD Primary Care Provid er Encounter Details Date Type Department Care Team ([facility] st Contact Info) Description 03/31/2022 Procedure Pass [facility] [address] [place] [id number] Social History Tobacco Use Types Packs/Day Years [...] 10:44 AM EDT Anabell Benton RN * [place] Suicide Severity Rating Scale (Screener/Recent Self-Report) Question [...] on filedocumented in this encounter Care Teams Cake Inspector Relationship Specialty Start Date End Date Celestina Alston MD [address] [place] [address] PCP - General 01/31/15 documented as of this encounter Additional Source Comments The information contained in this document represents components of the legal health record. It is not the complete legal health record.[facility]
--- OUTSIDE RECORDS SUMMARY | 2025-05-23 20:24 | XMS_ITS | Clinical Summary ---
Author Organization [facility] Address [address] [place] [phone] Phone Care Team Providers Care Complex Commercial Litigation Paralegal Name Role Phone Celestina Alston MD Primary [...] VACCINE (#1) 2025 COVID-19 VACCINE (1 - 2024-2 6 season) 2025 Adult Td,Tdap Booster 01/10/2030 01/11/2020 [...] this topic Medical Devices Implanted Type Area Chemist Assistant Device Identifier Shelf Expiration Date Model / Serial / Lot Mesh Bladder [place] [address] [place] [address] [place] [address] [place] [address] [place] [address] [place] [address] [place] [address] [place] [address] [place] [address] [address] [place] [address] [place] [address] [employer] Care Teams Complex Commercial Litigation Paralegal Relationship Specialty Start Date End Date Celestina Alston MD [address] [place] [address] PCP - General 01/31/15 Additional Source Comments The information contained in this document represents components of the legal health record. It is not the complete legal health record.[facility]
--- OUTSIDE RECORDS SUMMARY | 2025-05-23 20:24 | XMS_ITS | Encounter Summary ---
Author Organization [facility] Address [address] [place] [phone] Phone Care Team Providers Care Global Professional Name Role Phone Celestina Alston MD Primary Care Provid er Encounter Details Date Type Department Care Team (Late st Contact Info) Description 03/31/2022 Procedure Pass [facility], [address] [address] Social History Tobacco Use Types Packs/Day Years [...] 10:44 AM EDT Anabell Benton RN * [place] Suicide Severity Rating Scale (Screener/Recent Self-Report) Question [...] on filedocumented in this encounter Care Teams Global Professional Relationship Specialty Start Date End Date Celestina Alston MD [address] [place] [address] PCP - General 01/31/15 documented as of this encounter Additional Source Comments The information contained in this document represents components of the legal health record. It is not the complete legal health record.[facility]
--- OUTSIDE RECORDS SUMMARY | 2025-05-23 20:24 | XMS_ITS | Encounter Summary ---
Author Organization [facility] Address [address] [address] [place] [phone] Phone Care Team Providers Care Fur Coat Sewer Name Role Phone Celestina Alston MD Primary Care Provid er Encounter Details Date Type Department Care Team (Late st Contact Info) Description 03/31/2022 Procedure Pass [facility] [place] [facility], [place] [address] [facility]th [place] [address] Social History Tobacco Use Types Packs/Day Years [...] 10:44 AM EDT Anabell Benton RN * [place] Suicide Severity Rating Scale (Screener/Recent Self-Report) Question [...] on filedocumented in this encounter Care Teams Fur Coat Sewer Relationship Specialty Start Date End Date Celestina Alston MD [address] [place] [address] PCP - General 01/31/15 documented as of this encounter Additional Source Comments The information contained in this document represents components of the legal health record. It is not the complete legal health record.[facility]
--- OUTSIDE RECORDS SUMMARY | 2025-05-23 20:24 | XMS_ITS | Clinical Summary ---
Author Organization [employer] Address [address] [facility] [address] [place] [address] Care Team Providers Care Tomography Technologist Name Role Phone Unavailable Primary Care Provider [...] 2006 Mammogram 2016 COVID-19 Vaccine (1 - 2024-2 6 season) 2025 Influenza Vaccine (#1) 2025 Zoster [...] patient's age to complete this topic Insurance [facility]
--- OUTSIDE RECORDS SUMMARY | 2025-05-23 20:24 | XMS_ITS | Encounter Summary ---
Author Organization [facility] Address [address] [place] [address] Phone Care Team Providers Care Marriage Therapist Name Role Phone Celestina Alston MD Primary Care Provid er Encounter Details Date Type Department Care Team (Late st Contact Info) Description 03/04/2022 Procedure Pass [facility] [place] [address] [place] [address] Social History Tobacco Use Types Packs/Day Years [...] on filedocumented in this encounter Care Teams Marriage Therapist Relationship Specialty Start Date End Date Celestina Alston MD [address] [place] [address] PCP - General 01/31/15 documented as of this encounter Additional Source Comments The information contained in this document represents components of the legal health record. It is not the complete legal health record.[facility]
--- OUTSIDE RECORDS SUMMARY | 2025-05-23 20:25 | XMS_ITS | Encounter Summary ---
Author Organization [facility] Address [address] [place] [address] Phone Care Team Providers Care Gliding Pilot Instructor Name Role Phone Celestina Alston MD Primary Care Provid er Encounter Details Date Type Department Care Team (Late st Contact Info) Description 03/29/2022 Ancillary Orders [facility] [place] [facility] [address] 3rd [address], [address] [place] [address] Shelli Monroe MD [address] [facility] [address] [place] [address] [email or web address] Pituitary tumor Social History Tobacco Use [...] 10:44 AM ANASTASIAT Anabell Benton RN * [place] Suicide Severity Rating Scale (Screener/Recent Self-Report) Question [...] system documented in this encounter Care Teams Gliding Pilot Instructor Relationship Specialty Start Date End Date Celestina Alston MD [address] [place] [address] PCP - General 01/31/15 documented as of this encounter Additional Source Comments The information contained in this document represents components of the legal health record. It is not the complete legal health record.[facility]
== END 2025-05-23 15:26 | disposition home or self-care (01) ==
LOC: HO.HCS 14:32
PROVIDERS: PCP Internal Medicine; Visit Provider Nurse Practitioner Family
DX: R07.89 Other chest pain (principal); R94.31 Abnormal electrocardiogram [ECG] [EKG]
CPT/HCPCS: 93010; 99214

== ENCOUNTER → 2025-05-23 14:31 | Outpatient (BNVA) | payer OTHER, SELFPAY | PROVIDERS: PCP Internal Medicine; Visit Provider Nurse Practitioner Family | DX: R07.89 Other chest pain (principal); R94.31 Abnormal electrocardiogram [ECG] [EKG] | CPT/HCPCS: 93005; 99212 ==